=== PATIENT | female | born 2000 | race Caucasian/White ===

== ENCOUNTER 2023-07-28 08:21 | Outpatient (OUT) | payer OTHER, SELFPAY ==
[2023-07-28 08:48] LABS: Basophils Absolute Auto 0.1 10^3/uL (0.0-0.1); Basophils Percent Auto 0.5 % (0.2-2.0); Eosinophils Absolute Auto 0.2 10^3/uL (0.0-0.7); Eosinophils Percent Auto 1.8 % (0.9-7.0); Hematocrit 39.4 % (36.0-48.0); Hemoglobin 12.9 g/dL (12.0-16.0); Immature Granulocytes Abs Auto 0.04 10^3/uL (0.00-0.03); Immature Granulocytes Pct Auto 0.4 % (0.0-0.5); Lymphocytes Absolute Auto 3.1 10^3/uL (1.2-3.8); Lymphocytes Percent Auto 34.4 % (20.5-60.0); Mean Corpuscular HGB Conc 32.7 g/dL (29.9-35.2); Mean Corpuscular Hemoglobin 29.2 pg (26.7-34.0); Mean Corpuscular Volume 89.1 fL (81.0-99.0); Mean Platelet Volume 10.4 fL (9.5-13.5); Monocytes Absolute Auto 0.6 10^3/uL (0.3-0.8); Monocytes Percent Auto 6.4 % (1.7-12.0); Neutrophils Absolute Auto 5.2 10^3/uL (1.4-6.5); Neutrophils Percent Auto 56.5 % (43.0-75.0); Platelet Count 247 10^3/uL (150-450); Red Blood Count 4.42 10^6/uL (4.20-5.40); Red Cell Distribution Width 13.6 % (11.0-15.0); White Blood Count 9.1 10^3/uL (4.0-11.0)
[2023-07-28 09:01] LABS: Estimated Average Glucose 137 mg/dL; Glycohemoglobin A1C 6.4 % (4.5-6.2)
[2023-07-28 09:26] LABS: Alanine Aminotransferase 39 U/L (14-59); Albumin Level 4.1 g/dL (3.4-5.0); Alkaline Phosphatase 37 U/L (46-116); Anion Gap 16.1; Aspartate Amino Transferase 25 U/L (15-37); BUN Creatinine Ratio 23.6; Bilirubin Direct 0.1 mg/dL (0.0-0.2); Bilirubin Total 0.7 mg/dL (0.2-1.0); Calcium 9.4 mg/dL (8.5-10.1); Carbon Dioxide 24.2 mmol/L (21.0-32.0); Chloride 99 mmol/L (98-107); Chol HDL Ratio 9.2; Cholesterol 293 mg/dL (<=200); Estimated GFR (African America >60 (>=60); Estimated GFR (Non-African Ame >60 (>=60); Globulin 4.2 g/dL; Glucose 131 mg/dL (74-106); HDL Cholesterol 32 mg/dL (40-60); Potassium 4.3 mmol/L (3.5-5.1); Sodium 135 mmol/L (136-145); Thyroid Stimulating Hormone 3.481 uIU/mL (0.358-3.740); Total Protein 8.3 g/dL (6.4-8.2); Triglycerides 455 mg/dL (<=150)
[2023-07-28 09:52] LABS: LDL Cholesterol Direct 187 mg/dL
[2023-07-28 10:14] LABS: Free T4 0.82 ng/dL (0.76-1.46)
[2023-07-28 10:46] LABS: Bilirubin Urine NEGATIVE (NEGATIVE); Blood Urine NEGATIVE (NEGATIVE); Clarity Urine CLEAR (CLEAR); Color Urine LT. YELLOW (YELLOW); Glucose Urine UA 500 mg/dL (NEGATIVE); Ketones Urine NEGATIVE (NEGATIVE); Leukocyte Esterase Urine NEGATIVE (NEGATIVE); Nitrite Urine NEGATIVE (NEGATIVE); Protein Urine NEGATIVE (NEG/TRACE); Specific Gravity Urine 1.015 (1.005-1.025); Urobilinogen Urine 0.2 EU/dL (0.2-1.0); pH Urine 5.5 (5.0-9.0)
[2023-07-28 11:03] LABS: Microalbumin Urine Random <1.3 mg/dL (<=30.0)
[2023-07-28 11:27] LABS: Urine Microscopic Indicated NO
== END 2023-07-28 08:22 | disposition home or self-care (01) ==
PROVIDERS: PCP Nurse Practitioner; Visit Provider Nurse Practitioner
DX: E11.9 Type 2 diabetes mellitus without complications (principal); K21.9 Gastro-esophageal reflux disease without esophagitis; F41.1 Generalized anxiety disorder
CPT/HCPCS: 36415; 80053; 80061; 81003; 82043; 82248; 83036; 83721; 84439; 84443; 85025

== ENCOUNTER 2023-11-10 11:15 | Outpatient (OUT) | payer OTHER, SELFPAY ==
[2023-11-10 11:50] LABS: Alanine Aminotransferase 52 U/L (14-59); Aspartate Amino Transferase 22 U/L (15-37); Chol HDL Ratio 6.6; Cholesterol 210 mg/dL (<=200); HDL Cholesterol 32 mg/dL (40-60); Triglycerides 405 mg/dL (<=150)
[2023-11-10 12:05] LABS: LDL Cholesterol Direct 114 mg/dL
== END 2023-11-10 11:16 | disposition home or self-care (01) ==
LOC: LAB 11:16
PROVIDERS: PCP Nurse Practitioner; Visit Provider Nurse Practitioner
DX: E78.5 Hyperlipidemia, unspecified (principal)
CPT/HCPCS: 36415; 80061; 83721; 84450; 84460

== ENCOUNTER 2024-01-12 10:58 | Outpatient (OUT) | payer OTHER, SELFPAY ==
--- OUTSIDE RECORDS SUMMARY | 2024-01-12 11:02 | XMS_ITS | CCD ---
Author Organization [facility] Care Team Providers Care Brass Bobbin Winder Name Role Phone Demarco Cabral Attending Unavailable Demarco Cabral Attending Unavailable MARYAM, MAURY Admitting Unavailable MARYAM, MAURY Attending Unavailable RASHAWN, DR MIKALA Prasad Primary Care Unavailable TREVOR, DR ANGIE Obregon Consulting Unavailable MARYAM, MAURY Consulting Unavailable MARYAM, MAURY Admitting Unavailable MARYAM, MAURY Attending Unavailable LAMB, DR MIKALA Prasad Primary Care Unavailable TREVOR, DR ANGIE Obregon Consulting Unavailable MARYAM, MAURY Consulting Unavailable MARYAM, MAURY Admitting Unavailable MARYAM, MAURY Attending Unavailable RASHAWN, DR MIKALA Prasad Primary Care Unavailable TREVOR, DR ANGIE Obregon Consulting Unavailable MARYAM, MAURY Consulting Unavailable ZARIAANDER, KALEY Admitting Unavailable ELLIOTT, KALEY Attending Unavailable RASHAWN, DR MIKALA Prasad Primary Care Unavailable [place], DR LANCE Millard Consulting Unavailable ELLIOTT, KALEY Consulting Unavailable RASHAWN, DR MIAKLA Prasad Primary Care Unavailable HIGHLANDER, KALEY Admitting Unavailable HIGHLANDER, KALEY Attending Unavailable TREVOR, DR ANGIE Obregon Consulting Unavailable HIGHLANDER, KALEY Consulting Unavailable MARYAM, MAURY Admitting Unavailable MARYAM, MAURY Attending Unavailable RASHAWN, DR MIKALA Prasad Primary Care Unavailable TREVOR, DR ANGIE Obregon Consulting Unavailable MARYAM, MAURY Consulting Unavailable MD Mikala Lamb Primary Care Provider [phone] GARRETT Hagen Emergency Provider Mikala Lamb Unavailable Carlton Hagen Attending Unavailable Carlton Hagen Admitting Unavailable Mikala Lamb Primary Care Unavailable Allergies Allergy Classification Reported Allergen(s) Allergy Type Date of Onset Reaction(s) Facility (1 source) patient allergy list reviewed by nurse or physicia Propensity to adverse reactions 7 Comment:Done [employer] Other (1 source) Allergies Reconciled Propensity to adverse reactions Unknown [employer] Other Medications Current Medications Medication Drug Class(es) Dates Sig (Normalized) Sig (Original) escitalopram 10 mg oral tablet (4 sources) Serotonin Reuptake Inhibitor Start: 02-21-2023 take 1 tablet by mouth once daily Escitalopram Oxalate (Lexapro) 10 mg Tablet Active 10 MG PO Daily February 21, 2023 12:00am metFORMIN hydrochloride 1000 mg oral tablet (4 sources) Biguanide Start: 02-21-2023 take 1000 mg by mouth twice daily Metformin Active 1000 MG PO Twice daily February 21, 2023 12:00am tiZANidine 4 mg oral tablet (2 sources) Central alpha-2 Adrenergic Agonist take 1 tablet by mouth every eight hours tiZANidine HCl 4 MG 1 tablet as needed Orally Three times a day for 10 days Active Completed/Discontinued Medications Medication Drug Class(es) Dates Sig (Normalized) Sig (Original) azithromycin 250 mg oral tablet (3 sources) Macrolide Antimicrobial Start: 11-09-2022 Azithromycin 250 MG as directed Orally 2 tabs po today, then 1 tab daily x 4 more days for 5 Oct, Not-Taking ciprofloxacin 3 mg/ml ophthalmic solution (3 sources) Quinolone Antimicrobial Start: 11-09-2022 Ciprofloxacin HCl 0.3 % 1 application into the lower eyelid of affected eye Ophthalmic tid for 5 day(s) Oct, Not-Taking Problems Active Problems Problem Classification Problem Date Documented Da te Episodic/Chronic Acquired foot deformities (4 sources) Disorder of ankle; Translations: [Valgus deformity, not elsewhere classified, right ankle] Episodic Anxiety disorders (5 sources) Anxiety; Translations: [Anxiety disorder, unspecified] 02-21-2023 Chronic Diabetes mellitus without complication (1 source) Type 2 diabetes mellitus without complication; Translations: [Diabetes mellitus without mention of complication, type II or unspecified type, not stated as uncontrolled] Onset: 03-19-2019 Chronic Fever of unknown origin (1 source) Fever; Translations: [Fever, unspecified] Episodic Malaise and fatigue (2 sources) Fatigue; Translations: [Other fatigue] Onset: 03-13-2019 Episodic Mood disorders (1 source) Moderate recurrent major depression; Translations: [Major depressive disorder, recurrent, moderate] Onset: 10-19-2018 Chronic Other acquired deformities (1 source) Joint contracture of the ankle and/or foot; Translations: [Contracture, right ankle] Chronic Other bone disease and musculoskeletal deformities (1 source) Idiopathic scoliosis AND/OR kyphoscoliosis; Translations: [Scoliosis (and kyphoscoliosis), idiopathic] Onset: 08-21-2016 Chronic Other connective tissue disease (4 sources) Pain in right foot; Translations: [PAIN IN RIGHT FOOT] Onset: 10-06-2021 Episodic Other connective tissue disease (1 source) Tibialis tendinitis; Translations: [Posterior tibial tendinitis, right leg] Episodic Other connective tissue disease (1 source) Pain in right foot; Translations: [Pain in right foot] Episodic Other connective tissue disease (1 source) Tendon contracture; Translations: [Short Achilles tendon (acquired), right ankle] Episodic Other hereditary and degenerative nervous system conditions (1 source) Restless legs; Translations: [Restless legs syndrome [RLS]] Onset: 05-04-2017 Chronic Other inflammatory condition of skin (1 source) Itching of skin; Translations: [Pruritus, unspecified] Episodic Other upper respiratory disease (1 source) Allergic rhinitis; Translations: [Allergic rhinitis, unspecified] Onset: 05-04-2017 Chronic Other upper respiratory infections (1 source) Chronic sinusitis; Translations: [Chronic sinusitis, unspecified] Chronic Other upper respiratory infections (2 sources) Acute maxillary sinusitis, unspecified; Translations: [Acute sinusitis] Episodic Spondylosis; intervertebral disc disorders; other back problems (1 source) Radiculopathy, cervical region Episodic Sprains and strains (1 source) Late effect of sprain AND/OR strain without tendon injury; Translations: [Other sprain of right foot, sequela] Episodic Past or Other Problems Problem Classification Problem Date Documented Date Episodic/Chronic Diabetes mellitus without complication (1 source) Hyperglycemia; Translations: [Hyperglycemia, unspecified] Onset: 03-13-2019 Episodic Mood disorders (1 source) Mood disorders Nonspecific chest pain (3 sources) Atypical chest pain; Translations: [Other chest pain] Onset: 02-21-2023 02-21-2023 Episodic Other acquired deformities (1 source) Acquired deformity of ankle AND/OR foot; Translations: [Other acquired deformity of ankle and foot] Onset: 08-21-2016 Episodic Otitis media and related conditions (1 source) Non-suppurative otitis media; Translations: [Unspecified nonsuppurative otitis media, bilateral] Onset: 07-24-2017 Episodic Results Test Name Value Interpretation Reference Range Facility Activated partial thrombopla stin time (aPTT) in platelet poor plasma by coagulation aOrdered By: Carlton Hagen on 02-21-2023 aPTT Coag (PPP) [Time] 28.7 s 25.1-36.5 [facility] Automated basophil %Ordered By: Carlton Hagen on 02-21-2023 Basophils/100 WBC (Bld) 0.4 % Normal . [facility] Comment on above: Performed By: #### B MP, CK, DDIMER, CBC, PTT, PT, HS TROP #### [address] Automated basophil countOrde red By: Carlton Hagen on 02-21-2023 Basophils (Bld) [#/Vol] 0.0 10*3/uL Normal 0.0-0.2 [facility] Comment on above: Result Comment: PERF ORMED BY: [place] [address] PATHOLOGIST RESIDENT CARE COORDINATOR PAU MENON M.D. Performed By: #### B MP, CK, DDIMER, CBC, PTT, PT, HS TROP #### [address] Automated blood monocyte cou ntOrdered By: Carlton Hagen on 02-21-2023 Monocytes (Bld) [#/Vol] 0.3 10*3/uL Normal 0.0-0.8 [facility] Comment on above: Performed By: #### B MP, CK, DDIMER, CBC, PTT, PT, HS TROP #### [address] Automated eosinophil %Ordere d By: Carlton Hagen on 02-21-2023 Eosinophils/100 WBC (Bld) 0.4 % Normal . [facility] Comment on above: Performed By: #### B MP, CK, DDIMER, CBC, PTT, PT, HS TROP #### [address] Automated eosinophil countOr dered By: Carlton Hagen on 02-21-2023 Eosinophils (Bld) [#/Vol] 0.0 10*3/uL Normal 0.0-0.45 [facility] Comment on above: Performed By: #### B MP, CK, DDIMER, CBC, PTT, PT, HS TROP #### [address] Automated monocyte %Ordered By: Carlton Hagen on 02-21-2023 Monocytes/100 WBC (Bld) 4.4 % Normal . [facility] Comment on above: Performed By: #### B MP, CK, DDIMER, CBC, PTT, PT, HS TROP #### [address] Automated neutrophil %Ordere d By: Carlton Hagen on 02-21-2023 Neutrophils/100 WBC (Bld) 76.0 % Normal . [facility] Comment on above: Performed By: #### B MP, CK, DDIMER, CBC, PTT, PT, HS TROP #### [address] Basic Metabolic Panelon 050 Anion gap [Moles/Vol] 15.3 mmol/L High 6.0-15.0 [facility] Comment on above: Performed By: #### B MP, CK, DDIMER, CBC, PTT, PT, HS TROP #### [address] Calcium [Mass/Vol] 9.3 mg/dL Normal 8.6-10.3 [facility] Comment on above: Performed By: #### B MP, CK, DDIMER, CBC, PTT, PT, HS TROP #### [address] Chloride [Moles/Vol] 102 mmol/L Normal 98-107 [facility] Comment on above: Performed By: #### B MP, CK, DDIMER, CBC, PTT, PT, HS TROP #### [address] [place] [address] [place] CO2 [Moles/Vol] 23.6 mmol/L Normal 21.0-31.0 [facility] Comment on above: Performed By: #### B MP, CK, DDIMER, CBC, PTT, PT, HS TROP #### [facility] [address] Creatinine [Mass/Vol] 0.69 mg/dL Normal 0.60-1.20 [facility] Comment on above: Performed By: #### B MP, CK, DDIMER, CBC, PTT, PT, HS TROP #### [facility] [address] [place] [address] [place] Creatinine Clr Calc Pharmacy 147.50 [facility] Comment on above: Result Comment: PERF ORMED BY: [place] [address] PATHOLOGIST RESIDENT CARE COORDINATOR PAU MENON M.D. Performed By: #### B MP, CK, DDIMER, CBC, PTT, PT, HS TROP #### [facility] [address] GFR/1.73 sq M.predicted MDRD (S/P/Bld) [Vol rate/Area] mL/min/{1.73_m2} [facility] Comment on above: Performed By: #### B MP, CK, DDIMER, CBC, PTT, PT, HS TROP #### [facility] [address] Glucose [Mass/Vol] 145 mg/dL High 70-100 [facility] Comment on above: Result Comment: [place] Glucose Reference Range is dependent on time and content of last meal. Glucose of more than 200 mg/dL in a nonstressed, ambulatory subject supports the diagnosis of Diabetes Mellitus. ADA recommended reference range Performed By: #### B MP, CK, DDIMER, CBC, PTT, PT, HS TROP #### [facility] [address] Potassium [Moles/Vol] 3.9 mmol/L Normal 3.5-5.1 [facility] Comment on above: Performed By: #### B MP, CK, DDIMER, CBC, PTT, PT, HS TROP #### [facility] [address] Sodium [Moles/Vol] 137 mmol/L Normal 136-145 [facility] Comment on above: Performed By: #### B MP, CK, DDIMER, CBC, PTT, PT, HS TROP #### [facility] [address] Urea nitrogen [Mass/Vol] 15 mg/dL Normal 7-25 [facility] Comment on above: Performed By: #### B MP, CK, DDIMER, CBC, PTT, PT, HS TROP #### [facility] [address] Calcium [Mass/volume] in Ser um or PlasmaOrdered By: Carlton Hagen on 02-21-2023 Calcium [Mass/Vol] 9.3 mg/dL 8.6-10.3 [facility] Carbon dioxide, total [Moles /volume] in Serum or PlasmaOrdered By: Carlton Hagen on 02-21-2023 CO2 [Moles/Vol] 23.6 mmol/L 21.0-31.0 [facility] Chloride [Moles/volume] in S jacqueline or PlasmaOrdered By: Carlton Hagen on 02-21-2023 Chloride [Moles/Vol] 102 mmol/L 98-107 [facility] Complete Blood Count Auto Di ffon 02-21-2023 Mean Corpuscular HGB Conc 32.8 g/dL Normal 32.0-35.0 [facility] Comment on above: Performed By: #### B MP, CK, DDIMER, CBC, PTT, PT, HS TROP #### [facility] [address] NRBC% 0.2 /100{WBC} Normal 0-0.5 [facility] Comment on above: Performed By: #### B MP, CK, DDIMER, CBC, PTT, PT, HS TROP #### [facility] [address] [place] [address] [place] Creatine Kinaseon 02-21-2023 CK [Catalytic activity/Vol] 61 U/L Normal 30-223 [facility] Comment on above: Performed By: #### B MP, CK, DDIMER, CBC, PTT, PT, HS TROP #### [facility] [address] [place], [place] [id number] [facility] Creatine kinase [Enzymatic a ctivity/volume] in Serum or PlasmaOrdered By: Carlton Hagen on 02-21-2023 CK [Catalytic activity/Vol] 61 U/L 223 [facility] Creatinine [Mass/volume] in Serum or PlasmaOrdered By: Carlton Hagen on 02-21-2023 Creatinine [Mass/Vol] 0.69 mg/dL 0.60-1.20 [facility] D-Dimer High Sensitivityon 0 02-21-2023 D-Dimer High Sensitivity < 200 Normal 0-243 [facility] Comment on above: Result Comment: The reference range for D-dimer is <243 ng/mL D-dimer units. D-dimer results must be used in conjunction with a clinical pretest probability (PTP) assessment model for deep vein thrombosis (DVT) and pulmonary embolism (PE). Results <230 ng/mL d-dimer units can be used as a negative predictor in patients with low or moderate probability for DVT/PE. Results above the exclusion threshold of 230 ng/ml D-dimer units for DVT/PE may indicate the need for further diagnostic testing. D-Dimer can be increased in hospitalized patients due to co-morbid conditions. PERFORMED BY: [place] [address] PATHOLOGIST RESIDENT CARE COORDINATOR PAU MENON M.D. Performed By: #### B MP, CK, DDIMER, CBC, PTT, PT, HS TROP #### [facility] [address] [place], [place] [id number] [facility] ECG 12 lead ECGon 02-21-2023 ECG 12 lead ECG [facility] [place] [address] [place] [address] Electrocardiograph Report Signed Patient: Jase Loja MR#: [id number] : 2000 Acct:[id number] Age/Sex: 23 / F ADM Date: 02/21/23 Loc: ER Room: Type: [facility] ER Attending Dr: Ordering Provider: Carlton Hagen APRN Date of Service: 02/21/2301/11/914 ECG/ECG 12 lead ECG: Chest Pain Copies to: Test Reason : Blood Pressure : / mmHG Vent. Rate : 116 BPM Atrial Rate : 116 BPM P-R Int : 160 ms QRS Dur : 088 ms QT Int : 326 ms P-R-T Axes : 046 077 021 degrees QTc Int : 453 ms Sinus tachycardia Cannot rule out Anterior infarct , age undetermined Abnormal ECG No previous ECGs available Confirmed by DEMARCO LICONA MD ([id number]) on 02/21/2023 3:27:45 PM Referred By: Electronically Signed By:DEMARCO LICONA MD Transcribed By: MUS Signed By Demarco Licona MD 02/21/23 1527 Normal [facility] Erythrocyte distribution wid th [Ratio] by Automated countOrdered By: Carlton Hagen on 02-21-2023 Erythrocyte distribution width (RBC) [Ratio] 13.6 % Normal 11.9-15.3 [facility] Comment on above: Performed By: #### B MP, CK, DDIMER, CBC, PTT, PT, HS TROP #### [facility] [address] [place] [address] [place] Erythrocytes [#/volume] in B lood by Automated countOrdered By: Carlton Hagen on 02-21-2023 RBC (Bld) [#/Vol] 4.54 10*6/uL Normal 3.60-5.00 [facility] Comment on above: Performed By: #### B MP, CK, DDIMER, CBC, PTT, PT, HS TROP #### [facility] [address] [place] [id number] [place] Glucose [Mass/volume] in Ser um or PlasmaOrdered By: Carlton Hagen on 02-21-2023 Glucose [Mass/Vol] 145 mg/dL 70-100 [facility] Comment on above: ADA recommended refe rence rangeRandom Glucose Reference Range is dependent on time and content of last meal. Glucose of more than 200 mg/dL in a nonstressed, ambulatory subject supports the diagnosis of Diabetes Mellitus. Hematocrit [Volume Fraction] of Blood by Automated countOrdered By: Carlton Hagen on 02-21-2023 Hematocrit (Bld) [Volume fraction] 38.7 % Normal 34.0-46.4 [facility] Comment on above: Performed By: #### B MP, CK, DDIMER, CBC, PTT, PT, HS TROP #### [address] Hemoglobin [Mass/volume] in BloodOrdered By: Carlton Hagen on 02-21-2023 Hemoglobin (Bld) [Mass/Vol] 12.7 g/dL Normal 11.8-15.4 [facility] Comment on above: Performed By: #### B MP, CK, DDIMER, CBC, PTT, PT, HS TROP #### [address] Laboratory - CoagulationOrde red By: Carlton Hagen on 02-21-2023 PT Coag (PPP) [Time] 11.9 s 9.0-12.9 [facility] Leukocytes [#/volume] correc radha for nucleated erythrocytes in Blood by Automated counOrdered By: Carlton Hagen on 02-21-2023 WBC corrected for nucl RBC Auto (Bld) [#/Vol] 7.1 10*3/uL 3.8-11.6 [facility] Leukocytes [#/volume] in Blo od by Automated countOrdered By: Carlton Hagen on 02-21-2023 WBC (Bld) [#/Vol] 7.1 10*3/uL Normal 3.8-11.6 [facility] Comment on above: Performed By: #### B MP, CK, DDIMER, CBC, PTT, PT, HS TROP #### [address] Lymphocytes [#/volume] in Bl ood by Automated countOrdered By: Carlton Hagen on 02-21-2023 Lymphocytes (Bld) [#/Vol] 1.3 10*3/uL Normal 1.00-4.8 [facility] Comment on above: Performed By: #### B MP, CK, DDIMER, CBC, PTT, PT, HS TROP #### [address] Lymphocytes/100 leukocytes i n Blood by Automated countOrdered By: Carlton Hagen on 02-21-2023 Lymphocytes/100 WBC (Bld) 18.8 % Normal . [facility] Comment on above: Performed By: #### B MP, CK, DDIMER, CBC, PTT, PT, HS TROP #### [address] MCH [Entitic mass] by Automa radha countOrdered By: Carlton Hagen on 02-21-2023 MCH (RBC) [Entitic mass] 28.0 pg Normal 24.7-34.3 [facility] Comment on above: Performed By: #### B MP, CK, DDIMER, CBC, PTT, PT, HS TROP #### [address] MCHC Auto (RBC) [Mass/Vol]Or dered By: Carlton Hagen on 02-21-2023 MCHC (RBC) [Mass/Vol] 32.8 g/dL 32.0-35.0 [facility] MCV [Entitic volume] by Auto mated countOrdered By: Carlton Hagen on 02-21-2023 MCV (RBC) [Entitic vol] 85.3 fL Normal 80-100 [facility] Comment on above: Performed By: #### B MP, CK, DDIMER, CBC, PTT, PT, HS TROP #### [address] Neutrophils [#/volume] in Bl ood by Automated countOrdered By: Carlton Hagen on 02-21-2023 Neutrophils (Bld) [#/Vol] 5.4 10*3/uL Normal 1.8-7.7 [facility] Comment on above: Performed By: #### B MP, CK, DDIMER, CBC, PTT, PT, HS TROP #### [address] No Panel InformationOrdered By: Carlton Hagen on 02-21-2023 D-Dimer Quantitative (PE/DVT) < 200 ng/mL 0-243 [facility] Comment on above: The reference range for D-dimer is <243 ng/mL D-dimer units.D-dimer results must be used in conjunction with a clinicalpretest probability (PTP) assessment model for deep veinthrombosis (DVT) and pulmonary embolism (PE). Results <230ng/mL d-dimer units can be used as a negative predictor inpatients with low or moderate probability for DVT/PE.Results above the exclusion threshold of 230 ng/ml D-dimerunits for DVT/PE may indicate the need for furtherdiagnostic testing.D-Dimer can be increased in hospitalized patients due toco-morbid conditions. Estimated GFR (CKD-EPI) > 60.0 mL/Min [facility] Creatinine Clearance (Chem 147.50 [facility] Nucleated erythrocytes [Pres ence] in Blood by Automated countOrdered By: Carlton Hagen on 02-21-2023 Nucleated RBC Auto Ql (Bld) 0.2 /100{WBC} 0-0.5 [facility] Partial Thromboplastin Timeo n 02-21-2023 aPTT Coag (Bld) [Time] 28.7 s Normal 25.1-36.5 [facility] Comment on above: Performed By: #### B MP, CK, DDIMER, CBC, PTT, PT, HS TROP #### [facility] [address] Platelet mean volume [Entiti c volume] in Blood by Automated countOrdered By: Carlton Hagen on 02-21-2023 Platelet mean volume (Bld) [Entitic vol] 8.8 fL Normal 6.3-10.7 [facility] Comment on above: Performed By: #### B MP, CK, DDIMER, CBC, PTT, PT, HS TROP #### [facility] [address] Platelet poor plasma interna tional normalized ratio (INR) by coagulation assay (relatOrdered By: Carlton Hagen on 02-21-2023 INR Coag (PPP) [Relative time] 1.0 {INR} [facility] Comment on above: INR Therapeutic Rang e A) Pre- and Peroperative OAT started two weeks before surgery. NOT HIP SURGERY: 1.5 - 2.5 HIP SURGERY: 2 - 3B) Primary and secondary prevention of venous THROMBOSIS: 2 - 3C) Active venous thrombosis, pulmonary embolismand prevention of recurrent venous thrombosis: 2 - 3D) Prevention of arterial thromboembolismincluding patients with mechanical heart valves: 3 - 4.5 Platelets [#/volume] in Bloo d by Automated countOrdered By: Carlton Hagen on 02-21-2023 Platelets (Bld) [#/Vol] 222 10*3/uL Normal 150-450 [facility] Comment on above: Performed By: #### B MP, CK, DDIMER, CBC, PTT, PT, HS TROP #### [facility] [address] Potassium [Moles/volume] in Serum or PlasmaOrdered By: Carlton Hagen on 02-21-2023 Potassium [Moles/Vol] 3.9 mmol/L 3.5-5.1 [facility] Prothrombin Time INRon 02-21 INR Coag (PPP) [Relative time] 1.0 {INR} Normal [facility] Comment on above: Result Comment: INR Therapeutic Range A) Pre- and Peroperative OAT started two weeks before surgery. NOT HIP SURGERY: 1.5 - 2.5 HIP SURGERY: 2 - 3 B) Primary and secondary prevention of venous THROMBOSIS: 2 - 3 C) Active venous thrombosis, pulmonary embolism and prevention of recurrent venous thrombosis: 2 - 3 D) Prevention of arterial thromboembolism including patients with mechanical heart valves: 3 - 4.5 Performed By: #### B MP, CK, DDIMER, CBC, PTT, PT, HS TROP #### [facility] [address] PT Coag (PPP) [Time] 11.9 s Normal 9.0-12.9 [facility] Comment on above: Performed By: #### B MP, CK, DDIMER, CBC, PTT, PT, HS TROP #### [facility] [address] Serum or plasma anion gap de terminationOrdered By: Carlton Hagen on 02-21-2023 Anion gap [Moles/Vol] 15.3 mmol/L 6.0-15.0 [facility] Sodium [Moles/volume] in Ser um or PlasmaOrdered By: Carlton Hagen on 02-21-2023 Sodium [Moles/Vol] 137 mmol/L 136-145 [facility] Troponin I High Sensitivityo n 02-21-2023 Troponin I High Sensitivity 2.6 pg/mL Normal 0.0-15.0 [facility] Comment on above: Result Comment: PERF ORMED BY: [place] [address] PATHOLOGIST RESIDENT CARE COORDINATOR PAU MENON M.D. Performed By: #### B MP, CK, DDIMER, CBC, PTT, PT, HS TROP #### [address] Troponin I.cardiac [Mass/vol ume] in Serum or Plasma by Detection limit <= 0.01 ng/Ordered By: Carlton Hagen on 02-21-2023 Troponin I.cardiac DL <= 0.01 ng/mL [Mass/Vol] 2.6 pg/mL 0.0-15.0 [facility] Urea nitrogen [Mass/volume] in Serum or PlasmaOrdered By: Carlton Hagen on 02-21-2023 Urea nitrogen [Mass/Vol] 15 mg/dL 7-25 [facility] XR chest 2V*on 02-21-2023 XR chest 2V* [place] [address] XRay Report Signed Patient: Jase Loja MR#: [id number] : 2000 Acct:[id number] Age/Sex: 23 / F ADM Date: 02/21/23 Loc: ER Room: Type: [facility] ER Attending Dr: Copies to: Carlton Hagen APRN Ordering Provider: Carlton Hagen APRN Date of Service: 02/21/23 XR/XR chest 2V*: Chest Pain PA AND LATERAL CHEST: CLINICAL HISTORY: Chest pain and pain and tingling at the left arm. Abdominal pain while eating. COMPARISON: None There is no focal parenchymal consolidation, effusion or pneumothorax. The cardiac, hilar and mediastinal silhouettes are within normal limits. There is no vascular congestion. The visualized bony thorax is intact. XR/XR chest 2V* IMPRESSION: NO ACUTE CARDIOPULMONARY ABNORMALITY. Impression dictated by: Francie Lobato M.D.02/21/2023 10:26 AM Dictation Location: [place] [address] Transcribed By: [facility] 02/21/23 1026 Dictated By: Francie Lobato MD 02/21/23 1025 Signed By: 02/21/23 1026 [facility] [place] Vital Signs Date Time Vital Sign Value Performing Clinician Facility 04-10-2023 13:45-0400 Body height 167.64 cm Mikala Lamb Other [employer] Other 04-10-2023 13:45-0400 Body mass index (BMI) [Ratio] 34.38 kg/m2 Mikala Lamb Other [employer] Other 04-10-2023 13:45-0400 Body weight 96.62 kg Mikala Lamb Other [employer] Other 04-10-2023 13:45-0400 Diastolic blood pressure 94 mm[Hg] Mikala Lamb Other [employer] Other 04-10-2023 13:45-0400 Systolic blood pressure 164 mm[Hg] Mikala Lamb Other [employer] Other 02-26-2023 15:30-0400 Body height 167.64 cm Mikala Lamb Other [employer] Other 02-26-2023 15:30-0400 Body mass index (BMI) [Ratio] 33.08 kg/m2 Mikala Lamb Other [employer] Other 02-26-2023 15:30-0400 Body weight 92.99 kg Mikala Lamb Other [facility] [employer] Other 02-26-2023 15:30-0400 Diastolic blood pressure 74 mm[Hg] Mikala Lamb Other [facility] [employer] Other 02-26-2023 15:30-0400 SaO2% (BldA) [Mass fraction] 99 % Mikala Lamb Other [facility] [employer] Other 02-26-2023 15:30-0400 Systolic blood pressure 126 mm[Hg] Mikala Lamb Other [facility] [employer] Other 02-21-2023 10:04-0400 Diastolic blood pressure 100 mm[Hg] MD Mikala Lamb Work Phone: [facility] 02-21-2023 10:04-0400 Heart rate 105 /min MD Mikala Lamb Work Phone: [facility] 02-21-2023 10:04-0400 Respiratory rate 18 /min MD Mikala Lamb Work Phone: [facility] 02-21-2023 10:04-0400 SaO2% (BldA) [Mass fraction] 100 % MD Mikala Lamb Work Phone: [facility] 02-21-2023 10:04-0400 Systolic blood pressure 163 mm[Hg] MD Mikala Lamb Work Phone: [facility] 02-21-2023 09:04-0400 Body height 167.64 cm MD Mikala Lamb Work Phone: [facility] 02-21-2023 09:04-0400 Body temperature 99.3 [degF] MD Mikala Lamb Work Phone: [facility] 02-21-2023 09:04-0400 Body weight 95.25 kg MD Mikala Lamb Work Phone: [facility] Encounters Encounter Date Encounter Type Care Provider Facility Start: 06-18-2023 End: 06-18-2023 ambulatory Mikala Lamb Other [employer] Other Start: 06-18-2023 Telephone encounter Mikala Lamb [facility] Start: 04-10-2023 End: 04-10-2023 ambulatory Mikala Lamb Other [employer] Other Start: 04-10-2023 Office outpatient vi sit 15 minutes Mikala Lamb [facility] Start: 02-26-2023 End: 02-26-2023 ambulatory Mikala Lamb Other [employer] Other Start: 02-26-2023 Office outpatient vi sit 15 minutes Mikala Lamb [facility] Start: 02-21-2023 End: 02-21-2023 Emergency department patient visit Carlton Hagen Facility:[facility] Start: 02-21-2023 End: 02-21-2023 Emergency department patient visit MD Mikala Lamb Work Phone: [facility] Work Phone: Start: 02-22-2022 Adult health examination Mikala Lamb Other [employer] Other Start: 10-06-2021 End: 10-07-2021 ambulatory KALEY LUEVANO Facility:[facility] Start: 06-01-2021 End: 06-02-2021 ambulatory MAURY MARYAM Facility:[facility] Start: 03-02-2021 End: 03-03-2021 ambulatory MAURY MARYAM Facility:[facility] Start: 01-26-2021 End: 01-27-2021 ambulatory MAURY FRANCISCO Facility:[facility] Start: 01-05-2021 End: 01-06-2021 ambulatory MAURY FRANCISCO Facility:[facility] Start: 12-23-2020 End: 12-24-[address] MIKALA LAMB Facility:[facility] Start: 11-05-2018 End: 11-06-2018 Patient encounter procedure Demarco Cesarcaitlyn Facility:CD:[id number] Procedures Date Procedure Procedure Detail Performing Clinician Start: 05-03-2023 Plain chest X-ray MD Miguel Lamb Work Phone: Start: 08-21-2016 Laboratory test resu lt abnormal Mikala Lamb Other Start: 08-21-2016 Pre-surgery evaluation Mikala Lamb Other Viral screening Mikala Lamb Other Plan of Treatment Date Care Activity Detail Author Patient Education Chest Pain Jorge Luis t Is Not Caused by the Heart (DC) Anxiety, Adult (DC) [facility] Work Phone: Patient referral [facility] Work Phone: Payers Date Payer Category Payer Self-pay 2023 Unknown [id number] 2000 Unknown [id number] 2.16.84 [id number] 2000 Unknown [id number] 2.16.84 [id number] 2000 Unknown [id number] 2.16.84 [id number] 2000 Unknown [id number] 2.16.84 [id number] 2000 Unknown [id number] 2.16.84 [id number] 2000 Unknown [id number] 2.16.84 [id number] 1959 Private Health Insurance EB [id number] Unknown [id number] 2.16.8 [id number] Social History Date Type Detail Facility Start: 02-21-2023 Tobacco smoking status NHIS Never smoked tobacco (finding) [facility] Start: 2000 Sex Assigned At Female F [facility] Sex Assigned At Sex Assigned At Bir th [place] [employer] Other Clinical Notes 12-23-2020 to 04-10-2023 Note Date & Type Note Facility 04-10-2023 Evaluation note Encounter Date Diagnosis Assessment Notes Mar, Anxiety disorder, unspecified (ICD-10 - F41.9) Discussed meds and counseling Mar, Depression, unspecified (ICD-10 - F32.A) as above Mar, Musculoskeletal chest pain (ICD-10 - R07.89) suggested chiropractor, PT and muscle relaxers as able [employer] Other 05-08-2023 Evaluation note* Encounter Date Diagnosis Assessment Notes Treatment Notes Treatment Clinical Notes February, Left cervical radiculopathy (ICD-10 - M54.12) Recommended OTC NSAIDS, muscle rub and stretching. February, Acute non-recurrent maxillary sinusitis (ICD-10 - J01.00) Sinus infections can be triggered by a secondary infection from a viral URI or even seasonal allergies. Take medications as directed. Use saline nasal spray prior to presciption nasal spray. Take medications as directed, and complete all doses of medication even if you start to feel better. Patient advised to follow up with PCP if symptoms persist or worsen. Patient verbalized understanding and agreement with treatment plan. [employer] Other 12-16-2021 NotePROCEDURE: XR FOOT RT MIN 3 VIEWS COMPARISON: 06/01/2021 HISTORY: Pain in right foot FINDINGS: BONES:No acute fracture or dislocation. Stable osteotomy anterior posterior calcaneus and medial cuneiform with progression of bony healing. Moderate enthesopathic spurring of the calcaneus at the Achilles insertion. Mild permeative pattern of the bones, improved from the prior exam SOFT TISSUES:Negative. No visible soft tissue swelling. EFFUSION:None visible. OTHER: Negative. IMPRESSION: Stable postsurgical changes with interval improvement of osteopenia Electronically authenticated by: LANCE VASQUEZ Date: 2021-10-06 10:52[facility]08-11-2021 NotePROCEDURE: XR FOOT RT MIN 3 VIEWS HISTORY: Pain ; medial and hindfoot pain COMPARISON: XR foot right 03/02/2021 FINDINGS: BONES:Prior anterior posterior calcaneal osteotomy increasing density at the osteotomy lines consistent with ongoing bone healing. Similar surgical changes of the medial cuneiform. Stable alignment. No fracture, dislocation, or bone lesion. SOFT TISSUES:No visible soft tissue swelling. EFFUSION:None visible. OTHER: Negative. IMPRESSION: 1. Stable surgical changes without evidence of failure. 2. No acute findings or significant degenerative changes. Electronically authenticated by: ANGIE MURRAY Date: 2021-06-01 13:56[facility] [id number] NotePROCEDURE: XR FOOT RT MIN 3 VIEWS HISTORY: Pain in right foot COMPARISON: XR foot right 01/26/2021 FINDINGS: BONES:Prior anterior and posterior calcaneal osteotomy. Spacer placement within the anterior calcaneus. Prior medial cuneiform osteotomy with wedge placement. Mild degenerative changes the first metatarsophalangeal joint. SOFT TISSUES:No visible soft tissue swelling. EFFUSION:None visible. OTHER: Negative. IMPRESSION: 1. Stable surgical changes without evidence of ongoing bone healing. Electronically authenticated by: ANGIE MURRAY Date: 2021-03-02 10:34[facility] [id number] NotePROCEDURE: XR FOOT RT MIN 3 VIEWS HISTORY: Pain in right foot COMPARISON: XR foot right 01/05/2021 FINDINGS: BONES:Prior anterior and posterior calcaneal osteotomy. Osteotomy and wedge placement within the medial cuneiform. SOFT TISSUES:No visible soft tissue swelling. EFFUSION:None visible. OTHER: Negative. IMPRESSION: 1. Stable surgical changes with findings suggestive of early bone healing process. No appreciable change in alignment. Electronically authenticated by: ANGIE MURRAY Date: 2021-01-26 15:44[facility] [id number] NotePROCEDURE: XR FOOT RT MIN 3 VIEWS HISTORY: Pain in right foot COMPARISON: XR foot right 12/23/2020 FINDINGS: BONES:Prior calcaneal osteotomy and repair. Osteotomy and wedge placement within the medial cuneiform. No acute bone abnormality. SOFT TISSUES:Skin harris have been removed. Mild soft tissue swelling surrounding the ankle. EFFUSION:None visible. OTHER: Negative. IMPRESSION: 1. Stable surgical findings without appreciable change in alignment. Electronically authenticated by: ANGIE MURRAY Date: 2021-01-05 12:43[facility] [id number] NotePROCEDURE: XR FOOT RT MIN 3 VIEWS HISTORY: Pain in right foot COMPARISON: XR foot right 12/06/2020 FINDINGS: BONES:Prior calcaneal osteotomy and realignment. Osteotomy and wedge placement within the medial cuneiform. No fracture, dislocation, or change in alignment. SOFT TISSUES:Skin harris medial and lateral to the proximal foot and ankle. Cast material has been removed. EFFUSION:None visible. OTHER: Negative. IMPRESSION: 1. Stable surgical changes. Electronically authenticated by: ANGIE MURRAY Date: 2020-12-23 14:48[facility] HospitalEvaluation noteNo assessment information availableC[facility] Work Phone: Evaluation noteNo InformationNortHaven [facility] [employer] Other History general Narrative - Reported* Type Description Date Surgical History Problem Title : past surgical history reviewed, Problem Description : past surgical history reviewed, Problem Comment : reviewed - no changes required, Problem Status : Active, Surgical History Problem Title : R fo ot surgery - Dr. Luevano, Problem Status : Active, Surgical History Problem Title : surg ical procedures, hx of, Problem Description : surgical procedures, hx of, Problem Comment : L foot surgery 2015, Problem Status : Active, [facility] [employer] Other Summary Purpose Family History No Family History Records FoundNo Family History Records FoundNo Family History Records Found Advance Directives Advance Directive Response Recorded Date/ Time Advance Directives No February 21, 2023 9:15am Chief Complaint and Reason for Visit Chief Complaint Chest pain Additional Source Comments INFORMATION SOURCE (unrecogn ized section and content) DATE CREATED AUTHOR 11/11/2018 [facility] DATE CREATED AUTHOR AUTHOR'S ORGANIZ ATION 12/09/2021 [facility] DATE CREATED AUTHOR AUTHOR'S ORGANIZ ATION 06/04/2023 [facility] Care Teams (unrecognized sec tion and content) Team Status: Active Member Role Status Dates Mikala Lamb MD Primary Care Provider Active Team Status: Inactive Member Role Status Dates Mikala Lamb MD Primary Care Provider Active Carlton Hagen APRN Emergency Provider Active Goals (unrecognized section and content) Goals may be documented in a n alternate sectionNo InformationNo InformationNo Information REASON FOR VISIT (unrecogniz ed section and content) [facility] - chest painAnxiety/S tressrefill FOR RECORDS PERTAINING TO PATIENTS WHO ARE OR HAVE BEEN ENROLLED IN A CHEMICAL DEPENDENCY/SUBSTANCEABUSE PROGRAM, SOME INFORMATION MAY BE OMITTED. This clinical summary was aggregated from multiple sources. Caution should be exercised in using it in the provision of clinical care. This summary normalizes information from multiple sources, and as a consequence, information in this document may materially change the coding, format and clinical context of patient data. In addition, data may be omitted in some cases. CLINICAL DECISIONS SHOULD BE BASED ON THE PRIMARY CLINICAL RECORDS. [facility] [employer] [facility]. provides no warranty or guarantee of the accuracy or completeness of information in this document.
[2024-01-12 11:38] LABS: Estimated Average Glucose 148 mg/dL; Glycohemoglobin A1C 6.8 % (4.5-6.2)
[2024-01-12 11:40] LABS: Alanine Aminotransferase 56 U/L (14-59); Albumin Level 3.9 g/dL (3.4-5.0); Alkaline Phosphatase 45 U/L (46-116); Anion Gap 15.3; Aspartate Amino Transferase 27 U/L (15-37); BUN Creatinine Ratio 20.6; Bilirubin Total 0.5 mg/dL (0.2-1.0); Calcium 8.9 mg/dL (8.5-10.1); Carbon Dioxide 27.8 mmol/L (21.0-32.0); Chloride 98 mmol/L (98-107); Chol HDL Ratio 5.4; Cholesterol 193 mg/dL (<=200); Estimated GFR (African America >60 (>=60); Estimated GFR (Non-African Ame >60 (>=60); Globulin 3.9 g/dL; Glucose 132 mg/dL (74-106); HDL Cholesterol 36 mg/dL (40-60); Potassium 4.1 mmol/L (3.5-5.1); Sodium 137 mmol/L (136-145); Total Protein 7.8 g/dL (6.4-8.2); Triglycerides 314 mg/dL (<=150); VLDL CHOLESTEROL 62.8 mg/dL
== END 2024-01-12 10:59 | disposition home or self-care (01) ==
PROVIDERS: PCP Nurse Practitioner; Visit Provider Nurse Practitioner
DX: E78.2 Mixed hyperlipidemia (principal); E11.9 Type 2 diabetes mellitus without complications
CPT/HCPCS: 36415; 80053; 80061; 83036

== ENCOUNTER 2024-05-31 10:53 | Outpatient (OUT) | payer OTHER, SELFPAY ==
--- OUTSIDE RECORDS SUMMARY | 2024-05-31 10:57 | XMS_ITS | CCD ---
Author Organization [facility] Care Team Providers Care Seat Pack Inspector Name Role Phone Demarco Cabral Attending Unavailable [...] [employer] Consulting Unavailable MARYAM, MAURY Consulting Unavailable ELLIOTT, KALEY Admitting Unavailable ELLIOTT, KALEY Attending Unavailable RASHAWN, DR MIKALA Prasad Primary Care Unavailable NORCO, DR LANCE Millard Consulting Unavailable ELLIOTT, KALEY Consulting Unavailable LAMB, DR MIKALA Prasad Primary Care Unavailable HIGHLANDER, PETER Admitting Unavailable HIGHLANDER, KALEY Attending Unavailable TREVOR, DR ANGIE [employer] Consulting Unavailable ELLIOTT, KALEY Consulting Unavailable MARYAM, MAURY Admitting Unavailable MARYAM, MAURY Attending Unavailable RASHAWN, DR MIKALA Prasad Primary Care Unavailable TREVOR, DR ANGIE [employer] Consult[employer] Unavailable MARYAM, MAURY Consulting Unavailable MD Mikala Lamb Primary Care Provider GARRETT Hagen Emergency Provider Mikala Lamb Unavailable Carlton Hagen Attending Unavailable Carlton Hagen Admitting Unavailable Mikala Lamb Primary Care Unavailable Allergies Allergy Classification Reported Allergen(s) Allergy Type Date of Onset Reaction(s) Facility (1 source) patient allergy list reviewed by nurse or physicia Propensity to adverse reactions 7 Comment:Done [facility] Other (1 source) Allergies Reconciled Propensity to adverse reactions Unknown [facility] Other Medications Current Medications Medication Drug Class(es) [...] Translations: [Major depressive disorder, recurrent, moderate] Onset: 08-09-2018 Chronic Other acquired deformities (1 source) Joint [...] acquired deformity of ankle and foot] Onset: 10-31-2016 Episodic Otitis media and related conditions (1 source) Non-suppurative otitis media; Translations: [Unspecified nonsuppurative otitis media, bilateral] Onset: 07-24-2017 Episodic Results Test Name Value Interpretation Reference Range Facility Activated partial thrombopla stin time (aPTT) in platelet poor plasma by coagulation aOrdered By: Carlton Hagen on 02-21-2023 aPTT Coag (PPP) [Time] 28.7 s 25.1-36.5 [facility] Automated basophil %Ordered By: Carlton Hagen on 02-21-2023 Basophils/100 WBC (Bld) 0.4 % Normal . [facility] Comment on above: Performed By: #### B MP, CK, DDIMER, CBC, PTT, PT, HS TROP #### [address] Automated basophil countOrde red By: Carlton Hagen on 02-21-2023 Basophils (Bld) [#/Vol] 0.0 10*3/uL Normal 0.0-0.2 [facility] Comment on above: Result Comment: PERF ORMED BY: [place] [address] PATHOLOGIST VEHICLE CHECK IN CLERK PAU MENON M.D. Performed By: #### B MP, CK, DDIMER, CBC, PTT, PT, HS TROP #### [address] Automated blood monocyte cou ntOrdered By: Carlton Hagen on 02-21-2023 Monocytes (Bld) [#/Vol] 0.3 10*3/uL Normal 0.0-0.8 [facility] Comment on above: Performed By: #### B MP, CK, DDIMER, CBC, PTT, PT, HS TROP #### [address] Automated eosinophil %Ordere d By: Carlton Hagen on 02-21-2023 Eosinophils/100 WBC (Bld) 0.4 % Normal . [facility] Comment on above: Performed By: #### B MP, CK, DDIMER, CBC, PTT, PT, HS TROP #### [facility] [address] Automated eosinophil countOr dered By: Carlton Hagen on 02-21-2023 Eosinophils (Bld) [#/Vol] 0.0 10*3/uL Normal 0.0-0.45 [facility] Comment on above: Performed By: #### B MP, CK, DDIMER, CBC, PTT, PT, HS TROP #### [address] Automated monocyte %Ordered By: Carlton Hagen on 02-21-2023 Monocytes/100 WBC (Bld) 4.4 % Normal . [facility] Comment on above: Performed By: #### B MP, CK, DDIMER, CBC, PTT, PT, HS TROP #### [address] Automated neutrophil %Ordere d By: Carlton Hagen on 02-21-2023 Neutrophils/100 WBC (Bld) 76.0 % Normal . [facility] Comment on above: Performed By: #### B MP, CK, DDIMER, CBC, PTT, PT, HS TROP #### [address] Basic Metabolic Panelon 05 Anion gap [Moles/Vol] 15.3 mmol/L High 6.0-15.0 [facility] Comment on above: Performed By: #### B MP, CK, DDIMER, CBC, PTT, PT, HS TROP #### [address] Calcium [Mass/Vol] 9.3 mg/dL Normal 8.6-10.3 [facility] Comment on above: Performed By: #### B MP, CK, DDIMER, CBC, PTT, PT, HS TROP #### [address] Chloride [Moles/Vol] 102 mmol/L Normal 98-107 [facility] Comment on above: Performed By: #### B MP, CK, DDIMER, CBC, PTT, PT, HS TROP #### [facility] [address] CO2 [Moles/Vol] 23.6 mmol/L Normal 21.0-31.0 [facility] Comment on above: Performed By: #### B MP, CK, DDIMER, CBC, PTT, PT, HS TROP #### [facility] [address] [place] [id number] [facility] Creatinine [Mass/Vol] 0.69 mg/dL Normal 0.60-1.20 [facility] Comment on above: Performed By: #### B MP, CK, DDIMER, CBC, PTT, PT, HS TROP #### [facility] [address] [place] [address] [place] Creatinine Clr Calc Pharmacy 147.50 [facility] Comment on above: Result Comment: PERF ORMED BY: [place] [address] PATHOLOGIST VEHICLE CHECK IN CLERK PAU MENON M.D. Performed By: #### B MP, CK, DDIMER, CBC, PTT, PT, HS TROP #### [facility] [address] GFR/1.73 sq M.predicted MDRD (S/P/Bld) [Vol rate/Area] mL/min/{1.73_m2} [facility] Comment on above: Performed By: #### B MP, CK, DDIMER, CBC, PTT, PT, HS TROP #### [facility] [address] [place] [address] [place] Glucose [Mass/Vol] 145 mg/dL High 70-100 [facility] Comment on above: Result Comment: [place] om Glucose Reference Range is dependent on time and content of last meal. Glucose of more than 200 mg/dL in a nonstressed, ambulatory subject supports the diagnosis of Diabetes Mellitus. ADA recommended reference range Performed By: #### B MP, CK, DDIMER, CBC, PTT, PT, HS TROP #### [facility] [address] [place] [address] [place] Potassium [Moles/Vol] 3.9 mmol/L Normal 3.5-5.1 [facility] Comment on above: Performed By: #### B MP, CK, DDIMER, CBC, PTT, PT, HS TROP #### [facility] [address] Sodium [Moles/Vol] 137 mmol/L Normal 136-145 [facility] Comment on above: Performed By: #### B MP, CK, DDIMER, CBC, PTT, PT, HS TROP #### [facility] [address] Urea nitrogen [Mass/Vol] 15 mg/dL Normal 7-25 [facility] Comment on above: Performed By: #### B MP, CK, DDIMER, CBC, PTT, PT, HS TROP #### [facility] [address] Calcium [Mass/volume] in Ser um or PlasmaOrdered By: Carlton Hagen on 02-21-2023 Calcium [Mass/Vol] 9.3 mg/dL 8.6-10.3 [facility] Carbon dioxide, total [Moles /volume] in Serum or PlasmaOrdered By: Carlton Hagen on 02-21-2023 CO2 [Moles/Vol] 23.6 mmol/L 21.0-31.0 [facility] Chloride [Moles/volume] in S jacqueline or PlasmaOrdered By: Carlton Hagen on 02-21-2023 Chloride [Moles/Vol] 102 mmol/L 98-107 [facility] Complete Blood Count Auto Di ffon 02-21-2023 Mean Corpuscular HGB Conc 32.8 g/dL Normal 32.0-35.0 [facility] Comment on above: Performed By: #### B MP, CK, DDIMER, CBC, PTT, PT, HS TROP #### [facility] [address] NRBC% 0.2 /100{WBC} Normal 0-0.5 [facility] Comment on above: Performed By: #### B MP, CK, DDIMER, CBC, PTT, PT, HS TROP #### [facility] [address] [place] [address] [place] Creatine Kinaseon 02-21-2023 CK [Catalytic activity/Vol] 61 U/L Normal 30-223 [facility] Comment on above: Performed By: #### B MP, CK, DDIMER, CBC, PTT, PT, HS TROP #### [facility] [address] [place] [address] [facility] Creatine kinase [Enzymatic a ctivity/volume] in Serum or PlasmaOrdered By: Carlton Hagen on 02-21-2023 CK [Catalytic activity/Vol] 61 U/L [facility] Creatinine [Mass/volume] in Serum or PlasmaOrdered By: Carlton Hagen on 02-21-2023 Creatinine [Mass/Vol] 0.69 mg/dL 0.60-1.20 [facility] D-Dimer High Sensitivityon 0 02-21-2023 D-Dimer High Sensitivity < 200 Normal 0-243 [facility] Comment on above: Result Comment: The reference [...] patients due to co-morbid conditions. PERFORMED BY: [place] [address] PATHOLOGIST VEHICLE CHECK IN CLERK PAU MENON M.D. Performed By: #### B MP, CK, DDIMER, CBC, PTT, PT, HS TROP #### [facility] [address] [place] [id number] [facility] ECG 12 lead ECGon 02-21-2023 ECG 12 lead ECG [facility] Main [place] [address] [place] [id number] Electrocardiograph Report Signed Patient: Jase Loja MR#: [id number] : 2000 Acct:[id number] Age/Sex: 23 / F ADM Date: 02/21/23 Loc: ER Room: Type: [facility] ER Attending Dr: Ordering Provider: Carlton Hagen [...] By Demarco Licona MD 02/21/23 1527 Normal [facility] Erythrocyte distribution wid th [Ratio] by Automated countOrdered By: Carlton Hagen on 02-21-2023 Erythrocyte distribution width (RBC) [Ratio] 13.6 % Normal 11.9-15.3 [facility] Comment on above: Performed By: #### B MP, CK, DDIMER, CBC, PTT, PT, HS TROP #### [facility] [address] [place] [address] [place] Erythrocytes [#/volume] in B lood by Automated countOrdered By: Carlton Hagen on 02-21-2023 RBC (Bld) [#/Vol] 4.54 10*6/uL Normal 3.60-5.00 [facility] Comment on above: Performed By: #### B MP, CK, DDIMER, CBC, PTT, PT, HS TROP #### [facility] [address] [place] [id number] [place] Glucose [Mass/volume] in Ser um or PlasmaOrdered By: Carlton Hagen on 02-21-2023 Glucose [Mass/Vol] 145 mg/dL 70-100 [facility] Comment on above: ADA recommended refe rence rangeRandom Glucose Reference Range is dependent on time and content of last meal. Glucose of more than 200 mg/dL in a nonstressed, ambulatory subject supports the diagnosis of Diabetes Mellitus. Hematocrit [Volume Fraction] of Blood by Automated countOrdered By: Carlton Hagen on 02-21-2023 Hematocrit (Bld) [Volume fraction] 38.7 % Normal 34.0-46.4 [facility] Comment on above: Performed By: #### B MP, CK, DDIMER, CBC, PTT, PT, HS TROP #### [facility] [address] Hemoglobin [Mass/volume] in BloodOrdered By: Carlton Hagen on 02-21-2023 Hemoglobin (Bld) [Mass/Vol] 12.7 g/dL Normal 11.8-15.4 [facility] Comment on above: Performed By: #### B MP, CK, DDIMER, CBC, PTT, PT, HS TROP #### [address] Laboratory - CoagulationOrde red By: Carlton Hagen on 02-21-2023 PT Coag (PPP) [Time] 11.9 s 9.0-12.9 [facility] Leukocytes [#/volume] correc radha for nucleated erythrocytes in Blood by Automated counOrdered By: Carlton Hagen on 02-21-2023 WBC corrected for nucl RBC Auto (Bld) [#/Vol] 7.1 10*3/uL 3.8-11.6 [facility] Leukocytes [#/volume] in Blo od by Automated countOrdered By: Carlton Hagen on 02-21-2023 WBC (Bld) [#/Vol] 7.1 10*3/uL Normal 3.8-11.6 [facility] Comment on above: Performed By: #### B MP, CK, DDIMER, CBC, PTT, PT, HS TROP #### [facility] [address] [place] [address] Lymphocytes [#/volume] in Bl ood by Automated countOrdered By: Carlton Hagen on 02-21-2023 Lymphocytes (Bld) [#/Vol] 1.3 10*3/uL Normal 1.00-4.8 [facility] Comment on above: Performed By: #### B MP, CK, DDIMER, CBC, PTT, PT, HS TROP #### [facility] [address] Lymphocytes/100 leukocytes i n Blood by Automated countOrdered By: Carlton Hagen on 02-21-2023 Lymphocytes/100 WBC (Bld) 18.8 % Normal . [facility] Comment on above: Performed By: #### B MP, CK, DDIMER, CBC, PTT, PT, HS TROP #### [address] MCH [Entitic mass] by Automa radha countOrdered By: Carlton Hagen on 02-21-2023 MCH (RBC) [Entitic mass] 28.0 pg Normal 24.7-34.3 [facility] Comment on above: Performed By: #### B MP, CK, DDIMER, CBC, PTT, PT, HS TROP #### [address] MCHC Auto (RBC) [Mass/Vol]Or dered By: Carlton Hagen on 02-21-2023 MCHC (RBC) [Mass/Vol] 32.8 g/dL 32.0-35.0 [facility] MCV [Entitic volume] by Auto mated countOrdered By: Carlton Hagen on 02-21-2023 MCV (RBC) [Entitic vol] 85.3 fL Normal 80-100 [facility] Comment on above: Performed By: #### B MP, CK, DDIMER, CBC, PTT, PT, HS TROP #### [address] Neutrophils [#/volume] in Bl ood by Automated countOrdered By: Carlton Hagen on 02-21-2023 Neutrophils (Bld) [#/Vol] 5.4 10*3/uL Normal 1.8-7.7 [facility] Comment on above: Performed By: #### B MP, CK, DDIMER, CBC, PTT, PT, HS TROP #### [address] No Panel InformationOrdered By: Carlton Hagen on 02-21-2023 D-Dimer Quantitative (PE/DVT) < 200 ng/mL 0-243 [facility] Comment on above: The reference range for [...] conditions. Estimated GFR (CKD-EPI) > 60.0 mL/Min [facility] Creatinine Clearance (Chem 147.50 [facility] Nucleated erythrocytes [Pres ence] in Blood by Automated countOrdered By: Carlton Hagen on 02-21-2023 Nucleated RBC Auto Ql (Bld) 0.2 /100{WBC} 0-0.5 [facility] Partial Thromboplastin Timeo n 02-21-2023 aPTT Coag (Bld) [Time] 28.7 s Normal 25.1-36.5 [facility] Comment on above: Performed By: #### B MP, CK, DDIMER, CBC, PTT, PT, HS TROP #### [facility] [address] [place] [address] [place] Platelet mean volume [Entiti c volume] in Blood by Automated countOrdered By: Carlton Hagen on 02-21-2023 Platelet mean volume (Bld) [Entitic vol] 8.8 fL Normal 6.3-10.7 [facility] Comment on above: Performed By: #### B MP, CK, DDIMER, CBC, PTT, PT, HS TROP #### [facility] [address] [place] [address] [place] Platelet poor plasma interna tional normalized ratio (INR) by coagulation assay (relatOrdered By: Carlton Hagen on 02-21-2023 INR Coag (PPP) [Relative time] 1.0 {INR} [facility] Comment on above: INR Therapeutic Rang e [...] Platelets (Bld) [#/Vol] 222 10*3/uL Normal 150-450 [facility] Comment on above: Performed By: #### B MP, CK, DDIMER, CBC, PTT, PT, HS TROP #### [facility] [address] Potassium [Moles/volume] in Serum or PlasmaOrdered By: Carlton Hagen on 02-21-2023 Potassium [Moles/Vol] 3.9 mmol/L 3.5-5.1 [facility] Prothrombin Time INRon 02-21 INR Coag (PPP) [Relative time] 1.0 {INR} Normal [facility] Comment on above: Result Comment: INR Therapeutic [...] DDIMER, CBC, PTT, PT, HS TROP #### [facility] [address] PT Coag (PPP) [Time] 11.9 s Normal 9.0-12.9 [facility] Comment on above: Performed By: #### B MP, CK, DDIMER, CBC, PTT, PT, HS TROP #### [facility] [address] Serum or plasma anion gap de terminationOrdered By: Carlton Hagen on 02-21-2023 Anion gap [Moles/Vol] 15.3 mmol/L 6.0-15.0 [facility] Sodium [Moles/volume] in Ser um or PlasmaOrdered By: Carlton Hagen on 02-21-2023 Sodium [Moles/Vol] 137 mmol/L 136-145 [facility] Troponin I High Sensitivityo n 02-21-2023 Troponin I High Sensitivity 2.6 pg/mL Normal 0.0-15.0 [facility] Comment on above: Result Comment: PERF ORMED BY: [place] [address] PATHOLOGIST VEHICLE CHECK IN CLERK PAU MENON M.D. Performed By: #### B MP, CK, DDIMER, CBC, PTT, PT, HS TROP #### [address] Troponin I.cardiac [Mass/vol ume] in Serum or Plasma by Detection limit <= 0.01 ng/Ordered By: Carlton Hagen on 02-21-2023 Troponin I.cardiac DL <= 0.01 ng/mL [Mass/Vol] 2.6 pg/mL 0.0-15.0 [facility] Urea nitrogen [Mass/volume] in Serum or PlasmaOrdered By: Carlton Hagen on 02-21-2023 Urea nitrogen [Mass/Vol] 15 mg/dL 7- [facility] XR chest 2V*on 02-21-2023 XR chest 2V* [facility] Main [place] [address] [place] [address] XRay Report Signed Patient: Jase Loja MR#: [id number] : 2000 Acct:[id number] Age/Sex: 23 / F ADM Date: 02/21/23 Loc: ER Room: Type: [facility] ER Attending Dr: Copies to: Carlton [...] Francie Lobato M.D.02/21/2023 10:26 AM Dictation Location: [facility]--10 Transcribed By: [facility] 02/21/23 1026 Dictated By: Francie Lobato MD 02/21/23 1025 Signed By: 02/21/23 1026 [facility] Vital Signs Date Time Vital Sign Value Performing Clinician Facility 04-10-2023 13:45-0400 Body height 167.64 cm Mikala Lamb Other [facility] Other 04-10-2023 13:45-0400 Body mass index (BMI) [Ratio] 34.38 kg/m2 Mikala Lamb Other [facility] Other 04-10-2023 13:45-0400 Body weight 96.62 kg Mikala Lamb Other [facility] Other 04-10-2023 13:45-0400 Diastolic blood pressure 94 mm[Hg] Mikala Lamb Other [facility] Other 04-10-2023 13:45-0400 Systolic blood pressure 164 mm[Hg] Mikala Lamb Other [facility] Other 02-26-2023 15:30-0400 Body height 167.64 cm Mikala Lamb Other [facility] Other 02-26-2023 15:30-0400 Body mass index (BMI) [Ratio] 33.08 kg/m2 Mikala Lamb Other [facility] Other 02-26-2023 15:30-0400 Body weight 92.99 kg Mikala Lamb Other [facility] Other 02-26-2023 15:30-0400 Diastolic blood pressure 74 mm[Hg] Mikala Lamb Other [facility] Other 02-26-2023 15:30-0400 SaO2% (BldA) [Mass fraction] 99 % Mikala Lamb Other [facility] Other 02-26-2023 15:30-0400 Systolic blood pressure 126 mm[Hg] Mikala Lamb Other [facility] Other 02-21-2023 10:04-0400 Diastolic blood pressure 100 mm[Hg] MD Mikala Lamb Work Phone: [facility] 02-21-2023 10:04-0400 Heart rate 105 /min MD Mikala Lamb Work Phone: [facility] 02-21-2023 10:04-0400 Respiratory rate 18 /min MD Mikala Lamb Work Phone: [facility] 02-21-2023 10:04-0400 SaO2% (BldA) [Mass fraction] 100 % MD Mikala Lamb Work Phone: [facility] 02-21-2023 10:04-0400 Systolic blood pressure 163 mm[Hg] MD Mikala Lamb Work Phone: [facility] 02-21-2023 09:04-0400 Body height 167.64 cm MD Mikala Lamb Work Phone: [facility] 02-21-2023 09:04-0400 Body temperature 99.3 [degF] MD Mikala Lamb Work Phone: [facility] 02-21-2023 09:04-0400 Body weight 95.25 kg MD Mikala Lamb Work Phone: [facility] Encounters Encounter Date Encounter Type Care Provider Facility Start: 06-18-2023 End: 06-18-2023 ambulatory Mikala Lamb Other [facility] Other Start: 06-18-2023 Telephone encounter Mikala Lamb [facility] Start: 04-10-2023 End: 04-10-2023 ambulatory Mikala Lamb Other [facility] Other Start: 04-10-2023 Office outpatient vi sit 15 minutes Mikala Lamb [facility] Start: 02-26-2023 End: 02-26-2023 ambulatory Mikala Lamb Other [facility] Other Start: 02-26-2023 Office outpatient vi sit 15 minutes Mikala Lamb [facility] Start: 02-21-2023 End: 02-21-2023 Emergency department patient visit Carlton Hagen Facility:[facility] Start: 02-21-2023 End: 02-21-2023 Emergency department patient visit MD Mikala Lamb Work Phone: [facility] Work Phone: Start: 02-22-2022 Adult health examination Mikala Lamb Other [facility] Other Start: 10-06-2021 End: 10-07-2021 ambulatory KALEY LUEVANO Facility:[facility] Start: 06-01-2021 End: 06-02-2021 ambulatory MAURY FRANCISCO Facility:[facility] Start: 03-02-2021 End: 03-03-2021 ambulatory MAURY FRANCISCO Facility:[facility] Start: 01-26-2021 End: 01-27-2021 ambulatory MAURY FRANCISCO Facility:[facility] Start: 01-05-2021 End: 01-06-2021 ambulatory MAURY FRANCISCO Facility:[facility] Start: 12-23-2020 End: 12-24-[address] MIKALA LAMB Facility:[facility] Start: 11-05-2018 End: 11-06-2018 Patient encounter procedure Demarco Cabral Facility:[id number] Procedures Date Procedure Procedure Detail Performing Clinician Start: 02-21-2023 Plain chest X-ray MD Miguel Lamb Work Phone: Start: 08-21-2016 Laboratory test resu lt abnormal Mikala Lamb Other Start: 08-21-2016 Pre-surgery evaluation Mikala Lamb Other Viral screening Mikala Lamb Other Plan of Treatment Date Care Activity Detail Author Patient Education Chest Pain Jorge Luis t Is Not Caused by the Heart (DC) Anxiety, Adult (DC) [facility] Work Phone: Patient referral [facility] Work Phone: Payers Date Payer Category Payer Self-pay 2023 Unknown [id number] 2000 Unknown [id number] 2.16.84 [id number] 2000 Unknown [id number] 2.16.84 [id number] 2000 Unknown [id number] 2.16.84 [id number] 2000 Unknown [id number] 2.16.84 [id number] 2000 Unknown [id number] 2.16.84 [id number] 2000 Unknown [id number] 2.16.84 [id number] 1959 Private Health Insurance EBM [id number] Unknown [id number] 2.16.8 [id number] Social History Date Type Detail Facility Start: 02-21-2023 Tobacco smoking status NHIS Never smoked tobacco (finding) [facility] Start: 2000 Sex Assigned At Female [facility] Sex Assigned At Sex Assigned At [place] [facility] [place] [facility] Other Clinical Notes 12-23-2020 to 04-10-2023 Note Date & Type Note Facility 04-10-2023 Evaluation note Encounter Date Diagnosis Assessment Notes Mar, Anxiety disorder, unspecified (ICD-10 - F41.9) Discussed meds and counseling Mar, Depression, unspecified (ICD-10 - F32.A) as above Mar, Musculoskeletal chest pain (ICD-10 - R07.89) suggested chiropractor, PT and muscle relaxers as able [facility] Other 05-08-2023 Evaluation note* Encounter Date Diagnosis [...] verbalized understanding and agreement with treatment plan. [facility] Other 12-16-2021 NotePROCEDURE: XR FOOT RT MIN [...] Electronically authenticated by: LANCE VASQUEZ Date: 2021-10-06 10:52[facility]08-11-2021 NotePROCEDURE: XR FOOT RT MIN 3 VIEWS [...] Electronically authenticated by: ANGIE MURRAY Date: 2021-06-01 13:56[facility]05-12-2021 NotePROCEDURE: XR FOOT RT MIN 3 VIEWS [...] authenticated by: ANGIE MURRAY Date: 2021-03-02 10:34[id number] NotePROCEDURE: XR FOOT RT MIN 3 VIEWS [...] authenticated by: ANGIE MURRAY Date: 2021-01-26 15:44[id number] NotePROCEDURE: XR FOOT RT MIN 3 VIEWS [...] authenticated by: ANGIE MURRAY Date: 2021-01-05 12:43[facility] [id number] NotePROCEDURE: XR FOOT RT MIN 3 VIEWS [...] authenticated by: ANGIE MURRAY Date: 2020-12-23 14:48[facility] HospitalEvaluation noteNo assessment information availablePark[facility] Work Phone: Evaluation noteNo InformationNortDepartment of [facility] [place] Other History general Narrative - Reported* Type [...] foot surgery 2015, Problem Status : Active, [facility] Other Summary Purpose Family History No Family History Records FoundNo Family History Records FoundNo Family History Records Found Advance Directives Advance Directive Response Recorded Date/ Time Advance Directives No February 21, 2023 9:15am Chief Complaint and Reason for Visit Chief Complaint Chest pain Additional Source Comments INFORMATION SOURCE (unrecogn ized section and content) DATE CREATED AUTHOR 11/11/2018 [facility] DATE CREATED AUTHOR AUTHOR'S ORGANIZ ATION 12/09/2021 [facility] DATE CREATED AUTHOR AUTHOR'S ORGANIZ ATION 06/04/2023 [facility] Care Teams (unrecognized sec tion and content) [...] BE BASED ON THE PRIMARY CLINICAL RECORDS. [facility]. provides no warranty or guarantee of the accuracy or completeness of information in this document.
[2024-05-31 11:27] LABS: Estimated Average Glucose 148 mg/dL; Glycohemoglobin A1C 6.8 % (4.5-6.2)
== END 2024-05-31 10:54 | disposition home or self-care (01) ==
LOC: LAB 10:55
PROVIDERS: PCP Nurse Practitioner; Visit Provider Nurse Practitioner
DX: E11.9 Type 2 diabetes mellitus without complications (principal)
CPT/HCPCS: 36415; 83036

== ENCOUNTER 2024-06-02 14:52 | Outpatient (OUT) | payer OTHER, SELFPAY ==
--- NOTE | 2024-06-02 14:55 | XR_ITS ---
The [address] [address] Patient Name: JASE GLASS MRN: [id number] date: 2000 Sex: F Assigned Patient Location: LAB Current Patient Location: Accession/Order Number: [id number] Exam Date: 06/02/2024 14:58 Report Date: 06/04/2024 07:35 At the request of: MANJEET GAMA Procedure: XR foot RT min 3V PROCEDURE: XR foot RT min 3V COMPARISON: 10/06/2021 HISTORY: Right Foot Pain M79.671 FINDINGS: BONES:No acute fracture or dislocation. Remote triple arthrodesis with anterior and posterior calcaneal osteotomy. Transverse osteotomy of the medial cuneiform. SOFT TISSUES:Negative. No visible soft tissue swelling. EFFUSION:None visible. OTHER: Negative. XR/XR foot RT min 3V IMPRESSION: No acute fracture Electronically authenticated by: LANCE VASQUEZ Date: 06/04/2024 07:35
--- OUTSIDE RECORDS SUMMARY | 2024-06-02 14:57 | XMS_ITS | CCD ---
Author Organization [facility] Care Team Providers Care Change Attendant Name Role Phone Demarco Cabral Attending Unavailable [...] RASHAWN, DR MIKALA Prasad Primary Care Unavailable EDWARDS, DR LANCE Millard Consulting Unavailable ELLIOTT, KALEY [...] physicia Propensity to adverse reactions 7 Comment:Done [employer] Other (1 source) Allergies Reconciled Propensity to adverse reactions Unknown [facility] Other Medications Current Medications Medication Drug Class(es) [...] aPTT Coag (PPP) [Time] 28.7 s 25.1-36.5 [facility] Automated basophil %Ordered By: Carlton Hagen on 02-21-2023 Basophils/100 WBC (Bld) 0.4 % Normal . [facility] Comment on above: Performed By: #### B MP, CK, DDIMER, CBC, PTT, PT, HS TROP #### [address] Automated basophil countOrde red By: Carlton Hagen on 02-21-2023 Basophils (Bld) [#/Vol] 0.0 10*3/uL Normal 0.0-0.2 [facility] Comment on above: Result Comment: PERF ORMED BY: [place] [address] PATHOLOGIST WELDING MACHINE OPERATOR PLASMA ARC PAU MENON M.D. Performed By: #### B MP, CK, DDIMER, CBC, PTT, PT, HS TROP #### [address] Automated blood monocyte cou ntOrdered By: Carlton Hagen on 02-21-2023 Monocytes (Bld) [#/Vol] 0.3 10*3/uL Normal 0.0-0.8 [facility] Comment on above: Performed By: #### B MP, CK, DDIMER, CBC, PTT, PT, HS TROP #### [address] Automated eosinophil %Ordere d By: Carlton Hagen on 02-21-2023 Eosinophils/100 WBC (Bld) 0.4 % Normal . [facility] Comment on above: Performed By: #### B MP, CK, DDIMER, CBC, PTT, PT, HS TROP #### [facility] [address] Automated eosinophil countOr dered By: Carlton Hagen on 02-21-2023 Eosinophils (Bld) [#/Vol] 0.0 10*3/uL Normal 0.0-0.45 [facility] Comment on above: Performed By: #### B MP, CK, DDIMER, CBC, PTT, PT, HS TROP #### [address] Automated monocyte %Ordered By: Carlton Hagen on 02-21-2023 Monocytes/100 WBC (Bld) 4.4 % Normal . [facility] Comment on above: Performed By: #### B MP, CK, DDIMER, CBC, PTT, PT, HS TROP #### [address] Automated neutrophil %Ordere d By: Carlton Hagen on 02-21-2023 Neutrophils/100 WBC (Bld) 76.0 % Normal . [facility] Comment on above: Performed By: #### B MP, CK, DDIMER, CBC, PTT, PT, HS TROP #### [address] Basic Metabolic Panelon 05 Anion gap [Moles/Vol] 15.3 mmol/L High 6.0-15.0 [facility] Comment on above: Performed By: #### B MP, CK, DDIMER, CBC, PTT, PT, HS TROP #### [address] Calcium [Mass/Vol] 9.3 mg/dL Normal 8.6-10.3 [facility] Comment on above: Performed By: #### B MP, CK, DDIMER, CBC, PTT, PT, HS TROP #### [address] Chloride [Moles/Vol] 102 mmol/L Normal 98-107 [facility] Comment on above: Performed By: #### B MP, CK, DDIMER, CBC, PTT, PT, HS TROP #### [facility] [address] CO2 [Moles/Vol] 23.6 mmol/L Normal 21.0-31.0 [facility] Comment on above: Performed By: #### B MP, CK, DDIMER, CBC, PTT, PT, HS TROP #### [facility] [address] [place] [id number] [facility] Creatinine [Mass/Vol] 0.69 mg/dL Normal 0.60-1.20 [facility] Comment on above: Performed By: #### B MP, CK, DDIMER, CBC, PTT, PT, HS TROP #### [facility] [address] [place] [address] [place] Creatinine Clr Calc Pharmacy 147.50 [facility] Comment on above: Result Comment: PERF ORMED BY: [place] [address] PATHOLOGIST WELDING MACHINE OPERATOR PLASMA ARC PAU MENON M.D. Performed By: #### B MP, CK, DDIMER, CBC, PTT, PT, HS TROP #### [facility] [address] GFR/1.73 sq M.predicted MDRD (S/P/Bld) [Vol rate/Area] mL/min/{1.73_m2} [facility] Comment on above: Performed By: #### B MP, CK, DDIMER, CBC, PTT, PT, HS TROP #### [facility] [address] [place] [address] [place] Glucose [Mass/Vol] 145 mg/dL High 70-100 [facility] Comment on above: Result Comment: Reeves om Glucose Reference Range is dependent on time and content of last meal. Glucose of more than 200 mg/dL in a nonstressed, ambulatory subject supports the diagnosis of Diabetes Mellitus. ADA recommended reference range Performed By: #### B MP, CK, DDIMER, CBC, PTT, PT, HS TROP #### [facility] [address] [place] [address] [place] Potassium [Moles/Vol] 3.9 mmol/L Normal 3.5-5.1 [facility] Comment on above: Performed By: #### B MP, CK, DDIMER, CBC, PTT, PT, HS TROP #### [facility] [address] Sodium [Moles/Vol] 137 mmol/L Normal 136-145 [facility] Comment on above: Performed By: #### B MP, CK, DDIMER, CBC, PTT, PT, HS TROP #### [facility] [address] Urea nitrogen [Mass/Vol] 15 mg/dL Normal 7-25 [facility] Comment on above: Performed By: #### B MP, CK, DDIMER, CBC, PTT, PT, HS TROP #### [facility] [address] Calcium [Mass/volume] in Ser um or PlasmaOrdered By: Carlton Hagen on 02-21-2023 Calcium [Mass/Vol] 9.3 mg/dL 8.6-10.3 [facility] Carbon dioxide, total [Moles /volume] in Serum or PlasmaOrdered By: Carlton Hagen on 02-21-2023 CO2 [Moles/Vol] 23.6 mmol/L 21.0-31.0 [facility] Chloride [Moles/volume] in S jacqueline or PlasmaOrdered By: Carlton Hagen on 02-21-2023 Chloride [Moles/Vol] 102 mmol/L 98-107 [facility] Complete Blood Count Auto Di ffon 02-21-2023 Mean Corpuscular HGB Conc 32.8 g/dL Normal 32.0-35.0 [facility] Comment on above: Performed By: #### B MP, CK, DDIMER, CBC, PTT, PT, HS TROP #### [facility] [address] NRBC% 0.2 /100{WBC} Normal 0-0.5 [facility] Comment on above: Performed By: #### B MP, CK, DDIMER, CBC, PTT, PT, HS TROP #### [facility] [address] [place] [address] [place] Creatine Kinaseon 02-21-2023 CK [Catalytic activity/Vol] 61 U/L Normal 30-223 [facility] Comment on above: Performed By: #### B MP, CK, DDIMER, CBC, PTT, PT, HS TROP #### [facility] [address] [place] [address] [facility] Creatine kinase [Enzymatic a ctivity/volume] in Serum or PlasmaOrdered By: Carlton Hagen on 02-21-2023 CK [Catalytic activity/Vol] 61 U/L [facility] Creatinine [Mass/volume] in Serum or PlasmaOrdered By: Carlton Hagen on 02-21-2023 Creatinine [Mass/Vol] 0.69 mg/dL 0.60-1.20 [facility] D-Dimer High Sensitivityon 0 02-21-2023 D-Dimer High [...] patients due to co-morbid conditions. PERFORMED BY: [place] [address] PATHOLOGIST WELDING MACHINE OPERATOR PLASMA ARC PAU MENON M.D. Performed By: #### B MP, CK, DDIMER, CBC, PTT, PT, HS TROP #### [facility] [address] [place] [id number] [facility] ECG 12 lead ECGon 02-21-2023 ECG 12 lead ECG [facility] [place] [address] [place] [address] Electrocardiograph Report Signed Patient: Jase Loja MR#: [id number] : 2000 Acct:[id number] Age/Sex: 23 / F ADM Date: 02/21/23 Loc: ER Room: Type: [facility] ER Attending Dr: Ordering Provider: Carlton Hagen [...] DDIMER, CBC, PTT, PT, HS TROP #### [facility] [address] [place] [address] [place] Erythrocytes [#/volume] in B lood by Automated countOrdered By: Carlton Hagen on 02-21-2023 RBC (Bld) [#/Vol] 4.54 10*6/uL Normal 3.60-5.00 [facility] Comment on above: Performed By: #### B MP, CK, DDIMER, CBC, PTT, PT, HS TROP #### [facility] [address] [place] [id number] [place] Glucose [Mass/volume] in Ser um or PlasmaOrdered By: Carlton Hagen on 02-21-2023 Glucose [Mass/Vol] 145 mg/dL 70-100 [facility] Comment on above: ADA recommended refe [...] DDIMER, CBC, PTT, PT, HS TROP #### [facility] [address] Hemoglobin [Mass/volume] in BloodOrdered By: Carlton Hagen on 02-21-2023 Hemoglobin (Bld) [Mass/Vol] 12.7 g/dL Normal 11.8-15.4 [facility] Comment on above: Performed By: #### B MP, CK, DDIMER, CBC, PTT, PT, HS TROP #### [address] Laboratory - CoagulationOrde red By: Carlton Hagen on 02-21-2023 PT Coag (PPP) [Time] 11.9 s 9.0-12.9 [facility] Leukocytes [#/volume] correc radha for nucleated erythrocytes in Blood by Automated counOrdered By: Carlton Hagen on 02-21-2023 WBC corrected for nucl RBC Auto (Bld) [#/Vol] 7.1 10*3/uL 3.8-11.6 [facility] Leukocytes [#/volume] in Blo od by Automated countOrdered By: Carlton Hagen on 02-21-2023 WBC (Bld) [#/Vol] 7.1 10*3/uL Normal 3.8-11.6 [facility] Comment on above: Performed By: #### B MP, CK, DDIMER, CBC, PTT, PT, HS TROP #### [facility] [address] [place] [address] Lymphocytes [#/volume] in Bl ood by Automated countOrdered By: Carlton Hagen on 02-21-2023 Lymphocytes (Bld) [#/Vol] 1.3 10*3/uL Normal 1.00-4.8 [facility] Comment on above: Performed By: #### B MP, CK, DDIMER, CBC, PTT, PT, HS TROP #### [facility] [address] Lymphocytes/100 leukocytes i n Blood by Automated countOrdered By: Carlton Hagen on 02-21-2023 Lymphocytes/100 WBC (Bld) 18.8 % Normal . [facility] Comment on above: Performed By: #### B MP, CK, DDIMER, CBC, PTT, PT, HS TROP #### [address] MCH [Entitic mass] by Automa radha countOrdered By: Carlton Hagen on 02-21-2023 MCH (RBC) [Entitic mass] 28.0 pg Normal 24.7-34.3 [facility] Comment on above: Performed By: #### B MP, CK, DDIMER, CBC, PTT, PT, HS TROP #### [address] MCHC Auto (RBC) [Mass/Vol]Or dered By: Carlton Hagen on 02-21-2023 MCHC (RBC) [Mass/Vol] 32.8 g/dL 32.0-35.0 [facility] MCV [Entitic volume] by Auto mated countOrdered By: Carlton Hagen on 02-21-2023 MCV (RBC) [Entitic vol] 85.3 fL Normal 80-100 [facility] Comment on above: Performed By: #### B MP, CK, DDIMER, CBC, PTT, PT, HS TROP #### [address] Neutrophils [#/volume] in Bl ood by Automated countOrdered By: Carlton Hagen on 02-21-2023 Neutrophils (Bld) [#/Vol] 5.4 10*3/uL Normal 1.8-7.7 [facility] Comment on above: Performed By: #### B MP, CK, DDIMER, CBC, PTT, PT, HS TROP #### [address] No Panel InformationOrdered By: Carlton Hagen [...] (Bld) [Time] 28.7 s Normal 25.1-36.5 [facility] Comment on above: Performed By: #### B MP, CK, DDIMER, CBC, PTT, PT, HS TROP #### [facility] [address] [place] [address] [place] Platelet mean volume [Entiti c volume] in Blood by Automated countOrdered By: Carlton Hagen on 02-21-2023 Platelet mean volume (Bld) [Entitic vol] 8.8 fL Normal 6.3-10.7 [facility] Comment on above: Performed By: #### B MP, CK, DDIMER, CBC, PTT, PT, HS TROP #### [facility] [address] [place] [address] [place] Platelet poor plasma interna tional normalized [...] DDIMER, CBC, PTT, PT, HS TROP #### [facility] [address] Potassium [Moles/volume] in Serum or PlasmaOrdered By: Carlton Hagen on 02-21-2023 Potassium [Moles/Vol] 3.9 mmol/L 3.5-5.1 [facility] Prothrombin Time INRon 02-21 INR Coag (PPP) [...] DDIMER, CBC, PTT, PT, HS TROP #### [facility] [address] PT Coag (PPP) [Time] 11.9 s Normal 9.0-12.9 [facility] Comment on above: Performed By: #### B MP, CK, DDIMER, CBC, PTT, PT, HS TROP #### [facility] [address] Serum or plasma anion gap de terminationOrdered By: Carlton Hagen on 02-21-2023 Anion gap [Moles/Vol] 15.3 mmol/L 6.0-15.0 [facility] Sodium [Moles/volume] in Ser um or PlasmaOrdered By: Carlton Hagen on 02-21-2023 Sodium [Moles/Vol] 137 mmol/L 136-145 [facility] Troponin I High Sensitivityo n 02-21-2023 Troponin I High Sensitivity 2.6 pg/mL Normal 0.0-15.0 [facility] Comment on above: Result Comment: PERF ORMED BY: [place] [address] PATHOLOGIST WELDING MACHINE OPERATOR PLASMA ARC PAU MENON M.D. Performed By: #### B MP, CK, DDIMER, CBC, PTT, PT, HS TROP #### [address] Troponin I.cardiac [Mass/vol ume] in Serum or Plasma by Detection limit <= 0.01 ng/Ordered By: Carlton Hagen on 02-21-2023 Troponin I.cardiac DL <= 0.01 ng/mL [Mass/Vol] 2.6 pg/mL 0.0-15.0 [facility] Urea nitrogen [Mass/volume] in Serum or PlasmaOrdered By: Carlton Hagen on 02-21-2023 Urea nitrogen [Mass/Vol] 15 mg/dL 7- [facility] XR chest 2V*on 02-21-2023 XR chest 2V* [facility] [place] [address] [place] [address] XRay Report Signed Patient: Jase Loja MR#: [id number] : 2000 Acct:[id number] Age/Sex: 23 / F ADM Date: 02/21/23 Loc: ER Room: Type: [facility] ER Attending Dr: Copies to: Carlton Hagen [...] Francie Lobato M.D.02/21/2023 10:26 AM Dictation Location: [facility]--10 Transcribed By: [facility] 02/21/23 1026 Dictated By: Francie Lobato MD 02/21/23 1025 Signed By: 02/21/23 1026 [facility] Vital Signs Date Time Vital Sign Value Performing Clinician Facility 04-10-2023 13:45-0400 Body height 167.64 cm Mikala Lamb Other [employer] Other 04-10-2023 13:45-0400 Body mass index (BMI) [Ratio] 34.38 kg/m2 Mikala Lamb Other [employer] Other 04-10-2023 13:45-0400 Body weight 96.62 kg Mikala Lamb Other [employer] Other 04-10-2023 13:45-0400 Diastolic blood pressure 94 mm[Hg] Mikala Lamb Other [employer] Other 04-10-2023 13:45-0400 Systolic blood pressure 164 mm[Hg] Mikala Lamb Other [employer] Other 02-26-2023 15:30-0400 Body height 167.64 cm Mikala Lamb Other [employer] Other 02-26-2023 15:30-0400 Body mass index (BMI) [Ratio] 33.08 kg/m2 Mikala Lamb Other [employer] Other 02-26-2023 15:30-0400 Body weight 92.99 kg Mikala Lamb Other [facility] Other 02-26-2023 15:30-0400 Diastolic blood pressure 74 mm[Hg] Mikala Lamb Other [facility] Other 02-26-2023 15:30-0400 SaO2% (BldA) [Mass fraction] 99 % Mikala Lamb Other [facility] Other 02-26-2023 15:30-0400 Systolic blood pressure 126 mm[Hg] Mikala Lamb Other [facility] Other 02-21-2023 10:04-0400 Diastolic blood pressure 100 [...] 06-18-2023 End: 06-18-2023 ambulatory Mikala Lamb Other [employer] [facility] Other Start: 06-18-2023 Telephone encounter Mikala Lamb [facility] Start: 04-10-2023 End: 04-10-2023 ambulatory Mikala Lamb Other [employer] Other Start: 04-10-2023 Office outpatient vi sit 15 minutes Mikala Lamb [facility] Start: 02-26-2023 End: 02-26-2023 ambulatory Mikala Lamb Other [employer] Other Start: 02-26-2023 Office outpatient vi sit 15 minutes Mikala Lamb [facility] Start: 02-21-2023 End: 02-21-2023 Emergency department patient visit Carlton Hagen Facility:[facility] Start: 02-21-2023 End: 02-21-2023 Emergency department patient visit MD Mikala Lamb Work Phone: [facility] Work Phone: Start: 02-22-2022 Adult health examination Mikala Lamb Other [employer] Other Start: 10-06-2021 End: 10-07-2021 ambulatory KALEY LUEVANO Facility:[facility] Start: 06-01-2021 End: 06-02-2021 ambulatory MAURY FRANCISCO Facility:[facility] Start: 03-02-2021 End: 03-03-2021 ambulatory MAURY FRANCISCO Facility:[facility] Start: 01-26-2021 End: 01-27-2021 ambulatory MAURY FRANCISCO Facility:[facility] Start: 01-05-2021 End: 01-06-2021 ambulatory MAURY FRANCISCO Facility:[facility] Start: 12-23-2020 End: 12-24-[address] MIKALA LAMB Facility:[facility] Start: 11-05-2018 End: 11-06-2018 Patient encounter procedure Demarco Cabral Facility:[id number] Procedures Date Procedure Procedure Detail Performing Clinician [...] by the Heart (DC) Anxiety, Adult (DC) [facility] Work Phone: Patient referral [facility] Work Phone: Payers Date Payer Category Payer Self-pay 2023 Unknown [id number] 2000 Unknown [id number] 2.16.84 [id number] 2000 Unknown [id number] 2.16.84 [id number] 2000 Unknown [id number] 2.16.84 [id number] 2000 Unknown [id number] 2.16.84 [id number] 2000 Unknown [id number] 2.16.84 [id number] 2000 Unknown [id number] 2.16.84 [id number] 1959 Private Health Insurance EBM [id number] Unknown [id number] 2.16.8 [id number] Social History Date Type Detail Facility Start: 02-21-2023 Tobacco smoking status NHIS Never smoked tobacco (finding) [facility] Start: 2000 Sex Assigned At Female F [facility] Sex Assigned At Sex Assigned At Bir th [place] [employer] Other Clinical Notes 12-23-2020 to 04-10-2023 Note Date & Type Note Facility 04-10-2023 Evaluation note Encounter Date Diagnosis Assessment Notes Mar, Anxiety disorder, unspecified (ICD-10 - F41.9) Discussed meds and counseling Mar, Depression, unspecified (ICD-10 - F32.A) as above Mar, Musculoskeletal chest pain (ICD-10 - R07.89) suggested chiropractor, PT and muscle relaxers as able [employer] Other 05-08-2023 Evaluation note* Encounter Date Diagnosis [...] verbalized understanding and agreement with treatment plan. [employer] Other 12-16-2021 NotePROCEDURE: XR FOOT RT MIN [...] Electronically authenticated by: LANCE VASQUEZ Date: 2021-10-06 10:52[facility]08-11-2021 NotePROCEDURE: XR FOOT RT MIN [...] Electronically authenticated by: ANGIE MURRAY Date: 2021-06-01 13:56[facility]05-12-2021 NotePROCEDURE: XR FOOT RT MIN 3 VIEWS [...] authenticated by: ANGIE MURRAY Date: 2021-03-02 10:34[id number] NotePROCEDURE: XR FOOT RT MIN 3 VIEWS [...] authenticated by: ANGIE MURRAY Date: 2021-01-26 15:44[facility] [id number] NotePROCEDURE: XR FOOT RT MIN 3 VIEWS [...] authenticated by: ANGIE MURRAY Date: 2021-01-05 12:43[facility] [id number] NotePROCEDURE: XR FOOT RT MIN 3 VIEWS [...] authenticated by: ANGIE MURRAY Date: 2020-12-23 14:48[facility] HospitalEvaluation noteNo assessment information availableWyandot [facility] Work Phone: Evaluation noteNo InformationNortFoundations [facility] Other History general Narrative - Reported* Type [...] foot surgery 2015, Problem Status : Active, [facility] Other Summary Purpose Family History No Family History Records FoundNo Family History Records FoundNo Family History Records Found Advance Directives Advance Directive Response Recorded Date/ Time Advance Directives No February 21, 2023 9:15am Chief Complaint and Reason for Visit Chief Complaint Chest pain Additional Source Comments INFORMATION SOURCE (unrecogn ized section and content) DATE CREATED AUTHOR 11/11/2018 [facility] DATE CREATED AUTHOR AUTHOR'S ORGANIZ ATION 12/09/2021 [facility] DATE CREATED AUTHOR AUTHOR'S ORGANIZ ATION 06/04/2023 [facility] Care Teams (unrecognized sec tion and [...] BE BASED ON THE PRIMARY CLINICAL RECORDS. [facility] [employer] [facility]. provides no warranty or guarantee of the accuracy or completeness of information in this document.
== END 2024-06-02 14:53 | disposition home or self-care (01) ==
LOC: LAB 14:53
PROVIDERS: PCP Nurse Practitioner; Visit Provider Nurse Practitioner
DX: M79.671 Pain in right foot (principal)
CPT/HCPCS: 73630

== ENCOUNTER 2024-06-16 07:53 | Emergency (ER) | payer OTHER, SELFPAY ==
[2024-06-16 07:57] VITALS: BP 150/97; PULSE 78; TEMP 37.1; O2SAT 99; BMI 35.2
--- NOTE | 2024-06-16 08:07 | ED_ITS ---
HPI - Abdominal Pain General Chief Complaint: Abdominal Pain Stated Complaint: RIGHT SIDE PAIN Time Seen by Provider: 06/16/24 08:00 Source: patient Mode of arrival: walk-in Limitations: no limitations History of Present Illness HPI narrative: The patient presented to us with a right lower quadrant pain that been going on at least for the last 3 to 4 days, patient when pointing to the pain she is pointing mostly toward the upper mid abdomen on the right side and there was associated nausea and 1 time this morning in addition to diarrhea twice over the last 2 days The patient also has no fever no chills no cough no exposure to anybody with similar symptoms No history of previous surgeries and no concern for Related Data Home Medications ?Medication ?Instructions ?Recorded ?Confirmed atorvastatin 20 mg tablet 20 mg PO DAILY 06/16/24 06/16/24 dapagliflozin propanediol 5 mg 5 mg PO DAILY 06/16/24 06/16/24 tablet (Farxiga) escitalopram oxalate 20 mg tablet 20 mg PO BEDTIME 06/16/24 06/16/24 lisinopril 20 mg tablet 20 mg PO BEDTIME 06/16/24 06/16/24 metformin 1,000 mg tablet 1,000 mg PO BID 06/16/24 06/16/24 Allergies Allergy/AdvReac Type Severity Reaction Status Date / Time No Known Drug Allergies Allergy Verified 06/16/24 07:57 Review of Systems ROS Status of ROS 10 or more systems reviewed and unremark able except as noted in history and below Exam Narrative Exam Narrative: Nurses notes and vital signs reviewed and patient is not hypoxic. General: Well-appearing and in no apparent distress. Skin: Warm, dry, no pallor noted. No rash. Head: Normocephalic, atraumatic. Neck: Supple, non-tender. Eye: Pupils are equal, round and EOMI. No scleral icterus. Ears, Nose, Mouth, and Throat: TM are clear, no nasal mucosal hypertrophy. Oral mucosa is moist, no posterior oropharynx erythema, uvula is mid-line Cardiovascular: Regular Rate and Rhythm without murmur, gallop or rub. Respiratory: No accessory muscle use or respiratory distress. Lungs are clear to auscultation, no wheezing, rales or rhonchi Chest Wall: no tenderness Back: No midline thoracic or lumbar vertebral tenderness. No CVA tenderness Musculoskeletal: normal ROM, no calf or popliteal tenderness, no lower extremity edema/swelling GI: Abdomen is soft, non-distended. Normal bowel sounds. No masses appreciated. There is subjective tenderness upon palpation of the right lower mid abdomen mostly toward the mid axillary line .no rebound, guarding, or rigidity noted. Neurological: A&O x4. No cranial nerve dysfunction observed. No truncal ataxia. Moves all extremities. Sensation intact. Psychiatric: Cooperative and interactive. Normal mood and affect. Constitutional Vital Signs, click to edit/add: Last Vital Signs Temp 98.7 F 06/16/24 07:57 Pulse 78 06/16/24 07:57 Resp 18 06/16/24 07:57 BP 150/97 H 06/16/24 07:57 Pulse Ox 99 06/16/24 07:57 O2 Del Method Room Air 06/16/24 07:57 Course Vital Signs Vital signs: Vital Signs Temperature 98.7 F 06/16/24 07:57 Pulse Rate 78 06/16/24 07:57 Respiratory Rate 18 06/16/24 07:57 Blood Pressure 150/97 H 06/16/24 07:57 Pulse Oximetry 99 06/16/24 07:57 Oxygen Delivery Method Room Air 06/16/24 07:57 Temperature 98.7 F 06/16/24 07:57 Pulse Rate 78 06/16/24 07:57 Respiratory Rate 18 06/16/24 07:57 Blood Pressure 150/97 H 06/16/24 07:57 Pulse Oximetry 99 06/16/24 07:57 Oxygen Delivery Method Room Air 06/16/24 07:57 MDM - Abdominal Pain MDM Narrative Medical decision making narrative: The patient presentation with abdominal pain request further rule out of appendicitis patient with the patient pain radiating to the umbilicus CBC and chemistry showed no acute pathology CAT scan shows normal appendix with a possible epiploic appendicitis around the descending colon I discussed the case with and right now the patient does not need any further evaluation as it is mostly supportive care The patient is to follow up with primary care physician in next 2-3 days or to return to the emergency department should any of the signs or symptoms worsen or new symptoms develop. The patient agrees with the following Diagnosis and Treatment plan and the patient will be discharged home. Lab Data Labs: Lab Results 06/16/24 06/16/24 Range/Units 08:05 08:10 WBC 9.4 (4.0-11.0) 10^3/uL RBC 4.75 (4.20-5.40) 10^6/uL Hgb 13.5 (12.0-16.0) g/dL Hct 41.7 (36.0-48.0) % MCV 87.8 (81.0-99.0) fL MCH 28.4 (26.7-34.0) pg MCHC 32.4 (29.9-35.2) g/dL RDW 14.3 (11.0-15.0) % Plt Count 214 (150-450) 10^3/uL MPV 11.1 (9.5-13.5) fL Neut % (Auto) 59.7 (43.0-75.0) % Lymph % (Auto) 30.8 (20.5-60.0) % [place] % (Auto) 6.8 (1.7-12.0) % Eos % (Auto) 1.4 (0.9-7.0) % Baso % (Auto) 0.2 (0.2-2.0) % Neut # (Auto) 5.6 (1.4-6.5) 10^3/uL Lymph # (Auto) 2.9 (1.2-3.8) 10^3/uL [place] # (Auto) 0.6 (0.3-0.8) 10^3/uL Eos # (Auto) 0.1 (0.0-0.7) 10^3/uL Baso # (Auto) 0.0 (0.0-0.1) 10^3/uL Abs Immat Gran (auto) 0.10 H (0.00-0.03) 10^3/uL Imm/Tot Granulo (auto) 1.1 H (0.0-0.5) % Sodium 137 (136-145) mmol/L Potassium 3.9 (3.5-5.1) mmol/L Chloride 101 (98-107) mmol/L Carbon Dioxide 22.3 (21.0-32.0) mmol/L Anion Gap 17.6 BUN 11.0 (7.0-18.0) mg/dL Creatinine 0.78 (0.55-1.02) mg/dL Est GFR ( Amer) >60 (>=60) Est GFR (Non-Af Amer) >60 (>=60) BUN/Creatinine Ratio 14.1 Glucose 167 H (74-106) mg/dL Calcium 9.2 (8.5-10.1) mg/dL Total Bilirubin 0.5 (0.2-1.0) mg/dL AST 24 (15-37) U/L ALT 54 (14-59) U/L Alkaline Phosphatase 51 (46-116) U/L Total Protein 7.7 (6.4-8.2) g/dL Albumin 4.0 (3.4-5.0) g/dL Globulin 3.7 g/dL Albumin/Globulin Ratio 1.1 Urine Color Lt. yellow (YELLOW) Urine Clarity Clear (CLEAR) Urine pH 5.5 (5.0-9.0) Ur Specific [place] 1.015 (1.005-1.025) Urine Protein Negative (NEG/TRACE) mg/dL Urine Glucose (UA) >=1000 A (NEGATIVE) mg/dL Urine Ketones Negative (NEGATIVE) mg/dL Urine Occult Blood Negative (NEGATIVE) Urine Nitrite Negative (NEGATIVE) Urine Bilirubin Negative (NEGATIVE) Urine Urobilinogen 0.2 (0.2-1.0) EU/dL Ur Leukocyte Esterase Negative (NEGATIVE) Urine HCG, Qual Negative (NEGATIVE) Discharge Plan Discharge Stand Alone Forms: Work/School Release, Portal Instructions Chief Complaint: Abdominal Pain Clinical Impression: Gastroenteritis Abdominal pain Qualifiers: Abdominal location: right lower quadrant Qualified Code(s): R10.31 - Right lower quadrant pain Patient Disposition: Home, Self-Care Time of Disposition Decision: 09:41 Condition: Good Prescriptions / Home Meds: No Action dapagliflozin propanediol [Farxiga] 5 mg tablet 5 mg PO DAILY metformin 1,000 mg tablet 1,000 mg PO BID lisinopril 20 mg tablet 20 mg PO BEDTIME escitalopram oxalate 20 mg tablet 20 mg PO BEDTIME atorvastatin 20 mg tablet 20 mg PO DAILY Print Language: [place] Instructions: Gastroenteritis (ED), Abdominal Pain (ED) Referrals: Michelle Marks GRANT COORDINATOR [Primary Care Provider] - 1 week
--- OUTSIDE RECORDS SUMMARY | 2024-06-16 08:18 | XMS_ITS | CCD ---
Author Organization [facility] CliniSyga Care Team Providers Care Informatica Mdm Developer Name Role Phone Demarco Cabral Attending Unavailable [...] RASHAWN, DR MIKALA Prasad Primary Care Unavailable WASHINGTON, DR LANCE Millard Consulting Unavailable ELLIOTT, KALEY Consulting Unavailable MOROCHO, DR MIKALA Prasad Primary Care Unavailable HIGHLANDER, PETER Admitting Unavailable HIGHLANDER, KALEY Attending Unavailable TREVOR, DR ANGIE Obregon Consulting Unavailable ZARIAANDER, KALEY Consulting Unavailable MARYAM, MAURY Admitting Unavailable MARYAM, MAURY Attending Unavailable RASHAWN, DR MIKALA Prasad Primary Care Unavailable TREVOR, DR ANGIE Obregon Consulting Unavailable MARYAM, MAURY Consulting Unavailable MD Mikala Morocho Primary Care Provider GARRETT Hagen Emergency Provider Mikala Morocho Unavailable Carlton Hagen Attending Unavailable Carlton Hagen Admitting Unavailable Mikala Morocho Primary Care Unavailable MANJEET GAMA Attending Unavailable MANJEET GAMA Attending Unavailable Allergies Allergy Classification Reported Allergen(s) Allergy Type Date of Onset Reaction(s) Facility (1 source) patient allergy list reviewed by nurse or physicia Propensity to adverse reactions 7 Comment:Done [facility] Other (1 source) Allergies Reconciled Propensity to adverse reactions Unknown [facility] Other Medications Current Medications Medication Drug Class(es) [...] aPTT Coag (PPP) [Time] 28.7 s 25.1-36.5 [facility] Automated basophil %Ordered By: Carlton Hagen on 02-21-2023 Basophils/100 WBC (Bld) 0.4 % Normal . [facility] Comment on above: Performed By: #### B MP, CK, DDIMER, CBC, PTT, PT, HS TROP #### [address] Automated basophil countOrde red By: Carlton Hagen on 02-21-2023 Basophils (Bld) [#/Vol] 0.0 10*3/uL Normal 0.0-0.2 [facility] Comment on above: Result Comment: PERF ORMED BY: [place] [address] PATHOLOGIST [employer] INSULATOR PAU MENON M.D. Performed By: #### B MP, CK, DDIMER, CBC, PTT, PT, HS TROP #### [facility] [address] [place] [address] Automated blood monocyte cou ntOrdered By: Carlton Hagen on 02-21-2023 Monocytes (Bld) [#/Vol] 0.3 10*3/uL Normal 0.0-0.8 [facility] Comment on above: Performed By: #### B MP, CK, DDIMER, CBC, PTT, PT, HS TROP #### [address] Automated eosinophil %Ordere d By: Carlton Hagen on 02-21-2023 Eosinophils/100 WBC (Bld) 0.4 % Normal . [facility] Comment on above: Performed By: #### B MP, CK, DDIMER, CBC, PTT, PT, HS TROP #### [address] Automated eosinophil countOr dered By: Carlton Hagen on 02-21-2023 Eosinophils (Bld) [#/Vol] 0.0 10*3/uL Normal 0.0-0.45 [facility] Comment on above: Performed By: #### B MP, CK, DDIMER, CBC, PTT, PT, HS TROP #### [address] Automated monocyte %Ordered By: Carlton Hagen on 02-21-2023 Monocytes/100 WBC (Bld) 4.4 % Normal . [facility] Comment on above: Performed By: #### B MP, CK, DDIMER, CBC, PTT, PT, HS TROP #### [address] Automated neutrophil %Ordere d By: Carlton Hagen on 02-21-2023 Neutrophils/100 WBC (Bld) 76.0 % Normal . [facility] Comment on above: Performed By: #### B MP, CK, DDIMER, CBC, PTT, PT, HS TROP #### [address] Basic Metabolic Panelon 05 Anion gap [Moles/Vol] 15.3 mmol/L High 6.0-15.0 [facility] Comment on above: Performed By: #### B MP, CK, DDIMER, CBC, PTT, PT, HS TROP #### [address] Calcium [Mass/Vol] 9.3 mg/dL Normal 8.6-10.3 [facility] Comment on above: Performed By: #### B MP, CK, DDIMER, CBC, PTT, PT, HS TROP #### [address] Chloride [Moles/Vol] 102 mmol/L Normal 98-107 [facility] Comment on above: Performed By: #### B MP, CK, DDIMER, CBC, PTT, PT, HS TROP #### [facility] [address] CO2 [Moles/Vol] 23.6 mmol/L Normal 21.0-31.0 [facility] Comment on above: Performed By: #### B MP, CK, DDIMER, CBC, PTT, PT, HS TROP #### [facility] [address] Creatinine [Mass/Vol] 0.69 mg/dL Normal 0.60-1.20 [facility] Comment on above: Performed By: #### B MP, CK, DDIMER, CBC, PTT, PT, HS TROP #### [facility] [address] Creatinine Clr Calc Pharmacy 147.50 [facility] Comment on above: Result Comment: PERF ORMED BY: [place] [address] PATHOLOGIST [employer] INSULATOR PAU MENON M.D. Performed By: #### B MP, CK, DDIMER, CBC, PTT, PT, HS TROP #### [facility] [address] GFR/1.73 sq M.predicted MDRD (S/P/Bld) [Vol rate/Area] mL/min/{1.73_m2} [facility] Comment on above: Performed By: #### B MP, CK, DDIMER, CBC, PTT, PT, HS TROP #### [facility] [address] Glucose [Mass/Vol] 145 mg/dL High 70-100 [facility] Comment on above: Result Comment: [place] Glucose Reference Range is dependent on time and content of last meal. Glucose of more than 200 mg/dL in a nonstressed, ambulatory subject supports the diagnosis of Diabetes Mellitus. ADA recommended reference range Performed By: #### B MP, CK, DDIMER, CBC, PTT, PT, HS TROP #### [facility] [address] Potassium [Moles/Vol] 3.9 mmol/L Normal 3.5-5.1 [facility] Comment on above: Performed By: #### B MP, CK, DDIMER, CBC, PTT, PT, HS TROP #### [facility] [address] Sodium [Moles/Vol] 137 mmol/L Normal 136-145 [facility] Comment on above: Performed By: #### B MP, CK, DDIMER, CBC, PTT, PT, HS TROP #### [facility] [address] Urea nitrogen [Mass/Vol] 15 mg/dL Normal 7-25 [facility] Comment on above: Performed By: #### B MP, CK, DDIMER, CBC, PTT, PT, HS TROP #### [facility] [address] Calcium [Mass/volume] in Ser um or PlasmaOrdered By: Carlton Hagen on 02-21-2023 Calcium [Mass/Vol] 9.3 mg/dL 8.6-10.3 [facility] Carbon dioxide, total [Moles /volume] in Serum or PlasmaOrdered By: Carlton Hagen on 02-21-2023 CO2 [Moles/Vol] 23.6 mmol/L 21.0-31.0 [facility] Chloride [Moles/volume] in S jacqueline or PlasmaOrdered By: Carlton Hagen on 02-21-2023 Chloride [Moles/Vol] 102 mmol/L 98-107 [facility] Complete Blood Count Auto Di ffon 02-21-2023 Mean Corpuscular HGB Conc 32.8 g/dL Normal 32.0-35.0 [facility] Comment on above: Performed By: #### B MP, CK, DDIMER, CBC, PTT, PT, HS TROP #### [facility] [address] NRBC% 0.2 /100{WBC} Normal 0-0.5 [facility] Comment on above: Performed By: #### B MP, CK, DDIMER, CBC, PTT, PT, HS TROP #### [facility] [address] [place] [address] [place] Creatine Kinaseon 02-21-2023 CK [Catalytic activity/Vol] 61 U/L Normal -223 [facility] Comment on above: Performed By: #### B MP, CK, DDIMER, CBC, PTT, PT, HS TROP #### [address] [address] [place] Creatine kinase [Enzymatic a ctivity/volume] in Serum or PlasmaOrdered By: Carlton Hagen on 02-21-2023 CK [Catalytic activity/Vol] 61 U/L - [facility] Creatinine [Mass/volume] in Serum or PlasmaOrdered By: Carlton Hagen on 02-21-2023 Creatinine [Mass/Vol] 0.69 mg/dL 0.60-1.20 [facility] D-Dimer High Sensitivityon 0 02-21-2023 D-Dimer High Sensitivity < 200 Normal 0-243 [facility] Comment on above: Result Comment: The reference [...] patients due to co-morbid conditions. PERFORMED BY: [place] [address] PATHOLOGIST [employer] INSULATOR PAU MENON M.D. Performed By: #### B MP, CK, DDIMER, CBC, PTT, PT, HS TROP #### [place] [id number] [place] ECG 12 lead ECGon 02-21-2023 ECG 12 lead ECG [facility] Main [facility] [address] [place] [address] Electrocardiograph Report Signed Patient: Jase Loja MR#: [id number] : 2000 Acct:[id number] Age/Sex: 23 / F ADM Date: 02/21/23 Loc: ER Room: Type: [facility] ER Attending Dr: Ordering Provider: [...] By Demarco Licona MD 02/21/23 1527 Normal [facility] Erythrocyte distribution wid th [Ratio] by Automated countOrdered By: Carlton Hagen on 02-21-2023 Erythrocyte distribution width (RBC) [Ratio] 13.6 % Normal 11.9-15.3 [facility] Comment on above: Performed By: #### B MP, CK, DDIMER, CBC, PTT, PT, HS TROP #### [facility] [address] [place] [address] [place] Erythrocytes [#/volume] in B lood by Automated countOrdered By: Carlton Hagen on 02-21-2023 RBC (Bld) [#/Vol] 4.54 10*6/uL Normal 3.60-5.00 [facility] Comment on above: Performed By: #### B MP, CK, DDIMER, CBC, PTT, PT, HS TROP #### [facility] [address] [place] [address] [place] Glucose [Mass/volume] in Ser um or PlasmaOrdered By: Carlton Hagen on 02-21-2023 Glucose [Mass/Vol] 145 mg/dL 70-100 [facility] Comment on above: ADA recommended refe rence rangeRandom Glucose Reference Range is dependent on time and content of last meal. Glucose of more than 200 mg/dL in a nonstressed, ambulatory subject supports the diagnosis of Diabetes Mellitus. Hematocrit [Volume Fraction] of Blood by Automated countOrdered By: Cralton Hagen on 02-21-2023 Hematocrit (Bld) [Volume fraction] 38.7 % Normal 34.0-46.4 [facility] Comment on above: Performed By: #### B MP, CK, DDIMER, CBC, PTT, PT, HS TROP #### [facility] [address] Hemoglobin [Mass/volume] in BloodOrdered By: Carlton Hagen on 02-21-2023 Hemoglobin (Bld) [Mass/Vol] 12.7 g/dL Normal 11.8-15.4 [facility] Comment on above: Performed By: #### B MP, CK, DDIMER, CBC, PTT, PT, HS TROP #### [facility] [address] Laboratory - CoagulationOrde red By: Carlton Hagen on 02-21-2023 PT Coag (PPP) [Time] 11.9 s 9.0-12.9 [facility] Leukocytes [#/volume] correc radha for nucleated erythrocytes in Blood by Automated counOrdered By: Carlton Hagen on 02-21-2023 WBC corrected for nucl RBC Auto (Bld) [#/Vol] 7.1 10*3/uL 3.8-11.6 [facility] Leukocytes [#/volume] in Blo od by Automated countOrdered By: Carlton Hagen on 02-21-2023 WBC (Bld) [#/Vol] 7.1 10*3/uL Normal 3.8-11.6 [facility] Comment on above: Performed By: #### B MP, CK, DDIMER, CBC, PTT, PT, HS TROP #### [facility] [address] [place] [address] [place] Lymphocytes [#/volume] in Bl ood by Automated countOrdered By: Carlton Hagen on 02-21-2023 Lymphocytes (Bld) [#/Vol] 1.3 10*3/uL Normal 1.00-4.8 [facility] Comment on above: Performed By: #### B MP, CK, DDIMER, CBC, PTT, PT, HS TROP #### [address] Lymphocytes/100 leukocytes i n Blood by Automated countOrdered By: Carlton Hagen on 02-21-2023 Lymphocytes/100 WBC (Bld) 18.8 % Normal . [facility] Comment on above: Performed By: #### B MP, CK, DDIMER, CBC, PTT, PT, HS TROP #### [address] MCH [Entitic mass] by Automa radha countOrdered By: Carlton Hagen on 02-21-2023 MCH (RBC) [Entitic mass] 28.0 pg Normal 24.7-34.3 [facility] Comment on above: Performed By: #### B MP, CK, DDIMER, CBC, PTT, PT, HS TROP #### [address] MCHC Auto (RBC) [Mass/Vol]Or dered By: Carlton Hagen on 02-21-2023 MCHC (RBC) [Mass/Vol] 32.8 g/dL 32.0-35.0 [facility] MCV [Entitic volume] by Auto mated countOrdered By: Carlton Hagen on 02-21-2023 MCV (RBC) [Entitic vol] 85.3 fL Normal 80-100 [facility] Comment on above: Performed By: #### B MP, CK, DDIMER, CBC, PTT, PT, HS TROP #### [address] Neutrophils [#/volume] in Bl ood by Automated countOrdered By: Carlton Hagen on 02-21-2023 Neutrophils (Bld) [#/Vol] 5.4 10*3/uL Normal 1.8-7.7 [facility] Comment on above: Performed By: #### B MP, CK, DDIMER, CBC, PTT, PT, HS TROP #### [address] No Panel InformationOrdered By: Carlton Hagen on 02-21-2023 D-Dimer Quantitative (PE/DVT) < 200 ng/mL 0-243 [facility] Comment on above: The reference range for [...] conditions. Estimated GFR (CKD-EPI) > 60.0 mL/Min [facility] Creatinine Clearance (Chem 147.50 [facility] Nucleated erythrocytes [Pres ence] in Blood by Automated countOrdered By: Carlton Hagen on 02-21-2023 Nucleated RBC Auto Ql (Bld) 0.2 /100{WBC} 0-0.5 [facility] Partial Thromboplastin Timeo n 02-21-2023 aPTT Coag (Bld) [Time] 28.7 s Normal 25.1-36.5 [facility] Comment on above: Performed By: #### B MP, CK, DDIMER, CBC, PTT, PT, HS TROP #### [facility] [address] Platelet mean volume [Entiti c volume] in Blood by Automated countOrdered By: Carlton Hagen on 02-21-2023 Platelet mean volume (Bld) [Entitic vol] 8.8 fL Normal 6.3-10.7 [facility] Comment on above: Performed By: #### B MP, CK, DDIMER, CBC, PTT, PT, HS TROP #### [facility] [address] Platelet poor plasma interna tional normalized ratio (INR) by coagulation assay (relatOrdered By: Carlton Hagen on 02-21-2023 INR Coag (PPP) [Relative time] 1.0 {INR} [facility] Comment on above: INR Therapeutic Rang e [...] Platelets (Bld) [#/Vol] 222 10*3/uL Normal 150-450 [facility] Comment on above: Performed By: #### B MP, CK, DDIMER, CBC, PTT, PT, HS TROP #### [facility] [address] Potassium [Moles/volume] in Serum or PlasmaOrdered By: Carlton Hagen on 02-21-2023 Potassium [Moles/Vol] 3.9 mmol/L 3.5-5.1 [facility] Prothrombin Time INRon 02-21 INR Coag (PPP) [Relative time] 1.0 {INR} Normal [facility] Comment on above: Result Comment: INR Therapeutic [...] DDIMER, CBC, PTT, PT, HS TROP #### [facility] [address] PT Coag (PPP) [Time] 11.9 s Normal 9.0-12.9 [facility] Comment on above: Performed By: #### B MP, CK, DDIMER, CBC, PTT, PT, HS TROP #### [facility] [address] [place] [address] [place] Serum or plasma anion gap de terminationOrdered By: Carlton Hagen on 02-21-2023 Anion gap [Moles/Vol] 15.3 mmol/L 6.0-15.0 [facility] Sodium [Moles/volume] in Ser um or PlasmaOrdered By: Carlton Hagen on 02-21-2023 Sodium [Moles/Vol] 137 mmol/L 136-145 [facility] Troponin I High Sensitivityo n 02-21-2023 Troponin I High Sensitivity 2.6 pg/mL Normal 0.0-15.0 [facility] Comment on above: Result Comment: PERF ORMED BY: [place] [address] PATHOLOGIST [employer] INSULATOR PAU MENON M.D. Performed By: #### B MP, CK, DDIMER, CBC, PTT, PT, HS TROP #### [address] Troponin I.cardiac [Mass/vol ume] in Serum or Plasma by Detection limit <= 0.01 ng/Ordered By: Carlton Hagen on 02-21-2023 Troponin I.cardiac DL <= 0.01 ng/mL [Mass/Vol] 2.6 pg/mL 0.0-15.0 [facility] Urea nitrogen [Mass/volume] in Serum or PlasmaOrdered By: Carlton Hagen on 02-21-2023 Urea nitrogen [Mass/Vol] 15 mg/dL 7-25 [facility] XR chest 2V*on 02-21-2023 XR chest 2V* [facility] [address] [place], [place] [id number] XRay Report Signed Patient: Jase Loja MR#: [id number] : 2000 Acct:[id number] Age/Sex: 23 / F ADM Date: 02/21/23 Loc: ER Room: Type: [facility] ER Attending Dr: Copies to: Carlton [...] Francie Lobato M.D.02/21/2023 10:26 AM Dictation Location: [facility]--10 Transcribed By: [facility] 02/21/23 1026 Dictated By: Francie Lobato MD 02/21/23 1025 Signed By: 02/21/23 1026 [facility] Vital Signs Date Time Vital Sign Value Performing Clinician Facility 04-10-2023 13:45-0400 Body height 167.64 cm Mikala Morocho Other [facility] Other 04-10-2023 13:45-0400 Body mass index (BMI) [Ratio] 34.38 kg/m2 Mikala Morocho Other [facility] Other 04-10-2023 13:45-0400 Body weight 96.62 kg Mikala Morocho Other [facility] Other 04-10-2023 13:45-0400 Diastolic blood pressure 94 mm[Hg] Mikala Morocho Other [facility] Other 04-10-2023 13:45-0400 Systolic blood pressure 164 mm[Hg] Mikala Morocho Other [facility] Other 02-26-2023 15:30-0400 Body height 167.64 cm Mikala Morocho Other [facility] Other 02-26-2023 15:30-0400 Body mass index (BMI) [Ratio] 33.08 kg/m2 Mikala Morocho Other [facility] Other 02-26-2023 15:30-0400 Body weight 92.99 kg Mikala Morocho Other [facility] Other 02-26-2023 15:30-0400 Diastolic blood pressure 74 mm[Hg] Mikala Morocho Other [facility] Other 02-26-2023 15:30-0400 SaO2% (BldA) [Mass fraction] 99 % Mikala Morocho Other [facility] Other 02-26-2023 15:30-0400 Systolic blood pressure 126 mm[Hg] Mikala Morocho Other [facility] Other 02-21-2023 10:04-0400 Diastolic blood pressure 100 mm[Hg] MD Mikala Morocho Work Phone: [facility] 02-21-2023 10:04-0400 Heart rate 105 /min MD Mikala Morocho Work Phone: [facility] 02-21-2023 10:04-0400 Respiratory rate 18 /min MD Mikala Morocho Work Phone: [facility] 02-21-2023 10:04-0400 SaO2% (BldA) [Mass fraction] 100 % MD Mikala Morocho Work Phone: [facility] 02-21-2023 10:04-0400 Systolic blood pressure 163 mm[Hg] MD Mikala Morocho Work Phone: [facility] 02-21-2023 09:04-0400 Body height 167.64 cm MD Mikala Morocho Work Phone: [facility] 02-21-2023 09:04-0400 Body temperature 99.3 [degF] MD Mikala Morocho Work Phone: [facility] 02-21-2023 09:04-0400 Body weight 95.25 kg MD Mikala Morocho Work Phone: [facility] Encounters Encounter Date Encounter Type Care Provider Facility Start: 06-02-2024 End: 06-02-2024 ambulatory MANJEET AMANDAMANNYZ Not Available Start: 01-17-2024 End: 01-17-2024 ambulatory MANJEET LANETTE Not Available Start: 06-18-2023 End: 06-18-2023 ambulatory Mikala Morocho Other [facility] Other Start: 06-18-2023 Telephone encounter Mikala Morocho [facility] Start: 04-10-2023 End: 04-10-2023 ambulatory Mikala Morocho Other [facility] Other Start: 04-10-2023 Office outpatient vi sit 15 minutes Mikala Morocho [facility] Start: 02-26-2023 End: 02-26-2023 ambulatory Mikala Morocho Other [facility] Other Start: 02-26-2023 Office outpatient vi sit 15 minutes Mikala Morocho [facility] Start: 02-21-2023 End: 02-21-2023 Emergency department patient visit Carlton Hagen Facility:[facility] Start: 02-21-2023 End: 02-21-2023 Emergency department patient visit MD Mikala Morocho Work Phone: [facility] Work Phone: Start: 02-22-2022 Adult health examination Mikala Morocho Other [facility] Other Start: 10-06-2021 End: 10-07-2021 ambulatory KALEY LUEVANO Facility:[facility] Start: 06-01-2021 End: 06-02-2021 ambulatory MAURY FRANCISCO Facility:[facility] Start: 03-02-2021 End: 03-03-2021 ambulatory MAURY FRANCISCO Facility:[facility] Start: 01-26-2021 End: 01-27-2021 ambulatory MAURY MARYAM Facility:[facility] Start: 01-05-2021 End: 01-06-2021 ambulatory MAURY MARYAM Facility:[facility] Start: 12-23-2020 End: 12-24-[address] MIKALA MOROCHO Facility:[facility] Start: 11-05-2018 End: 11-06-2018 Patient encounter procedure Demarco Cabral Facility:[id number] Procedures Date Procedure Procedure Detail Performing Clinician Start: 02-21-2023 Plain chest X-ray MD Miguel Morocho Work Phone: Start: 08-21-2016 Laboratory test resu lt abnormal Mikala Morocho Other Start: 08-21-2016 Pre-surgery evaluation Mikala Morocho Other Viral screening Mikala Morocho Other Plan of Treatment Date Care Activity Detail Author Patient Education Chest Pain Jorge Luis t Is Not Caused by the Heart (DC) Anxiety, Adult (DC) [facility] Work Phone: Patient referral [facility] Work Phone: Payers Date Payer Category Payer Self-pay 2023 Unknown [id number] 2000 Unknown [id number] 2.16.84 [id number] 2000 Unknown [id number] 2.16.84 [id number] 2000 Unknown [id number] 2.16.84 [id number] 2000 Unknown [id number] 2.16.84 [id number] 2000 Unknown [id number] 2.16.84 [id number] 2000 Unknown [id number] 2.16.84 [id number] 2000 Unknown [id number] 2.16.84 [id number] 2000 Unknown [id number] 2.16.84 [id number] 1959 Private Health Insurance [facility] [id number] Unknown [id number] Unknown [id number] 2.16.8 [id number] Social History Date Type Detail Facility Start: 02-21-2023 Tobacco smoking status NHIS Never smoked tobacco (finding) [facility] Start: 2000 Sex Assigned At Female F [facility] Sex Assigned At Sex Assigned At Bir th [facility] Other Clinical Notes 12-23-2020 to 04-10-2023 Note Date & Type Note Facility 04-10-2023 Evaluation note Encounter Date Diagnosis Assessment Notes Mar, Anxiety disorder, unspecified (ICD-10 - F41.9) Discussed meds and counseling Mar, Depression, unspecified (ICD-10 - F32.A) as above Mar, Musculoskeletal chest pain (ICD-10 - R07.89) suggested chiropractor, PT and muscle relaxers as able [facility] Other 05-08-2023 Evaluation note* Encounter Date Diagnosis [...] verbalized understanding and agreement with treatment plan. [facility] Other 12-16-2021 NotePROCEDURE: XR FOOT RT MIN [...] Electronically authenticated by: LANCE VASQUEZ Date: 2021-10-06 10:52[facility] [id number] NotePROCEDURE: XR FOOT RT MIN 3 VIEWS [...] authenticated by: ANGIE MURRAY Date: 2021-06-01 13:56[facility] [id number] NotePROCEDURE: XR FOOT RT MIN 3 VIEWS [...] authenticated by: ANGIE MURRAY Date: 2021-03-02 10:34[facility] [id number] NotePROCEDURE: XR FOOT RT MIN 3 VIEWS [...] authenticated by: ANGIE MURRAY Date: 2021-01-26 15:44[facility] [id number] NotePROCEDURE: XR FOOT RT MIN 3 VIEWS [...] authenticated by: ANGIE MURRAY Date: 2021-01-05 12:43[facility] [id number] NotePROCEDURE: XR FOOT RT MIN 3 VIEWS [...] 1. Stable surgical changes. Electronically authenticated by: NAGIE MURRAY Date: 2020-12-23 14:48[facility] CenterEvaluation noteNo assessment information availableTogus [facility] Center Work Phone: Evaluation noteNo InformationNort Jeb[employer] Other History general Narrative - Reported* Type [...] of, Problem Comment : L foot surgery 2016, Problem Status : Active, [facility] Other Summary Purpose Family History No Family History Records FoundNo Family History Records FoundNo Family History Records FoundNo Family History Records Found Advance Directives No Advanced Directives Records Found Advance Directive Response Recorded Date/ Time Advance Directives No February 21, 2023 9:15am Chief Complaint and Reason for Visit Chief Complaint Chest pain Additional Source Comments INFORMATION SOURCE (unrecogn ized section and content) DATE CREATED AUTHOR 11/11/2018 Brian Tripathi [facility] DATE CREATED AUTHOR AUTHOR'S ORGANIZ ATION 12/09/2021 [facility] DATE CREATED AUTHOR AUTHOR'S ORGANIZ ATION 06/04/2023 [facility] DATE CREATED AUTHOR AUTHOR'S ORGANIZ ATION 06/04/2024 [facility] [employer] Care Teams (unrecognized sec tion and content) Team Status: Active Member Role Status Dates Mikala Morocho MD Primary Care Provider Active Team Status: Inactive Member Role Status Dates Mikala Morocho MD Primary Care Provider Active Carlton Hagen [...] BE BASED ON THE PRIMARY CLINICAL RECORDS. [employer] [facility]. provides no warranty or guarantee of the accuracy or completeness of information in this document.
[2024-06-16 08:19] LABS: Basophils Percent Auto 0.2 % (0.2-2.0); Eosinophils Absolute Auto 0.1 10^3/uL (0.0-0.7); Eosinophils Percent Auto 1.4 % (0.9-7.0); Hematocrit 41.7 % (36.0-48.0); Hemoglobin 13.5 g/dL (12.0-16.0); Immature Granulocytes Pct Auto 1.1 % (0.0-0.5); Lymphocytes Absolute Auto 2.9 10^3/uL (1.2-3.8); Lymphocytes Percent Auto 30.8 % (20.5-60.0); Mean Corpuscular HGB Conc 32.4 g/dL (29.9-35.2); Mean Corpuscular Hemoglobin 28.4 pg (26.7-34.0); Mean Corpuscular Volume 87.8 fL (81.0-99.0); Mean Platelet Volume 11.1 fL (9.5-13.5); Monocytes Absolute Auto 0.6 10^3/uL (0.3-0.8); Monocytes Percent Auto 6.8 % (1.7-12.0); Neutrophils Absolute Auto 5.6 10^3/uL (1.4-6.5); Neutrophils Percent Auto 59.7 % (43.0-75.0); Platelet Count 214 10^3/uL (150-450); Red Blood Count 4.75 10^6/uL (4.20-5.40); Red Cell Distribution Width 14.3 % (11.0-15.0); White Blood Count 9.4 10^3/uL (4.0-11.0)
[2024-06-16 08:22] LABS: Bilirubin Urine NEGATIVE (NEGATIVE); Blood Urine NEGATIVE (NEGATIVE); Clarity Urine CLEAR (CLEAR); Color Urine LT. YELLOW (YELLOW); Glucose Urine UA >=1000 mg/dL (NEGATIVE); HCG Qualitative Urine* NEGATIVE (NEGATIVE); Internal Control Within Normal Limits; Ketones Urine NEGATIVE (NEGATIVE); Leukocyte Esterase Urine NEGATIVE (NEGATIVE); Nitrite Urine NEGATIVE (NEGATIVE); Protein Urine NEGATIVE (NEG/TRACE); Specific Gravity Urine 1.015 (1.005-1.025); Urobilinogen Urine 0.2 EU/dL (0.2-1.0); pH Urine 5.5 (5.0-9.0)
[2024-06-16 08:24] LABS: Urine Microscopic Indicated NO
--- NOTE | 2024-06-16 08:35 | CT_ITS ---
[address] [address] Patient Name: JASE GLASS MRN: [id number] date: 2000 Sex: F Assigned Patient Location: ER Current Patient Location: ER Accession/Order Number: [id number] Exam Date: 06/16/2024 08:32 Report Date: 06/16/2024 08:51 At the request of: ELSY BURNETT Procedure: CT abdomen pelvis wo con EXAMINATION: CT abdomen pelvis wo con HISTORY: RLQ pain diarrhea, nausea COMPARISON: No relevant comparison available. TECHNIQUE: Axial, Coronal, and Sagittal images were created without IV contrast. Dose reduction techniques were achieved by using automated exposure control and/or adjustment of mA and/or kV according to patient size and/or use of iterative reconstruction technique. FINDINGS: LUNG BASES: No visible pulmonary or pleural disease. LIVER: Diffuse hypoattenuation suggesting hepatic steatosis. 2. Focal fatty sparing at the gallbladder fossa BILIARY: No dilatation or calcification. PANCREAS: No lesion, fluid collection, ductal dilatation, or atrophy. SPLEEN: No enlargement or focal lesion. ADRENALS: No mass or enlargement. KIDNEYS: No mass, obstruction, or calcification. BOWEL/MESENTERY: Nonobstructive bowel gas pattern. Normal appendix. There is an area of fat attenuation along the anterior margin of the descending colon measuring 1.7 cm with surrounding stranding best seen on axial image #80 AORTA/VASCULAR: No aortic aneurysm. Mild calcific atherosclerosis RETROPERITONEUM: No mass or adenopathy. LYMPH NODES: No adenopathy. URINARY BLADDER: No visible focal wall thickening, lesion, or calculus. PELVIC ORGANS: No visible mass. Pelvic organs appropriate for patient age. ABDOMINAL WALL: No mass or hernia. BONES: No bony lesion or fracture. OTHER: Negative. CT/CT abdomen pelvis wo con IMPRESSION: Inflammatory changes along the anterior margin of the descending colon, I favor epiploic appendicitis Electronically authenticated by: LANCE VASQUEZ Date: 06/16/2024 08:51
[2024-06-16 09:06] LABS: Alanine Aminotransferase 54 U/L (14-59); Albumin Globulin Ratio 1.1; Alkaline Phosphatase 51 U/L (46-116); Anion Gap 17.6; Aspartate Amino Transferase 24 U/L (15-37); BUN Creatinine Ratio 14.1; Bilirubin Total 0.5 mg/dL (0.2-1.0); Calcium 9.2 mg/dL (8.5-10.1); Carbon Dioxide 22.3 mmol/L (21.0-32.0); Chloride 101 mmol/L (98-107); Estimated GFR (African America >60 (>=60); Estimated GFR (Non-African Ame >60 (>=60); Globulin 3.7 g/dL; Glucose 167 mg/dL (74-106); Potassium 3.9 mmol/L (3.5-5.1); Sodium 137 mmol/L (136-145); Total Protein 7.7 g/dL (6.4-8.2)
[2024-06-16 09:53] VITALS: BP 146/80; PULSE 87; O2SAT 99
== END 2024-06-16 09:54 | disposition home or self-care (01) ==
PROVIDERS: Emergency Provider Emergency Medicine; PCP Nurse Practitioner
DX: K52.9 Noninfective gastroenteritis and colitis, unspecified (principal); R10.31 Right lower quadrant pain
CPT/HCPCS: 36415; 74176; 80053; 81003; 84703; 85025; 99284

== ENCOUNTER 2024-09-19 09:48 | Outpatient (OUT) | payer OTHER, SELFPAY ==
--- OUTSIDE RECORDS SUMMARY | 2024-09-19 09:53 | XMS_ITS | CCD ---
Author Organization [facility] Care Team Providers Care Adjunct Sociology Professor Name Role Phone Demarco Cabral Attending Unavailable Demarco Cabral Attending Unavailable MARYAM, MAURY Admitting Unavailable MARYAM, MAURY Attending Unavailable RASHAWN, DR MIKALA Prasad Primary Care Unavailable TREVOR, DR ANGIE Obregon Consulting Unavailable MARYAM, MAURY Consulting Unavailable MARYAM, MAURY Admitting Unavailable MARYAM, MAURY Attending Unavailable MOROCHO, DR MIKALA Prasad Primary Care Unavailable TREVOR, DR ANGIE Obregon Consulting Unavailable MARYAM, MAURY Consulting Unavailable MARYAM, MAURY Admitting Unavailable MARYAM, MAURY Attending Unavailable RASHAWN, DR MIKALA Prasad Primary Care Unavailable TREVOR, DR ANGIE Obregon Consulting Unavailable MARYAM, MAURY Consulting Unavailable ELLIOTT, KALEY Admitting Unavailable ELLIOTT, KALEY Attending Unavailable RASHAWN, DR MIKALA Prasad Primary Care Unavailable [place], DR LANCE Millard Consulting Unavailable ELLIOTT, KALEY Consulting Unavailable RASHAWN, DR MIKALA Prasad Primary Care Unavailable HIGHLANDER, KALEY Admitting Unavailable HIGHLANDER, PETER Attending Unavailable TREVOR, DR ANGIE Obregon Consulting Unavailable HIGHLANDER, KALEY Consulting Unavailable MARYAM, MAURY Admitting Unavailable MARYAM, MAURY Attending Unavailable RASHAWN, DR MIKALA Prasad Primary Care Unavailable TREVOR, DR ANGIE Obregon Consulting Unavailable MARYAM, MAURY Consulting Unavailable MD Mikala Morocho Primary Care Provider GARRETT Hagen Emergency Provider Mikala Morocho Unavailable Carlton Hagen Attending Unavailable Carlton Hagen Admitting Unavailable Mikala Morocho Primary Care Unavailable Selina MIXER MACHINE FEEDER, Michelle Unavailable Justin Ahmadi MD Primary Care Provider [phone] MICHELLE MARKS Attending Unavailable SELINA, MICHELLE Attending Unavailable MICHELLE MARKS Attending Unavailable MICHELLE MARKS Attending Unavailable Allergies Allergy Classification Reported Allergen(s) Allergy Type Date of Onset Reaction(s) Facility (1 source) patient allergy list reviewed by nurse or physicia Propensity to adverse reactions Comment:Done Gnammo Other (1 source) Allergies Reconciled Propensity to adverse reactions Unknown Gnammo Other Medications Current Medications Medication Drug Class(es) Dates Sig (Normalized) Sig (Original) atorvastatin 20 mg oral tablet (6 sources) HMG-CoA Reductase Inhibitor Start: 06-02-2024 End: 11-24-2024 take 1 tablet by mouth once daily atorvastatin (Lipitor) 20 MG tablet Indications: Mixed hyperlipidemia (CMS/HCC) Take 1 tablet (20 mg) by mouth Daily 90 tablet 1 08/26/2024 11/24/2024 Active dapagliflozin 5 mg oral tablet (6 sources) Sodium-Glucose Cotransporter 2 Inhibitor Start: 07-10-2024 End: 11-24-2024 take 1 tablet by mouth once daily dapagliflozin (Farxiga) 5 MG Indications: Type 2 diabetes mellitus without complication, without long-term current use of insulin (CMS/HCC) Take 1 tablet (5 mg) by mouth Daily 90 tablet 1 08/26/2024 11/24/2024 Active escitalopram 20 mg oral tablet (10 sources) Serotonin Reuptake Inhibitor Start: 06-02-2024 End: 11-24-2024 take 1 tablet by mouth once daily escitalopram (Lexapro) 20 MG tablet Indications: Anxiety disorder, unspecified , Anxiety state (CMS/HCC) Take 1 tablet (20 mg) by mouth Daily 90 tablet 1 08/26/2024 11/24/2024 Active Start: 02-21-2023 take 1 tablet by amadeo th once daily Escitalopram Oxalate (Lexapro) 10 mg Tablet Active 10 MG PO Daily February 21, 2023 12:00am lisinopril 20 mg oral tablet (6 sources) Angiotensin Converting Enzyme Inhibitor Start: 06-12-2024 End: 11-24-2024 take 1 tablet by mouth in the morning lisinopril 20 MG tablet Indications: Primary hypertension (CMS/HCC) Take 1 tablet (20 mg) by mouth in the morning. 90 tablet 1 08/26/2024 11/24/2024 Active metFORMIN hydrochloride 1000 mg oral tablet (10 sources) Biguanide Start: 06-16-2024 End: 11-24-2024 take 1 tablet by mouth in the morning metFORMIN (Glucophage) 1000 MG tablet Indications: Type 2 diabetes mellitus without complications (CMS/HCC) Take 1 tablet (1,000 mg) by mouth in the morning and 1 tablet (1,000 mg) in the evening. Take with meals. 180 tablet 1 08/26/2024 11/24/2024 Active Start: 02-21-2023 take 1000 mg by mout h twice daily Metformin Active 1000 MG PO Twice daily February 21, 2023 12:00am Semaglutide,0.25 or 0.5MG/DO S, (Ozempic, 0.25 or 0.5 MG/DOSE,) 2 MG/3ML solution pen-injector (7 sources) Start: 08-26-2024 End: 09-25-2024 Semaglutide,0.25 or 0.5MG/DO S, (Ozempic, 0.25 or 0.5 MG/DOSE,) 2 MG/3ML solution pen-injector Indications: Type 2 diabetes mellitus without complication, without long-term current use of insulin (CMS/HCC) Inject 0.5 mg under the skin every 7 (seven) days 3 mL 1 08/26/2024 09/25/2024 Active Start: 08-13-2024 End: 08-26-2024 Semaglutide,0.25 or 0.5MG/DO S, (Ozempic, 0.25 or 0.5 MG/DOSE,) 2 MG/3ML solution pen-injector Indications: Type 2 diabetes mellitus without complication, without long-term current use of insulin (CMS/HCC) Inject 0.5 mg under the skin every 7 (seven) days 3 mL 1 08/13/2024 08/26/2024 Discontinued (Reorder) Start: 08-13-2024 End: 09-12-2024 Semaglutide,0.25 or 0.5MG/DO S, (Ozempic, 0.25 or 0.5 MG/DOSE,) 2 MG/3ML solution pen-injector Indications: Type 2 diabetes mellitus without complication, without long-term current use of insulin (CMS/HCC) Inject 0.5 mg under the skin every 7 (seven) days 3 mL 1 08/13/2024 09/12/2024 Active Start: 06-02-2024 End: 08-13-2024 inject 0.25 mg by subcutaneous injection every week, then inject 0.25 mg by subcutaneous injection every week, then inject 0.5 mg by subcutaneous injection every week Semaglutide,0.25 or 0.5MG/DOS, (Ozempic, 0.25 or 0.5 MG/DOSE,) 2 MG/3ML solution pen-injector Indications: Type 2 diabetes mellitus without complication, without long-term current use of insulin ([facility]) Inject 0.25 mg under the skin 1 (one) time per week for 28 days Start with 0.25mg once a week for 4 weeks, then increase to 0.5mg once a week 3 mL 1 06/02/2024 08/13/2024 Discontinued tiZANidine 4 mg oral tablet (2 sources) [...] Active Problems Problem Classification Problem Date Documented Date Episodic/Chronic Acquired foot deformities (4 sources) Disorder of ankle; Translations: [Valgus deformity, not elsewhere classified, right ankle] Episodic Anxiety disorders (9 sources) Anxiety; Translations: [Anxiety disorder, unspecified] 02-21-2023 Chronic Diabetes mellitus without complication (12 sources) Type 2 diabetes mellitus without complication; Translations: [Diabetes mellitus without mention of complication, type II or unspecified type, not stated as uncontrolled] Onset: 03-19-2019 08-13-2024 Chronic Disorders of lipid metabolism (6 sources) Mixed hyperlipidemia; Translations: [Mixed hyperlipidemia] Onset: 11-11-2023 11-11-2023 Chronic Esophageal disorders (4 sources) Gastroesophageal reflux disease; Translations: [Gastro-esophageal reflux disease without esophagitis] Onset: 01-02-2024 01-02-2024 Chronic Essential hypertension (8 sources) Essential hypertension; Translations: [Essential (primary) hypertension] Onset: 01-02-2024 06-02-2024 Chronic Fever of unknown origin (1 source) [...] (and kyphoscoliosis), idiopathic] Onset: 08-21-2016 Chronic Other congenital anomalies (4 sources) Congenital pes planus; Translations: [Congenital pes planus, unspecified foot] Onset: 01-02-2024 01-02-2024 Chronic Other connective tissue disease (4 sources) Pain in right foot; Translations: [PAIN IN RIGHT FOOT] Onset: 10-06-2021 Episodic Other connective tissue disease (1 source) Tibialis tendinitis; Translations: [Posterior tibial tendinitis, right leg] Episodic Other connective tissue disease (5 sources) Pain in right foot; Translations: [Pain in right foot] Onset: 06-02-2024 06-02-2024 Episodic Other connective tissue disease (1 source) Tendon contracture; Translations: [Short Achilles tendon (acquired), right ankle] Episodic Other hereditary and degenerative nervous system conditions (1 source) Restless legs; Translations: [Restless legs syndrome [RLS]] Onset: 05-04-2017 Chronic Other inflammatory condition of skin (1 source) Itching of skin; Translations: [Pruritus, unspecified] Episodic Other nutritional; endocrine; and metabolic disorders (8 sources) Body mass index 30+ - obesity; Translations: [Body mass index (BMI) 35.0-35.9, adult] Onset: 01-17-2024 07-16-2024 Chronic Other nutritional; endocrine; and metabolic disorders (6 sources) Obesity caused by energy imbalance; Translations: [Morbid (severe) obesity due to excess calories] Onset: 06-02-2024 06-02-2024 Chronic Other upper respiratory disease (1 source) Allergic rhinitis; Translations: [Allergic rhinitis, unspecified] Onset: 05-04-2017 Chronic Other upper respiratory infections (1 source) Chronic sinusitis; Translations: [Chronic sinusitis, unspecified] Chronic Spondylosis; intervertebral disc disorders; other back problems (1 source) Radiculopathy, cervical region Episodic Sprains and strains (1 source) Late effect of sprain AND/OR strain without tendon injury; Translations: [Other sprain of right foot, sequela] Episodic Past or Other Problems Problem Classification Problem Date Documented Date Episodic/Chronic Abdominal pain (4 sources) Generalized abdominal pain; Translations: [Generalized abdominal pain] Onset: 01-14-2024 01-14-2024 Episodic Diabetes mellitus without complication (1 source) Hyperglycemia; Translations: [Hyperglycemia, unspecified] Onset: 03-13-2019 Episodic Mood disorders (1 source) Mood disorders Nonspecific chest pain (3 sources) Atypical chest pain; Translations: [Other chest pain] Onset: 02-21-2023 02-21-2023 Episodic Other acquired deformities (1 source) Acquired deformity of ankle AND/OR foot; Translations: [Other acquired deformity of ankle and foot] Onset: 08-21-2016 Episodic Other upper respiratory infections (6 sources) Acute maxillary sinusitis, unspecified; Translations: [Acute sinusitis] Onset: 11-19-2023 Resolved: 06-02-2024 Episodic Otitis media and related conditions (1 source) Non-suppurative otitis media; Translations: [Unspecified nonsuppurative otitis media, bilateral] Onset: 07-24-2017 Episodic Results Test Name Value Interpretation Reference Range Facility Activated partial thrombopla stin time (aPTT) in platelet poor plasma by coagulation aOrdered By: Carlton Hagen on 02-21-2023 aPTT Coag (PPP) [Time] 28.7 s 25.1-36.5 [facility] Automated basophil %Ordered By: Carlton Hagen on 02-21-2023 Basophils/100 WBC (Bld) 0.4 % Normal . [facility] Comment on above: Performed By: #### B MP, CK, DDIMER, CBC, PTT, PT, HS TROP #### [address] Automated basophil countOrde red By: Carlton Hagen on 02-21-2023 Basophils (Bld) [#/Vol] 0.0 10*3/uL Normal 0.0-0.2 [facility] Comment on above: Result Comment: PERF ORMED BY: [place] [address] PATHOLOGIST ASSOCIATE TECHNICIAN PAU MENON M.D. Performed By: #### B MP, CK, DDIMER, CBC, PTT, PT, HS TROP #### [address] Automated blood monocyte cou ntOrdered By: Carlton Hagen on 02-21-2023 Monocytes (Bld) [#/Vol] 0.3 10*3/uL Normal 0.0-0.8 [facility] Comment on above: Performed By: #### B MP, CK, DDIMER, CBC, PTT, PT, HS TROP #### [address] Automated eosinophil %Ordere d By: Carlton Hagen on 02-21-2023 Eosinophils/100 WBC (Bld) 0.4 % Normal . [facility] Comment on above: Performed By: #### B MP, CK, DDIMER, CBC, PTT, PT, HS TROP #### [address] Automated eosinophil countOr dered By: Carlton Hagen on 02-21-2023 Eosinophils (Bld) [#/Vol] 0.0 10*3/uL Normal 0.0-0.45 [facility] Comment on above: Performed By: #### B MP, CK, DDIMER, CBC, PTT, PT, HS TROP #### [address] Automated monocyte %Ordered By: Carlton Hagen on 02-21-2023 Monocytes/100 WBC (Bld) 4.4 % Normal . [facility] Comment on above: Performed By: #### B MP, CK, DDIMER, CBC, PTT, PT, HS TROP #### [facility] [address] Automated neutrophil %Ordere d By: Carlton Hagen on 02-21-2023 Neutrophils/100 WBC (Bld) 76.0 % Normal . [facility] Comment on above: Performed By: #### B MP, CK, DDIMER, CBC, PTT, PT, HS TROP #### [facility] [address] Basic Metabolic Panelon 05-0 Anion gap [Moles/Vol] 15.3 mmol/L High 6.0-15.0 [facility] Comment on above: Performed By: #### B MP, CK, DDIMER, CBC, PTT, PT, HS TROP #### [facility] [address] Calcium [Mass/Vol] 9.3 mg/dL Normal 8.6-10.3 [facility] Comment on above: Performed By: #### B MP, CK, DDIMER, CBC, PTT, PT, HS TROP #### [facility] [address] Chloride [Moles/Vol] 102 mmol/L Normal 98-107 [facility] Comment on above: Performed By: #### B MP, CK, DDIMER, CBC, PTT, PT, HS TROP #### [facility] [address] CO2 [Moles/Vol] 23.6 mmol/L Normal 21.0-31.[address] [facility] Comment on above: Performed By: #### B MP, CK, DDIMER, CBC, PTT, PT, HS TROP #### [address] Creatinine [Mass/Vol] 0.69 mg/dL Normal 0.60-1.20 [facility] Comment on above: Performed By: #### B MP, CK, DDIMER, CBC, PTT, PT, HS TROP #### [facility] [address] [place] [address] [place] Creatinine Clr Calc Pharmacy 147.50 [facility] Comment on above: Result Comment: PERF ORMED BY: [place] [address] PATHOLOGIST ASSOCIATE TECHNICIAN PAU MENON M.D. Performed By: #### B MP, CK, DDIMER, CBC, PTT, PT, HS TROP #### [facility] [address] [place] [address] [place] GFR/1.73 sq M.predicted MDRD (S/P/Bld) [Vol rate/Area] mL/min/{1.73_m2} [facility] Comment on above: Performed By: #### B MP, CK, DDIMER, CBC, PTT, PT, HS TROP #### [facility] [address] [place] [address] [place] Glucose [Mass/Vol] 145 mg/dL High 70-100 [facility] Comment on above: Result Comment: [facility] Glucose Reference Range is dependent on time and content of last meal. Glucose of more than 200 mg/dL in a nonstressed, ambulatory subject supports the diagnosis of Diabetes Mellitus. ADA recommended reference range Performed By: #### B MP, CK, DDIMER, CBC, PTT, PT, HS TROP #### [facility] [address] Potassium [Moles/Vol] 3.9 mmol/L Normal 3.5-5.1 [facility] Comment on above: Performed By: #### B MP, CK, DDIMER, CBC, PTT, PT, HS TROP #### [facility] [address] [place] [address] [place] Sodium [Moles/Vol] 137 mmol/L Normal 136-145 [facility] Comment on above: Performed By: #### B MP, CK, DDIMER, CBC, PTT, PT, HS TROP #### [facility] [address] [place] [address] [place] Urea nitrogen [Mass/Vol] 15 mg/dL Normal 7-25 [facility] Comment on above: Performed By: #### B MP, CK, DDIMER, CBC, PTT, PT, HS TROP #### [facility] [address] Calcium [Mass/volume] in Ser um or PlasmaOrdered By: Carlton Hagen on 02-21-2023 Calcium [Mass/Vol] 9.3 mg/dL 8.6-10.3 [facility] Carbon dioxide, total [Moles /volume] in Serum or PlasmaOrdered By: Carlton Hagen on 02-21-2023 CO2 [Moles/Vol] 23.6 mmol/L 21.0-31.[address] [facility] Chloride [Moles/volume] in S jacqueline or PlasmaOrdered By: Carlton Hagen on 02-21-2023 Chloride [Moles/Vol] 102 mmol/L 98-107 [facility] Complete Blood Count Auto Di ffon 02-21-2023 Mean Corpuscular HGB Conc 32.8 g/dL Normal 32.0-35.0 [facility] Comment on above: Performed By: #### B MP, CK, DDIMER, CBC, PTT, PT, HS TROP #### [facility] [address] NRBC% 0.2 /100{WBC} Normal 0-0.5 [facility] Comment on above: Performed By: #### B MP, CK, DDIMER, CBC, PTT, PT, HS TROP #### [facility] [address] [place] [address] [place] Creatine Kinaseon 02-21-2023 CK [Catalytic activity/Vol] 61 U/L Normal 30-223 [facility] Comment on above: Performed By: #### B MP, CK, DDIMER, CBC, PTT, PT, HS TROP #### [facility] [address] [place] [address] [place] Creatine kinase [Enzymatic a ctivity/volume] in Serum or PlasmaOrdered By: Carlton Hagen on 02-21-2023 CK [Catalytic activity/Vol] 61 U/L 30-223 [facility] Creatinine [Mass/volume] in Serum or PlasmaOrdered By: Carlton Hagen on 02-21-2023 Creatinine [Mass/Vol] 0.69 mg/dL 0.60-1.20 [facility] D-Dimer High Sensitivityon 0 02-21-2023 D-Dimer High Sensitivity < 200 Normal 0-243 [facility] Comment on above: Result Comment: [...] patients due to co-morbid conditions. PERFORMED BY: [place] [address] PATHOLOGIST ASSOCIATE TECHNICIAN PAU MENON M.D. Performed By: #### B MP, CK, DDIMER, CBC, PTT, PT, HS TROP #### [address] ECG 12 lead ECGon 02-21-2023 ECG 12 lead ECG [facility] [place] [address] [place] [address] Electrocardiograph Report Signed Patient: Aurora Loja MR#: [id number] : 2000 Acct:[id number] Age/Sex: 23 / F ADM Date: 02/21/23 Loc: ER Room: Type: [facility] ER Attending Dr: Ordering Provider: Carlton [...] By Demarco Licona MD 02/21/23 1527 Normal [facility] Erythrocyte distribution wid th [Ratio] by Automated countOrdered By: Carlton Hagen on 02-21-2023 Erythrocyte distribution width (RBC) [Ratio] 13.6 % Normal 11.9-15.3 [facility] Comment on above: Performed By: #### B MP, CK, DDIMER, CBC, PTT, PT, HS TROP #### [facility] [address] [place] [address] [place] Erythrocytes [#/volume] in B lood by Automated countOrdered By: Carlton Hagen on 02-21-2023 RBC (Bld) [#/Vol] 4.54 10*6/uL Normal 3.60-5.00 [facility] Comment on above: Performed By: #### B MP, CK, DDIMER, CBC, PTT, PT, HS TROP #### [facility] [address] [place] [id number] [place] Glucose [Mass/volume] in Ser um or PlasmaOrdered By: Carlton Hagen on 02-21-2023 Glucose [Mass/Vol] 145 mg/dL 70-100 [facility] Comment on above: ADA recommended refe rence rangeRandom Glucose Reference Range is dependent on time and content of last meal. Glucose of more than 200 mg/dL in a nonstressed, ambulatory subject supports the diagnosis of Diabetes Mellitus. Hematocrit [Volume Fraction] of Blood by Automated countOrdered By: Carlton Hagen on 02-21-2023 Hematocrit (Bld) [Volume fraction] 38.7 % Normal 34.0-46.4 [facility] Comment on above: Performed By: #### B MP, CK, DDIMER, CBC, PTT, PT, HS TROP #### [facility] [address] [place] [id number] [place] Hemoglobin [Mass/volume] in BloodOrdered By: Carlton Hagen on 02-21-2023 Hemoglobin (Bld) [Mass/Vol] 12.7 g/dL Normal 11.8-15.4 [facility] Comment on above: Performed By: #### B MP, CK, DDIMER, CBC, PTT, PT, HS TROP #### [facility] [address] Laboratory - CoagulationOrde red By: Carlton Hagen on 02-21-2023 PT Coag (PPP) [Time] 11.9 s 9.0-12.9 [facility] Leukocytes [#/volume] correc radha for nucleated erythrocytes in Blood by Automated counOrdered By: Carlton Hagen on 02-21-2023 WBC corrected for nucl RBC Auto (Bld) [#/Vol] 7.1 10*3/uL 3.8-11.6 [facility] Leukocytes [#/volume] in Blo od by Automated countOrdered By: Carlton Hagen on 02-21-2023 WBC (Bld) [#/Vol] 7.1 10*3/uL Normal 3.8-11.6 [facility] Comment on above: Performed By: #### B MP, CK, DDIMER, CBC, PTT, PT, HS TROP #### [facility] [address] Lymphocytes [#/volume] in Bl ood by Automated countOrdered By: Carlton Hagen on 02-21-2023 Lymphocytes (Bld) [#/Vol] 1.3 10*3/uL Normal 1.00-4.8 [facility] Comment on above: Performed By: #### B MP, CK, DDIMER, CBC, PTT, PT, HS TROP #### [facility] [address] [place] [address] [place] Lymphocytes/100 leukocytes i n Blood by Automated countOrdered By: Carlton Hagen on 02-21-2023 Lymphocytes/100 WBC (Bld) 18.8 % Normal . [facility] Comment on above: Performed By: #### B MP, CK, DDIMER, CBC, PTT, PT, HS TROP #### [facility] [address] MCH [Entitic mass] by Automa radha countOrdered By: Carlton Hagen on 02-21-2023 MCH (RBC) [Entitic mass] 28.0 pg Normal 24.7-34.3 [facility] Comment on above: Performed By: #### B MP, CK, DDIMER, CBC, PTT, PT, HS TROP #### [address] MCHC Auto (RBC) [Mass/Vol]Or dered By: Carlton Hagen on 02-21-2023 MCHC (RBC) [Mass/Vol] 32.8 g/dL 32.0-35.0 [facility] MCV [Entitic volume] by Auto mated countOrdered By: Carlton Hagen on 02-21-2023 MCV (RBC) [Entitic vol] 85.3 fL Normal 80-100 [facility] Comment on above: Performed By: #### B MP, CK, DDIMER, CBC, PTT, PT, HS TROP #### [address] Neutrophils [#/volume] in Bl ood by Automated countOrdered By: Carlton Hagen on 02-21-2023 Neutrophils (Bld) [#/Vol] 5.4 10*3/uL Normal 1.8-7.7 [facility] Comment on above: Performed By: #### B MP, CK, DDIMER, CBC, PTT, PT, HS TROP #### [address] No Panel InformationOrdered By: Carlton Hagen on 02-21-2023 D-Dimer Quantitative (PE/DVT) < 200 ng/mL 0-243 [facility] Comment on above: The reference [...] conditions. Estimated GFR (CKD-EPI) > 60.0 mL/Min [facility] Creatinine Clearance (Chem 147.50 [facility] Nucleated erythrocytes [Pres ence] in Blood by Automated countOrdered By: Carlton Hagen on 02-21-2023 Nucleated RBC Auto Ql (Bld) 0.2 /100{WBC} 0-0.5 [facility] Partial Thromboplastin Timeo n 02-21-2023 aPTT Coag (Bld) [Time] 28.7 s Normal 25.1-36.5 [facility] Comment on above: Performed By: #### B MP, CK, DDIMER, CBC, PTT, PT, HS TROP #### [facility] [address] Platelet mean volume [Entiti c volume] in Blood by Automated countOrdered By: Carlton Hagen on 02-21-2023 Platelet mean volume (Bld) [Entitic vol] 8.8 fL Normal 6.3-10.7 [facility] Comment on above: Performed By: #### B MP, CK, DDIMER, CBC, PTT, PT, HS TROP #### [facility] [address] Platelet poor plasma interna tional normalized ratio (INR) by coagulation assay (relatOrdered By: Carlton Hagen on 02-21-2023 INR Coag (PPP) [Relative time] 1.0 {INR} [facility] Comment on above: INR Therapeutic [...] Platelets (Bld) [#/Vol] 222 10*3/uL Normal 150-450 [facility] Comment on above: Performed By: #### B MP, CK, DDIMER, CBC, PTT, PT, HS TROP #### [facility] [address] Potassium [Moles/volume] in Serum or PlasmaOrdered By: Carlton Hagen on 02-21-2023 Potassium [Moles/Vol] 3.9 mmol/L 3.5-5.1 [facility] Prothrombin Time INRon 02-21 INR Coag (PPP) [Relative time] 1.0 {INR} Normal [facility] Comment on above: Result Comment: [...] DDIMER, CBC, PTT, PT, HS TROP #### [facility] [address] PT Coag (PPP) [Time] 11.9 s Normal 9.0-12.9 [facility] Comment on above: Performed By: #### B MP, CK, DDIMER, CBC, PTT, PT, HS TROP #### [facility] [address] Serum or plasma anion gap de terminationOrdered By: Carlton Hagen on 02-21-2023 Anion gap [Moles/Vol] 15.3 mmol/L 6.0-15.0 [facility] Sodium [Moles/volume] in Ser um or PlasmaOrdered By: Carlton Hagen on 02-21-2023 Sodium [Moles/Vol] 137 mmol/L 136-145 [facility] Troponin I High Sensitivityo n 02-21-2023 Troponin I High Sensitivity 2.6 pg/mL Normal 0.0-15.0 [facility] Comment on above: Result Comment: PERF ORMED BY: [place] [address] PATHOLOGIST ASSOCIATE TECHNICIAN PAU MENON M.D. Performed By: #### B MP, CK, DDIMER, CBC, PTT, PT, HS TROP #### [address] Troponin I.cardiac [Mass/vol ume] in Serum or Plasma by Detection limit <= 0.01 ng/Ordered By: Carlton Hagen on 02-21-2023 Troponin I.cardiac DL <= 0.01 ng/mL [Mass/Vol] 2.6 pg/mL 0.0-15.0 [facility] Urea nitrogen [Mass/volume] in Serum or PlasmaOrdered By: Carlton Hagen on 02-21-2023 Urea nitrogen [Mass/Vol] 15 mg/dL 7-25 [facility] XR chest 2V*on 02-21-2023 XR chest 2V* [facility] Main [place] [address] [place] [address] XRay Report Signed Patient: Aurora Loja MR#: [id number] : 2000 Acct:[id number] Age/Sex: 23 / F ADM Date: 02/21/23 Loc: ER Room: Type: [facility] ER Attending Dr: Copies to: Carlton Hgaen APRN Ordering Provider: Carlton Hagen APRN Date [...] Francie Lobato M.D.02/21/2023 10:26 AM Dictation Location: [place] [address] Transcribed By: [facility] 02/21/23 1026 Dictated By: Francie Lobato MD 02/21/23 1025 Signed By: 02/21/23 1026 Normal [facility] Vital Signs Date Time Vital Sign Value Performing Clinician Facility 08-26-2024 15:30-0500 Body mass index (BMI) [Ratio] 32.96 kg/m2 Michelle Marks [employer]IXER MACHINE [employer]EDER Work Phone: [facility] 08-26-2024 15:30-0500 Body temperature 98.71 [degF] Michelle Marks [employer]IXER MACHINE [employer]ED[employer] Work Phone: [facility] 08-26-2024 15:30-0500 Body weight 92.63 kg Michelle Marks [employer]IXER MACHINE [employer] Work Phone: [facility] 08-26-2024 15:30-0500 Diastolic blood pressure 90 mm[Hg] Michelle Marks MIXER MACHINE FEEDER Work Phone: [facility] 08-26-2024 15:30-0500 Heart rate 95 /min Michelle Marks MIXER MACHINE FEEDER Work Phone: [facility] 08-26-2024 15:30-0500 Respiratory rate 18 /min Michelle Marks MIXER MACHINE FEEDER Work Phone: [facility] 08-26-2024 15:30-0500 SaO2% (BldA) [Mass fraction] 100 % Michelle Marks MIXER MACHINE FEEDER Work Phone: [facility] 08-26-2024 15:30-0500 Systolic blood pressure 110 mm[Hg] Michelle Marks MIXER MACHINE FEEDER Work Phone: [facility] 04-10-2023 13:45-0400 Body height 167.64 cm Mikala Morocho Other [facility] Other 04-10-2023 13:45-0400 Body mass index (BMI) [Ratio] 34.38 kg/m2 Mikala Morocho Other [facility] Other 04-10-2023 13:45-0400 Body weight 96.62 kg Mikala Morocho Other [facility] Other 04-10-2023 13:45-0400 Diastolic blood pressure 94 mm[Hg] Mikala Morocho Other [facility] Other 04-10-2023 13:45-0400 Systolic blood pressure 164 mm[Hg] Mikala Morocho Other [facility] Other 02-26-2023 15:30-0400 Body height 167.64 cm Mikala Morocho Other [facility] Other 02-26-2023 15:30-0400 Body mass index (BMI) [Ratio] 33.08 kg/m2 Mikala Morocho Other [facility] Other 02-26-2023 15:30-0400 Body weight 92.99 kg Mikala Morocho Other [facility] Other 02-26-2023 15:30-0400 Diastolic blood pressure 74 mm[Hg] Mikala Morocho Other [facility] Other 02-26-2023 15:30-0400 SaO2% (BldA) [Mass fraction] 99 % Mikala Morocho Other [facility] Other 02-26-2023 15:30-0400 Systolic blood pressure 126 mm[Hg] Mikala Morocho Other [facility] Other 02-21-2023 10:04-0400 Diastolic blood pressure 100 mm[Hg] MD Mikala Morocho Work Phone: [facility] 02-21-2023 10:04-0400 Heart rate 105 /min MD Mikala Morocho Work Phone: [facility] 02-21-2023 10:04-0400 Respiratory rate 18 /min MD Mikala Morocho Work Phone: [facility] 02-21-2023 10:04-0400 SaO2% (BldA) [Mass fraction] 100 % MD Mikala Morocho Work Phone: [facility] 02-21-2023 10:04040 Systolic blood pressure 163 mm[Hg] MD Mikala Morocho Work Phone: [facility] 02-21-2023 09:04040 Body height 167.64 cm MD Mikala Morocho Work Phone: [facility] 02-21-2023 09:04040 Body temperature 99.3 [degF] MD Mikala Morocho Work Phone: [facility] 02-21-2023 09:040 Body weight 95.25 kg MD Mikala Morocho Work Phone: [facility] Encounters Encounter Date Encounter Type Care Provider Facility Start: 08-26-2024 End: 08-26-2024 Office outpatient visit 25 minutes Michelle Marks MIXER MACHINE FEEDER Work Phone: [facility] Comment on above: Type 2 diabetes sunny itus without complication, without long- term current use of insulin (CMS/HCC) (Primary Dx); Essential (primary) hypertension (CMS/HCC); Morbid (severe) obesity due to excess calories (CMS/HCC); Mixed hyperlipidemia (CMS/HCC); Obesity (BMI 30-39.9); Anxiety disorder, unspecified; Anxiety state (CMS/HCC); Primary hypertension (CMS/HCC); Type 2 diabetes mellitus without complications (CMS/HCC) Start: 08-26-2024 End: 08-26-2024 ambulatory MICHELLE AICHHOLZ Not Available Start: 08-26-2024 End: 08-26-2024 Bamboo flowsheet Michelle Aichholz [employer]IXER MACHINE FEEDER Work Phone: [facility] Start: 08-26-2024 End: 08-26-2024 Bamboo flowsheet Michelle Aichholz MIXER MACHINE FEEDER Work Phone: [facility] Start: 08-13-2024 End: 08-13-2024 Refill Michelle Aichbibiz MIXER MACHINE FEEDER Work Phone: [facility] Comment on above: Type 2 diabetes sunny itus without complication, without long- term current use of insulin ([facility]) Start: 07-16-2024 End: 07-16-2024 ambulatory MICHELLE AICHHOLZ Not Available Start: 06-02-2024 End: 06-02-2024 ambulatory MICHELLE AICHHOLZ Not Available Start: 01-17-2024 End: 01-17-2024 ambulatory MICHELLE AICHHOLZ Not Available Start: 06-18-2023 End: 06-18-2023 ambulatory Mikala Morocho Other [facility] Other Start: 06-18-2023 Telephone encounter Mikala Morocho [facility] Start: 04-10-2023 End: 04-10-2023 ambulatory Mikala Morocho Other [facility] Other Start: 04-10-2023 Office outpatient vi sit 15 minutes Mikala Morocho [facility] Start: 02-26-2023 End: 02-26-2023 ambulatory Mikala Morocho Other [facility] Other Start: 02-26-2023 Office outpatient vi sit 15 minutes Mikala Morocho [facility] Start: 02-21-2023 End: 02-21-2023 Emergency department patient visit Carlton Hagen Facility:[facility] Start: 02-21-2023 End: 02-21-2023 Emergency department patient visit MD Mikala Morocho Work Phone: [facility] Work Phone: Start: 02-22-2022 Adult health examination Kathia Morocho Other [facility] Other Start: 10-06-2021 End: 10-07-[address] [facility] Start: 06-01-2021 End: 06-02-2021 ambulatory MAURY FRANCISCO Facility:[facility] Start: 03-02-2021 End: 03-03-2021 ambulatory MAURY FRANCISCO Facility:[facility] Start: 01-26-2021 End: 01-27-2021 ambulatory MAURY FRANCISCO Facility:[facility] Start: 01-05-2021 End: 01-06-2021 ambulatory MAURY FRANCISCO Facility:[facility] Start: 12-23-2020 End: 12-24-[address] MIKALA MOROCHO Facility:[facility] Start: 11-05-2018 End: 11-06-2018 Patient encounter procedure Demarco Cabral Facility:[id number] Procedures Date Procedure Procedure Detail Performing Clinician Start: 02-21-2023 Plain chest X-ray MD Miguel Morocho Work Phone: Start: 08-21-2016 Laboratory test resu lt abnormal Mikala Morocho Other Start: 08-21-2016 Pre-surgery evaluation Mikala Morocho Other Viral screening Mikala Morocho Other Plan of Treatment Date Care Activity Detail Author Start: 01-20-2026 Glaucoma screening Diabetes: R etinopathy Screening [facility] Start: 12-01-2024 Hemoglobin A1c measurement Diabetes: Hemoglobin A1C [facility] Start: 11-26-2024 End: 11-26-2024 Patient encounter procedure 11/26/2024 9:40 AM EST Office Visit [facility] [address] [place] [address] Michelle Marks NP [address] [place] [id number] [facility] Start: 08-26-2024 End: 08-26-2024 Patient encounter procedure [facility] Comment on above: Arrived Start: 07-28-2024 Urine screening for protein Diabetes: Urine Protein Screening [facility] Patient Education Chest Pain Jorge Luis t Is Not Caused by the Heart (DC) Anxiety, Adult (DC) [facility] Work Phone: Patient referral [facility] Work Phone: Immunizations Immunization Date Immunization Notes Care Provider Fa cility 08-04-2020 influenza, seasonal, injectable Michelle Aichholz MIXER MACHINE FEEDER Work Phone: [facility] 06-10-2013 tetanus toxoid, redu roger diphtheria toxoid, and acellular pertussis vaccine, adsorbed Michelle Aichholz MIXER MACHINE FEEDER Work Phone: [facility] 01-04-2005 diphtheria, tetanus toxoids and acellular pertussis vaccine, unspecified formulation Michelle Aichholz MIXER MACHINE FEEDER Work Phone: [facility] 01-04-2005 measles, mumps and rubella virus vaccine Michelle Aichholz MIXER MACHINE FEEDER Work Phone: [facility] 01-04-2005 poliovirus vaccine, inactivated Michelle Aichholz MIXER MACHINE FEEDER Work Phone: [facility] 05-01-2003 diphtheria, tetanus toxoids and acellular pertussis vaccine, unspecified formulation Michelle Aichholz MIXER MACHINE FEEDER Work Phone: [facility] 05-01-2003 haemophilus influenz ae type b vaccine, conjugate unspecified formulation Michelle Aichholz MIXER MACHINE FEEDER Work Phone: [facility] 03-25-2001 measles, mumps and rubella virus vaccine Michelle Aichholz MIXER MACHINE FEEDER Work Phone: [facility] 03-25-2001 pneumococcal conjuga te vaccine, 7 valent Michelle Aichholz MIXER MACHINE FEEDER Work Phone: [facility] 03-25-2001 varicella virus vaccine Michelle Aichholz MIXER MACHINE FEEDER Work Phone: [facility] 2000 diphtheria, tetanus toxoids and acellular pertussis vaccine, unspecified formulation Michelle Aichholz MIXER MACHINE FEEDER Work Phone: [facility] 2000 haemophilus influenz ae type b conjugate and Hepatitis B vaccine Michelle Aichholz MIXER MACHINE FEEDER Work Phone: [facility] 2000 pneumococcal conjuga te vaccine, 7 valent Michelle Aichholz MIXER MACHINE FEEDER Work Phone: [facility] 2000 poliovirus vaccine, inactivated Michelle Aichholz MIXER MACHINE FEEDER Work Phone: [facility] 2000 diphtheria, tetanus toxoids and acellular pertussis vaccine, unspecified formulation Michelle Aichholz MIXER MACHINE FEEDER Work Phone: [facility] 2000 haemophilus influenz ae type b conjugate and Hepatitis B vaccine Michelle Aichholz MIXER MACHINE FEEDER Work Phone: [facility] 2000 poliovirus vaccine, inactivated Michelle Aichholz MIXER MACHINE FEEDER Work Phone: [facility] 2000 diphtheria, tetanus toxoids and acellular pertussis vaccine, unspecified formulation Michelle Aichholz MIXER MACHINE FEEDER Work Phone: [facility] 2000 haemophilus influenz ae type b conjugate and Hepatitis B vaccine Michelle Aichholz MIXER MACHINE FEEDER Work Phone: [facility] 2000 poliovirus vaccine, inactivated Michelle Aichholz MIXER MACHINE FEEDER Work Phone: [facility] Payers Date Payer Category Payer Self-pay 2023 Unknown [id number] 2019 Private Health Insurance CHARLIE Nath ember [id number] 2000 Unknown [id number] 2000 Unknown [id number] 2000 Unknown [id number] .[id number] 2000 Unknown [id number] 2000 Unknown [id number] 2000 Unknown [id number] .[id number] 2000 Unknown [id number] .[id number] 2000 Unknown [id number] .[id number] 2000 Unknown [id number] .[id number] 2000 Unknown [id number] 1959 Private Health Insurance [facility] [id number] Unknown [id number] Unknown [id number] Social History Date Type Detail Facility Start: 02-21-2023 End: 01-17-2024 Tobacco smoking status MIIS Never smoked tobacco (finding) [facility] Start: 2000 Sex Assigned At Female F [facility] Start: 01-10-2024 End: 01-17-2024 Sex Assigned At [facility] Start: 01-17-2024 Tobacco use and exposure Smoke less tobacco non-user [facility] Start: 06-02-2024 End: 08-26-2024 Alcoholic beverage intake Lifetime non-drinker (finding) [facility] Start: 01-10-2024 End: 01-17-2024 History of Social function [facility] Do you belong to any clubs or organizations such as faith groups, unions, fraternal or athletic groups, or school groups? No [facility] Are you now , , , , never or living with a partner? Never [facility] How often to you hav e a drink containing alcohol? Never [facility] How many standard dr inks containing alcohol do you have on a typical day? Patient does not drink [facility] How hard is it for y ou to pay for the very basics like food, housing, medical care, and heating Not very hard [facility] Do you feel stress - tense, restless, nervous, or anxious, or unable to sleep at night because your mind is troubled all the time - these days [OSQ] To some extent [facility] (I/We) worried wheth er (my/our) food would run out before (I/we) got money to buy more. Never true [facility] Start: 01-17-2024 Alcohol Comment caffine: soda 1 richard y [facility] Start: 2000 Sex assigned at Not on file N [facility] Clinical Notes 12-23-2020 to 08-26-2024 Michelle Marks NP - 08/26/2024 3:42 PM Vick Marks, LORETA - 08/26/2024 3:41 PM Vick Marks, LORETA - 08/26/2024 3:41 PM Vick Marks, LORETA - 08/26/2024 3:41 PM EST Note Date & Type Note Facility 08-26-2024 History of Presen t illness Narrative Associated Problem(s): Obesity (BMI 30-39.9) Discussed with patient their BMI (actual, verses recommended). We have also discussed lifestyle modifications: attempts to perform physical activity as chronic conditions allow, also to monitor dietary intake: increasing protein/fruits/veggies and lowering carb intake (unless contraindicated). Limit sodas, juices, and sugary drinks. Is doing well with weight loss with GLP 1 Associated Problem(s): Mixed hyperlipidemia (CMS/HCC) Continue statin Associated Problem(s): Type 2 diabetes mellitus (CMS/HCC) Check blood sugars daily, notify if <70 or >200. Take medications (pills or insulin) as directed. Monitor for s/s of hypoglycemia (sweaty, dizziness, nausea, vomiting, or shakiness). Watch for increase in thirst, urination, or appetite. Inspect feet frequently monitoring for open wounds , and also recommend yearly eye exam. Pt should attempt to remain as physically active as chronic conditions allow, as well as trying to follow a diet low in carbohydrates, and simple sugars. Associated Problem(s): Essential (primary) hypertension (CMS/HCC) Check blood sugars daily, notify if <70 or >200. Take medications (pills or insulin) as directed. Monitor for s/s of hypoglycemia (sweaty, dizziness, nausea, vomiting, or shakiness). Watch for increase in thirst, urination, or appetite. Inspect feet frequently monitoring for open wounds , and also recommend yearly eye exam. Pt should attempt to remain as physically active as chronic conditions allow, as well as trying to follow a diet low in carbohydrates, and simple sugars. Left eye 25/20 Right eye 20/20 Both eyes 20/20 Images from the original note were not included. Aurora Loja is a 24 y.o. female presents with chief complaint of No chief complaint on file. HPI: Here for a recheck, and also needs a work physical for starting a new job: Visual acuity: bilat eyes 20/20, right eye and left eye each 20/20 Diabetes She presents for her follow-up diabetic visit. She has type 2 diabetes mellitus. Her disease course has been stable. There are no hypoglycemic associated symptoms. Pertinent negatives for hypoglycemia include no dizziness, headaches, nervousness/anxiousness, seizures or tremors. There are no diabetic associated symptoms. Pertinent negatives for diabetes include no blurred vision, no chest pain, no polydipsia, no polyphagia and no polyuria. There are no hypoglycemic complications. Symptoms are stable. There are no diabetic complications. Risk factors for coronary artery disease include diabetes mellitus, dyslipidemia, hypertension, obesity and sedentary lifestyle. Current diabetic treatment includes oral agent (monotherapy) (GLP 1). Hypertension This is a chronic problem. The current episode started more than 1 year ago. The problem is unchanged. The problem is controlled. Pertinent negatives include no blurred vision, chest pain, headaches, orthopnea, palpitations, peripheral edema or shortness of breath. There are no associated agents to hypertension. Risk factors for coronary artery disease include diabetes mellitus, dyslipidemia, obesity and sedentary lifestyle. Past treatments include LON inhibitors. The current treatment provides significant improvement. There are no compliance problems. SUBJECTIVE: MEDICATIONS: Current Outpatient Medications Medication Instructions atorvastatin (LIPITOR) 20 mg, Oral, Daily dapagliflozin (FARXIGA) 5 mg, Oral, Daily escitalopram (LEXAPRO) 20 mg, Oral, Daily lisinopril 20 mg, Oral, Every morning metFORMIN (GLUCOPHAGE) 1,000 mg, Oral, 2 times daily with meals Ozempic (0.25 or 0.5 MG/DOSE) 0.5 mg, Subcutaneous, Every 7 days ALLERGIES: No Known Allergies REVIEW OF SYMPTOMS: Review of Systems Constitutional: Negative for appetite change, chills and fever. HENT: Negative for congestion, ear pain and sore throat. Eyes: Negative for blurred vision, pain, discharge, redness and visual disturbance. Respiratory: Negative for cough, shortness of breath and wheezing. Cardiovascular: Negative for chest pain, palpitations, orthopnea and leg swelling. Gastrointestinal: Negative for abdominal pain, blood in stool, constipation, diarrhea, nausea and vomiting. Genitourinary: Negative for difficulty urinating, dysuria and frequency. Musculoskeletal: Negative for arthralgias, back pain, joint swelling and myalgias. Skin: Negative for rash and wound. Neurological: Negative for dizziness, tremors, seizures, syncope and headaches. Psychiatric/Behavioral: Negative for behavioral problems, self-injury and suicidal ideas. The patient is not nervous/anxious. Hematological: Does not bruise/bleed easily. Endocrine: Negative for polydipsia, polyphagia and polyuria. Allergic/Immunologic: Negative for environmental allergies and food allergies. PAST MEDICAL HISTORY Past Medical History: Diagnosis Date Achilles tendon contracture, right Acid reflux 01/02/2024 Acquired plantar flexion deformity of forefoot Anxiety and depression ([facility]) Anxiety, generalized ([facility]) Arthritis of foot Equinus contracture of right ankle Fatigue Flatfoot Forefoot varus, acquired, right Heartburn Hyperlipidemia ([facility]) Hypertension ([facility]) 01/02/2024 Migraine ([facility]) Pharyngitis 11/19/2023 Posterior tibial tendonitis, right Right foot pain Spring ligament tear, right, sequela Type 2 diabetes mellitus ([facility]) 01/02/2024 Valgus foot, right Varus foot deformity, acquired, right No past surgical history on file. family history is not on file. OBJECTIVE: Visit Vitals BP 110/90 (BP Location: Left arm, Patient Position: Sitting, BP Cuff Size: Adult long) Pulse 95 Temp 98.7 F (Temporal) Resp 18 Wt 204 lb 3.2 oz SpO2 100% BMI 32.96 kg/m Smoking Status Never BSA 2.08 m Physical Exam Vitals and nursing note reviewed. Constitutional: General: She is not in acute distress. Appearance: Normal appearance. She is obese. HENT: Head: Normocephalic and atraumatic. Right Ear: Tympanic membrane, ear canal and external ear normal. Left Ear: Tympanic membrane, ear canal and external ear normal. Nose: Nose normal. No congestion or rhinorrhea. Mouth/Throat: Mouth: Mucous membranes are moist. Pharynx: No posterior oropharyngeal erythema. Eyes: General: No scleral icterus. Extraocular Movements: Extraocular movements intact. Conjunctiva/sclera: Conjunctivae normal. Pupils: Pupils are equal, round, and reactive to light. Neck: Vascular: No carotid bruit. Cardiovascular: Rate and Rhythm: Normal rate and regular rhythm. Pulses: Normal pulses. Heart sounds: Normal heart sounds. Pulmonary: Effort: Pulmonary effort is normal. Breath sounds: Normal breath sounds. No wheezing or rales. Abdominal: General: Bowel sounds are normal. There is no distension. Palpations: Abdomen is soft. There is no mass. Tenderness: There is no abdominal tenderness. Hernia: No hernia is present. Musculoskeletal: General: Normal range of motion. Cervical back: Normal range of motion and neck supple. Right lower leg: No edema. Left lower leg: No edema. Comments: Full CTL spine ROM, no tenderness -andrey, - phalens DTR's 2+ bilat Lymphadenopathy: Cervical: No cervical adenopathy. Skin: General: Skin is warm and dry. Capillary Refill: Capillary refill takes 2 to 3 seconds. Findings: No rash. Neurological: General: No focal deficit present. Mental Status: She is alert and oriented to person, place, and time. Sensory: No sensory deficit. Motor: No weakness. Coordination: Coordination normal. Gait: Gait normal. Psychiatric: Mood and Affect: Mood normal. Behavior: Behavior normal. Thought Content: Thought content normal. Judgment: Judgment normal. ASSESSMENT AND PLAN: No follow-ups on file. Problem List Items Addressed This Visit Mixed hyperlipidemia ([facility]) Continue statin Relevant Medications atorvastatin (Lipitor) 20 MG tablet Essential (primary) hypertension ([facility]) Check blood sugars daily, notify if <70 or >200. Take medications (pills or insulin) as directed. Monitor for s/s of hypoglycemia (sweaty, dizziness, nausea, vomiting, or shakiness). Watch for increase in thirst, urination, or appetite. Inspect feet frequently monitoring for open wounds , and also recommend yearly eye exam. Pt should attempt to remain as physically active as chronic conditions allow, as well as trying to follow a diet low in carbohydrates, and simple sugars. Relevant Medications lisinopril 20 MG tablet Type 2 diabetes mellitus ([facility]) - Primary Check blood sugars daily, notify if <70 or >200. Take medications (pills or insulin) as directed. Monitor for s/s of hypoglycemia (sweaty, dizziness, nausea, vomiting, or shakiness). Watch for increase in thirst, urination, or appetite. Inspect feet frequently monitoring for open wounds , and also recommend yearly eye exam. Pt should attempt to remain as physically active as chronic conditions allow, as well as trying to follow a diet low in carbohydrates, and simple sugars. Relevant Medications dapagliflozin (Farxiga) 5 MG Semaglutide,0.25 or 0.5MG/DOS, (Ozempic, 0.25 or 0.5 MG/DOSE,) 2 MG/3ML solution pen-injector Morbid (severe) obesity due to excess calories ([facility]) Obesity (BMI 30-39.9) Discussed with patient their BMI (actual, verses recommended). We have also discussed lifestyle modifications: attempts to perform physical activity as chronic conditions allow, also to monitor dietary intake: increasing protein/fruits/veggies and lowering carb intake (unless contraindicated). Limit sodas, juices, and sugary drinks. Is doing well with weight loss with GLP 1 Other Visit Diagnoses Anxiety disorder, unspecified Relevant Medications escitalopram (Lexapro) 20 MG tablet Anxiety state (CMS/HCC) Relevant Medications escitalopram (Lexapro) 20 MG tablet Primary hypertension (CMS/HCC) Relevant Medications lisinopril 20 MG tablet Type 2 diabetes mellitus without complications (CMS/HCC) Relevant Medications metFORMIN (Glucophage) 1000 MG tablet documented in this encounter [facility] 04-10-2023 Evaluation note Encounter Date Diagnosis Assessment Notes Mar, Anxiety disorder, unspecified (ICD-10 - F41.9) Discussed meds and counseling Mar, Depression, unspecified (ICD-10 - F32.A) as above Mar, Musculoskeletal chest pain (ICD-10 - R07.89) suggested chiropractor, PT and muscle relaxers as able [facility]ammo Other 05-08-2023 Evaluation note* Encounter Date Diagnosis [...] verbalized understanding and agreement with treatment plan. [facility]ammo Other 12-16-2021 NotePROCEDURE: XR FOOT RT MIN [...] Electronically authenticated by: LANCE VASQUEZ Date: 2021-10-06 10:52[facility]08-11-2021 NotePROCEDURE: XR FOOT RT MIN 3 VIEWS [...] authenticated by: ANGIE MURRAY Date: 2021-06-01 13:56[id number] NotePROCEDURE: XR FOOT RT MIN 3 VIEWS [...] Electronically authenticated by: ANGIE MURRAY Date: 2021-03-02 10:34[facility]04-07-2021 NotePROCEDURE: XR FOOT RT MIN 3 VIEWS [...] Electronically authenticated by: ANGIE MURRAY Date: 2021-01-26 15:44[facility]03-17-2021 NotePROCEDURE: XR FOOT RT MIN 3 VIEWS [...] Electronically authenticated by: ANGIE MURRAY Date: 2021-01-05 12:43[facility]03-04-2021 NotePROCEDURE: XR FOOT RT MIN 3 VIEWS [...] authenticated by: ANGIE MURRAY Date: 2020-12-23 14:48[facility] assessment information [facility] Work Phone: Evaluation noteNo InformationNort [employer] Other Evaluation note* Diagnosis Type 2 diabetes mellitus without complication, without long-term current use of insulin (CMS/HCC)- Primary Chronic generalized abdominal pain Primary hypertension (CMS/HCC) Unspecified essential hypertension Mixed hyperlipidemia (CMS/HCC) Mixed hyperlipidemia Obesity (BMI 30-39.9) Type 2 diabetes mellitus without complication, without long-term current use of insulin (CMS/HCC)- Primary Mixed hyperlipidemia (CMS/HCC) Mixed hyperlipidemia Anxiety disorder, unspecified Anxiety state (CMS/HCC) Anxiety state, unspecified Right foot pain Pain in soft tissues of limb Essential (primary) hypertension (CMS/HCC) Unspecified essential hypertension Type 2 diabetes mellitus without complication, without long-term current use of insulin (CMS/HCC)- Primary Morbid (severe) obesity due to excess calories (CMS/HCC) Essential (primary) hypertension (CMS/HCC) Unspecified essential hypertension Body mass index (BMI) 35.0-35.9, adult Gastroesophageal reflux disease, unspecified whether esophagitis present Type 2 diabetes mellitus without complication, without long-term current use of insulin ([facility]/HCC) [facility]* Diagnosis Type 2 diabetes mellitus without complication, without long-term current use of insulin (CMS/HCC)- Primary Chronic generalized abdominal pain Primary hypertension (CMS/HCC) Unspecified essential hypertension Mixed hyperlipidemia (CMS/HCC) Mixed hyperlipidemia Obesity (BMI 30-39.9) Type 2 diabetes mellitus without complication, without long-term current use of insulin (CMS/HCC)- Primary Mixed hyperlipidemia (CMS/HCC) Mixed hyperlipidemia Anxiety disorder, unspecified Anxiety state (CMS/HCC) Anxiety state, unspecified Right foot pain Pain in soft tissues of limb Essential (primary) hypertension (CMS/HCC) Unspecified essential hypertension Type 2 diabetes mellitus without complication, without long-term current use of insulin (CMS/HCC)- Primary Morbid (severe) obesity due to excess calories (CMS/HCC) Essential (primary) hypertension (CMS/HCC) Unspecified essential hypertension Body mass index (BMI) 35.0-35.9, adult Gastroesophageal reflux disease, unspecified whether esophagitis present Type 2 diabetes mellitus without complication, without long-term current use of insulin (CMS/HCC)- Primary Essential (primary) hypertension (CMS/HCC) Unspecified essential hypertension Morbid (severe) obesity due to excess calories (CMS/HCC) Mixed hyperlipidemia (CMS/HCC) Mixed hyperlipidemia Obesity (BMI 30-39.9) Anxiety disorder, unspecified Anxiety state (CMS/HCC) Anxiety state, unspecified Primary hypertension (CMS/HCC) Unspecified essential hypertension Type 2 diabetes mellitus without complications (CMS/HCC) [facility] HealthcareHistory general Narrative - Reported* Type Description Date [...] foot surgery 2016, Problem Status : Active, Gnammo Other Summary Purpose Family History No Family [...] content) DATE CREATED AUTHOR 11/11/2018 Brian Tripathi [facility] DATE CREATED AUTHOR AUTHOR'S ORGANIZ ATION 12/09/2021 [facility] DATE CREATED AUTHOR AUTHOR'S ORGANIZ ATION 06/04/2023 [facility] DATE CREATED AUTHOR AUTHOR'S ORGANIZ ATION 08/28/2024 [facility] EPIC Care Teams (unrecognized sec tion and content) Team Status: Active Member Role Status Dates Mikala Morocho MD Primary Care Provider Active Team Status: Inactive Member Role Status Dates Mikala Morocho MD Primary Care Provider Active Carlton Hagen APRN Emergency Provider Active Adjunct Sociology Professor Relationship Specialty Start Date End Date Justin Ahmadi MD [address] [place] [phone] PCP - General Family Medicine 11/20/23 Michelle Marks NP [address] [place] [phone] Nurse Practitioner Family Medicine 07/22/23 Adjunct Sociology Professor Relationship Specialty Start Date End Date Justin Ahmadi MD [address] [place] [phone] PCP - General Family Medicine 11/20/23 Michelle Marks NP [address] [place] [phone] Nurse Practitioner Family Medicine 07/22/23 Adjunct Sociology Professor Relationship Specialty Start Date End Date Justin Ahmadi MD [address] [place] [phone] PCP - General Family Medicine 11/20/23 Michelle Marks NP [address] [place] [address] Nurse Practitioner Family Medicine 07/22/23 Goals (unrecognized section and content) Goals may be documented in a n alternate sectionNo InformationNo InformationNo Information REASON FOR VISIT (unrecogniz ed section and content) Reason Comments Med Refill FOR RECORDS PERTAINING TO PATIENTS WHO ARE [...] BE BASED ON THE PRIMARY CLINICAL RECORDS. [employer] provides no warranty or guarantee of the accuracy or completeness of information in this document.
[2024-09-19 10:05] LABS: Basophils Percent Auto 0.4 % (0.2-2.0); Eosinophils Absolute Auto 0.2 10^3/uL (0.0-0.7); Eosinophils Percent Auto 1.7 % (0.9-7.0); Hematocrit 42.9 % (36.0-48.0); Hemoglobin 13.9 g/dL (12.0-16.0); Immature Granulocytes Abs Auto 0.06 10^3/uL (0.00-0.03); Immature Granulocytes Pct Auto 0.6 % (0.0-0.5); Lymphocytes Absolute Auto 3.3 10^3/uL (1.2-3.8); Lymphocytes Percent Auto 33.4 % (20.5-60.0); Mean Corpuscular HGB Conc 32.4 g/dL (29.9-35.2); Mean Corpuscular Hemoglobin 29.2 pg (26.7-34.0); Mean Corpuscular Volume 90.1 fL (81.0-99.0); Mean Platelet Volume 10.6 fL (9.5-13.5); Monocytes Absolute Auto 0.7 10^3/uL (0.3-0.8); Monocytes Percent Auto 6.7 % (1.7-12.0); Neutrophils Absolute Auto 5.6 10^3/uL (1.4-6.5); Neutrophils Percent Auto 57.2 % (43.0-75.0); Platelet Count 258 10^3/uL (150-450); Red Blood Count 4.76 10^6/uL (4.20-5.40); Red Cell Distribution Width 13.6 % (11.0-15.0); White Blood Count 9.8 10^3/uL (4.0-11.0)
[2024-09-19 10:22] LABS: Bilirubin Urine NEGATIVE (NEGATIVE); Blood Urine LARGE (NEGATIVE); Clarity Urine CLEAR (CLEAR); Color Urine YELLOW (YELLOW); Glucose Urine UA 250 mg/dL (NEGATIVE); Ketones Urine TRACE mg/dL (NEGATIVE); Leukocyte Esterase Urine TRACE (NEGATIVE); Nitrite Urine NEGATIVE (NEGATIVE); Protein Urine TRACE mg/dL (NEG/TRACE); Specific Gravity Urine >=1.030 (1.005-1.025); pH Urine 5.5 (5.0-9.0)
[2024-09-19 10:24] LABS: Urine Microscopic Indicated YES
[2024-09-19 10:43] LABS: Alanine Aminotransferase 33 U/L (14-59); Albumin Level 3.8 g/dL (3.4-5.0); Alkaline Phosphatase 48 U/L (46-116); Anion Gap 12.3; Aspartate Amino Transferase 14 U/L (15-37); BUN Creatinine Ratio 18.5; Bilirubin Total 0.6 mg/dL (0.2-1.0); Calcium 8.6 mg/dL (8.5-10.1); Carbon Dioxide 27.6 mmol/L (21.0-32.0); Chloride 102 mmol/L (98-107); Chol HDL Ratio 6.5; Cholesterol 213 mg/dL (<=200); Estimated GFR (African America >60 (>=60 mL/min/1.73m^2); Estimated GFR (Non-African Ame >60 (>=60 mL/min/1.73m^2); Globulin 3.9 g/dL; Glucose 116 mg/dL (74-106); HDL Cholesterol 33 mg/dL (40-60); Potassium 3.9 mmol/L (3.5-5.1); Sodium 138 mmol/L (136-145); Total Protein 7.7 g/dL (6.4-8.2); Triglycerides 389 mg/dL (<=150); VLDL CHOLESTEROL 77.8 mg/dL
[2024-09-19 10:44] LABS: Bacteria Urine SMALL #/HPF (NONE SEEN); Mucus Urine NONE SEEN (NONE SEEN); Squamous Epithelial Cell Urine FEW #/LPF (NONE/RARE)
[2024-09-19 10:45] LABS: Cast Seen? NONE SEEN #/LPF (NONE SEEN); Crystals Seen? None Seen #/HPF (None Seen)
[2024-09-19 11:15] LABS: Estimated Average Glucose 140 mg/dL; Glycohemoglobin A1C 6.5 % (4.5-6.2)
[2024-09-19 11:15] LABS: Creatinine Urine Random 304.58 mg/dL (20.00-300.00); Microalbum Creatinine Ratio Ur 12.8 mg/g (0.0-29.9); Microalbumin Urine Random 3.9 mg/dL (<=30.0)
== END 2024-09-19 09:49 | disposition home or self-care (01) ==
LOC: LAB 09:51
PROVIDERS: PCP Nurse Practitioner; Visit Provider Nurse Practitioner
DX: E11.9 Type 2 diabetes mellitus without complications (principal); I10 Essential (primary) hypertension; E66.01 Morbid (severe) obesity due to excess calories
CPT/HCPCS: 36415; 80053; 80061; 81001; 82043; 82570; 83036; 85025

== ENCOUNTER 2024-11-29 11:17 | Outpatient (OUT) | payer OTHER, SELFPAY ==
--- OUTSIDE RECORDS SUMMARY | 2024-11-29 11:21 | XMS_ITS | CCD ---
Author Organization [facility] Care Team Providers Care Chief Design Engineer Name Role Phone Demarco Cabral Attending Unavailable Demarco Cabral Attending Unavailable MARYAM, MAURY Admitting Unavailable MAYRAM, MAURY Attending Unavailable RASHAWN, DR MIKALA Prasad Primary Care Unavailable TREVOR, DR ANGIE Obregon Consulting Unavailable MARYAM, MAURY Consulting Unavailable MARYAM, MAURY Admitting Unavailable MARYAM, MAURY Attending Unavailable MOROCHO, DR MIKALA Prasad Primary Care Unavailable TREVOR, DR AGNIE Obregon Consulting Unavailable MARYAM, MAURY Consulting Unavailable MARYAM, MAURY Admitting Unavailable MARYAM, MAURY Attending Unavailable RASHAWN, DR MIKALA Prasad Primary Care Unavailable TREVOR, DR ANGIE Obregon Consulting Unavailable MARYAM, MAURY Consulting Unavailable ELLIOTT, KALEY Admitting Unavailable ELLIOTT, KALEY Attending Unavailable RASHAWN, DR MIKALA Prasad Primary Care Unavailable GYPSY, DR LANCE Millard Consulting Unavailable ELLIOTT, KALEY [...] Unavailable Mikala Morocho Primary Care Unavailable Selina FUR FINISHER, Michelle Unavailable Justin Ahmadi MD Primary Care Provider MICHELLE MARKS Attending Unavailable SELINA, MICHELLE Attending Unavailable MICHELLE MARKS Attending Unavailable MICHELLE MARKS Attending Unavailable Allergies Allergy Classification Reported Allergen(s) Allergy Type Date of Onset Reaction(s) Facility (1 source) patient allergy list reviewed by nurse or physicia Propensity to adverse reactions Comment:Done [employer] Other (1 source) Allergies Reconciled Propensity to adverse reactions Unknown [employer] Other Medications Current Medications Medication Drug Class(es) Dates Sig (Normalized) Sig (Original) atorvastatin 40 mg oral tablet (19 sources) HMG-CoA Reductase Inhibitor Start: 09-22-2024 End: 01-18-2025 take 1 tablet by mouth at bedtime atorvastatin (Lipitor) 40 MG tablet Indications: Mixed hyperlipidemia (CMS/HCC) Take 1 tablet (40 mg) by mouth at bedtime 90 tablet 10/20/2024 01/18/2025 Active Start: 06-02-2024 End: 11-24-2024 take 1 tablet by mouth once daily atorvastatin (Lipitor) 20 MG tablet Indications: Mixed hyperlipidemia (CMS/HCC) Take 1 tablet (20 mg) by mouth Daily 90 tablet 1 08/26/2024 09/22/2024 Discontinued (Ineffective) dapagliflozin 5 mg oral tablet (19 sources) Sodium-Glucose Cotransporter 2 Inhibitor Start: 04-11-2024 End: 02-08-2025 take 1 tablet by mouth once daily dapagliflozin (Farxiga) 5 MG Indications: Type 2 diabetes mellitus without complication, without long-term current use of insulin (CMS/HCC) Take 1 tablet (5 mg) by mouth Daily 90 tablet 11/10/2024 02/08/2025 Active escitalopram 20 mg oral tablet (20 sources) Serotonin Reuptake Inhibitor Start: 06-02-2024 End: [...] 2023 12:00am lisinopril 20 mg oral tablet (18 sources) Angiotensin Converting Enzyme Inhibitor Start: 03-18-2024 End: 11-24-2024 take 1 tablet by mouth in the morning lisinopril 20 MG tablet Indications: Primary hypertension (CMS/HCC) Take 1 tablet (20 mg) by mouth in the morning. 90 tablet 1 08/26/2024 11/24/2024 Active metFORMIN hydrochloride 1000 mg oral tablet (20 sources) Biguanide Start: 03-18-2024 End: 11-24-2024 take 1 tablet by mouth [...] or 0.5 MG/DOSE,) 2 MG/3ML solution pen-injector (18 sources) Start: 10-16-2024 End: 01-08-2025 Semaglutide,0.25 or 0.5MG/DO S, (Ozempic, 0.25 or 0.5 MG/DOSE,) 2 MG/3ML solution pen-injector Indications: Type 2 diabetes mellitus without complication, without long-term current use of insulin (CMS/HCC) Inject 0.5 mg under the skin every 7 (seven) days 9 mL 1 10/16/2024 01/08/2025 Active Start: 08-26-2024 End: 10-16-2024 Semaglutide,0.25 or 0.5MG/DO S, (Ozempic, 0.25 or 0.5 MG/DOSE,) 2 MG/3ML solution pen-injector Indications: Type 2 diabetes mellitus without complication, without long-term current use of insulin (CMS/HCC) Inject 0.5 mg under the skin every 7 (seven) days 3 mL 1 08/26/2024 10/16/2024 Discontinued (Reorder) Start: 08-26-2024 End: 09-25-2024 Semaglutide,0.25 or 0.5MG/DO [...] long-term current use of insulin (CMS/HCC) Inject 0.25 mg under the skin 1 (one) time per week for 28 days Start with 0.25mg once a week for 4 weeks, then increase to 0.5mg once a week 3 mL 1 06/02/2024 08/13/2024 Discontinued Start: 06-02-2024 inject 0.25 mg by khan bcutaneous injection every week, then inject 0.25 mg by subcutaneous injection every week, then inject 0.5 mg by subcutaneous injection every week Semaglutide,0.25 or 0.5MG/DOS, (Ozempic, 0.25 or 0.5 MG/DOSE,) 2 MG/3ML solution pen-injector Indications: Type 2 diabetes mellitus without complication, without long-term current use of insulin (CMS/HCC) Inject 0.25 mg under the skin 1 (one) time per week for 28 days Start with 0.25mg once a week for 4 weeks, then increase to 0.5mg once a week 3 mL 1 06/02/2024 Active Start: 06-02-2024 End: 06-30-2024 inject 0.25 mg by subcutaneous injection every week, then inject 0.25 mg by subcutaneous injection every week, then inject 0.5 mg by subcutaneous injection every week Semaglutide,0.25 or 0.5MG/DOS, (Ozempic, 0.25 or 0.5 MG/DOSE,) 2 MG/3ML solution pen-injector Indications: Type 2 diabetes mellitus without complication, without long-term current use of insulin (CMS/HCC) Inject 0.25 mg under the skin 1 (one) time per week for 28 days Start with 0.25mg once a week for 4 weeks, then increase to 0.5mg once a week 3 mL 1 06/02/2024 06/30/2024 Active tiZANidine 4 mg oral tablet (2 sources) [...] unspecified] 02-21-2023 Chronic Diabetes mellitus without complication (20 sources) Type 2 diabetes mellitus without complication; Translations: [Diabetes mellitus without mention of complication, type II or unspecified type, not stated as uncontrolled] Onset: 03-19-2019 08-13-2024 Chronic Disorders of lipid metabolism (19 sources) Mixed hyperlipidemia; Translations: [Mixed hyperlipidemia] Onset: 11-11-2023 11-11-2023 Chronic Esophageal disorders (17 sources) Gastroesophageal reflux disease; Translations: [Gastro-esophageal reflux disease without esophagitis] Onset: 01-02-2024 01-02-2024 Chronic Essential hypertension (20 sources) Essential hypertension; Translations: [Essential (primary) hypertension] [...] idiopathic] Onset: 08-21-2016 Chronic Other congenital anomalies (15 sources) Congenital pes planus; Translations: [Congenital pes [...] Episodic Other nutritional; endocrine; and metabolic disorders (20 sources) Body mass index 30+ - obesity; Translations: [Body mass index (BMI) 35.0-35.9, adult] Onset: 01-17-2024 07-16-2024 Chronic Other nutritional; endocrine; and metabolic disorders (19 sources) Obesity caused by energy imbalance; Translations: [...] Problem Date Documented Date Episodic/Chronic Abdominal pain (15 sources) Generalized abdominal pain; Translations: [Generalized abdominal [...] ankle and foot] Onset: 08-21-2016 Episodic Other connective tissue disease (16 sources) Pain in right foot; Translations: [Pain in right foot] Onset: 06-02-2024 06-02-2024 Episodic Other upper respiratory infections (17 sources) Acute maxillary sinusitis, unspecified; Translations: [Acute sinusitis] Onset: 11-19-2023 Resolved: 06-02-2024 Episodic Otitis media and related conditions (1 source) Non-suppurative otitis media; Translations: [Unspecified nonsuppurative otitis media, bilateral] Onset: 07-24-2017 Episodic Results Test Name Value Interpretation Reference Range Facility ALL CBC WITH AUTO DIFFon BASOPHILS ABSOLUTE AUTO 0 [facility] Basophils/100 WBC (Bld) 0.4 % 0.2 - 2.0 % [facility] Eosinophils/100 WBC (Bld) 1.7 % 0.9 - 7.0 % [facility] Erythrocyte distribution width (RBC) [Ratio] 13.6 % 11.0 - 15.0 % [facility] Hematocrit (Bld) [Volume fraction] 42.9 % 36.0 - 48.0 % [facility] Hemoglobin (Bld) [Mass/Vol] 13.9 g/dL 12.0 - 16.0 g/dL [facility] IMMATURE GRANULOCYTES ABS AUTO 0.06 High [facility] Immature granulocytes/100 WBC (Bld) 0.6 % High 0.0 - 0.5 % [facility] Interpretation and review of laboratory results Abnormal [facility] LYMPHOCYTES ABSOLUTE AUTO 3.3 [facility] Lymphocytes/100 WBC (Bld) 33.4 % 20.5 - 60.0 % [facility] MCH (RBC) [Entitic mass] 29.2 pg 26.7 - 34.0 pg [facility] MCHC (RBC) [Mass/Vol] 32.4 g/dL 29.9 - 35.2 g/dL [facility] MCV (RBC) [Entitic vol] 90.1 fL 81.0 - 99.0 fL [facility] MONOCYTES ABSOLUTE AUTO 0.7 [facility] Monocytes/100 WBC (Bld) 6.7 % 1.7 - 12.0 % [facility] NEUTROPHILS ABSOLUTE AUTO 5.6 [facility] Neutrophils/100 WBC (Bld) 57.2 % 43.0 - 75.0 % [facility] Platelet mean volume (Bld) [Entitic vol] 10.6 fL 9.5 - 13.5 fL [facility] TBH EO # 0.2 [facility] PLT 258 [facility] RBC 4.76 [facility] WBC 9.8 [facility] Activated partial thrombopla stin time (aPTT) in platelet poor plasma by coagulation aOrdered By: Carlton Hagen on 02-21-2023 aPTT Coag (PPP) [Time] 28.7 s 25.1-36.5 [facility] Automated basophil %Ordered By: Carlton Hagen on 02-21-2023 Basophils/100 WBC (Bld) 0.4 % Normal . [facility] Comment on above: Performed By: #### B MP, CK, DDIMER, CBC, PTT, PT, HS TROP #### [facility] [address] [place] [address] Automated basophil countOrde red By: Carlton Hagen on 02-21-2023 Basophils (Bld) [#/Vol] 0.0 10*3/uL Normal 0.0-0.2 [facility] Comment on above: Result Comment: PERF ORMED BY: [place] [address] PATHOLOGIST HOSIERY REPAIRER PAU MENON M.D. Performed By: #### B MP, CK, DDIMER, CBC, PTT, PT, HS TROP #### [address] Automated blood monocyte cou ntOrdered By: Carlton Hagen on 02-21-2023 Monocytes (Bld) [#/Vol] 0.3 10*3/uL Normal 0.0-0.8 [facility] Comment on above: Performed By: #### B MP, CK, DDIMER, CBC, PTT, PT, HS TROP #### [address] Automated eosinophil %Ordere d By: Carlton Hagen on 02-21-2023 Eosinophils/100 WBC (Bld) 0.4 % Normal . [facility] Comment on above: Performed By: #### B MP, CK, DDIMER, CBC, PTT, PT, HS TROP #### [address] Automated eosinophil countOr dered By: Carlton Hagen on 02-21-2023 Eosinophils (Bld) [#/Vol] 0.0 10*3/uL Normal 0.0-0.45 [facility] Comment on above: Performed By: #### B MP, CK, DDIMER, CBC, PTT, PT, HS TROP #### [address] Automated monocyte %Ordered By: Carlton Hagen on 02-21-2023 Monocytes/100 WBC (Bld) 4.4 % Normal . [facility] Comment on above: Performed By: #### B MP, CK, DDIMER, CBC, PTT, PT, HS TROP #### [address] Automated neutrophil %Ordere d By: Carlton Hagen on 02-21-2023 Neutrophils/100 WBC (Bld) 76.0 % Normal . [facility] Comment on above: Performed By: #### B MP, CK, DDIMER, CBC, PTT, PT, HS TROP #### [address] Basic Metabolic Panelon 05-0 Anion gap [Moles/Vol] 15.3 mmol/L High 6.0-15.0 [facility] Comment on above: Performed By: #### B MP, CK, DDIMER, CBC, PTT, PT, HS TROP #### [address] Calcium [Mass/Vol] 9.3 mg/dL Normal 8.6-10.3 [facility] Comment on above: Performed By: #### B MP, CK, DDIMER, CBC, PTT, PT, HS TROP #### [address] Chloride [Moles/Vol] 102 mmol/L Normal 98-107 [facility] Comment on above: Performed By: #### B MP, CK, DDIMER, CBC, PTT, PT, HS TROP #### [address] CO2 [Moles/Vol] 23.6 mmol/L Normal 21.0-31.0 [facility] Comment on above: Performed By: #### B MP, CK, DDIMER, CBC, PTT, PT, HS TROP #### [address] [place] [address] [place] Creatinine [Mass/Vol] 0.69 mg/dL Normal 0.60-1.20 [facility] Comment on above: Performed By: #### B MP, CK, DDIMER, CBC, PTT, PT, HS TROP #### [facility] [address] Creatinine Clr Calc Pharmacy 147.50 [facility] Comment on above: Result Comment: PERF ORMED BY: [place] [address] PATHOLOGIST HOSIERY REPAIRER PAU MENON M.D. Performed By: #### B MP, CK, DDIMER, CBC, PTT, PT, HS TROP #### [address] GFR/1.73 sq M.predicted MDRD (S/P/Bld) [Vol rate/Area] mL/min/{1.73_m2} [facility] Comment on above: Performed By: #### B MP, CK, DDIMER, CBC, PTT, PT, HS TROP #### [address] Glucose [Mass/Vol] 145 mg/dL High 70-100 [facility] Comment on above: Result Comment: [place] Glucose Reference Range is dependent on time and content of last meal. Glucose of more than 200 mg/dL in a nonstressed, ambulatory subject supports the diagnosis of Diabetes Mellitus. ADA recommended reference range Performed By: #### B MP, CK, DDIMER, CBC, PTT, PT, HS TROP #### [facility] [address] [place] [address] [place] Potassium [Moles/Vol] 3.9 mmol/L Normal 3.5-5.1 [facility] Comment on above: Performed By: #### B MP, CK, DDIMER, CBC, PTT, PT, HS TROP #### [facility] [address] Sodium [Moles/Vol] 137 mmol/L Normal 136-145 [facility] Comment on above: Performed By: #### B MP, CK, DDIMER, CBC, PTT, PT, HS TROP #### [facility] [address] Urea nitrogen [Mass/Vol] 15 mg/dL Normal 7-25 [facility] Comment on above: Performed By: #### B MP, CK, DDIMER, CBC, PTT, PT, HS TROP #### [facility] [address] Calcium [Mass/volume] in Ser um or PlasmaOrdered By: Carlton Hagen on 02-21-2023 Calcium [Mass/Vol] 9.3 mg/dL 8.6-10.3 [facility] Carbon dioxide, total [Moles /volume] in Serum or PlasmaOrdered By: Carlton Hagen on 02-21-2023 CO2 [Moles/Vol] 23.6 mmol/L 21.0-31.0 [facility] Chloride [Moles/volume] in S jacqueline or PlasmaOrdered By: Carlton Hagen on 02-21-2023 Chloride [Moles/Vol] 102 mmol/L 98-107 [facility] Complete Blood Count Auto Di ffon 02-21-2023 Mean Corpuscular HGB Conc 32.8 g/dL Normal 32.0-35.0 [facility] Comment on above: Performed By: #### B MP, CK, DDIMER, CBC, PTT, PT, HS TROP #### [facility] [address] NRBC% 0.2 /100{WBC} Normal 0-0.5 [facility] Comment on above: Performed By: #### B MP, CK, DDIMER, CBC, PTT, PT, HS TROP #### [facility] [address] [place] [address] [place] Creatine Kinaseon 02-21-2023 CK [Catalytic activity/Vol] 61 U/L Normal 30-223 [facility] Comment on above: Performed By: #### B MP, CK, DDIMER, CBC, PTT, PT, HS TROP #### [facility] [address] [place] [address] [place] Creatine kinase [Enzymatic a ctivity/volume] in Serum or PlasmaOrdered By: Carlton Hagen on 02-21-2023 CK [Catalytic activity/Vol] 61 U/L 30-223 [facility] Creatinine [Mass/volume] in Serum or PlasmaOrdered By: Carlton Hagen on 02-21-2023 Creatinine [Mass/Vol] 0.69 mg/dL 0.60-1.20 [facility] D-Dimer High Sensitivityon 0 02-21-2023 D-Dimer High Sensitivity < 200 Normal 0-243 [facility] Comment on above: Result Comment: [...] patients due to co-morbid conditions. PERFORMED BY: [place] [address] PATHOLOGIST HOSIERY REPAIRER PAU MENON M.D. Performed By: #### B MP, CK, DDIMER, CBC, PTT, PT, HS TROP #### [place] [id number] [facility] ECG 12 lead ECGon 02-21-2023 ECG 12 lead ECG [facility] [place] [address] Electrocardiograph Report Signed Patient: Aurora Loja MR#: [id number] : 2000 Acct:[id number] Age/Sex: 23 / F ADM Date: 02/21/23 Loc: ER Room: Type: [facility] ER Attending Dr: Ordering Provider: Carlton [...] By Demarco Licona MD 02/21/23 1527 Normal [facility] Erythrocyte distribution wid th [Ratio] by Automated countOrdered By: Carlton Hagen on 02-21-2023 Erythrocyte distribution width (RBC) [Ratio] 13.6 % Normal 11.9-15.3 [facility] Comment on above: Performed By: #### B MP, CK, DDIMER, CBC, PTT, PT, HS TROP #### [facility] [address] [place] [address] [place] Erythrocytes [#/volume] in B lood by Automated countOrdered By: Carlton Hagen on 02-21-2023 RBC (Bld) [#/Vol] 4.54 10*6/uL Normal 3.60-5.00 [facility] Comment on above: Performed By: #### B MP, CK, DDIMER, CBC, PTT, PT, HS TROP #### [facility] [address] Glucose [Mass/volume] in Ser um or PlasmaOrdered By: Carlton Hagen on 02-21-2023 Glucose [Mass/Vol] 145 mg/dL 70-100 [facility] Comment on above: ADA recommended refe rence rangeRandom Glucose Reference Range is dependent on time and content of last meal. Glucose of more than 200 mg/dL in a nonstressed, ambulatory subject supports the diagnosis of Diabetes Mellitus. Hematocrit [Volume Fraction] of Blood by Automated countOrdered By: Carlton Hagen on 02-21-2023 Hematocrit (Bld) [Volume fraction] 38.7 % Normal 34.0-46.4 [facility] Comment on above: Performed By: #### B MP, CK, DDIMER, CBC, PTT, PT, HS TROP #### [address] Hemoglobin [Mass/volume] in BloodOrdered By: Carlton Hagen on 02-21-2023 Hemoglobin (Bld) [Mass/Vol] 12.7 g/dL Normal 11.8-15.4 [facility] Comment on above: Performed By: #### B MP, CK, DDIMER, CBC, PTT, PT, HS TROP #### [address] Laboratory - CoagulationOrde red By: Carlton Hagen on 02-21-2023 PT Coag (PPP) [Time] 11.9 s 9.0-12.9 [facility] Leukocytes [#/volume] correc radha for nucleated erythrocytes in Blood by Automated counOrdered By: Carlton Hagen on 02-21-2023 WBC corrected for nucl RBC Auto (Bld) [#/Vol] 7.1 10*3/uL 3.8-11.6 [facility] Leukocytes [#/volume] in Blo od by Automated countOrdered By: Carlton Hagen on 02-21-2023 WBC (Bld) [#/Vol] 7.1 10*3/uL Normal 3.8-11.6 [facility] Comment on above: Performed By: #### B MP, CK, DDIMER, CBC, PTT, PT, HS TROP #### [address] Lymphocytes [#/volume] in Bl ood by Automated countOrdered By: Carlton Hagen on 02-21-2023 Lymphocytes (Bld) [#/Vol] 1.3 10*3/uL Normal 1.00-4.8 [facility] Comment on above: Performed By: #### B MP, CK, DDIMER, CBC, PTT, PT, HS TROP #### [address] Lymphocytes/100 leukocytes i n Blood by Automated countOrdered By: Carlton Hagen on 02-21-2023 Lymphocytes/100 WBC (Bld) 18.8 % Normal . [facility] Comment on above: Performed By: #### B MP, CK, DDIMER, CBC, PTT, PT, HS TROP #### [address] MCH [Entitic mass] by Automa radha countOrdered By: Carlton Hagen on 02-21-2023 MCH (RBC) [Entitic mass] 28.0 pg Normal 24.7-34.3 [facility] Comment on above: Performed By: #### B MP, CK, DDIMER, CBC, PTT, PT, HS TROP #### [address] MCHC Auto (RBC) [Mass/Vol]Or dered By: Carlton Hagen on 02-21-2023 MCHC (RBC) [Mass/Vol] 32.8 g/dL 32.0-35.0 [facility] MCV [Entitic volume] by Auto mated countOrdered By: Carlton Hagen on 02-21-2023 MCV (RBC) [Entitic vol] 85.3 fL Normal 80-100 [facility] Comment on above: Performed By: #### B MP, CK, DDIMER, CBC, PTT, PT, HS TROP #### [address] Neutrophils [#/volume] in Bl ood by Automated countOrdered By: Carlton Hagen on 02-21-2023 Neutrophils (Bld) [#/Vol] 5.4 10*3/uL Normal 1.8-7.7 [facility] Comment on above: Performed By: #### B MP, CK, DDIMER, CBC, PTT, PT, HS TROP #### [address] No Panel InformationOrdered By: Carlton Hagen on 02-21-2023 D-Dimer Quantitative (PE/DVT) < 200 ng/mL 0-243 [facility] Comment on above: The reference [...] conditions. Estimated GFR (CKD-EPI) > 60.0 mL/Min [facility] Creatinine Clearance (Chem 147.50 [facility] Nucleated erythrocytes [Pres ence] in Blood by Automated countOrdered By: Carlton Hagen on 02-21-2023 Nucleated RBC Auto Ql (Bld) 0.2 /100{WBC} 0-0.5 [facility] Partial Thromboplastin Timeo n 02-21-2023 aPTT Coag (Bld) [Time] 28.7 s Normal 25.1-36.5 [facility] Comment on above: Performed By: #### B MP, CK, DDIMER, CBC, PTT, PT, HS TROP #### [facility] [address] Platelet mean volume [Entiti c volume] in Blood by Automated countOrdered By: Carlton Hagen on 02-21-2023 Platelet mean volume (Bld) [Entitic vol] 8.8 fL Normal 6.3-10.7 [facility] Comment on above: Performed By: #### B MP, CK, DDIMER, CBC, PTT, PT, HS TROP #### [facility] [address] Platelet poor plasma interna tional normalized ratio (INR) by coagulation assay (relatOrdered By: Carlton Hagen on 02-21-2023 INR Coag (PPP) [Relative time] 1.0 {INR} [facility] Comment on above: INR Therapeutic [...] Platelets (Bld) [#/Vol] 222 10*3/uL Normal 150-450 [facility] Comment on above: Performed By: #### B MP, CK, DDIMER, CBC, PTT, PT, HS TROP #### [facility] [address] Potassium [Moles/volume] in Serum or PlasmaOrdered By: Carlton Hagen on 02-21-2023 Potassium [Moles/Vol] 3.9 mmol/L 3.5-5.1 [facility] Prothrombin Time INRon 02-21 INR Coag (PPP) [Relative time] 1.0 {INR} Normal [facility] Comment on above: Result Comment: [...] TROP #### [facility] [address] PT Coag (PPP) [Time] 11.9 s Normal 9.0-12.9 [facility] Comment on above: Performed By: #### B MP, CK, DDIMER, CBC, PTT, PT, HS TROP #### [facility] [address] Serum or plasma anion gap de terminationOrdered By: Carlton Hagen on 02-21-2023 Anion gap [Moles/Vol] 15.3 mmol/L 6.0-15.0 [facility] Sodium [Moles/volume] in Ser um or PlasmaOrdered By: Carlton Hagen on 02-21-2023 Sodium [Moles/Vol] 137 mmol/L 136-145 [facility] Troponin I High Sensitivityo n 02-21-2023 Troponin I High Sensitivity 2.6 pg/mL Normal 0.0-15.0 [facility] Comment on above: Result Comment: PERF ORMED BY: [place] [address] PATHOLOGIST HOSIERY REPAIRER PAU MENON M.D. Performed By: #### B MP, CK, DDIMER, CBC, PTT, PT, HS TROP #### [address] Troponin I.cardiac [Mass/vol ume] in Serum or Plasma by Detection limit <= 0.01 ng/Ordered By: Carlton Hgaen on 02-21-2023 Troponin I.cardiac DL <= 0.01 ng/mL [Mass/Vol] 2.6 pg/mL 0.0-15.0 [facility] Urea nitrogen [Mass/volume] in Serum or PlasmaOrdered By: Carlton Hagen on 02-21-2023 Urea nitrogen [Mass/Vol] 15 mg/dL 7- [facility] XR chest 2V*on 02-21-2023 XR chest 2V* [facility] Main [place] [address] [place] [address] XRay Report Signed Patient: Aurora Loja MR#: [id number] : 2000 Acct:[id number] Age/Sex: 23 / F ADM Date: 02/21/23 Loc: ER Room: Type: [facility] ER Attending Dr: Copies to: Carlton Hagen [...] Francie Lobato M.D.02/21/2023 10:26 AM Dictation Location: [facility] Transcribed By: [facility] 02/21/23 1026 Dictated By: Francie Lobato MD 02/21/23 1025 Signed By: 02/21/23 1026 [facility] Vital Signs Date Time Vital Sign Value Performing Clinician Facility 08-26-2024 15:30-0500 Body mass index (BMI) [Ratio] 32.96 kg/m2 Michelle Selina FUR FINISHER Work Phone: [facility] 08-26-2024 15:30-0500 Body temperature 98.71 [degF] Michelle Emilianoz FUR FINISHER Work Phone: [facility] 08-26-2024 15:30-0500 Body weight 92.63 kg Michelle Taishapapiz FUR FINISHER Work Phone: [facility] 08-26-2024 15:30-0500 Diastolic blood pressure 90 mm[Hg] Michelle Emilianoz FUR FINISHER Work Phone: [facility] 08-26-2024 15:30-0500 Heart rate 95 /min Michelle Myeshaholz FUR FINISHER Work Phone: [facility] 08-26-2024 15:30-0500 Respiratory rate 18 /min Michelle Taishahholz FUR FINISHER Work Phone: [facility] 08-26-2024 15:30-0500 SaO2% (BldA) [Mass fraction] 100 % Michelle Emilianoz FUR FINISHER Work Phone: [facility] 08-26-2024 15:30-0500 Systolic blood pressure 110 mm[Hg] Michelle Emilianoz FUR FINISHER Work Phone: [facility] 07-16-2024 16:41-0400 Body height 167.6 cm Michelle Myeshaholz FUR FINISHER Work Phone: [facility] 07-16-2024 16:41-0400 Body mass index (BMI) [Ratio] 35.44 kg/m2 Michelle Taishahholz FUR FINISHER Work Phone: [facility] 07-16-2024 16:41-0400 Body temperature 98.1 [degF] Michelle Marks FUR FINISHER Work Phone: [facility] 07-16-2024 16:41-0400 Body weight 99.61 kg Michelle Marks FUR FINISHER Work Phone: [facility] 07-16-2024 16:41-0400 Diastolic blood pressure 90 mm[Hg] Michelle Marks FUR FINISHER Work Phone: [facility] 07-16-2024 16:41-0400 Heart rate 95 /min Michelle Marks FUR FINISHER Work Phone: [facility] 07-16-2024 16:41-0400 Respiratory rate 18 /min Michelle Marks FUR FINISHER Work Phone: [facility] 07-16-2024 16:41-0400 SaO2% (BldA) [Mass fraction] 96 % Michelle Marks FUR FINISHER Work Phone: [facility] 07-16-2024 16:41-0400 Systolic blood pressure 126 mm[Hg] Michelle Marks FUR FINISHER Work Phone: [facility] [employer] 04-10-2023 13:45-0400 Body height 167.64 cm Mikala Morocho Other [employer] Other 04-10-2023 13:45-0400 Body mass index (BMI) [Ratio] 34.38 kg/m2 Mikala Morocho Other [employer] Other 04-10-2023 13:45-0400 Body weight 96.62 kg Mikala Morocho Other [employer] Other 04-10-2023 13:45-0400 Diastolic blood pressure 94 mm[Hg] Mikala Morocho Other [employer] Other 04-10-2023 13:45-0400 Systolic blood pressure 164 mm[Hg] Mikala Morocho Other [employer] Other 02-26-2023 15:30-0400 Body height 167.64 cm Mikala Morocho Other [employer] Other 02-26-2023 15:30-0400 Body mass index (BMI) [Ratio] 33.08 kg/m2 Mikala Morocho Other [employer] Other 02-26-2023 15:30-0400 Body weight 92.99 kg Mikala Morocho Other [employer] Other 02-26-2023 15:30-0400 Diastolic blood pressure 74 mm[Hg] Mikala Morocho Other [employer] Other 02-26-2023 15:30-0400 SaO2% (BldA) [Mass fraction] 99 % Mkiala Morocho Other [employer] Other 02-26-2023 15:30-0400 Systolic blood pressure 126 mm[Hg] Mikala Morocho Other [employer] Other 02-21-2023 10:04-0400 Diastolic blood pressure 100 mm[Hg] MD Mikala Morocho Work Phone: [facility] 02-21-2023 10:04-0400 Heart rate 105 /min MD Mikala Morocho Work Phone: [facility] 02-21-2023 10:04-0400 Respiratory rate 18 /min MD Mikala Morocho Work Phone: [facility] 02-21-2023 10:04-0400 SaO2% (BldA) [Mass fraction] 100 % MD Mikala Morocho Work Phone: [facility] 02-21-2023 10:04-0400 Systolic blood pressure 163 mm[Hg] MD Mikala Morocho Work Phone: [facility] 02-21-2023 09: Body height 167.64 cm MD Mikala Morocho Work Phone: [facility] 02-21-2023 09: Body temperature 99.3 [degF] MD Mikala Morocho Work Phone: [facility] 02-21-2023 09: Body weight 95.25 kg MD Mikala Morocho Work Phone: [facility] Encounters Encounter Date Encounter Type Care Provider Facility Start: 11-10-2024 End: 11-10-2024 Refill Michelle Aichholz FUR FINISHER Work Phone: [facility] Comment on above: Type 2 diabetes sunny itus without complication, without long- term current use of insulin (CMS/HCC) Start: 10-16-2024 End: 10-20-2024 Refill Michelle Aichholz FUR FINISHER Work Phone: [facility] Comment on above: Type 2 diabetes sunny itus without complication, without long- term current use of insulin (CMS/HCC) Mixed hyperlipidemia (CMS/HCC) Start: 09-22-2024 End: 09-22-2024 Refill Michelle Aichholz FUR FINISHER Work Phone: [facility] Comment on above: Mixed hyperlipidemia (CMS/HCC) (Primary Dx) Start: 09-19-2024 End: 09-19-2024 Clinisync Result Encounter Michelle Aichholz FUR FINISHER Work Phone: [facility] External Department Unsolicited Start: 09-19-2024 End: 09-19-2024 Clinisync Result Encounter Michelle Aichholz FUR FINISHER Work Phone: [facility] External Department Unsolicited Start: 08-26-2024 End: 08-26-2024 Office outpatient visit 25 minutes Michelle Aichholz FUR FINISHER Work Phone: [facility] Comment on [...] 08-26-2024 End: 08-26-2024 Bamboo flowsheet Michelle Aichholz FUR FINISHER Work Phone: [facility] Start: 08-26-2024 End: 08-26-2024 Bamboo flowsheet Michelle Aichholz FUR FINISHER Work Phone: [facility] Start: 08-13-2024 End: 08-13-2024 Refill Michelle Aichholz FUR FINISHER Work Phone: [facility] Comment on above: Type 2 diabetes sunny itus without complication, without long- term current use of insulin ([facility]) Start: 07-16-2024 End: 07-16-2024 Office outpatient visit 15 minutes Michelle Taishahbibiz FUR FINISHER Work Phone: [facility] Comment on above: Type 2 diabetes sunny itus without complication, without long- term current use of insulin (CMS/[facility]) (Primary Dx); Morbid (severe) obesity due to excess calories (CMS/HCC); Essential (primary) hypertension ([facility]/HCC); Body mass index (BMI) 35.0-35.9, adult; Gastroesophageal reflux disease, unspecified whether esophagitis present Start: 07-16-2024 End: 07-16-2024 ambulatory MICHELLE AICHHOLZ Not Available Start: 07-16-2024 End: 07-16-2024 Bamboo flowsheet Michelle Aichholz FUR FINISHER Work Phone: [facility] Start: 07-16-2024 End: 07-16-2024 Bamboo flowsheet Michelle Aichholz FUR FINISHER Work Phone: [facility] Start: 07-10-2024 End: 07-10-2024 Refill Michelle Aichholz FUR FINISHER Work Phone: [facility] Comment on above: Type 2 diabetes sunny itus without complication, without long- term current use of insulin ([facility]) Start: 06-13-2024 End: 06-16-2024 Refill Michelle Aichholz FUR FINISHER Work Phone: [facility] Comment on above: Type 2 diabetes sunny itus without complications ([facility]) Start: 06-12-2024 End: 06-12-2024 Refill Michelle Aichholz FUR FINISHER Work Phone: [facility] Comment on above: Primary hypertension ([facility]) Start: 06-02-2024 End: 06-02-2024 ambulatory MICHELLE AICHHOLZ Not Available Start: 01-17-2024 End: 01-17-2024 ambulatory MICHELLE AICHHOLZ Not Available Start: 06-18-2023 End: 06-18-2023 ambulatory Mikala Morocho Other [employer] Other Start: 06-18-2023 Telephone encounter Mikala Morocho [facility] Start: 04-10-2023 End: 04-10-2023 ambulatory Mikala Morocho Other [employer] Other Start: 04-10-2023 Office outpatient vi sit 15 minutes Mikala Morocho [facility] Start: 02-26-2023 End: 02-26-2023 ambulatory Mikala Morocho Other [employer] Other Start: 02-26-2023 Office outpatient vi sit 15 minutes Mikala Morocho [facility] Start: 02-21-2023 End: 02-21-2023 Emergency department patient visit Carlton Hagen Facility:[facility] Start: 02-21-2023 End: 02-21-2023 Emergency department patient visit MD Mikala Morocho Work Phone: [facility] Work Phone: Start: 02-22-2022 Adult health examination Kathia Morocho Other [facility] [employer] Other Start: 10-06-2021 End: 10-07-2021 ambulatory KALEY LUEVANO Facility:[facility] Start: 06-01-2021 End: 06-02-2021 ambulatory MAURY FRANCISCO Facility:[facility] Start: 03-02-2021 End: 03-03-2021 ambulatory MAURY FRANCISCO Facility:[facility] Start: 01-26-2021 End: 01-27-2021 ambulatory MAURY FRANCISCO Facility:[facility] Start: 01-05-2021 End: 01-06-2021 ambulatory MAURY FRANCISCO Facility:[facility] Start: 12-23-2020 End: 12-24-[address] MIKALA MOROCHO Facility:[facility] Start: 11-05-2018 End: 11-06-2018 Patient encounter procedure Demarco Cesar Facility:[id number] Procedures Date Procedure Procedure Detail Performing Clinician Start: 09-19-2024 ALL CBC WITH AUTO DIFF Michelle Marks FUR FINISHER Work Phone: Start: 02-21-2023 Plain chest X-ray MD Miguel Morocho Work Phone: Start: 08-21-2016 Laboratory test resu lt abnormal Mikala Morocho Other Start: 08-21-2016 Pre-surgery evaluation Mikala Morocho Other Viral screening Mikala Morocho Other Plan of Treatment Date Care Activity Detail Author Start: 01-20-2026 Glaucoma screening Diabetes: R etinopathy Screening [facility] Start: 09-19-2025 Urine screening for protein Diabetes: Urine Protein Screening [facility] Start: 12-01-2024 Hemoglobin A1c measurement Francoise betes: Hemoglobin A1C [facility] Start: 11-26-2024 End: 11-26-2024 Patient encounter procedure 11/26/2024 9:40 AM EST Office Visit [facility] [address] [place] [address] Michelle Marks, FUR FINISHER [address] [place] [phone] [facility] Start: 11-23-2024 End: 09-22-2025 Alanine aminotransferase [Enzymatic activity/volume] in Serum or Plasma ALT Lab Routine Mixed hyperlipidemia (CMS/HCC) Expected: 11/23/2024 (Approximate), Expires: 09/22/2025 [facility] Comment on above: Expected: 11/23/2024 (Approximate), Expires: 09/22/2025 Start: 11-23-2024 End: 09-22-2025 Aspartate aminotransferase [Enzymatic activity/volume] in Serum or Plasma AST Lab Routine Mixed hyperlipidemia (CMS/HCC) Expected: 11/23/2024 (Approximate), Expires: 09/22/2025 [facility] Comment on above: Expected: 11/23/2024 (Approximate), Expires: 09/22/2025 Start: 11-23-2024 End: 09-22-2025 Lipid 1996 panel - Serum or Plasma Lipid panel Lab Routine Mixed hyperlipidemia ([facility]/HCC) Expected: 11/23/2024 (Approximate), Expires: 09/22/2025 [facility] Work Phone: Comment on above: Expected: 11/23/2024 (Approximate), Expires: 09/22/2025 Start: 08-28-2024 End: 08-28-2024 Patient encounter procedure 08/28/2024 3:20 PM EST Office Visit [facility] [address] [place] [address] Michelle Marks, LORETA [address] [place] [phone] [facility] Start: 08-26-2024 End: 08-26-2024 Patient encounter procedure [facility] Comment on above: Arrived Start: 07-28-2024 Urine screening for protein Diabetes: Urine Protein Screening [facility] Start: 07-16-2024 End: 07-16-2024 Patient encounter procedure [facility] Comment on above: Morbid (severe) obes ity due to excess calories (CMS/HCC); Essential (primary) hypertension (CMS/HCC); Body mass index (BMI) 35.0-35.9, adult Start: 07-15-2024 End: 07-15-2024 Patient encounter procedure 07/15/2024 3:00 PM EDT Office Visit [facility] [address] [place] [phone] Michelle Marks NP [address] [place] [address] [facility] Start: 07-14-2024 Hemoglobin A1c measurement Francoise betes: Hemoglobin A1C [facility] Patient Education Chest Pain Jorge Luis t Is Not Caused by the Heart (DC) Anxiety, Adult (DC) [facility] Work Phone: Patient referral [facility] Work Phone: Immunizations Immunization Date Immunization Notes Care Provider Fa cili 08-04-2020 influenza, seasonal, injectable Michelle Marks FUR FINISHER Work Phone: [facility] 06-10-2013 tetanus toxoid, redu roger diphtheria toxoid, and acellular pertussis vaccine, adsorbed Michelle Selina FUR FINISHER Work Phone: [facility] 01-04-2005 diphtheria, tetanus toxoids and acellular pertussis vaccine, unspecified formulation Michelle Marks FUR FINISHER Work Phone: [facility] 01-04-2005 measles, mumps and rubella virus vaccine Michelle Myeshaholz FUR FINISHER Work Phone: [facility] 01-04-2005 poliovirus vaccine, inactivated Michelle Selina FUR FINISHER Work Phone: [facility] 05-01-2003 diphtheria, tetanus toxoids and acellular pertussis vaccine, unspecified formulation Michelle Selina FUR FINISHER Work Phone: [facility] 05-01-2003 haemophilus influenz ae type b vaccine, conjugate unspecified formulation Michelle Aichholz FUR FINISHER Work Phone: [facility] 03-25-2001 measles, mumps and rubella virus vaccine Michelle Aichholz FUR FINISHER Work Phone: [facility] 03-25-2001 pneumococcal conjuga te vaccine, 7 valent Michelle Aichholz FUR FINISHER Work Phone: [facility] 03-25-2001 varicella virus vaccine Michelle Aichholz FUR FINISHER Work Phone: [facility] 2000 diphtheria, tetanus toxoids and acellular pertussis vaccine, unspecified formulation Michelle Aichholz FUR FINISHER Work Phone: [facility] 2000 haemophilus influenz ae type b conjugate and Hepatitis B vaccine Michelle Aichholz FUR FINISHER Work Phone: [facility] 2000 pneumococcal conjuga te vaccine, 7 valent Michelle Aichholz FUR FINISHER Work Phone: [facility] 2000 poliovirus vaccine, inactivated Michelle Aichholz FUR FINISHER Work Phone: [facility] 2000 diphtheria, tetanus toxoids and acellular pertussis vaccine, unspecified formulation Michelle Aichholz FUR FINISHER Work Phone: [facility] 2000 haemophilus influenz ae type b conjugate and Hepatitis B vaccine Michelle Aichholz FUR FINISHER Work Phone: [facility] 2000 poliovirus vaccine, inactivated Michelle Aichholz FUR FINISHER Work Phone: [facility] 2000 diphtheria, tetanus toxoids and acellular pertussis vaccine, unspecified formulation Michelle Aichholz FUR FINISHER Work Phone: [facility] 2000 haemophilus influenz ae type b conjugate and Hepatitis B vaccine Michelle Aichholz FUR FINISHER Work Phone: [facility] 2000 poliovirus vaccine, inactivated Michelle Aichholz FUR FINISHER Work Phone: [facility] Payers Date Payer Category Payer Self-pay 2023 Unknown [id number] 2019 Private Health Insurance [id number] 2000 Unknown [id number] [id number] [id number] 2000 Unknown [id number] 2.16.84 [id number] 2000 Unknown [id number] 2.16.84 [id number] 2000 Unknown [id number] 2.16.84 [id number] 2000 Unknown [id number] 2.16.84 [id number] 2000 Unknown [id number] 2.16.84 [id number] 2000 Unknown [id number] 2.16.84 [id number] 2000 Unknown [id number] 2.16.84 [id number] 2000 Unknown [id number] 2.16.84 [id number] 2000 Unknown [id number] 2.16.84 [id number] [facility] [id number] Unknown [id number] Unknown [id number] [id number] Social History Date Type Detail Facility Start: 02-21-2023 End: 01-17-2024 Tobacco smoking status NHIS Never smoked tobacco (finding) [facility] Start: 2000 Sex Assigned At Female F [facility] Start: 01-10-2024 End: 01-17-2024 Sex Assigned At [facility] Start: 01-17-2024 Tobacco use and exposure Smoke less tobacco non-user [facility] Start: 06-02-2024 End: 08-26-2024 Alcoholic beverage intake Lifetime non-drinker (finding) [facility] Start: 01-10-2024 End: 01-17-2024 History of Social function [facility] Do you belong to any clubs or organizations such as mosque groups, unions, fraternal or athletic groups, or [...] To some extent [facility] (I/We) worried [facility] er (my/our) food would run out before (I/we) got money to buy more. Never true [facility] Start: 01-17-2024 Alcohol Comment caffine: soda 1 richard y [facility] Start: 2000 Sex assigned at Not on file [facility] Clinical Notes 12-23-2020 to 10-16-2024 Telephone Encounter - ELDON STALLINGS - 10/16/2024 8:11 AM ESTTelephone Encounter - ELDON STALLINGS - 10/16/2024 8:11 AM Vick Marks NP - 08/26/2024 3:42 PM EST Note Date & Type Note Facility 10-16-2024 Telephone encount er Note Patient request 90 day supply of ozemic be sent to [facility] in [place]. [facility] 10-16-2024 Miscellaneous Notes Formattin g of this note might be different from the original. Patient request 90 day supply of ozemic be sent to [facility] in [place]. clm documented in this encounter [facility] 08-26-2024 History of Presen t illness Narrative [...] flexion deformity of forefoot Anxiety and depression ([facility]) Anxiety, generalized ([facility]) Arthritis of foot Equinus contracture of right ankle Fatigue Flatfoot Forefoot varus, acquired, right Heartburn Hyperlipidemia (CMS/HCC) Hypertension ([facility]/HCC) 01/02/2024 Migraine ([facility]) Pharyngitis 11/19/2023 Posterior tibial tendonitis, right Right foot pain Spring ligament tear, right, sequela Type 2 diabetes mellitus ([facility]) 01/02/2024 Valgus foot, right Varus [...] List Items Addressed This Visit Mixed hyperlipidemia (CMS/HCC) Continue statin Relevant Medications atorvastatin (Lipitor) 20 MG tablet Essential (primary) hypertension (CMS/HCC) Check blood sugars [...] 20 MG tablet Type 2 diabetes mellitus ([facility]/HCC) - Primary Check blood sugars daily, notify [...] Morbid (severe) obesity due to excess calories ([facility]) Obesity (BMI 30-39.9) Discussed with [...] 1000 MG tablet documented in this encounter [facility] 07-16-2024 History of Presen t illness Narrative Associated Problem(s): Acid reflux Recommend she take OTC famotidine every day for GERD symptoms Currently only taking PRN Associated Problem(s): Type 2 diabetes mellitus (CMS/[facility]) Is having some abd pain (generalized and vague) on the day and next day of injection, then resolves. Last night first dose of 0.5mg dose. Woke up about 4 hours later severe pain, which eventually resolved. Denies any acute pain, NV at this time. Sugars are improving, she has a sl weight loss as well. For now she will stay at dose of 0.5mg weekly Fu in 2 months for a recheck Nausea, no vomiting, stomach ache/pain, diarrhea Aurora Loja is a 24 y.o. female presents with chief complaint of No chief complaint on file. HPI: Diabetes She presents for her follow-up diabetic visit. She has type 2 diabetes mellitus. Her disease course has been improving. There are no hypoglycemic associated symptoms. Pertinent negatives for hypoglycemia include no dizziness, headaches, nervousness/anxiousness, seizures or tremors. Pertinent negatives for diabetes include no blurred vision, no chest pain, no polydipsia, no polyphagia, no polyuria, no visual change and no weight loss. There are no hypoglycemic complications. Symptoms are improving. There are no diabetic complications. Risk factors for coronary artery disease include diabetes mellitus, dyslipidemia, obesity and sedentary lifestyle. Current diabetic treatment includes oral agent (dual therapy) (ozempic). She is compliant with treatment all of the time. Her overall blood glucose range is 110-130 mg/dl. An LON inhibitor/angiotensin II receptor sravani is being taken. She does not see a tie knitter helper.Eye exam is current. SUBJECTIVE: MEDICATIONS: Current Outpatient Medications Medication Instructions atorvastatin (LIPITOR) 20 mg, Oral, Daily dapagliflozin (FARXIGA) 5 mg, Oral, Daily escitalopram (LEXAPRO) 20 mg, Oral, Daily lisinopril 20 mg, Oral, Every morning metFORMIN (GLUCOPHAGE) 1,000 mg, Oral, 2 times daily with meals Ozempic (0.25 or 0.5 MG/DOSE) 0.25 mg, Subcutaneous, Weekly, Start with 0.25mg once a week for 4 weeks, then increase to 0.5mg once a week ALLERGIES: No Known Allergies REVIEW OF SYMPTOMS: Review of Systems Constitutional: Negative for appetite change, chills, fever and weight loss. HENT: Negative for congestion, ear pain and sore throat. Eyes: Negative for blurred vision, pain, discharge, redness and visual disturbance. Respiratory: Negative for cough, shortness of breath and wheezing. Cardiovascular: Negative for chest pain, palpitations and leg swelling. Gastrointestinal: Positive for abdominal pain and nausea. Negative for blood in stool, constipation, diarrhea and vomiting. Genitourinary: Negative for difficulty urinating, [...] flexion deformity of forefoot Anxiety and depression ([facility]) Anxiety, generalized ([facility]) Arthritis of foot Equinus contracture of right ankle Fatigue Flatfoot Forefoot varus, acquired, right Heartburn Hyperlipidemia (CMS/HCC) Hypertension ([facility]/HCC) 01/02/2024 Migraine ([facility]) Pharyngitis 11/19/2023 Posterior tibial tendonitis, right Right foot pain Spring ligament tear, right, sequela Type 2 diabetes mellitus ([facility]/HCC) 01/02/2024 Valgus foot, right Varus foot deformity, acquired, right No past surgical history on file. family history is not on file. OBJECTIVE: Visit Vitals BP 126/90 (BP Location: Left arm, Patient Position: Sitting, BP Cuff Size: Adult long) Pulse 95 Temp 98.1 F (Temporal) Resp 18 Ht 5' 6 Wt 219 lb 9.6 oz SpO2 96% BMI 35.44 kg/m Smoking Status Never BSA 2.15 m Physical Exam Vitals and nursing note reviewed. Constitutional: General: She is not in acute distress. Appearance: Normal appearance. HENT: Head: Normocephalic and atraumatic. Right Ear: External ear normal. Left Ear: External ear normal. Nose: Nose normal. Mouth/Throat: Mouth: Mucous membranes are moist. Eyes: Extraocular Movements: Extraocular movements intact. Conjunctiva/sclera: Conjunctivae normal. Cardiovascular: Rate and Rhythm: Normal rate and regular rhythm. Pulses: Normal pulses. Heart sounds: Normal heart sounds. Pulmonary: Effort: Pulmonary effort is normal. Breath sounds: Normal breath sounds. Abdominal: General: Bowel sounds are normal. There is no distension. Palpations: Abdomen is soft. There is no mass. Tenderness: There is no abdominal tenderness. Musculoskeletal: General: Normal range of motion. Cervical back: Normal range of motion and neck supple. Skin: General: Skin is warm and dry. Capillary Refill: Capillary refill takes 2 to 3 seconds. Findings: No rash. Neurological: General: No focal deficit present. Mental Status: She is alert and oriented to person, place, and time. Psychiatric: Mood and Affect: Mood normal. Behavior: Behavior normal. Thought Content: Thought content normal. Judgment: Judgment normal. ASSESSMENT AND PLAN: No follow-ups on file. Problem List Items Addressed This Visit Essential (primary) hypertension (CMS/HCC) Acid reflux - Primary Recommend she take OTC famotidine every day for GERD symptoms Currently only taking PRN Type 2 diabetes mellitus (CMS/HCC) Is having some abd pain (generalized and vague) on the day and next day of injection, then resolves. Last night first dose of 0.5mg dose. Woke up about 4 hours later severe pain, which eventually resolved. Denies any acute pain, [place] at this time. Sugars are improving, she has a sl weight loss as well. For now she will stay at dose of 0.5mg weekly Fu in 2 months for a recheck Body mass index (BMI) 35.0-35.9, adult Morbid (severe) obesity due to excess calories (CMS/HCC) documented in this encounter [facility] 04-10-2023 Evaluation note Encounter Date Diagnosis Assessment Notes Mar, Anxiety disorder, unspecified (ICD-10 - F41.9) Discussed meds and counseling Mar, Depression, unspecified (ICD-10 - F32.A) as above Mar, Musculoskeletal chest pain (ICD-10 - R07.89) suggested chiropractor, PT and muscle relaxers as able [employer] Other 05-08-2023 Evaluation note* Encounter Date Diagnosis [...] verbalized understanding and agreement with treatment plan. [employer] Other 12-16-2021 NotePROCEDURE: XR FOOT RT MIN [...] Electronically authenticated by: LANCE VASQUEZ Date: 2021-10-06 10:52[facility]08-11-2021 NotePROCEDURE: XR FOOT RT MIN 3 [...] Electronically authenticated by: ANGIE MURRAY Date: 2021-06-01 13:56[facility]05-12-2021 NotePROCEDURE: XR FOOT RT MIN 3 [...] authenticated by: ANGIE MURRAY Date: 2021-03-02 10:34[id number] NotePROCEDURE: XR FOOT RT MIN 3 VIEWS [...] authenticated by: ANGIE MURRAY Date: 2021-01-26 15:44[facility] [id number] NotePROCEDURE: XR FOOT RT MIN 3 VIEWS [...] authenticated by: ANGIE MURRAY Date: 2021-01-05 12:43[facility] [id number] NotePROCEDURE: XR FOOT RT MIN 3 VIEWS [...] Electronically authenticated by: ANGIE MURRAY Date: 2020-12-23 14:48[facility] assessment information [facility] Work Phone: Evaluation noteNo InformationNortBerwick [facility] Center [employer] Other Evaluation note* Diagnosis Type 2 diabetes [...] without long-term current use of insulin (CMS/HCC) documented in this encounter [facility] HealthcareEvaluation note* Diagnosis Type 2 diabetes [...] without complications (CMS/HCC) documented in this encounter [facility] HealthcareEvaluation note* Diagnosis Type 2 diabetes mellitus [...] Type 2 diabetes mellitus without complications (CMS/HCC) Mixed hyperlipidemia (CMS/HCC)- Primary Mixed hyperlipidemia documented in this encounter [facility] HealthcareEvaluation note* Diagnosis Primary hypertension (CMS/HCC) Unspecified essential hypertension documented in this encounter [facility] HealthcareEvaluation note* Diagnosis Type 2 diabetes mellitus without complications (CMS/HCC) documented in this encounter [facility] HealthcareEvaluation note* Diagnosis Type 2 diabetes mellitus without complication, without long-term current use of insulin (CMS/HCC) documented in this encounter [facility] HealthcareEvaluation note* Diagnosis Type 2 diabetes mellitus without complication, without long-term current use of insulin ([facility]/HCC)- Primary Morbid (severe) obesity due to excess calories (CMS/HCC) Essential (primary) hypertension (CMS/HCC) Unspecified essential hypertension Body mass index (BMI) 35.0-35.9, adult Gastroesophageal reflux disease, unspecified whether esophagitis present documented in this encounter [facility] HealthcareEvaluation note* Diagnosis Type 2 diabetes mellitus [...] Type 2 diabetes mellitus without complications (CMS/HCC) Type 2 diabetes mellitus without complication, without long-term current use of insulin ([facility]) documented in [facility] encounter [facility]* Diagnosis Type 2 diabetes mellitus [...] Type 2 diabetes mellitus without complications (CMS/HCC) Mixed hyperlipidemia (CMS/HCC) Mixed hyperlipidemia documented in this encounter [facility]* Diagnosis Type 2 diabetes mellitus [...] complication, without long-term current use of insulin (CMS/[facility])- Primary Essential (primary) hypertension (CMS/HCC) Unspecified essential hypertension Morbid (severe) obesity due to excess calories (CMS/HCC) Mixed hyperlipidemia (CMS/HCC) Mixed hyperlipidemia Obesity (BMI 30-39.9) Anxiety disorder, unspecified Anxiety state (CMS/HCC) Anxiety state, unspecified Primary hypertension (CMS/HCC) Unspecified essential hypertension Type 2 diabetes mellitus without complications ([facility]) Type 2 diabetes mellitus without complication, without long-term current use of insulin ([facility]) documented in [facility] encounter [facility] general Narrative - Reported* Type Description [...] foot surgery 2016, Problem Status : Active, [employer] Other Summary Purpose Family History No Family History Records FoundNo Family History Records FoundNo Family History Records FoundNo Family History Records Found Advance Directives Advance Directive Response Recorded Date/ Time Advance Directives No February 21, 2023 9:15am Chief Complaint and Reason for Visit Chief Complaint Chest pain Additional Source Comments INFORMATION SOURCE (unrecogn ized section and content) DATE CREATED AUTHOR 11/11/2018 [facility] DATE CREATED AUTHOR AUTHOR'S ORGANIZ ATION 12/09/2021 [facility] DATE CREATED AUTHOR AUTHOR'S ORGANIZ ATION 06/04/2023 [facility] DATE CREATED AUTHOR AUTHOR'S ORGANIZ ATION 08/28/2024 [facility] EPIC Care Teams (unrecognized sec tion and content) Team Status: Active Member Role Status Dates Mikala Morocho MD Primary Care Provider Active Team Status: Inactive Member Role Status Dates Mikala Morocho MD Primary Care Provider Active Carlton Hagen APRN Emergency Provider Active Chief Design Engineer Relationship Specialty Start Date End Date Justin Ahmadi MD [address] [place] [phone] PCP - General Family Medicine 11/20/23 Michelle Marks NP [address] [place] [phone] Nurse Practitioner Family Medicine 07/22/23 Chief Design Engineer Relationship Specialty Start Date End Date Justin Ahmadi MD [address] [place] [phone] PCP - General Family Medicine 11/20/23 Michelle Marks NP [address] [place] [phone] Nurse Practitioner Family Medicine 07/22/23 Chief Design Engineer Relationship Specialty Start Date End Date Justin Ahmadi MD [address] [place] [phone] PCP - General Family Medicine 11/20/23 Michelle Marks NP [address] [place] [phone] Nurse Practitioner Family Medicine 07/22/23 Chief Design Engineer Relationship Specialty Start Date End Date Justin Ahmadi MD [address] [place] [phone] PCP - General Family Medicine 11/20/23 Michelle Marks NP [address] [place] [address] Nurse Practitioner Family Medicine 07/22/23 Chief Design Engineer Relationship Specialty Start Date End Date Justin Ahmadi MD [address] [place] [phone] PCP - General Family Medicine 11/20/23 Michelle Mraks NP [address] [place] [phone] Nurse Practitioner Family Medicine 07/22/23 Chief Design Engineer Relationship Specialty Start Date End Date Justin Ahmadi MD [address] [place] [phone] PCP - General Family Medicine 11/20/23 Michelle Marks NP [address] [place] [phone] Nurse Practitioner Family Medicine 07/22/23 Chief Design Engineer Relationship Specialty Start Date End Date Justin Ahmadi MD [address] [place] [phone] PCP - General Family Medicine 11/20/23 Michelle Marks NP [address] [place] [phone] Nurse Practitioner Family Medicine 07/22/23 Chief Design Engineer Relationship Specialty Start Date End Date Justin Ahmadi MD [address] [place] [phone] PCP - General Family Medicine 11/20/23 Michelle Marks NP [address] [place] [phone] Nurse Practitioner Family Medicine 07/22/23 Chief Design Engineer Relationship Specialty Start Date End Date Justin Ahmadi MD [address] [place] [phone] PCP - General Family Medicine 11/20/23 Michelle Marks NP [address] [place] [phone] Nurse Practitioner Family Medicine 07/22/23 Chief Design Engineer Relationship Specialty Start Date End Date Justin Ahmadi MD [address] [place] [phone] PCP - General Family Medicine 11/20/23 Michelle Marks NP [address] [place] [phone] Nurse Practitioner Family Medicine 07/22/23 Chief Design Engineer Relationship Specialty Start Date End Date Justin Ahmadi MD [address] [place] [phone] PCP - General Family Medicine 11/20/23 Michelle Marks NP [address] [place] [address] Nurse Practitioner Family Medicine 07/22/23 Goals (unrecognized [...] BE BASED ON THE PRIMARY CLINICAL RECORDS. [facility] provides no warranty or guarantee of the accuracy or completeness of information in this document.
[2024-11-29 11:46] LABS: Alanine Aminotransferase 45 U/L (14-59); Aspartate Amino Transferase 31 U/L (15-37); Chol HDL Ratio 5.1; Cholesterol 182 mg/dL (<=200); HDL Cholesterol 36 mg/dL (40-60); Triglycerides 341 mg/dL (<=150); VLDL CHOLESTEROL 68.2 mg/dL
== END 2024-11-29 11:18 | disposition home or self-care (01) ==
PROVIDERS: PCP Nurse Practitioner; Visit Provider Nurse Practitioner
DX: E78.2 Mixed hyperlipidemia (principal)
CPT/HCPCS: 36415; 80061; 84450; 84460

== ENCOUNTER 2024-12-03 13:26 | Outpatient (OUT) | payer OTHER, SELFPAY ==
[2024-12-03 14:21] LABS: Free T4 0.83 ng/dL (0.76-1.46)
[2024-12-03 14:26] LABS: Thyroid Stimulating Hormone 2.441 uIU/mL (0.358-3.740)
== END 2024-12-03 13:27 | disposition home or self-care (01) ==
LOC: LAB 13:27
PROVIDERS: PCP Nurse Practitioner; Visit Provider Nurse Practitioner
DX: E78.2 Mixed hyperlipidemia (principal)
CPT/HCPCS: 36415; 84439; 84443

== ENCOUNTER 2024-12-27 11:51 | Outpatient (OUT) | payer OTHER, SELFPAY ==
--- OUTSIDE RECORDS SUMMARY | 2024-12-27 11:55 | XMS_ITS | CCD ---
Author Organization [facility] Care Team Providers Care Silica Spray Mixer Name Role Phone Demarco Cabral Attending Unavailable [...] RASHAWN, DR MIKALA Prasad Primary Care Unavailable MCCRORY, DR LANCE Millard Consulting Unavailable ELLIOTT, KALEY [...] Primary Care Provider GARRETT Hagen Emergency Provider [phone] Mikala Morocho Unavailable Carlton Hagen Attending Unavailable Carlton Hagen Admitting Unavailable Mikala Morocho Primary Care Unavailable Selina TRAVELIFT OPERATOR, Michelle Unavailable Justin Ahmadi MD Primary Care Provider [phone] MICHELLE MARKS Attending Unavailable SELINA, MICHELLE Attending Unavailable MICHELLE MARKS Attending Unavailable MICHELLE MARKS Attending Unavailable MICHELLE MARKS Attending Unavailable Allergies Allergy Classification Reported Allergen(s) Allergy Type Date of Onset Reaction(s) Facility (1 source) patient allergy list reviewed by nurse or physicia Propensity to adverse reactions 7 Comment:Done Cubic[facility] Other (1 source) Allergies Reconciled Propensity to adverse reactions Unknown [facility]ic[facility] Other Medications Current Medications Medication Drug Class(es) Dates Sig (Normalized) Sig (Original) atorvastatin 80 mg oral tablet (20 sources) HMG-CoA Reductase Inhibitor Start: 12-05-2024 End: 03-05-2025 take 1 tablet by mouth at bedtime atorvastatin (Lipitor) 80 MG tablet Indications: Elevated triglycerides with high cholesterol (CMS/HCC) , Mixed hyperlipidemia (CMS/HCC) Take 1 tablet (80 mg) by mouth at bedtime 90 tablet 12/05/2024 03/05/2025 Active Start: 09-22-2024 End: 01-18-2025 take 1 tablet by mouth at bedtime atorvastatin (Lipitor) 40 MG tablet Indications: Mixed hyperlipidemia (CMS/HCC) Take 1 tablet (40 mg) by mouth at bedtime 90 tablet 10/20/2024 12/05/2024 Discontinued (Ineffective) Start: 06-02-2024 End: 11-24-2024 take 1 tablet by mouth once daily atorvastatin (Lipitor) 20 MG tablet Indications: Mixed hyperlipidemia (CMS/HCC) Take 1 tablet (20 mg) by mouth Daily 90 tablet 1 08/26/2024 09/22/2024 Discontinued (Ineffective) Blood Glucose Monitoring Suppl (Blood Glucose Monitor System) w/Device kit (2 sources) Start: 12-10-2024 End: 12-10-2025 Blood Glucose Monitoring Suppl (Blood Glucose Monitor System) w/Device kit Indications: Type 2 diabetes mellitus without complication, without long-term current use of insulin (CMS/HCC) Use daily or as directed for monitoring of diabetes. 1 kit 12/10/2024 12/10/2025 Active dapagliflozin 5 mg oral tablet (20 sources) Sodium-Glucose Cotransporter 2 Inhibitor Start: 04-11-2024 End: 02-28-2025 take 1 tablet by mouth once daily dapagliflozin (Farxiga) 5 MG Indications: Type 2 diabetes mellitus without complication, without long-term current use of insulin (CMS/HCC) Take 1 tablet (5 mg) by mouth Daily 90 tablet 1 11/30/2024 02/28/2025 Active escitalopram 20 mg oral tablet (20 sources) Serotonin Reuptake Inhibitor Start: 06-02-2024 End: 03-05-2025 take 1 tablet by mouth once daily escitalopram (Lexapro) 20 MG tablet Indications: Anxiety disorder, unspecified , Anxiety state (CMS/HCC) Take 1 tablet (20 mg) by mouth Daily 90 tablet 1 12/05/2024 03/05/2025 Active Start: 02-21-2023 take 1 tablet by amadeo th once daily Escitalopram Oxalate (Lexapro) 10 mg Tablet Active 10 MG PO Daily February 21, 2023 12:00am lisinopril 20 mg oral tablet (20 sources) Angiotensin Converting Enzyme Inhibitor Start: 03-18-2024 End: 03-05-2025 take 1 tablet by mouth in the morning lisinopril 20 MG tablet Indications: Primary hypertension (CMS/HCC) Take 1 tablet (20 mg) by mouth in the morning. 90 tablet 1 12/05/2024 03/05/2025 Active metFORMIN hydrochloride 1000 mg oral tablet (20 sources) Biguanide Start: 03-18-2024 End: 11-24-2024 take 1 tablet by mouth in the morning metFORMIN (Glucophage) 1000 MG tablet Indications: Type 2 diabetes mellitus without complications (CMS/HCC) Take 1 tablet (1,000 mg) by mouth in the morning and 1 tablet (1,000 mg) in the evening. Take with meals. 180 tablet 1 08/26/2024 Active Start: 02-21-2023 take 1000 mg by mout h twice daily Metformin Active 1000 MG PO Twice daily February 21, 2023 12:00am semaglutide (Ozempic, 1 MG/DOSE,) 4 MG/3ML solution pen-injector (2 sources) Start: 12-10-2024 End: 01-07-2025 semaglutide (Ozempic, 1 MG/DOSE,) 4 MG/3ML solution pen-injector Indications: Type 2 diabetes mellitus without complication, without long-term current use of insulin (CMS/HCC) Inject 1 mg under the skin every 7 (seven) days for 28 days 3 mL 3 12/10/2024 01/07/2025 Active Semaglutide,0.25 or 0.5MG/DO S, (Ozempic, 0.25 or 0.5 MG/DOSE,) 2 MG/3ML solution pen-injector (20 sources) Start: 10-16-2024 End: 12-10-2024 Semaglutide,0.25 or 0.5MG/DO S, (Ozempic, 0.25 or 0.5 MG/DOSE,) 2 MG/3ML solution pen-injector Indications: Type 2 diabetes mellitus without complication, without long-term current use of insulin (CMS/HCC) Inject 0.5 mg under the skin every 7 (seven) days 9 mL 1 10/16/2024 12/10/2024 Discontinued (Ineffective) Start: 10-16-2024 End: 01-08-2025 Semaglutide,0.25 or 0.5MG/DO [...] Discontinued Start: 06-02-2024 inject 0.25 mg by hkan bcutaneous injection every week, then inject 0.25 [...] elsewhere classified, right ankle] Episodic Anxiety disorders (11 sources) Anxiety; Translations: [Anxiety disorder, unspecified] 02-21-2023 Chronic Diabetes mellitus without complication (20 sources) Type 2 diabetes mellitus without complication; Translations: [Diabetes mellitus without mention of complication, type II or unspecified type, not stated as uncontrolled] Onset: 03-19-2019 08-13-2024 Chronic Disorders of lipid metabolism (20 sources) Mixed hyperlipidemia; Translations: [Mixed hyperlipidemia] Onset: 11-11-2023 11-11-2023 Chronic Esophageal disorders (20 sources) Gastroesophageal reflux disease; Translations: [Gastro-esophageal reflux [...] depressive disorder, recurrent, moderate] Onset: 08-09-2018 Chronic Nutritional deficiencies (4 sources) Vitamin deficiency; Translations: [Vitamin deficiency, unspecified] Onset: 12-10-2024 12-10-2024 Episodic Other acquired deformities (1 source) Joint contracture of the ankle and/or foot; Translations: [Contracture, right ankle] Chronic Other bone disease and musculoskeletal deformities (1 source) Idiopathic scoliosis AND/OR kyphoscoliosis; Translations: [Scoliosis (and kyphoscoliosis), idiopathic] Onset: 08-21-2016 Chronic Other congenital anomalies (20 sources) Congenital pes planus; Translations: [Congenital pes [...] Achilles tendon (acquired), right ankle] Episodic Other connective tissue disease (4 sources) Pain in bilateral legs; Translations: [Pain in right leg] Onset: 12-10-2024 12-10-2024 Episodic Other hereditary and degenerative nervous system conditions (1 source) Restless legs; Translations: [Restless legs syndrome [RLS]] Onset: 05-04-2017 Chronic Other inflammatory condition of skin (1 source) Itching of skin; Translations: [Pruritus, unspecified] Episodic Other nutritional; endocrine; and metabolic disorders (20 sources) Body mass index 30+ - obesity; Translations: [Body mass index (BMI) 35.0-35.9, adult] Onset: 01-17-2024 Resolved: 12-10-2024 07-16-2024 Chronic Other nutritional; endocrine; and metabolic disorders (20 sources) Obesity caused by energy imbalance; Translations: [...] Problem Date Documented Date Episodic/Chronic Abdominal pain (20 sources) Generalized abdominal pain; Translations: [Generalized abdominal [...] Onset: 08-21-2016 Episodic Other connective tissue disease (20 sources) Pain in right foot; Translations: [Pain in right foot] Onset: 06-02-2024 06-02-2024 Episodic Other upper respiratory infections (20 sources) Acute maxillary sinusitis, unspecified; Translations: [Acute sinusitis] Onset: 11-19-2023 Resolved: 06-02-2024 Episodic Otitis media and related conditions (1 source) Non-suppurative otitis media; Translations: [Unspecified nonsuppurative otitis media, bilateral] Onset: 07-24-2017 Episodic Results Test Name Value Interpretation Reference Range Facility ALL THYROXINE (T4) FREEon Free T4 [Mass/Vol] 0.83 ng/dL 0.76 - 1. 46 ng/dL [facility] ALL LIPID PROFILE (FASTING)o n 11-29-2024 CHOL HDL RATIO 5.1 [facility] Comment on above: 3.3 - 4.4 LOW RISK 4.4 - 7.1 AVERAGE RISK 7.1 - 11.0 MODERATE RISK >11.0 HIGH RISK Cholesterol [Mass/Vol] 182 mg/dL NINF - 200 mg/dL [facility] Cholesterol in HDL [Mass/Vol] 36 mg/dL Low 40 - 60 mg/dL [facility] Comment on above: > or =60 mg/dl - LOW CARDIOVASCULAR RISK <40 mg/dl - HIGH CARDIOVASCULAR RISK Interpretation and review of laboratory results Abnormal [facility] Magnesium [Mass/Vol] 78 mg/dL [facility] Comment on above: <100 mg/dl OPTIMAL 100-129 mg/dl NEAR OR ABOVE OPTIMAL 130-159 mg/dl BORDERLINE HIGH 160-189 mg/dl HIGH >190 mg/dl VERY HIGH Magnesium [Mass/Vol] 68.2 mg/dL [facility] Triglyceride [Mass/Vol] 341 mg/dL High NINF - 150 mg/dL [facility] Bj 11-29-2024 ALT [Catalytic activity/Vol] 45 U/L 14 - 59 U/L [facility] 11-29-2024 AST [Catalytic activity/Vol] 31 U/L 15 - 37 U/L [facility] No [facility] WITH AUTO DIFFon BASOPHILS ABSOLUTE AUTO 0 [facility] Basophils/100 WBC (Bld) 0.4 % 0.2 - 2.0 % [facility] Eosinophils/100 WBC (Bld) 1.7 % 0.9 - 7.0 % [facility] Erythrocyte distribution width (RBC) [Ratio] 13.6 % 11.0 - 15.0 % [facility] Hematocrit (Bld) [Volume fraction] 42.9 % 36.0 - 48.0 % [facility] Hemoglobin (Bld) [Mass/Vol] 13.9 g/dL 12.0 - 16.0 g/dL [facility] IMMATURE GRANULOCYTES ABS AUTO 0.06 High [facility] Immature granulocytes/100 WBC (Bld) 0.6 % High 0.0 - 0.5 % [facility] Interpretation and review of laboratory results Abnormal [facility] LYMPHOCYTES ABSOLUTE AUTO 3.3 [facility] Lymphocytes/100 WBC (Bld) 33.4 % 20.5 - 60.0 % [facility] MCH (RBC) [Entitic mass] 29.2 pg 26.7 - 34.0 pg [facility] MCHC (RBC) [Mass/Vol] 32.4 g/dL 29.9 - 35.2 g/dL [facility] MCV (RBC) [Entitic vol] 90.1 fL 81.0 - 99.0 fL [facility] MONOCYTES ABSOLUTE AUTO 0.7 [facility] Monocytes/100 WBC (Bld) 6.7 % 1.7 - 12.0 % [facility] NEUTROPHILS ABSOLUTE AUTO 5.6 [facility] Neutrophils/100 WBC (Bld) 57.2 % 43.0 - 75.0 % [facility] Platelet mean volume (Bld) [Entitic vol] 10.6 fL 9.5 - 13.5 fL [facility] EO # 0.2 [facility] PLT 258 [facility] RBC 4.76 [facility] WBC 9.8 [facility] Activated partial thrombopla stin time (aPTT) in platelet poor plasma by coagulation aOrdered By: Carlton Hagen on 02-21-2023 aPTT Coag (PPP) [Time] 28.7 s 25.1-36.5 [facility] Automated basophil %Ordered By: Carlton Hagen on 02-21-2023 Basophils/100 WBC (Bld) 0.4 % Normal . [facility] Comment on above: Performed By: #### B MP, CK, DDIMER, CBC, PTT, PT, HS TROP #### [facility] [address] Automated basophil countOrde red By: Carlton Hagen on 02-21-2023 Basophils (Bld) [#/Vol] 0.0 10*3/uL Normal 0.0-0.2 [facility] Comment on above: Result Comment: PERF ORMED BY: [place] [address] PATHOLOGIST NEON SIGN SERVICER PAU MENON M.D. Performed By: #### B MP, CK, DDIMER, CBC, PTT, PT, HS TROP #### [address] Automated blood monocyte cou ntOrdered By: Carlton Hagen on 02-21-2023 Monocytes (Bld) [#/Vol] 0.3 10*3/uL Normal 0.0-0.8 [facility] Comment on above: Performed By: #### B MP, CK, DDIMER, CBC, PTT, PT, HS TROP #### [address] Automated eosinophil %Ordere d By: Carlton Hagen on 02-21-2023 Eosinophils/100 WBC (Bld) 0.4 % Normal . [facility] Comment on above: Performed By: #### B MP, CK, DDIMER, CBC, PTT, PT, HS TROP #### [address] Automated eosinophil countOr dered By: Carlton Hagen on 02-21-2023 Eosinophils (Bld) [#/Vol] 0.0 10*3/uL Normal 0.0-0.45 [facility] Comment on above: Performed By: #### B MP, CK, DDIMER, CBC, PTT, PT, HS TROP #### [address] Automated monocyte %Ordered By: Carlton Hagen on 02-21-2023 Monocytes/100 WBC (Bld) 4.4 % Normal . [facility] Comment on above: Performed By: #### B MP, CK, DDIMER, CBC, PTT, PT, HS TROP #### [address] Automated neutrophil %Ordere d By: Carlton Hagen on 02-21-2023 Neutrophils/100 WBC (Bld) 76.0 % Normal . [facility] Comment on above: Performed By: #### B MP, CK, DDIMER, CBC, PTT, PT, HS TROP #### [facility] [address] Basic Metabolic Panelon 05-0 -2022 Anion gap [Moles/Vol] 15.3 mmol/L High 6.0-15.0 [facility] Comment on above: Performed By: #### B MP, CK, DDIMER, CBC, PTT, PT, HS TROP #### [facility] [address] Calcium [Mass/Vol] 9.3 mg/dL Normal 8.6-10.3 [facility] Comment on above: Performed By: #### B MP, CK, DDIMER, CBC, PTT, PT, HS TROP #### [facility] [address] Chloride [Moles/Vol] 102 mmol/L Normal 98-107 [facility] Comment on above: Performed By: #### B MP, CK, DDIMER, CBC, PTT, PT, HS TROP #### [facility] [address] CO2 [Moles/Vol] 23.6 mmol/L Normal 21.0-31.0 [facility] Comment on above: Performed By: #### B MP, CK, DDIMER, CBC, PTT, PT, HS TROP #### [facility] [address] Creatinine [Mass/Vol] 0.69 mg/dL Normal 0.60-1.20 [facility] Comment on above: Performed By: #### B MP, CK, DDIMER, CBC, PTT, PT, HS TROP #### [facility] [address] [place] [address] [place] Creatinine Clr Calc Pharmacy 147.50 Normal [facility] Comment on above: Result Comment: PERF ORMED BY: [place] [address] PATHOLOGIST NEON SIGN SERVICER PAU MENON M.D. Performed By: #### B MP, CK, DDIMER, CBC, PTT, PT, HS TROP #### [facility] [address] [place] [address] [place] GFR/1.73 sq M.predicted MDRD (S/P/Bld) [Vol rate/Area] mL/min/{1.73_m2} Normal [facility] Comment on above: Performed By: #### B MP, CK, DDIMER, CBC, PTT, PT, HS TROP #### [facility] [address] Glucose [Mass/Vol] 145 mg/dL High 70-100 [facility] Comment on above: Result Comment: [facility] Glucose Reference Range is dependent on time and content of last meal. Glucose of more than 200 mg/dL in a nonstressed, ambulatory subject supports the diagnosis of Diabetes Mellitus. ADA recommended reference range Performed By: #### B MP, CK, DDIMER, CBC, PTT, PT, HS TROP #### [facility] [address] Potassium [Moles/Vol] 3.9 mmol/L Normal 3.5-5.1 [facility] Comment on above: Performed By: #### B MP, CK, DDIMER, CBC, PTT, PT, HS TROP #### [facility] [address] Sodium [Moles/Vol] 137 mmol/L Normal 136-145 [facility] Comment on above: Performed By: #### B MP, CK, DDIMER, CBC, PTT, PT, HS TROP #### [address] Urea nitrogen [Mass/Vol] 15 mg/dL Normal 7-25 [facility] Comment on above: Performed By: #### B MP, CK, DDIMER, CBC, PTT, PT, HS TROP #### [address] Calcium [Mass/volume] in Ser um or PlasmaOrdered By: Carlton Hagen on 02-21-2023 Calcium [Mass/Vol] 9.3 mg/dL 8.6-10.3 [facility] Carbon dioxide, total [Moles /volume] in Serum or PlasmaOrdered By: Carlton Hagen on 02-21-2023 CO2 [Moles/Vol] 23.6 mmol/L 21.0-31.0 [facility] Chloride [Moles/volume] in S jacqueline or PlasmaOrdered By: Carlton Hagen on 02-21-2023 Chloride [Moles/Vol] 102 mmol/L 98-107 [facility] Complete Blood Count Auto Di ffon 02-21-2023 Mean Corpuscular HGB Conc 32.8 g/dL Normal 32.0-35.0 [facility] Comment on above: Performed By: #### B MP, CK, DDIMER, CBC, PTT, PT, HS TROP #### [facility] [address] NRBC% 0.2 /100{WBC} Normal 0-0.5 [facility] Comment on above: Performed By: #### B MP, CK, DDIMER, CBC, PTT, PT, HS TROP #### [facility] [address] [place] [id number] [place] Creatine Kinaseon 02-21-2023 CK [Catalytic activity/Vol] 61 U/L Normal 30-223 [facility] Comment on above: Performed By: #### B MP, CK, DDIMER, CBC, PTT, PT, HS TROP #### [facility] [address] [place] [id number] [place] Creatine kinase [Enzymatic a ctivity/volume] in Serum or PlasmaOrdered By: Carlton Hagen on 02-21-2023 CK [Catalytic activity/Vol] 61 U/L 30- [facility] Creatinine [Mass/volume] in Serum or PlasmaOrdered By: Carlton Hagen on 02-21-2023 Creatinine [Mass/Vol] 0.69 mg/dL 0.60-1.20 [facility] D-Dimer High Sensitivityon 0 02-21-2023 D-Dimer High Sensitivity < 200 Normal 0-243 [facility] Comment on above: Result Comment: The reference [...] patients due to co-morbid conditions. PERFORMED BY: [place] [address] PATHOLOGIST NEON SIGN SERVICER PAU MENON M.D. Performed By: #### B MP, CK, DDIMER, CBC, PTT, PT, HS TROP #### [address] ECG 12 lead ECGon 02-21-2023 ECG 12 lead ECG [facility] Main [place] [address] [place] [address] Electrocardiograph Report Signed Patient: Aurora Loja MR#: [id number] : 2000 Acct:[id number] Age/Sex: 23 / F ADM Date: 02/21/23 Loc: ER Room: Type: [facility] ER Attending Dr: Ordering Provider: Carlton Hagen [...] By Demarco Licona MD 02/21/23 1527 Normal [facility] Erythrocyte distribution wid th [Ratio] by Automated countOrdered By: Carlton Hagen on 02-21-2023 Erythrocyte distribution width (RBC) [Ratio] 13.6 % Normal 11.9-15.3 [facility] Comment on above: Performed By: #### B MP, CK, DDIMER, CBC, PTT, PT, HS TROP #### [facility] [address] Erythrocytes [#/volume] in B lood by Automated countOrdered By: Carlton Hagen on 02-21-2023 RBC (Bld) [#/Vol] 4.54 10*6/uL Normal 3.60-5.[address] [facility] Comment on above: Performed By: #### B MP, CK, DDIMER, CBC, PTT, PT, HS TROP #### [facility] [address] Glucose [Mass/volume] in Ser um or PlasmaOrdered By: Carlton Hagen on 02-21-2023 Glucose [Mass/Vol] 145 mg/dL 70-100 [facility] Comment on above: ADA recommended refe rence rangeRandom Glucose Reference Range is dependent on time and content of last meal. Glucose of more than 200 mg/dL in a nonstressed, ambulatory subject supports the diagnosis of Diabetes Mellitus. Hematocrit [Volume Fraction] of Blood by Automated countOrdered By: Carlton Hagen on 02-21-2023 Hematocrit (Bld) [Volume fraction] 38.7 % Normal 34.0-46.4 [facility] Comment on above: Performed By: #### B MP, CK, DDIMER, CBC, PTT, PT, HS TROP #### [facility] [address] Hemoglobin [Mass/volume] in BloodOrdered By: Carlton Hagen on 02-21-2023 Hemoglobin (Bld) [Mass/Vol] 12.7 g/dL Normal 11.8-15.4 [facility] Comment on above: Performed By: #### B MP, CK, DDIMER, CBC, PTT, PT, HS TROP #### [facility] [address] Laboratory - CoagulationOrde red By: Carlton Hagen on 02-21-2023 PT Coag (PPP) [Time] 11.9 s 9.0-12.9 [facility] Leukocytes [#/volume] correc radha for nucleated erythrocytes in Blood by Automated counOrdered By: Carlton Hagen on 02-21-2023 WBC corrected for nucl RBC Auto (Bld) [#/Vol] 7.1 10*3/uL 3.8-11.6 [facility] Leukocytes [#/volume] in Blo od by Automated countOrdered By: Carlton Hagen on 02-21-2023 WBC (Bld) [#/Vol] 7.1 10*3/uL Normal 3.8-11.6 [facility] Comment on above: Performed By: #### B MP, CK, DDIMER, CBC, PTT, PT, HS TROP #### [facility] [address] [place] [address] Lymphocytes [#/volume] in Bl ood by Automated countOrdered By: Carlton Hagen on 02-21-2023 Lymphocytes (Bld) [#/Vol] 1.3 10*3/uL Normal 1.00-4.8 [facility] Comment on above: Performed By: #### B MP, CK, DDIMER, CBC, PTT, PT, HS TROP #### [facility] [address] [place] [address] [place] Lymphocytes/100 leukocytes i n Blood by Automated countOrdered By: Carlton Hagen on 02-21-2023 Lymphocytes/100 WBC (Bld) 18.8 % Normal . [facility] Comment on above: Performed By: #### B MP, CK, DDIMER, CBC, PTT, PT, HS TROP #### [facility] [address] [place] [address] [place] MCH [Entitic mass] by Automa radha countOrdered By: Carlton Hagen on 02-21-2023 MCH (RBC) [Entitic mass] 28.0 pg Normal 24.7-34.3 [facility] Comment on above: Performed By: #### B MP, CK, DDIMER, CBC, PTT, PT, HS TROP #### [facility] [address] [place] [address] MCHC Auto (RBC) [Mass/Vol]Or dered By: Carlton Hagen on 02-21-2023 MCHC (RBC) [Mass/Vol] 32.8 g/dL 32.0-35.0 [facility] MCV [Entitic volume] by Auto mated countOrdered By: Carlton Hagen on 02-21-2023 MCV (RBC) [Entitic vol] 85.3 fL Normal 80-100 [facility] Comment on above: Performed By: #### B MP, CK, DDIMER, CBC, PTT, PT, HS TROP #### [facility] [address] Neutrophils [#/volume] in Bl ood by Automated countOrdered By: Carlton Hagen on 02-21-2023 Neutrophils (Bld) [#/Vol] 5.4 10*3/uL Normal 1.8-7.7 [facility] Comment on above: Performed By: #### B MP, CK, DDIMER, CBC, PTT, PT, HS TROP #### [facility] [address] No Panel InformationOrdered By: Carlton Hagen on 02-21-2023 D-Dimer Quantitative (PE/DVT) < 200 ng/mL 0-243 [facility] Comment on above: The reference range for [...] conditions. Estimated GFR (CKD-EPI) > 60.0 mL/Min [facility] Creatinine Clearance (Chem 147.50 [facility] Nucleated erythrocytes [Pres ence] in Blood by Automated countOrdered By: Carlton Hagen on 02-21-2023 Nucleated RBC Auto Ql (Bld) 0.2 /100{WBC} 0-0.5 [facility] Partial Thromboplastin Timeo n 02-21-2023 aPTT Coag (Bld) [Time] 28.7 s Normal 25.1-36.5 [facility] Comment on above: Performed By: #### B MP, CK, DDIMER, CBC, PTT, PT, HS TROP #### [facility] [address] Platelet mean volume [Entiti c volume] in Blood by Automated countOrdered By: Carlton Hagen on 02-21-2023 Platelet mean volume (Bld) [Entitic vol] 8.8 fL Normal 6.3-10.7 [facility] Comment on above: Performed By: #### B MP, CK, DDIMER, CBC, PTT, PT, HS TROP #### [facility] [address] Platelet poor plasma interna tional normalized ratio (INR) by coagulation assay (relatOrdered By: Carlton Hagen on 02-21-2023 INR Coag (PPP) [Relative time] 1.0 {INR} [facility] Comment on above: INR Therapeutic Rang e [...] Platelets (Bld) [#/Vol] 222 10*3/uL Normal 150-450 [facility] Comment on above: Performed By: #### B MP, CK, DDIMER, CBC, PTT, PT, HS TROP #### [facility] [address] [place] [address] [place] Potassium [Moles/volume] in Serum or PlasmaOrdered By: Carlton Hagen on 02-21-2023 Potassium [Moles/Vol] 3.9 mmol/L 3.5-5.1 [facility] Prothrombin Time INRon 02-21 INR Coag (PPP) [Relative time] 1.0 {INR} Normal [facility] Comment on above: Result Comment: INR Therapeutic [...] DDIMER, CBC, PTT, PT, HS TROP #### [facility] [address] PT Coag (PPP) [Time] 11.9 s Normal 9.0-12.9 [facility] Comment on above: Performed By: #### B MP, CK, DDIMER, CBC, PTT, PT, HS TROP #### [facility] [address] Serum or plasma anion gap de terminationOrdered By: Carlton Hagen on 02-21-2023 Anion gap [Moles/Vol] 15.3 mmol/L 6.0-15.0 [facility] Sodium [Moles/volume] in Ser um or PlasmaOrdered By: Carlton Hagen on 02-21-2023 Sodium [Moles/Vol] 137 mmol/L 136-145 [facility] Troponin I High Sensitivityo n 02-21-2023 Troponin I High Sensitivity 2.6 pg/mL Normal 0.0-15.0 [facility] Comment on above: Result Comment: PERF ORMED BY: [address] [place] [address] PATHOLOGIST NEON SIGN SERVICER PAU MENON M.D. Performed By: #### B MP, CK, DDIMER, CBC, PTT, PT, HS TROP #### [address] Troponin I.cardiac [Mass/vol ume] in Serum or Plasma by Detection limit <= 0.01 ng/Ordered By: Carlton Hagen on 02-21-2023 Troponin I.cardiac DL <= 0.01 ng/mL [Mass/Vol] 2.6 pg/mL 0.0-15.0 [facility] Urea nitrogen [Mass/volume] in Serum or PlasmaOrdered By: Carlton Hagen on 02-21-2023 Urea nitrogen [Mass/Vol] 15 mg/dL 7- [facility] XR chest 2V*on 02-21-2023 XR chest 2V* [facility] Main [place] [address] [place] [address] XRay Report Signed Patient: Aurora Loja MR#: [id number] : 2000 Acct:[id number] Age/Sex: 23 / F ADM Date: 02/21/23 Loc: ER Room: Type: [facility] ER Attending Dr: Copies to: Carlton [...] Francie Lobato M.D.02/21/2023 10:26 AM Dictation Location: [place] [address] Transcribed By: [facility] 02/21/23 1026 Dictated By: Francie Lobato MD 02/21/23 1025 Signed By: 02/21/23 1026 Normal [facility] Vital Signs Date Time Vital Sign Value Performing Clinician Facility 12-10-2024 09:49-0500 Body mass index (BMI) [Ratio] 35.12 kg/m2 Michelle Marks NP Work Phone: [facility] 12-10-2024 09:49-0500 Body temperature 98.1 [degF] Michelle Marks NP Work Phone: [facility] 12-10-2024 09:49-0500 Body weight 98.7 kg Michelle Aichholz TRAVELIFT OPERATOR Work Phone: [facility] 12-10-2024 09:49-0500 Diastolic blood pressure 88 mm[Hg] Michelle Aichholz TRAVELIFT OPERATOR Work Phone: [facility] 12-10-2024 09:49-0500 Heart rate 94 /min Michelle Aichholz TRAVELIFT OPERATOR Work Phone: [facility] 12-10-2024 09:49-0500 Respiratory rate 18 /min Michelle Aichholz TRAVELIFT OPERATOR Work Phone: [facility] 12-10-2024 09:49-0500 SaO2% (BldA) [Mass fraction] 98 % Michelle Aichholz TRAVELIFT OPERATOR Work Phone: [facility] 12-10-2024 09:49-0500 Systolic blood pressure 118 mm[Hg] Michelle Aichholz TRAVELIFT OPERATOR Work Phone: [facility] 08-26-2024 15:30-0500 Body mass index (BMI) [Ratio] 32.96 kg/m2 Michelle Aichholz TRAVELIFT OPERATOR Work Phone: [facility] 08-26-2024 15:30-0500 Body temperature 98.71 [degF] Michelle Aichholz TRAVELIFT OPERATOR Work Phone: [facility] 08-26-2024 15:30-0500 Body weight 92.63 kg Mihcelle Aichholz TRAVELIFT OPERATOR Work Phone: [facility] 08-26-2024 15:30-0500 Diastolic blood pressure 90 mm[Hg] Michelle Aichholz TRAVELIFT OPERATOR Work Phone: [facility] 08-26-2024 15:30-0500 Heart rate 95 /min Michelle Aichholz TRAVELIFT OPERATOR Work Phone: [facility] 08-26-2024 15:30-0500 Respiratory rate 18 /min Michelle Aichholz TRAVELIFT OPERATOR Work Phone: [facility] 08-26-2024 15:30-0500 SaO2% (BldA) [Mass fraction] 100 % Michelle Myeshaholz TRAVELIFT OPERATOR Work Phone: [facility] 08-26-2024 15:30-0500 Systolic blood pressure 110 mm[Hg] Michelle Aichholz TRAVELIFT OPERATOR Work Phone: [facility] 07-16-2024 16:41-0400 Body height 167.6 cm Michelle Aichholz TRAVELIFT OPERATOR Work Phone: [facility] 07-16-2024 16:41-0400 Body mass index (BMI) [Ratio] 35.44 kg/m2 Michelle Aichholz TRAVELIFT OPERATOR Work Phone: [facility] 07-16-2024 16:41-0400 Body temperature 98.1 [degF] Michelle Taishahholz TRAVELIFT OPERATOR Work Phone: [facility] 07-16-2024 16:41-0400 Body weight 99.61 kg Michelle Taishahholz TRAVELIFT OPERATOR Work Phone: [facility] 07-16-2024 16:41-0400 Diastolic blood pressure 90 mm[Hg] Michelle Aichholz TRAVELIFT OPERATOR Work Phone: [facility] 07-16-2024 16:41-0400 Heart rate 95 /min Michelle Aichholz TRAVELIFT OPERATOR Work Phone: [facility] 07-16-2024 16:41-0400 Respiratory rate 18 /min Michelle Aichholz TRAVELIFT OPERATOR Work Phone: [facility] 07-16-2024 16:41-0400 SaO2% (BldA) [Mass fraction] 96 % Michelle Aichholz TRAVELIFT OPERATOR Work Phone: [facility] 07-16-2024 16:41-0400 Systolic blood pressure 126 mm[Hg] Michelle Aichholz TRAVELIFT OPERATOR Work Phone: [facility] 04-10-2023 13:45-0400 Body height 167.64 cm Mikala Morocho Other [facility] Other 04-10-2023 13:45-0400 Body mass index (BMI) [Ratio] 34.38 kg/m2 Mikala Morocho Other [facility] Other 04-10-2023 13:45-0400 Body weight 96.62 kg Mikala Morocho Other [facility] Other 04-10-2023 13:45-0400 Diastolic blood pressure 94 mm[Hg] Mikala Morocho Other [facility] Other 04-10-2023 13:45-0400 Systolic blood pressure 164 mm[Hg] Mikala Morocho Other [facility] Other 02-26-2023 15:30-0400 Body height 167.64 cm Mikala Morocho Other [facility] Other 02-26-2023 15:30-0400 Body mass index (BMI) [Ratio] 33.08 kg/m2 Mikala Morocho Other [facility] Other 02-26-2023 15:30-0400 Body weight 92.99 kg Mikala Morocho Other [facility] Other 02-26-2023 15:30-0400 Diastolic blood pressure 74 mm[Hg] Mikala Morocho Other [facility] Other 02-26-2023 15:30-0400 SaO2% (BldA) [Mass fraction] 99 % Mikala Morocho Other [facility] Other 02-26-2023 15:30-0400 Systolic blood pressure 126 mm[Hg] Mikala Morocho Other [facility] Other 02-21-2023 10:04-0400 Diastolic blood pressure 100 mm[Hg] MD Mikala Morocho Work Phone: [facility] 02-21-2023 10:04-0400 Heart rate 105 /min MD Mikala Morocho Work Phone: [facility] 02-21-2023 10:04-0400 Respiratory rate 18 /min MD Mikala Morocho Work Phone: [facility] 02-21-2023 10:04-0400 SaO2% (BldA) [Mass fraction] 100 % MD Mikala Morocho Work Phone: [facility] 02-21-2023 10:04-0400 Systolic blood pressure 163 mm[Hg] MD Mikala Morocho Work Phone: [facility] 02-21-2023 09:04-0400 Body height 167.64 cm MD Mikala Morocho Work Phone: [facility] 02-21-2023 09:04-0400 Body temperature 99.3 [degF] MD Mikala Morocho Work Phone: [facility] 02-21-2023 09:04-0400 Body weight 95.25 kg MD Mikala Morocho Work Phone: [facility] Encounters Encounter Date Encounter Type Care Provider Facility Start: 12-10-2024 End: 12-10-2024 Bamboo flowsheet Michelle Aichholz TRAVELIFT OPERATOR Work Phone: [facility] Start: 12-10-2024 End: 12-10-2024 Bamboo flowsheet Michelle Aichholz TRAVELIFT OPERATOR Work Phone: [facility] Start: 12-10-2024 End: 12-10-2024 ambulatory MICHELLE AICHHOLZ Not Available Start: 12-10-2024 End: 12-10-2024 Office outpatient visit 25 minutes Michelle Aichholz TRAVELIFT OPERATOR Work Phone: [facility] Comment on above: Type 2 diabetes sunny itus without complication, without long- term current use of insulin (CMS/HCC) (Primary Dx); Morbid (severe) obesity due to excess calories (CMS/HCC); Essential (primary) hypertension (CMS/HCC); Body mass index (BMI) 35.0-35.9, adult; Elevated triglycerides with high cholesterol (CMS/HCC); Mixed hyperlipidemia (CMS/HCC); Pain in both lower extremities; Vitamin deficiency Start: 12-05-2024 End: 12-05-2024 Refill Michelle Emilianoz TRAVELIFT OPERATOR Work Phone: [facility] Comment on above: Elevated triglycerid es with high cholesterol (CMS/HCC) (Primary Dx); Mixed hyperlipidemia (CMS/HCC); Anxiety disorder, unspecified; Anxiety state (CMS/HCC); Primary hypertension (CMS/HCC) Start: 12-03-2024 End: 12-03-2024 Clinisync Result Encounter Michelle Selina TRAVELIFT OPERATOR Work Phone: [facility] External Department Unsolicited Start: 12-03-2024 End: 12-03-2024 Clinisync Result Encounter Michelle Emilianoz TRAVELIFT OPERATOR Work Phone: [facility] External Department Unsolicited Start: 11-30-2024 End: 11-30-2024 Orders Only Michellemindy Marks TRAVELIFT OPERATOR Work Phone: [facility] Comment on above: Elevated triglycerid es with high cholesterol (CMS/HCC) (Primary Dx) Start: 11-30-2024 End: 11-30-2024 Refill Michelle Selina TRAVELIFT OPERATOR Work Phone: [facility] Comment on above: Type 2 diabetes sunny itus without complication, without long- term current use of insulin (CMS/HCC) Start: 11-29-2024 End: 11-29-2024 Clinisync Result Encounter Michelle Emilianoz TRAVELIFT OPERATOR Work Phone: [facility] External Department Unsolicited Start: 11-29-2024 End: 11-29-2024 Clinisync Result Encounter Michelle Emilianoz TRAVELIFT OPERATOR Work Phone: [facility] External Department Unsolicited Start: 11-10-2024 End: 11-10-2024 Refill Michelle Aichholz TRAVELIFT OPERATOR Work Phone: [facility] Comment on above: Type 2 diabetes sunny itus without complication, without long- term current use of insulin (CMS/HCC) Start: 10-16-2024 End: 10-20-2024 Refill Michelle Aichholz TRAVELIFT OPERATOR Work Phone: [facility] Comment on above: Type 2 diabetes sunny itus without complication, without long- term current use of insulin (CMS/HCC) Mixed hyperlipidemia (CMS/HCC) Start: 09-22-2024 End: 09-22-2024 Refill Michelle Aichholz TRAVELIFT OPERATOR Work Phone: [facility] Comment on above: Mixed hyperlipidemia (CMS/HCC) (Primary Dx) Start: 09-19-2024 End: 09-19-2024 Clinisync Result Encounter Michelle Aichholz TRAVELIFT OPERATOR Work Phone: [facility] External Department Unsolicited Start: 09-19-2024 End: 09-19-2024 Clinisync Result Encounter Michelle Aichholz TRAVELIFT OPERATOR Work Phone: [facility] External Department Unsolicited Start: 08-26-2024 End: 08-26-2024 Office outpatient visit 25 minutes Michelle Aichholz TRAVELIFT OPERATOR Work Phone: [facility] Comment on above: Type 2 diabetes sunny [...] 08-26-2024 End: 08-26-2024 Bamboo flowsheet Michelle Aichholz TRAVELIFT OPERATOR Work Phone: [facility] Start: 08-26-2024 End: 08-26-2024 Bamboo flowsheet Michelle Aichholz TRAVELIFT OPERATOR Work Phone: [facility] Start: 08-13-2024 End: 08-13-2024 Refill Michelle Aichholz TRAVELIFT OPERATOR Work Phone: [facility] Comment on above: Type 2 diabetes sunny itus without complication, without long- term current use of insulin (CMS/HCC) Start: 07-16-2024 End: 07-16-2024 Office outpatient visit 15 minutes Michelle Aichholz TRAVELIFT OPERATOR Work Phone: [facility] Comment on above: Type 2 diabetes sunny itus without complication, without long- term current use of insulin (CMS/HCC) (Primary Dx); Morbid (severe) obesity due to excess calories (CMS/HCC); Essential (primary) hypertension (CMS/HCC); Body mass index (BMI) 35.0-35.9, adult; Gastroesophageal reflux disease, unspecified whether esophagitis present Start: 07-16-2024 End: 07-16-2024 ambulatory MICHELLE AICHHOLZ Not Available Start: 07-16-2024 End: 07-16-2024 Bamboo flowsheet Michelle Aichholz TRAVELIFT OPERATOR Work Phone: [facility] Start: 07-16-2024 End: 07-16-2024 Bamboo flowsheet Michelle Aichholz TRAVELIFT OPERATOR Work Phone: [facility] Start: 07-10-2024 End: 07-10-2024 Refill Michelle Aichholz TRAVELIFT OPERATOR Work Phone: [facility] Comment on above: Type 2 diabetes sunny itus without complication, without long- term current use of insulin (CMS/HCC) Start: 06-13-2024 End: 06-16-2024 Refill Michelle Aichholz TRAVELIFT OPERATOR Work Phone: [facility] Comment on above: Type 2 diabetes sunny itus without complications (CMS/HCC) Start: 06-12-2024 End: 06-12-2024 Refill Michelle Aichholz TRAVELIFT OPERATOR Work Phone: [facility] Comment on above: Primary hypertension (CMS/HCC) Start: 06-02-2024 End: 06-02-2024 ambulatory MICHELLE AICHHOLZ Not Available Start: 01-17-2024 End: 01-17-2024 ambulatory MICHELLE AICHHOLZ Not Available Start: 06-18-2023 End: 06-18-2023 ambulatory Mikala Morocho Other [facility] Other Start: 06-18-2023 Telephone encounter Mikala Morocho [facility] Start: 04-10-2023 End: 04-10-2023 ambulatory Mikala Morocho Other [facility] Other Start: 04-10-2023 Office outpatient vi sit 15 minutes Mikala Morocho [facility] Start: 02-26-2023 End: 02-26-2023 ambulatory Mikala Morocho Other [facility] Other Start: 02-26-2023 Office outpatient vi sit 15 minutes Mikala Morocho [facility] Start: 02-21-2023 End: 02-21-2023 Emergency department patient visit Carlton Hagen Facility:[facility] Start: 02-21-2023 End: 02-21-2023 Emergency department patient visit MD Mikala Morocho Work Phone: [facility] Work Phone: Start: 02-22-2022 Adult health examination Kathia Morocho Other [facility] Other Start: 10-06-2021 End: 10-07-2021 ambulatory KALEY LUEVANO Facility:[facility] Start: 06-01-2021 End: 06-02-2021 ambulatory MAURY FRANCISCO Facility:[facility] Start: 03-02-2021 End: 03-03-2021 ambulatory MAURYBURAK FRANCISCO Facility:[facility] Start: 01-26-2021 End: 01-27-2021 ambulatory MAURY FRANCISCO Facility:[facility] Start: 01-05-2021 End: 01-06-2021 ambulatory MAURY FRANCISCO Facility:[facility] Start: 12-23-2020 End: 12-24-[address] MIKALA MOROCHO Facility:[facility] Start: 11-05-2018 End: 11-06-2018 Patient encounter procedure Demarco Cabral Facility:[id number] Procedures Date Procedure Procedure Detail Performing Clinician Start: 12-03-2024 ALL THYROXINE (T4) FREE Michelle Emilianoz TRAVELIFT OPERATOR Work Phone: Start: 11-29-2024 ALL LIPID PROFILE (FASTING) Michelle Aichbibiz TRAVELIFT OPERATOR Work Phone: Start: 11-29-2024 [facility] ALT Michelle Aichh olz TRAVELIFT OPERATOR Work Phone: Start: 11-29-2024 [facility] AST Michelle Aichh olz TRAVELIFT OPERATOR Work Phone: Start: 09-19-2024 ALL CBC WITH AUTO DIFF Michelle Emilianoz TRAVELIFT OPERATOR Work Phone: Start: 02-21-2023 Plain chest X-ray MD Miguel Morocho Work Phone: Start: 08-21-2016 Laboratory test resu lt abnormal Mikala Morocho Other Start: 08-21-2016 Pre-surgery evaluation Mikala Morocho Other Viral screening Mikala Morocho Other Plan of Treatment Date Care Activity Detail Author Start: 01-20-2026 Glaucoma screening Diabetes: R etinopathy Screening [facility] Start: 09-19-2025 Urine screening for protein Diabetes: Urine Protein Screening [facility] Start: 03-11-2025 End: 03-11-2025 Patient encounter procedure 03/11/2025 9:00 AM EDT Office Visit [facility] [address] [place] [address] Michelle Marks TRAVELIFT OPERATOR [address] [place] [address] [facility] Start: 02-02-2025 End: 12-05-2025 Alanine aminotransferase [Enzymatic activity/volume] in Serum or Plasma ALT Lab Routine Mixed hyperlipidemia (CMS/HCC) Expected: 02/02/2025 (Approximate), Expires: 12/05/2025 [facility] Comment on above: Expected: 02/02/2025 (Approximate), Expires: 12/05/2025 Start: 02-02-2025 End: 12-05-2025 Aspartate aminotransferase [Enzymatic activity/volume] in Serum or Plasma AST Lab Routine Mixed hyperlipidemia (CMS/HCC) Expected: 02/02/2025 (Approximate), Expires: 12/05/2025 [facility] Comment on above: Expected: 02/02/2025 (Approximate), Expires: 12/05/2025 Start: 02-02-2025 End: 12-05-2025 Lipid 1996 panel - Serum or Plasma Lipid panel Lab Routine Mixed hyperlipidemia (CMS/HCC) Expected: 02/02/2025 (Approximate), Expires: 12/05/2025 [facility] Work Phone: Comment on above: Expected: 02/02/2025 (Approximate), Expires: 12/05/2025 Start: 12-10-2024 End: 12-10-2025 25-hydroxyvitamin D3 [Mass/volume] in Serum or Plasma Vitamin D 25 hydroxy Lab Routine Vitamin deficiency Expected: 12/10/2024 (Approximate), Expires: 12/10/2025 [facility] Comment on above: Expected: 12/10/2024 (Approximate), Expires: 12/10/2025 Start: 12-10-2024 End: 12-10-2025 CBC W Auto Differential panel - Blood CBC and differential Lab Routine Pain in both lower extremities Vitamin deficiency Expected: 12/10/2024 (Approximate), Expires: 12/10/2025 [facility] Comment on above: Expected: 12/10/2024 (Approximate), Expires: 12/10/2025 Start: 12-10-2024 End: 12-10-2025 Cobalamin (Vitamin B12) [Mass/volume] in Serum or Plasma Vitamin B12 Lab Routine Vitamin deficiency Expected: 12/10/2024 (Approximate), Expires: 12/10/2025 [facility] Comment on above: Expected: 12/10/2024 (Approximate), Expires: 12/10/2025 Start: 12-10-2024 End: 12-10-2025 Ferritin [Mass/volume] in Serum or Plasma Ferritin Lab Routine Pain in both lower extremities Expected: 12/10/2024 (Approximate), Expires: 12/10/2025 [facility] Work Phone: Comment on above: Expected: 12/10/2024 (Approximate), Expires: 12/10/2025 Start: 12-10-2024 End: 12-10-2025 Hemoglobin A1c/Hemoglobin.total in Blood Hemoglobin A1c Lab Routine Type 2 diabetes mellitus without complication, without long-term current use of insulin ([facility]) Expected: 12/10/2024 (Approximate), Expires: 12/10/2025 [facility] Comment on above: Expected: 12/10/2024 (Approximate), Expires: 12/10/2025 Start: 12-10-2024 End: 12-10-2025 Iron and Iron binding capacity panel - Serum or Plasma Iron level Lab Routine Vitamin deficiency Expected: 12/10/2024 (Approximate), Expires: 12/10/2025 [facility] Comment on above: Expected: 12/10/2024 (Approximate), Expires: 12/10/2025 Start: 12-10-2024 End: 12-10-2024 Patient encounter procedure 12/10/2024 9:40 AM EST Office Visit [facility] [address] [place] [address] Michelle Marks NP [address] [place] [address] [facility] Start: 12-01-2024 Hemoglobin A1c measurement Francoise betes: Hemoglobin A1C [facility] Start: 11-30-2024 End: 11-30-2025 Thyrotropin [Units/volume] in Serum or Plasma TSH Lab Routine Elevated triglycerides with high cholesterol (CMS/HCC) Expected: 11/30/2024 (Approximate), Expires: 11/30/2025 [facility] Work Phone: Comment on above: Expected: 11/30/2024 (Approximate), Expires: 11/30/2025 Start: 11-30-2024 End: 11-30-2025 Thyroxine (T4) free [Mass/volume] in Serum or Plasma T4, free Lab Routine Elevated triglycerides with high cholesterol (CMS/HCC) Expected: 11/30/2024 (Approximate), Expires: 11/30/2025 [facility] Comment on above: Expected: 11/30/2024 (Approximate), Expires: 11/30/2025 Start: 11-26-2024 End: 11-26-2024 Patient encounter procedure 11/26/2024 9:40 AM EST Office Visit [facility] [address] [place] [address] Michelle Marks NP [address] [place] [address] [facility] Start: 11-23-2024 End: 09-22-2025 Alanine aminotransferase [Enzymatic activity/volume] in Serum or Plasma ALT Lab Routine Mixed hyperlipidemia (CMS/HCC) Expected: 11/23/2024 (Approximate), Expires: 09/22/2025 [facility] Comment on above: Expected: 11/23/2024 (Approximate), Expires: 09/22/2025 Start: 11-23-2024 End: 09-22-2025 Aspartate aminotransferase [Enzymatic activity/volume] in Serum or Plasma AST Lab Routine Mixed hyperlipidemia (CMS/HCC) Expected: 11/23/2024 (Approximate), Expires: 09/22/2025 [facility] Comment on above: Expected: 11/23/2024 (Approximate), Expires: 09/22/2025 Start: 11-23-2024 End: 09-22-2025 Lipid 1996 panel - Serum or Plasma Lipid panel Lab Routine Mixed hyperlipidemia (CMS/HCC) Expected: 11/23/2024 (Approximate), Expires: 09/22/2025 [facility] Work Phone: Comment on above: Expected: 11/23/2024 (Approximate), Expires: 09/22/2025 Start: 08-28-2024 End: 08-28-2024 Patient encounter procedure 08/28/2024 3:20 PM EST [facility] [address] [place] [address] Michelle Marks NP [address] [place] [id number] [facility] Start: 08-26-2024 End: 08-26-2024 Patient encounter procedure [facility] Comment on above: Arrived Start: 07-28-2024 Urine screening for protein Diabetes: Urine Protein Screening [facility] Start: 07-16-2024 End: 07-16-2024 Patient encounter procedure [facility] Comment on above: Morbid (severe) obes ity due to excess calories (CMS/HCC); Essential (primary) hypertension (CMS/HCC); Body mass index (BMI) 35.0-35.9, adult Start: 07-15-2024 End: 07-15-2024 Patient encounter procedure 07/15/2024 3:00 PM EDT Office Visit [facility] [address] [place] [phone] Michelle Marks NP [address] [place] [phone] [facility] Start: 07-14-2024 Hemoglobin A1c measurement Francoise betes: Hemoglobin A1C [facility] Patient Education Chest Pain Jorge Luis t Is Not Caused by the Heart (DC) Anxiety, Adult (DC) [facility] Work Phone: Patient referral [facility] Work Phone: Immunizations Immunization Date Immunization Notes Care Provider Fa cili 08-04-2020 influenza, seasonal, injectable Michelle Marks NP Work Phone: [facility] 06-10-2013 tetanus toxoid, redu roger diphtheria toxoid, and acellular pertussis vaccine, adsorbed Michelle Aichholz TRAVELIFT OPERATOR Work Phone: [facility] 01-04-2005 diphtheria, tetanus toxoids and acellular pertussis vaccine, unspecified formulation Michelle Aichholz TRAVELIFT OPERATOR Work Phone: [facility] 01-04-2005 measles, mumps and rubella virus vaccine Michelle Aichholz TRAVELIFT OPERATOR Work Phone: [facility] 01-04-2005 poliovirus vaccine, inactivated Michelle Aichholz TRAVELIFT OPERATOR Work Phone: [facility] 05-01-2003 diphtheria, tetanus toxoids and acellular pertussis vaccine, unspecified formulation Michelle Aichholz TRAVELIFT OPERATOR Work Phone: [facility] 05-01-2003 haemophilus influenz ae type b vaccine, conjugate unspecified formulation Mihcelle Aichholz TRAVELIFT OPERATOR Work Phone: [facility] 03-25-2001 measles, mumps and rubella virus vaccine Michelle Aichholz TRAVELIFT OPERATOR Work Phone: [facility] 03-25-2001 pneumococcal conjuga te vaccine, 7 valent Michelle Aichholz TRAVELIFT OPERATOR Work Phone: [facility] 03-25-2001 varicella virus vaccine Michelle Aichholz TRAVELIFT OPERATOR Work Phone: [facility] 2000 diphtheria, tetanus toxoids and acellular pertussis vaccine, unspecified formulation Michelle Aichholz TRAVELIFT OPERATOR Work Phone: [facility] 2000 haemophilus influenz ae type b conjugate and Hepatitis B vaccine Michelle Aichholz TRAVELIFT OPERATOR Work Phone: [facility] 2000 pneumococcal conjuga te vaccine, 7 valent Michelle Aichholz TRAVELIFT OPERATOR Work Phone: [facility] 2000 poliovirus vaccine, inactivated Michelle Aichholz TRAVELIFT OPERATOR Work Phone: [facility] 2000 diphtheria, tetanus toxoids and acellular pertussis vaccine, unspecified formulation Michelle Aichholz TRAVELIFT OPERATOR Work Phone: [facility] 2000 haemophilus influenz ae type b conjugate and Hepatitis B vaccine Michelle Emilianoz TRAVELIFT OPERATOR Work Phone: [facility] 2000 poliovirus vaccine, inactivated Michelle Myeshaholz TRAVELIFT OPERATOR Work Phone: [facility] 2000 diphtheria, tetanus toxoids and acellular pertussis vaccine, unspecified formulation Michelle Emilianoz TRAVELIFT OPERATOR Work Phone: [facility] 2000 haemophilus influenz ae type b conjugate and Hepatitis B vaccine Michelle Aichholz TRAVELIFT OPERATOR Work Phone: [facility] 2000 poliovirus vaccine, inactivated Michelle Emilianoz TRAVELIFT OPERATOR Work Phone: [facility] Payers Date Payer Category Payer Self-pay 2023 Unknown [id number] 2019 Private Health Insurance [id number] 2000 Unknown [id number] 2.16.84 [id number] 2000 Unknown [id number] 2.16.84 [id number] 2000 Unknown [id number] 2.16.84 [id number] 2000 Unknown [id number] 2.16.84 [id number] 2000 Unknown [id number] 2.16.84 [id number] 2000 Unknown [id number] 2.16.84 [id number] 2000 Unknown [id number] 2.16.84 [id number] 2000 Unknown [id number] 2.16.84 [id number] 2000 Unknown [id number] 2.16.84 [id number] 2000 Unknown [id number] 2.16.84 [id number] 2000 Unknown [id number] 2.16.84 [id number] 1959 Private Health Insurance [facility] [id number] Unknown [id number] Unknown [id number] 2.16.8 [id number] Social History Date Type Detail Facility Start: 02-21-2023 End: 01-17-2024 Tobacco smoking status OKIS Never smoked tobacco (finding) [facility] Start: 2000 Sex Assigned At Female F [facility] Start: 01-10-2024 End: 01-17-2024 Sex Assigned At [facility] Start: 01-17-2024 Tobacco use and exposure Smoke less tobacco non-user [facility] Start: 06-02-2024 End: 12-10-2024 Alcoholic beverage intake Lifetime non-drinker (finding) [facility] Start: 01-10-2024 End: 01-17-2024 History of Social function [facility] Do you belong to any clubs or organizations such as taoist groups, unions, fraternal or athletic groups, or [...] To some extent [facility] (I/We) worried ernesto er (my/our) food would run out before (I/we) got money to buy more. Never true [facility] Start: 01-17-2024 Alcohol Comment caffine: soda 1 richard y [facility] Start: 2000 Sex assigned at Not on file N [facility] Medical Equipment Procedure Code Equipment Code Equipment Origin al Text Equipment Identifier Dates 1 each by Other route Daily [id number] Start: 12-10-2024 End: 03-20-2025 Clinical Notes 12-23-2020 to 12-10-2024 Michelle Marks NP - 12/10/2024 10:24 AM Vick Marks NP - 12/10/2024 10:23 AM Vick Marks NP - 12/10/2024 9:40 AM Vick Marks NP - 12/10/2024 6:33 AM ESTPatient Instructions Note Date & Type Note Facility 12-10-2024 History of Presen t illness Narrative Associated Problem(s): Vitamin deficiency Check b12, D, ferritin and iron Associated Problem(s): Pain in both lower extremities Possible neuropathy and or RLS Will check labs Consider some gabapentin Images from the original note were not included. Aurora Loja is a 24 y.o. female presents with chief complaint of Hyperlipidemia HPI: Hyperlipidemia This is a chronic problem. The problem is uncontrolled. Exacerbating diseases include obesity. She has no history of chronic renal disease or diabetes. There are no known factors aggravating her hyperlipidemia. Associated symptoms include leg pain. Pertinent negatives include no chest pain, myalgias or shortness of breath. Current antihyperlipidemic treatment includes statins. The current treatment provides moderate improvement of lipids. There are no compliance problems. Risk factors for coronary artery disease include diabetes mellitus, dyslipidemia, hypertension, a sedentary lifestyle and obesity. Hypertension This is a chronic problem. The current episode started more than 1 year ago. The problem is unchanged. The problem is controlled. Pertinent negatives include no blurred vision, chest pain, headaches, palpitations, peripheral edema or shortness of breath. There are no associated agents to hypertension. Risk factors for coronary artery disease include diabetes mellitus, dyslipidemia, obesity and sedentary lifestyle. Past treatments include LON inhibitors. The current treatment provides significant improvement. There are no compliance problems. There is no history of chronic renal disease. Diabetes She presents for her follow-up diabetic visit. She has type 2 diabetes mellitus. Her disease course has been improving. There are no hypoglycemic associated symptoms. Pertinent negatives for hypoglycemia include no dizziness, headaches, nervousness/anxiousness, seizures or tremors. Associated symptoms include foot paresthesias (d/t foot surgeries). Pertinent negatives for diabetes include no blurred vision, no chest pain, no polydipsia, no polyphagia, no polyuria and no weight loss. There are no hypoglycemic complications. There are no diabetic complications. Risk factors for coronary artery disease include diabetes mellitus, dyslipidemia, hypertension, obesity and sedentary lifestyle. Current diabetic treatment includes oral agent (dual therapy). An LON inhibitor/angiotensin II receptor sravani is being taken. She sees a cathodic protection technician.Eye exam is current. Leg Pain Incident onset: years. Injury mechanism: hx of surgeries on feet. The pain is present in the left leg and right leg. The quality of the pain is described as aching and cramping. The pain is moderate. The pain has been Intermittent since onset. She reports no foreign bodies present. SUBJECTIVE: MEDICATIONS: Current Outpatient Medications Medication Instructions atorvastatin (LIPITOR) 80 mg, Oral, Nightly dapagliflozin (FARXIGA) 5 mg, Oral, Daily escitalopram [...] chest pain, palpitations and leg swelling. Gastrointestinal: Negative for abdominal pain, blood in stool, constipation, diarrhea, nausea and vomiting. Genitourinary: Negative for difficulty urinating, dysuria and frequency. Musculoskeletal: Negative for arthralgias, back pain, joint swelling and myalgias. RLS at night, mostly on days where she has worked Skin: Negative for rash and wound. Neurological: [...] flexion deformity of forefoot Anxiety and depression ([facility]) Anxiety, generalized ([facility]) Arthritis of foot Equinus contracture of right ankle Fatigue Flatfoot Forefoot varus, acquired, right Heartburn Hyperlipidemia ([facility]) Hypertension ([facility]) 01/02/2024 Migraine ([facility]) Pharyngitis 11/19/2023 Posterior tibial tendonitis, right Right foot pain Spring ligament tear, right, sequela Type 2 diabetes mellitus ([facility]) 01/02/2024 Valgus foot, right Varus foot deformity, acquired, right No past surgical history on file. family history is not on file. OBJECTIVE: Visit Vitals BP 118/88 (BP Location: Left arm, Patient Position: Sitting, BP Cuff Size: Adult long) Pulse 94 Temp 98.1 F (Temporal) Resp 18 Wt 217 lb 9.6 oz SpO2 98% BMI 35.12 kg/m Smoking Status Never BSA 2.14 m Physical Exam Vitals and nursing note reviewed. Constitutional: General: She is not in acute distress. Appearance: Normal appearance. HENT: Head: Normocephalic and atraumatic. Right Ear: External ear normal. Left Ear: External ear normal. Nose: Nose normal. Mouth/Throat: Mouth: Mucous membranes are moist. Eyes: Extraocular Movements: Extraocular movements intact. Conjunctiva/sclera: Conjunctivae normal. Neck: Vascular: No carotid bruit. Cardiovascular: Rate and Rhythm: Normal rate and regular rhythm. Pulses: Normal pulses. Heart sounds: Normal heart sounds. Pulmonary: Effort: Pulmonary effort is normal. Breath sounds: Normal breath sounds. No wheezing or rhonchi. Abdominal: General: Bowel sounds are normal. There is no distension. Palpations: Abdomen is soft. There is no mass. Tenderness: There is no abdominal tenderness. Musculoskeletal: Cervical back: Normal range of motion and neck supple. Right lower leg: No edema. Left lower leg: No edema. Comments: Calf soft bilat, well healed scars from prior surgeries Lymphadenopathy: Cervical: No cervical adenopathy. Skin: General: Skin is warm and dry. Capillary Refill: Capillary refill takes 2 to 3 seconds. Findings: No rash. Neurological: General: No focal deficit present. Mental Status: She is alert and oriented to person, place, and time. Gait: Gait normal. Psychiatric: Mood and Affect: Mood normal. Behavior: Behavior normal. Thought Content: Thought content normal. Judgment: Judgment normal. ASSESSMENT AND PLAN: No follow-ups on file. Problem List Items Addressed This Visit Mixed hyperlipidemia (CMS/HCC) Currently taking atorvastatin 80mg daily Is compliant with dosing Check labs yearly and prn dose changes Aggressive risk factor modification Essential (primary) hypertension (CMS/HCC) Please check blood pressure daily and record DASH diet Limit caffeine Take medication as directed Contact office if chest pain, pressure, dizziness, shortness of breath, swelling legs Recommend slow position changes Current meds: lisinopril Type 2 diabetes mellitus (CMS/HCC) - Primary Check blood sugars daily, notify [...] diet low in carbohydrates, and simple sugars. Current meds: farxiga, metformin, ozempic, statin A1c 6.5% on 09/19/24 Relevant Medications semaglutide (Ozempic, 1 MG/DOSE,) 4 MG/3ML solution pen-injector Other Relevant Orders Hemoglobin A1c Body mass index (BMI) 35.0-35.9, adult Morbid (severe) obesity due to excess calories (CMS/HCC) Discussed with patient their BMI (actual, verses recommended). We have also discussed lifestyle modifications: attempts to perform physical activity as chronic conditions allow, also to monitor dietary intake: increasing protein/fruits/veggies and lowering carb intake (unless contraindicated). Limit sodas, juices, and sugary drinks. Also discussed oral medications that can be utilized for weight loss, as well as surgical options for weight loss. Is taking ozempic for mgmt of her diabetes Elevated triglycerides with high cholesterol (CMS/HCC) Recent lipids 12/16: TC 182, Trigs 341, HDL 36 and LDL 78 Is maxed on statin , will add fenofibrate dsoe Limit carb intake, needs to become more physically active Pain in both lower extremities Relevant Orders Ferritin CBC and differential Vitamin deficiency Relevant Orders Iron level Vitamin B12 Vitamin D 25 hydroxy CBC and differential Associated Problem(s): Elevated triglycerides with high cholesterol (CMS/HCC) Recent lipids 12/16: TC 182, Trigs 341, HDL 36 and LDL 78 Is maxed on statin , will add fenofibrate dsoe Limit carb intake, needs to become more physically active Associated Problem(s): Mixed hyperlipidemia (CMS/HCC) Currently taking atorvastatin 80mg daily Is compliant with dosing Check labs yearly and prn dose changes Aggressive risk factor modification Associated Problem(s): Type 2 diabetes mellitus (CMS/HCC) [...] diet low in carbohydrates, and simple sugars. Current meds: farxiga, metformin, ozempic, statin Increase ozempic to 1mg weekly A1c 6.5% on 09/19/24 Associated Problem(s): Morbid (severe) obesity due to excess calories (CMS/HCC) Discussed with patient their BMI (actual, verses recommended). We have also discussed lifestyle modifications: attempts to perform physical activity as chronic conditions allow, also to monitor dietary intake: increasing protein/fruits/veggies and lowering carb intake (unless contraindicated). Limit sodas, juices, and sugary drinks. Also discussed oral medications that can be utilized for weight loss, as well as surgical options for weight loss. Is taking ozempic for mgmt of her diabetes, but wait has gone up Associated Problem(s): Essential (primary) hypertension (CMS/HCC) Please check blood pressure daily and record DASH diet Limit caffeine Take medication as directed Contact office if chest pain, pressure, dizziness, shortness of breath, swelling legs Recommend slow position changes Current meds: lisinopril documented in this encounter [facility] 12-10-2024 Instructions Michelle Marks NP - 12/10/2024 9:40 AM EST Check labs, wait until 12/20/24 Increase ozempic to 1mg once a week Check blood sugars Cut back carbohydrates, and when gets nicer out exercises documented in this encounter [facility] 10-16-2024 Telephone encount er Note Patient request 90 day supply of ozemic be sent to [facility] in [place]. [place] [facility] 10-16-2024 Miscellaneous Notes Formattin g of this note might be different from the original. Patient request 90 day supply of ozemic be sent to [facility] in [place] documented in this encounter [facility] 08-26-2024 History of Presen t illness [...] flexion deformity of forefoot Anxiety and depression ([facility]/HCC) Anxiety, generalized ([facility]) Arthritis of foot Equinus contracture of right ankle Fatigue Flatfoot Forefoot varus, acquired, right Heartburn Hyperlipidemia (CMS/HCC) Hypertension (CMS/HCC) 01/02/2024 Migraine (CMS/HCC) Pharyngitis 11/19/2023 Posterior tibial tendonitis, right Right foot pain Spring ligament tear, right, sequela Type 2 diabetes mellitus ([facility]) 01/02/2024 Valgus foot, right Varus foot deformity, [...] 20 MG tablet Type 2 diabetes mellitus ([facility]) - Primary Check blood sugars daily, notify [...] Morbid (severe) obesity due to excess calories ([facility]) Obesity (BMI 30-39.9) Discussed with patient their [...] escitalopram (Lexapro) 20 MG tablet Anxiety state ([facility]) Relevant Medications escitalopram (Lexapro) 20 MG tablet Primary hypertension ([facility]) Relevant Medications lisinopril 20 MG tablet Type 2 diabetes mellitus without complications ([facility]) Relevant Medications metFORMIN (Glucophage) 1000 MG tablet documented in this encounter [facility] 07-16-2024 History of Presen t illness Narrative Associated Problem(s): Acid reflux Recommend she take OTC famotidine every day for GERD symptoms Currently only taking PRN Associated Problem(s): Type 2 diabetes mellitus ([facility]) Is having some abd pain (generalized and [...] being taken. 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 SUBJECTIVE: MEDICATIONS: Current Outpatient [...] flexion deformity of forefoot Anxiety and depression (CMS/HCC) Anxiety, generalized (CMS/HCC) Arthritis of foot Equinus contracture of right ankle Fatigue Flatfoot Forefoot varus, acquired, right Heartburn Hyperlipidemia (CMS/HCC) Hypertension (CMS/HCC) 01/02/2024 Migraine (CMS/HCC) Pharyngitis 11/19/2023 Posterior tibial tendonitis, right Right foot pain Spring ligament tear, right, sequela Type 2 diabetes mellitus (CMS/HCC) 01/02/2024 Valgus foot, right Varus foot deformity, [...] excess calories (CMS/HCC) documented in this encounter [facility] 04-10-2023 Evaluation note Encounter Date Diagnosis Assessment Notes Mar, Anxiety disorder, unspecified (ICD-10 - F41.9) Discussed meds and counseling Mar, Depression, unspecified (ICD-10 - F32.A) as above Mar, Musculoskeletal chest pain (ICD-10 - R07.89) suggested chiropractor, PT and muscle relaxers as able [facility] Other 05-08-2023 Evaluation note* Encounter Date Diagnosis [...] verbalized understanding and agreement with treatment plan. [facility] Other 12-16-2021 NotePROCEDURE: XR FOOT RT MIN [...] Electronically authenticated by: LANCE VASQUEZ Date: 2021-10-06 10:52[facility]08-11-2021 NotePROCEDURE: XR FOOT RT MIN [...] authenticated by: ANGIE MURRAY Date: 2021-06-01 13:56[id number] NotePROCEDURE: XR FOOT RT MIN 3 VIEWS [...] authenticated by: ANGIE MURRAY Date: 2021-03-02 10:34[id number] NotePROCEDURE: XR FOOT RT MIN 3 VIEWS [...] authenticated by: ANGIE MURRAY Date: 2021-01-26 15:44[id number] NotePROCEDURE: XR FOOT RT MIN 3 VIEWS [...] Electronically authenticated by: ANGIE MURRAY Date: 2021-01-05 12:43[facility]03-04-2021 NotePROCEDURE: XR FOOT RT MIN 3 VIEWS [...] Electronically authenticated by: ANGIE MURRAY Date: 2020-12-23 14:48[facility] noteNo assessment information availableKnox [facility] Work Phone: Evaluation noteNo InformationNort Vamosa Other Evaluation note* Diagnosis Type 2 diabetes [...] of insulin (CMS/HCC) documented in this encounter [facility] HealthcareEvaluation note* Diagnosis Type 2 diabetes [...] without complications (CMS/HCC) documented in this encounter [facility]* Diagnosis Type 2 diabetes mellitus [...] (BMI 30-39.9) Anxiety disorder, unspecified Anxiety state ([facility]/HCC) Anxiety state, unspecified Primary hypertension (CMS/HCC) Unspecified essential hypertension Type 2 diabetes mellitus without complications (CMS/HCC) Mixed hyperlipidemia ([facility]/HCC)- Primary Mixed hyperlipidemia documented in this encounter [facility] Healthcare[facility]* Diagnosis Primary hypertension (CMS/HCC) Unspecified essential hypertension documented in this encounter [facility] Healthcare[facility] note* Diagnosis Type 2 diabetes mellitus without complications ([facility]) documented in this encounter [facility] Healthcare[facility] note* Diagnosis Type 2 diabetes mellitus without complication, without long-term current use of insulin ([facility]) documented in this encounter [facility] Healthcare[facility] note* Diagnosis Type 2 diabetes mellitus without complication, without long-term current use of insulin ([facility])- Primary Morbid (severe) obesity due to excess calories ([facility]/HCC) Essential (primary) hypertension ([facility]/HCC) Unspecified essential hypertension Body mass index (BMI) 35.0-35.9, adult Gastroesophageal reflux disease, unspecified whether esophagitis present documented in this encounter [facility] Healthcare[facility] note* Diagnosis Type 2 diabetes mellitus without complication, without long-term current use of insulin ([facility])- Primary Chronic generalized abdominal pain Primary hypertension (CMS/HCC) Unspecified essential hypertension Mixed hyperlipidemia (CMS/HCC) Mixed hyperlipidemia Obesity (BMI 30-39.9) Type 2 diabetes mellitus without complication, without long-term current use of insulin ([facility])- Primary Mixed hyperlipidemia (CMS/HCC) Mixed hyperlipidemia Anxiety disorder, unspecified Anxiety state ([facility]) Anxiety state, unspecified Right foot pain Pain in soft tissues of limb Essential (primary) hypertension (CMS/HCC) Unspecified essential hypertension Type 2 diabetes mellitus without complication, without long-term current use of insulin ([facility])- Primary Morbid (severe) obesity due to excess calories (CMS/HCC) Essential (primary) hypertension (CMS/HCC) Unspecified essential hypertension Body mass index (BMI) 35.0-35.9, adult Gastroesophageal reflux disease, unspecified whether esophagitis present Type 2 diabetes mellitus without complication, without long-term current use of insulin ([facility])- Primary Essential (primary) hypertension (CMS/HCC) Unspecified essential hypertension Morbid (severe) obesity due to excess calories (CMS/HCC) Mixed hyperlipidemia (CMS/HCC) Mixed hyperlipidemia Obesity (BMI 30-39.9) Anxiety disorder, unspecified Anxiety state (CMS/HCC) Anxiety state, unspecified Primary hypertension (CMS/HCC) Unspecified essential hypertension Type 2 diabetes mellitus without complications (CMS/HCC) Type 2 diabetes mellitus without complication, without long-term current use of insulin (CMS/HCC) documented in this encounter [facility] Healthcare[facility] note* Diagnosis Type 2 diabetes [...] (CMS/HCC) Mixed hyperlipidemia documented in this encounter [facility] HealthcareEvaluation note* Diagnosis Type 2 diabetes [...] of insulin (CMS/HCC) documented in this encounter [facility] HealthcareEvaluation note* Diagnosis Type 2 diabetes mellitus [...] Type 2 diabetes mellitus without complications (CMS/HCC) Elevated triglycerides with high cholesterol (CMS/HCC)- Primary Mixed hyperlipidemia [facility] [...] of insulin (CMS[facility]HCC) [facility] [...] hypertension Type 2 diabetes mellitus without complications ([facility]) Elevated triglycerides with high cholesterol (CMS/HCC)- Primary Mixed hyperlipidemia Mixed hyperlipidemia (CMS/HCC) Mixed hyperlipidemia Anxiety disorder, unspecified Anxiety state (CMS/HCC) Anxiety state, unspecified Primary hypertension (CMS/HCC) Unspecified essential hypertension [facility] Diagnosis Type 2 diabetes mellitus without complication, without long-term current use of insulin ([facility])- Primary Chronic generalized abdominal pain Primary hypertension [...] hypertension Body mass index (BMI) 35.0-35.9, adult Elevated triglycerides with high cholesterol (CMS/HCC) Mixed hyperlipidemia Mixed hyperlipidemia (CMS/HCC) Mixed hyperlipidemia Pain in both lower extremities Vitamin deficiency Unspecified vitamin deficiency [facility] [...] foot surgery 2015, Problem Status : Active, [facility] Other Summary Purpose Family History No Family History Records FoundNo Family History Records FoundNo Family History Records FoundNo Family History Records Found Advance Directives Advance Directive Response Recorded Date/ Time Advance Directives No February 21, 2023 9:15am Chief Complaint and Reason for Visit Chief Complaint Chest pain Additional Source Comments INFORMATION SOURCE (unrecogn ized section and content) DATE CREATED AUTHOR 11/11/2018 [facility] DATE CREATED AUTHOR AUTHOR'S ORGANIZ ATION 12/09/2021 Pamela Beatty [facility] DATE CREATED AUTHOR AUTHOR'S ORGANIZ ATION 06/04/2023 [facility] DATE CREATED AUTHOR AUTHOR'S ORGANIZ ATION 12/12/2024 [facility] PSYCHIATRIC Care Teams (unrecognized sec tion and content) Team Status: Active Member Role Status Dates Mikala Morocho MD Primary Care Provider Active Team Status: Inactive Member Role Status Dates Mikala Morocho MD Primary Care Provider Active Carlton Hagen APRN Emergency Provider Active Silica Spray Mixer Relationship Specialty Start Date End Date Justin Ahmadi MD [address] [place] [address] PCP - General Family Medicine 11/20/23 Michelle Marks NP [address] [place] [address] Nurse Practitioner Family Medicine 07/22/23 Silica Spray Mixer Relationship Specialty Start Date End Date Justin Ahmadi MD [address] [place] [address] PCP - General Family Medicine 11/20/23 Michelle Marks NP [address] [place] [address] Nurse Practitioner Family Medicine 07/22/23 Silica Spray Mixer Relationship Specialty Start Date End Date Justin Ahmadi MD [address] [place] [address] PCP - General Family Medicine 11/20/23 Michelle Marks NP [address] [place] [address] Nurse Practitioner Family Medicine 07/22/23 Silica Spray Mixer Relationship Specialty Start Date End Date Justin Ahmadi MD [address] [place] [address] PCP - General Family Medicine 11/20/23 Michelle Marks NP [address] [place] [address] Nurse Practitioner Family Medicine 07/22/23 Silica Spray Mixer Relationship Specialty Start Date End Date Justin Ahmadi MD [address] [place] [address] PCP - General Family Medicine 11/20/23 Michelle Marks NP [address] [place] [address] Nurse Practitioner Family Medicine 07/22/23 Silica Spray Mixer Relationship Specialty Start Date End Date Justin Ahmadi MD [address] [place] [address] PCP - General Family Medicine 11/20/23 Michelle Marks NP [address] [place] [address] Nurse Practitioner Family Medicine 07/22/23 Silica Spray Mixer Relationship Specialty Start Date End Date Justin Ahmadi MD [address] [place] [address] PCP - General Family Medicine 11/20/23 Michelle Marks NP [address] [place] [address] Nurse Practitioner Family Medicine 07/22/23 Silica Spray Mixer Relationship Specialty Start Date End Date Justin Ahmadi MD [address] [place] [address] PCP - General Family Medicine 11/20/23 Michelle Marks NP [address] [place] [address] Nurse Practitioner Family Medicine 07/22/23 Silica Spray Mixer Relationship Specialty Start Date End Date Justin Ahmadi MD [address] [place] [address] PCP - General Family Medicine 11/20/23 Michelle Marks NP [address] [place] [address] Nurse Practitioner Family Medicine 07/22/23 Silica Spray Mixer Relationship Specialty Start Date End Date Justin Ahmadi MD [address] [place] [address] PCP - General Family Medicine 11/20/23 Michelle Marks NP [address] [place] [address] Nurse Practitioner Family Medicine 07/22/23 Silica Spray Mixer Relationship Specialty Start Date End Date Justin Ahmadi MD [address] [place] [address] PCP - General Family Medicine 11/20/23 Michelle Marks NP [address] [place] [address] Nurse Practitioner Family Medicine 07/22/23 Silica Spray Mixer Relationship Specialty Start Date End Date Justin Ahmadi MD [address] [place] [address] PCP - General Family Medicine 11/20/23 Michelle Marks NP [address] [place] [address] Nurse Practitioner Family Medicine 07/22/23 Silica Spray Mixer Relationship Specialty Start Date End Date Justin Ahmadi MD [address] [place] [address] PCP - General Family Medicine 11/20/23 Michelle Marks NP [address] [place] [address] Nurse Practitioner Family Medicine 07/22/23 Silica Spray Mixer Relationship Specialty Start Date End Date Justin Ahmadi MD [address] [place] [address] PCP - General Family Medicine 11/20/23 Michelle Marks NP [address] [place] [address] Nurse Practitioner Family Medicine 07/22/23 Silica Spray Mixer Relationship Specialty Start Date End Date Justin Ahmadi MD [address] [place] [address] PCP - General Family Medicine 11/20/23 Michelle Marks NP [address] [place] [address] Nurse Practitioner Family Medicine 07/22/23 Silica Spray Mixer Relationship Specialty Start Date End Date Justin Ahmadi MD [address] [place] [address] PCP - General Family Medicine 11/20/23 Michelle Marks NP [address] [place] [address] Nurse Practitioner Family Medicine 07/22/23 Goals (unrecognized section and content) Goals may be documented in a n alternate sectionNo InformationNo InformationNo Information REASON FOR VISIT (unrecogniz ed section and content) Reason Comments Med Refill Reason Comments Hyperlipidemia FOR RECORDS PERTAINING TO PATIENTS WHO ARE [...] BE BASED ON THE PRIMARY CLINICAL RECORDS. [employer] provides no warranty or guarantee of the accuracy or completeness of information in this document.
[2024-12-27 12:16] LABS: Basophils Percent Auto 0.4 % (0.2-2.0); Eosinophils Absolute Auto 0.2 10^3/uL (0.0-0.7); Eosinophils Percent Auto 1.9 % (0.9-7.0); Hematocrit 42.8 % (36.0-48.0); Immature Granulocytes Abs Auto 0.02 10^3/uL (0.00-0.03); Immature Granulocytes Pct Auto 0.2 % (0.0-0.5); Lymphocytes Absolute Auto 2.8 10^3/uL (1.2-3.8); Lymphocytes Percent Auto 30.6 % (20.5-60.0); Mean Corpuscular HGB Conc 32.7 g/dL (29.9-35.2); Mean Corpuscular Hemoglobin 29.1 pg (26.7-34.0); Mean Platelet Volume 10.7 fL (9.5-13.5); Monocytes Absolute Auto 0.5 10^3/uL (0.3-0.8); Monocytes Percent Auto 5.5 % (1.7-12.0); Neutrophils Absolute Auto 5.6 10^3/uL (1.4-6.5); Neutrophils Percent Auto 61.4 % (43.0-75.0); Platelet Count 289 10^3/uL (150-450); Red Blood Count 4.81 10^6/uL (4.20-5.40); Red Cell Distribution Width 13.5 % (11.0-15.0); White Blood Count 9.1 10^3/uL (4.0-11.0)
[2024-12-27 12:32] LABS: Estimated Average Glucose 134 mg/dL; Glycohemoglobin A1C 6.3 % (4.5-6.2)
[2024-12-28 09:07] LABS: Vitamin B12 262 pg/mL (232-1245)
== END 2024-12-27 11:52 | disposition home or self-care (01) ==
LOC: LAB 11:52
PROVIDERS: PCP Nurse Practitioner; Visit Provider Nurse Practitioner
DX: M79.604 Pain in right leg (principal); M79.605 Pain in left leg; E11.9 Type 2 diabetes mellitus without complications; E56.9 Vitamin deficiency, unspecified
CPT/HCPCS: 36415; 82306; 82607; 82728; 83036; 83540; 85025

== ENCOUNTER 2025-02-18 11:11 | Outpatient (OUT) | payer OTHER, SELFPAY ==
[2025-02-18 12:06] LABS: Alanine Aminotransferase 29 U/L (14-59); Aspartate Amino Transferase 17 U/L (15-37); Chol HDL Ratio 4.3; Cholesterol 156 mg/dL (<=200); HDL Cholesterol 36 mg/dL (40-60); Triglycerides 294 mg/dL (<=150); VLDL CHOLESTEROL 58.8 mg/dL
== END 2025-02-18 11:12 | disposition home or self-care (01) ==
LOC: LAB 11:13
PROVIDERS: PCP Nurse Practitioner; Visit Provider Nurse Practitioner
DX: E78.2 Mixed hyperlipidemia (principal)
CPT/HCPCS: 36415; 80061; 84450; 84460

== ENCOUNTER 2025-05-12 09:50 | Outpatient (OUT) | payer OTHER, SELFPAY ==
--- OUTSIDE RECORDS SUMMARY | 2025-05-12 09:54 | XMS_ITS | Clinical Summary ---
Author Organization [facility] Address [address], [address] [place] [address] Care Team Providers Care Mechanical Test Engineer Name Role Phone Kami Rogers DO Primary Care Provider Unavaila ble Allergies No known active allergies Medications No known medications Active Problems Problem Noted Date Diagnosed Date Chronic generalized abdominal pain Family History Medical History Relation Name Comments Diabetes Father High Blood Pressure Father Cancer Maternal Grandfather Heart Disease Maternal Grandfather High Blood Pressure Maternal Grandfather High Blood Pressure Maternal Grandmother Heart Disease Paternal Grandmother Relation Name Status Comments Father Alive Maternal Grandfather Maternal Grandmother Alive Mother Alive Paternal Grandfather Paternal Grandmother Alive Social History Tobacco Use Types Packs/Day Years Used Date Smoking Tobacco: Never Alcohol Use Standard Drinks/Week Comments No 0 (1 standard drink = 0.6 oz pur e alcohol) Comments No Sex and Gender Information Value Date Recorded Sex Assigned at Not on file Legal Sex Female 3:56 PM EST Gender Identity Not on file Sexual Orientation Not on file Last Filed Vital Signs Vital Sign Reading Time Taken Comments Blood Pressure 117/78 11/18/2015 9:15 AM EST Pulse 92 01/26/2016 9:19 AM EDT Temperature 36.5 C (97.7 F) 11/18/2015 9:15 AM EST Respiratory Rate 16 11/18/2015 9:15 AM EST Oxygen Saturation 97% 11/18/2015 9:15 AM EST Inhaled Oxygen Concentration - - Weight 92.4 kg (203 lb 11.3 oz) 01/26/2016 9:19 AM EDT Height 165.1 cm (5' 5 ) 01/26/2016 9:19 AM EDT Body Mass Index 33.9 01/26/2016 9:19 AM EDT Plan of Treatment Not on file Insurance [place] BCBS Care Teams Mechanical Test Engineer Relationship Specialty Start Date End Date Kami Rogers DO PCP - General Family Medicine 09/27/15
--- OUTSIDE RECORDS SUMMARY | 2025-05-12 09:54 | XMS_ITS | Encounter Summary ---
Author Organization [facility] Address [address] [place] [address] Care Team Providers Care Buffer Operator Name Role Phone Michelle Marks ADMINISTRATIVE RESIDENT Unavailable [phone] Justin Ahmadi MD Primary Care Provider [phone] Encounter Details Date Type Department Care Team (Late st Contact Info) Description 06/04/2024 Clinisync Result Encounter [facility] External Department Unsolicited Michelle Marks NP [address] [place] [address] Social History Tobacco Use Types Packs/Day Years Used Date Smoking Tobacco: Never Smokeless Tobacco: Never Alcohol Use Standard Drinks/Week Comments Never 0 (1 standard drink = 0.6 oz pur e alcohol) caffine: soda 1 daily Social Connection and Isolat ion Panel [NHANES] Answer Date Recorded In a typical week, how many times do you talk on the phone with family, friends, or neighbors? Never 01/10/2024 How often do you get togethe r with friends or relatives? More than three times a week 01/10/2024 How often do you attend chur ch or zoroastrian services? Never 01/10/2024 Do you belong to any clubs o r organizations such as orthodoxy groups, unions, fraternal or athletic groups, or school groups? No 01/10/2024 How often do you attend meet ings of the clubs or organizations you belong to? Never 01/10/2024 Are you , , di vorced, , never , or living with a partner? Never 01/10/2024 AUDIT-C Answer Date Recorded Q1: How often do you have a drink containing alcohol? Never 01/10/2024 Q2: How many drinks containi ng alcohol do you have on a typical day when you are drinking? Patient does not drink Q3: How often do you have si x or more drinks on one occasion? Never 01/10/2024 Overall Financial Resource Strain (CARDIA) Answe r Date Recorded How hard is it for you to pa y for the very basics like food, housing, medical care, and heating? Not very hard 01/10/2024 [facility] - Occupational Stress Questionnaire Answer Date Recorded Do you feel stress - tense, restless, nervous, or anxious, or unable to sleep at night because your mind is troubled all the time - these days? To some extent 01/10/2024 Exercise Vital Sign Answer Date Recorde d On average, how many days pe r week do you engage in moderate to strenuous exercise (like a brisk walk)? 3 days 01/10/2024 On average, how many minutes do you engage in exercise at this level? 30 min 01/10/2024 Hunger Vital Sign Answer Date Recorded Within the past 12 months, y ou worried that your food would run out before you got the money to buy more. Never true 01/10/20 24 Within the past 12 months, t he food you bought just didn't last and you didn't have money to get more. Never true 01/10/2024 PRAPARE - Transportation Answer Date Re corded In the past 12 months, has l ack of transportation kept you from medical appointments or from getting medications? No 12/21 In the past 12 months, has l ack of transportation kept you from meetings, work, or from getting things needed for daily living? No 01/10/2024 Housing Stability Vital Sign Answer Xavier e Recorded In the last 12 months, was t here a time when you were not able to pay the mortgage or rent on time? No 01/10/2024 In the last 12 months, how many places have you lived? 1 01/10/2024 In the last 12 months, was t here a time when you did not have a steady place to sleep or slept in a usp (including now)? No 01/10/2024 Comments Unknown Sex and Gender Information Value Date Recorded Sex Assigned at Not on file Legal Sex Female 6:51 PM EDT Gender Identity Not on file Sexual Orientation Not on file documented as of this encounter Plan of Treatment Upcoming Encounters Date Type Department Care Team (Late st Contact Info) Description 06/11/2025 10:30 AM EDT Office Visit [facility] [address] [place] [address] Michelle Marks NP [address] [place] [address] documented as of this encounter Procedures Procedure Name Priority Date/Time Associated Diagnosis Comments XR FOOT RT MIN 3V 06/04/2024 7:3 5 AM EDT documented in this encounter Results * XR FOOT RT MIN 3V (06/04/2024 7:35 AM EDT) Anatomical Region Laterality Modality Other 06/04/2024 7:35 AM EDT Narrative 06/04/2024 7:38 AM EDT The [address] [address] XRay Report Signed Patient: AURORA LOJA MR#: [id number] : 2000 Acct:[id number] Age/Sex: 24 / F ADM Date: 06/02/24 Loc: LAB Attending Dr: Michelle Marks NP Ordering Physician: Michelle Marks NP Date of Service: 06/02/24 Procedure(s): XR foot RT min 3V Accession Number(s): [id number] cc: Michelle Marks NP The [address] [address] Patient Name: AURORA LOJA MRN: [id number] date: 2000 Sex: F Assigned Patient Location: LAB Current Patient Location: Accession/Order Number: [id number] Exam Date: 06/02/2024 14:58 Report Date: 06/04/2024 07:35 At the request of: MICHELLE MARKS Procedure: XR foot RT min 3V PROCEDURE: XR foot RT min 3V COMPARISON: 10/06/2021 HISTORY: Right Foot Pain M79.671 FINDINGS: BONES:No acute fracture or dislocation. Remote triple arthrodesis with anterior and posterior calcaneal osteotomy. Transverse osteotomy of the medial cuneiform. SOFT TISSUES:Negative. No visible soft tissue swelling. EFFUSION:None visible. OTHER: Negative. XR/XR foot RT min 3V IMPRESSION: No acute fracture Electronically authenticated by: LANCE VASQUEZ Date: 06/04/2024 07:35 Dictated By: Lance Vasquez M.D. Signed By: 06/04/24 0738 DD/ TD/TT: Wool Handler: Procedure Note Radiology, Radiologist, MD - 06/04/2024 [place] [address] XRay Report Signed Patient: AURORA LOJANMR#: [id number] : 2000Acct:[id number] Age/Sex: Date: [birth year]02[birth year]24 Loc: LAB Attending Dr: Michelle Marks NP Ordering Physician: Michelle Marks NP Date of Service: 06/02/24 Procedure(s): XR foot RT min 3V Accession Number(s): [id number] cc: Michelle Marks NP The [place] [address] Patient Name: AURORA LOJA MRN: [id number] date: 2000 Sex: F Assigned Patient Location: LAB Current Patient Location: Accession/Order Number: [id number] Exam Date: 06/02/2024 14:58 Report Date: 06/04/2024 07:35 At the request of: MICHELLE MARKS Procedure: XR foot RT min 3V PROCEDURE: XR foot RT min 3V COMPARISON: 10/06/2021 HISTORY: Right Foot Pain M79.671 FINDINGS: BONES:No acute fracture or dislocation. Remote triple arthrodesis with anterior and posterior calcaneal osteotomy. Transverse osteotomy of the medial cuneiform. SOFT TISSUES:Negative. No visible soft tissue swelling. EFFUSION:None visible. OTHER: Negative. XR/XR foot RT min 3V IMPRESSION: No acute fracture Electronically authenticated by: LANCE VASQUEZ Date: 06/04/2024 07:35 Dictated By: Lance Vasquez M.D. Signed By:06/04/24 0738 DD/ 0735 TD/TT: Wool Handler: us Michelle Marks NP [facility] Final Result documented in this encounter Visit Diagnoses Not on filedocumented in this encounter Care Teams Buffer Operator Relationship Specialty Start Date End Date Justin Ahmadi MD [address] [place] [address] PCP - General Family Medicine 11/20/23 Michelle Marks NP [address] [place] [address] Nurse Practitioner Family Medicine 07/22/23 documented as of this encounter
--- OUTSIDE RECORDS SUMMARY | 2025-05-12 09:54 | XMS_ITS | Encounter Summary ---
Author Organization [facility] Address [address], [address] [place] [address] Care Team Providers Care Farmworker General Name Role Phone Kami Rogers DO Primary Care Provider Angeliaa fantasma Encounter Details Date Type Department Care Team (Late st Contact Info) Description 11/16/2015 PAT Telephone [facility] Pre-Admit Testing [address] [place] [address] Artem Lund, VERNON Social History Tobacco Use Types Packs/Day Years [...] on file documented as of this encounter Last Filed Vital Signs Vital Sign Reading Time Taken Comments Blood Pressure - - Pulse - - Temperature - - Respiratory Rate - - Oxygen Saturation - - Inhaled Oxygen Concentration - - Weight 86.2 kg (190 lb) 11/16/2015 12:52 PM EST Height 167.6 cm (5' 6 ) 11/16/2015 12:52 PM EST Body Mass Index 30.67 11/16/2015 12:52 PM EST Body Mass Index Percentile 96.15% 11/16/2015 12: 52 PM EST Growth Chart: [facility] (Girls, 2- 20 Years) documented in this encounter Plan of Treatment Not on file documented as of this encounter Visit Diagnoses Not on filedocumented in this encounter Care Teams Farmworker General Relationship Specialty Start Date End Date Kami Rogers DO PCP - General Family Medicine 09/27/15 documented as of this encounter
--- OUTSIDE RECORDS SUMMARY | 2025-05-12 09:54 | XMS_ITS | Clinical Summary ---
Author Organization [facility] Healthcare Address [address] [place] [address] Care Team Providers Care Material Engineer Name Role Phone TaishapapikellyMichelle GROUNDSKEEPER SUPERVISOR Unavailable [phone] Justin Ahmadi MD Primary Care Provider [phone] Allergies No known active allergies Medications metFORMIN (Glucophage) 1000 MG tabletIndications :Type 2 diabetes mellitus without complications (HCC) Take 1 tablet (1,000 mg) by mouth in the morning and 1 tablet (1,000 mg) in the evening. Take with meals. 180 tablet 1 024 Active Additional Information Patient taking differently:1,000 mg Oral 2 times daily with meals, Morning, Evening,Pt takes 1 tablet at night., Reported on 03/11/2025 escitalopram (Lexapro) 20 MG tabletIndications :Anxiety disorder, unspecified,Anxie ty state Take 1 tablet (20 mg) by mouth Daily 90 tablet 1 025 Active Blood Glucose Monitoring Suppl (Blood Glucose Monitor System) w/Device kitIndications:Ty pe 2 diabetes mellitus without complication, without long-term current use of insulin (HCC) Use daily or as directed for monitoring of diabetes. 1 kit 025 2025 Active Lancets 30G miscIndications:T ype 2 diabetes mellitus without complication, without long-term current use of insulin (HCC) 1 each Daily 100 each 3 025 2024 Active fenofibrate (Tricor) 145 MG tabletIndications :Elevated triglycerides with high cholesterol Take 1 tablet (145 mg) by mouth Daily 90 tablet 025 2024 Active atorvastatin (Lipitor) 80 MG tabletIndications :Elevated triglycerides with high cholesterol,Mixed hyperlipidemia Take 1 tablet (80 mg) by mouth at bedtime 90 tablet 1 025 2024 Active dapagliflozin (Farxiga) 5 MGIndications:Typ e 2 diabetes mellitus without complication, without long-term current use of insulin (HCC) Take 1 tablet (5 mg) by mouth Daily 90 tablet 1 025 2024 Active lisinopril 20 MG tabletIndications :Primary hypertension Take 1 tablet (20 mg) by mouth in the morning. 90 tablet 1 025 2024 Active cholecalciferol ([facility] D3) 125 MCG (5000 UT) capsuleIndication s:Vitamin D deficiency, unspecified Take 1 capsule (125 mcg) by mouth Daily 30 capsule 2 025 2024 Active cyanocobalamin ([facility] Vitamin B12) 1000 MCG tabletIndications :Deficiency of other specified B group vitamins Take 1 tablet (1,000 mcg) by mouth Daily 30 tablet 2 025 2024 Active [facility] D3 125 MCG (5000 UT) capsule TAKE 1 CAPSULE (125 MCG) BY MOUTH DAILY 025 2024 Discontinued [facility] Vitamin B12 1000 MCG tablet Take 1,000 mcg by mouth Daily 025 2024 Discontinued Active Problems Problem Noted Date Diagnosed Date Type 2 diabetes mellitus with other specified co mplication 03/11/2025 Assessment & Plan (03/11/2025 6:20 AM EDT): Does have HTN, and HLD Type 2 diabetes mellitus, wi [facility] long-term current use of insulin 03/11/2025 Assessment & Plan (03/11/2025 9:30 AM EDT): Check blood sugars daily, notify if <70 [...] low in carbohydrates, and simple sugars. Current meds; statin, farxiga, metformin, lavern, A1c: 6.3 % on 12/27/24 Change up metformin in morning, then met/farxiga in the evening Recommend increase in protein in meals, dissucssed options If continues with drops despite this, call office Subjective tinnitus, right 03/11/2025 Assessment & Plan (03/11/2025 9:31 AM EDT): Likely related to loud fire alarm, is getting better Will monitor for now Vitamin D deficiency 12/29/2024 Vitamin B12 deficiency 12/29/2024 Iron deficiency 12/29/2024 Pain in both lower extremities 12/10/2024 Assessment & Plan (12/10/2024 10:23 AM EST): Possible neuropathy and or RLS Will check labs Consider some gabapentin Vitamin deficiency 12/10/2024 Assessment & Plan (12/10/2024 10:24 AM EST): Check b12, D, ferritin and iron Elevated triglycerides with high cholesterol 06/2025 Assessment & Plan (12/10/2024 6:33 AM EST): Recent lipids 12/16: TC 182, Trigs 341, HDL 36 and LDL 78 Is maxed on statin , will add fenofibrate dsoe Limit carb intake, needs to become more physically active Morbid (severe) obesity due to excess calories 0 06/02/2024 Assessment & Plan (03/11/2025 9:29 AM EDT): Discussed with patient their BMI (actual, verses recommended). We have also discussed lifestyle modifications: attempts to perform physical activity as chronic conditions allow, also to monitor dietary intake: increasing protein/fruits/veggies and lowering carb intake (unless contraindicated). Limit sodas, juices, and sugary drinks. Is prescribed ozempic, quit this about 2 weeks ago d/t GI side effects Assessment & Plan (12/10/2024 10:23 AM EST): Discussed with patient their BMI (actual, verses [...] her diabetes, but wait has gone up Right foot pain 06/02/2024 Body mass index (BMI) 35.0-35.9, adult Chronic generalized abdominal pain 01/14/2024 Congenital pes planus 01/02/2024 Essential (primary) hypertension 01/02/2024 Assessment & Plan (03/11/2025 6:19 AM EDT): Please check blood pressure daily and record DASH diet Limit caffeine Take medication as directed Contact office if chest pain, pressure, dizziness, shortness of breath, swelling legs Recommend slow position changes Current meds: lisinopril Assessment & Plan (12/10/2024 6:29 AM EST): Please check blood pressure daily and record DASH diet Limit caffeine Take medication as directed Contact office if chest pain, pressure, dizziness, shortness of breath, swelling legs Recommend slow position changes Current meds: lisinopril Assessment & Plan (08/26/2024 3:41 PM EST): Check blood sugars daily, notify if <70 [...] diet low in carbohydrates, and simple sugars. 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 No med dose changes at this time Fu in 6 weeks Assessment & Plan (01/17/2024 3:58 PM EDT): No changes in med doses at this time Acid reflux 01/02/2024 Assessment & Plan (07/16/2024 5:23 PM EDT): Recommend she take OTC famotidine every day for GERD symptoms Currently only taking PRN Mixed hyperlipidemia 11/11/2023 Assessment & Plan (03/11/2025 6:22 AM EDT): Currently taking atorvastatin 80mg daily Is compliant with dosing Check labs yearly and prn dose changes Aggressive risk factor modification Assessment & Plan (12/10/2024 6:32 AM EST): Currently taking atorvastatin 80mg daily Is compliant with dosing Check labs yearly and prn dose changes Aggressive risk factor modification Assessment & Plan (08/26/2024 3:41 PM EST): Continue statin Assessment & Plan (01/17/2024 3:45 PM EDT): Continue with statin Resolved Problems Problem Noted Date Diagnosed Date Resolved Date Antibiotic-induced tinnitus of right ear 03/11/2025 03/11/2025 Obesity (BMI 30-39.9) 08/26/20242024 Assessment & Plan (08/26/2024 3:42 PM EST): Discussed with patient their BMI (actual, verses recommended). We have also discussed lifestyle modifications: attempts to perform physical activity as chronic conditions allow, also to monitor dietary intake: increasing protein/fruits/veggies and lowering carb intake (unless contraindicated). Limit sodas, juices, and sugary drinks. Is doing well with weight loss with GLP 1 Type 2 diabetes mellitus 01/02/2024 Assessment & Plan (12/10/2024 10:23 AM EST): Check blood sugars daily, notify if <70 [...] to 1mg weekly A1c 6.5% on 09/19/24 Assessment & Plan (08/26/2024 3:41 PM EST): Check blood sugars daily, notify if <70 [...] diet low in carbohydrates, and simple sugars. Assessment & Plan (07/16/2024 5:22 PM EDT): Is having some abd pain (generalized and [...] Fu in 2 months for a recheck Assessment & Plan (06/02/2024 2:37 PM EDT): A1c 6.8% Add ozempic , cont metfromin and farxiga at 5mg Assessment & Plan (01/17/2024 3:58 PM EDT): Check blood sugars daily, notify if <70 [...] diet low in carbohydrates, and simple sugars. Will add farxiga 5mg daily Pharyngitis 11/19/2023 06/02/2024 Assessment & Plan (11/19/2023 3:03 PM EST): Mother calls in with pt with sore throat, erythematous, swollen glands and ear pain over last 5 days not better, now vomiting today Will send in amox Fu if not better Encounters Date Type Department Care Team Description 04/22/2025 Refill [facility] [address] [place] [phone] Michelle Marks NP Vitamin D deficiency, unspecified; Deficiency of other specified B group vitamins 03/11/2025 9:00 AM EDT Office Visit [facility] [address] [place] [phone] Michelle Marks NP Type 2 diabetes mellitus with other specified complication, without long-term current use of insulin (HCC) (Primary Dx); Type 2 diabetes mellitus with other specified complication (HCC); Essential (primary) hypertension ; Morbid (severe) obesity due to excess calories ([facility]-H[facility]); Type 2 diabetes mellitus without complication, without long-term current use of insulin (HCC); Mixed hyperlipidemia ; Subjective tinnitus, right; Primary hypertension 03/11/2025 Bamboo flowsheet [facility] [address] [place] [phone] Michelle Marks NP 03/10/2025 Travel 03/05/2025 Refill [facility] [address] [place] [phone] Michelle Marks NP Elevated triglycerides with high cholesterol ; Mixed hyperlipidemia 02/18/2025 Telephone [facility] [address] [place] [phone] Michelle Marks NP 02/18/2025 Refill [facility] [address] [place] [phone] Michelle Marks NP Elevated triglycerides with high cholesterol (Primary Dx) 02/18/2025 Clinisync Result Encounter [facility] External Department Unsolicited Michelle Marks NP 02/17/2025 Refill [facility] [address] [place] [phone] Michelle Marks NP Type 2 diabetes mellitus without complication, without long-term current use of insulin (HCC) (Primary Dx) 02/17/2025 Refill [facility] [address] [place] [phone] Michelle Marks NP 02/16/2025 Telephone [facility] [address] [place] [phone] Michelle Marks NP from Last 3 Months Immunizations Immunization Administration Dates Next Due DTaP, Unspecified 01/04/2005, 3,2000,2000, 2000 HiB, unspecified 05/01/2003 Hib / Hep B 2000,2000,2000 IPV 01/04/2005,2000,2000 ,2000 Influenza, seasonal, injectable 08/04/2020 MMR 01/04/2005,03/25/2001 Pneumococcal Conjugate PCV 7 03/25/2001,08/08/20 00 Tdap 06/10/2013 Varicella 03/25/2001 Social History Tobacco Use Types Packs/Day Years Used Date Smoking Tobacco: Never Smokeless Tobacco: Never Tobacco Cessation:Counseling Given: Not Answered Alcohol Use Standard Drinks/Week Comments Never 0 (1 standard drink = 0.6 oz pur e alcohol) caffine: soda 1 daily [id number] Health Literacy Answer Date Recor ded How often do you need to hav e someone help you when you read instructions, pamphlets, or other written material from your doctor or pharmacy? Never 03/10/2025 Humiliation, Afraid, Rape, and Kick questionnair e Answer Date Recorded Within the last year, have y ou been afraid of your partner or ex-partner? No 03/10/2025 Within the last year, have y ou been humiliated or emotionally abused in other ways by your partner or ex-partner? No Within the last year, have y ou been kicked, hit, slapped, or otherwise physically hurt by your partner or ex-partner? No 03/10/2025 Within the last year, have y ou been raped or forced to have any kind of sexual activity by your partner or ex-partner? No 03/10/2025 Social Connection and Isolation Panel [NHANES] A nswer Date Recorded In a typical week, how many times do you talk on the phone with family, friends, or neighbors? Never 03/10/2025 How often do you get together with friends or re latives? Never 03/10/2025 How often do you attend oriental orthodox or lutheran serv ices? Never 03/10/2025 Do you belong to any clubs o r organizations such as oriental orthodox groups, unions, fraternal or athletic groups, or school groups? No 03/10/2025 How often do you attend meet ings of the clubs or organizations you belong to? Never 03/10/2025 Are you , , di vorced, , never , or living with a partner? Never 03/10/2025 AUDIT-C Answer Date Recorded Q1: How often do you have a drink containing alcohol? Never 03/10/2025 Q2: How many drinks containi ng alcohol do you have on a typical day when you are drinking? Patient does not drink Q3: How often do you have si x or more drinks on one occasion? Never 03/10/2025 Overall Financial Resource Strain (CARDIA) Answe r Date Recorded How hard is it for you to pa y for the very basics like food, housing, medical care, and heating? Patient declined 03/10/2025 [facility] of Occupat ional Health - Occupational Stress Questionnaire Answer Date Recorded Do you feel stress - tense, restless, nervous, or anxious, or unable to sleep at night because your mind is troubled all the time - these days? Only a little 03/10/2025 Exercise Vital Sign Answer Date Recorde d On average, how many days pe r week do you engage in moderate to strenuous exercise (like a brisk walk)? 3 days 03/10/2025 On average, how many minutes do you engage in exercise at this level? 30 min 03/10/2025 Hunger Vital Sign Answer Date Recorded Within the past 12 months, y ou worried that your food would run out before you got the money to buy more. Never true 03/10/20 25 Within the past 12 months, t he food you bought just didn't last and you didn't have money to get more. Never true 03/10/2025 PRAPARE - Transportation Answer Date Re corded In the past 12 months, has l ack of transportation kept you from medical appointments or from getting medications? No 02/20 In the past 12 months, has l ack of transportation kept you from meetings, work, or from getting things needed for daily living? No 03/10/2025 Housing Stability Vital Sign Answer Xavier e [...] place to sleep or slept in a care home (including now)? No 01/10/2024 Housing Stability Vital Sign Answer Xavier e Recorded In the last 12 months, was t here a time when you were not able to pay the mortgage or rent on time? No 03/10/2025 Number of Times Moved in the Last Year Not on fi le 03/10/2025 At any time in the past 12 m [facility], were you homeless or living in a care home (including now)? No 03/10/2025 Comments Unknown Sex and Gender Information Value Date Recorded Sex Assigned at Not on file Legal Sex Female 6:51 PM EDT Gender Identity Not on file Sexual Orientation Not on file Last Filed Vital Signs Vital Sign Reading Time Taken Comments Blood Pressure 118/82 03/11/2025 8:55 AM EDT Pulse 90 03/11/2025 8:55 AM EDT Temperature 36.9 C (98.5 F) 03/11/2025 8:55 AM EDT Respiratory Rate 18 12/10/2024 9:49 AM EST Oxygen Saturation 98% 03/11/2025 8:55 AM EDT Inhaled Oxygen Concentration - - Weight 97.1 kg (214 lb) 03/11/2025 8:55 AM EDT Height 167.6 cm (5' 6 ) 07/16/2024 4:41 PM EDT Body Mass Index 34.54 07/16/2024 4:41 PM EDT Plan of Treatment Upcoming Encounters Date Type Department Care Team (Late st Contact Info) Description 06/11/2025 10:30 AM EDT Office Visit [facility] [address] [place] [address] Michelle Marks, LORETA [address] [place] [address] Health Maintenance Due Date Last Done Comments Diabetes: Hemoglobin A1C 06/29/2025 025, 05/31/2024, 01/12/2024, Additional history exists Diabetes: Urine Protein Screening 09/19/2025 09/19/2024, 07/28/2023 Diabetes: Retinopathy Screening 01/20/2026 Influenza Vaccine Discontinued 08/04/2020 Procedures Procedure Name Priority Date/Time Associated Diagnosis Comments ALL LIPID PROFILE (FASTING) Routine 02/18/2025 11:29 AM EDT [facility] ALT Routine 02/18/2025 11:29 AM EDT [facility] AST Routine 02/18/2025 11:29 AM EDT from Last 3 Months Results * [facility] AST (02/18/2025 11:29 AM EDT) ASPARTATE AMINO TRANSFERASE 17 15 - 37 U/L [facility] 02/18/2025 11:2 9 AM EDT 02/18/2025 11:30 AM EDT Narrative [facility] - 02/18/2025 12:09 PM EDT us Michelle Selina KAN [facility] Final Result [facility] TB * [facility] ALT (02/18/2025 11:29 AM EDT) ALANINE AMINOTRANSFERASE 29 14 - 59 U/L [facility] 02/18/2025 11:2 9 AM EDT 02/18/2025 11:30 AM EDT Narrative CLINISY[facility] - 02/18/2025 12:09 PM EDT Michelle Taishahazelstefanie KAN CLINIS[facility]NC Final Result Performing Organization Address [facility] de Phone Number CLINISYNC TB * (ABNORMAL) ALL LIPID PROFILE (FASTING) (02/18/2025 11:29 AM EDT) TRIGLYCERIDES 294(H) <=150 mg/dL TBH CHOLESTEROL 156 <=200 mg/dL TB HDL CHOLESTEROL 36(L) 40 - 60 mg/dL TB Comment: > or =60 mg/dl - LOW CARDIOVASCULAR RISK <40 mg/dl - HIGH CARDIOVASCULAR RISK LDL CHOLESTEROL CALCULATED 62.0 mg/dL TB Comment: <100 mg/dl OPTIMAL 100-129 mg/dl NEAR OR ABOVE OPTIMAL 130-159 mg/dl BORDERLINE HIGH 160-189 mg/dl HIGH >190 mg/dl VERY HIGH VLDL CHOLESTEROL 58.8 mg/dL TB CHOL HDL RATIO 4.3 TB Comment: 3.3 - 4.4 LOW RISK 4.4 - 7.1 AVERAGE RISK 7.1 - 11.0 MODERATE RISK >11.0 HIGH RISK 02/18/2025 11:2 9 AM EDT 02/18/2025 11:30 AM EDT Narrative CLINISYNC - 02/18/2025 12:09 PM EDT Michelle Selina KAN CL[facility] Final Result Performing Organization Address [facility]/ZIP Co de Phone Number CLINISYNC TB from Last 3 Months Insurance [employer] Care Teams Material Engineer Relationship Specialty Start Date End Date Justin Ahmadi MD [address] [place] [address] PCP - General Family Medicine 11/20/23 Michelle Marks NP [address] [place] [address] Nurse Practitioner Family Medicine 07/22/23
--- OUTSIDE RECORDS SUMMARY | 2025-05-12 09:54 | XMS_ITS | Encounter Summary ---
Author Organization [facility] Address [address] [place] [address] Care Team Providers Care Paving Inspector Name Role Phone Michelle Marks MEDICAL CASE MANAGER Unavailable [phone] Justin Ahmadi MD Primary Care Provider [phone] Reason for Visit * Reason Comments Med Refill Encounter Details Date Type Department Care Team ([facility] Contact Info) Description 09/19/2023 Refill [facility] [address] [place] [phone] Michelle Marks, MEDICAL CASE MANAGER [address] [place] [phone] Hyperlipidemia, unspecified Social History Tobacco Use Types Packs/Day Years Used Date Smoking Tobacco: Never Assessed Comments Unknown Sex and Gender Information Value Date Recorded Sex Assigned at Not on file Legal Sex Female 6:51 PM EDT Gender Identity Not on file Sexual Orientation Not on file documented as of this encounter Plan of Treatment Upcoming Encounters Date Type Department Care Team ([facility] Contact Info) Description 06/11/2025 10:30 AM EDT Office Visit [facility] [address] [place] [phone] Michelle Marks NP [address] [place] [phone] documented as of this encounter Visit Diagnoses Diagnosis Hyperlipidemia, unspecified documented in this encounter Care Teams Paving Inspector Relationship Specialty Start Date End Date Justin Ahmadi MD [address] [place] [address] PCP - General Family Medicine 11/20/23 Michelle Marks NP [address] [place] [phone] Nurse Practitioner Family Medicine 07/22/23 documented as of this encounter
[2025-05-12 11:22] LABS: Iron 92.0 ug/dL (50.0-170.0)
[2025-05-13 05:07] LABS: Vitamin B12 606 pg/mL (232-1245)
== END 2025-05-12 09:51 | disposition home or self-care (01) ==
LOC: LAB 09:52
PROVIDERS: PCP Nurse Practitioner; Visit Provider Nurse Practitioner
DX: E55.9 Vitamin D deficiency, unspecified (principal); E61.1 Iron deficiency; E53.8 Deficiency of other specified B group vitamins
CPT/HCPCS: 36415; 82306; 82607; 82728; 83540

== ENCOUNTER 2025-09-19 08:58 | Outpatient (OUT) | payer OTHER, SELFPAY ==
--- OUTSIDE RECORDS SUMMARY | 2025-09-16 10:25 | XMS_ITS | Continuity of Care Document ---
Author Organization 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 Role Phone Michelle Marks FIRM ADMINISTRATOR-C Primary Care Provider Michelle Marks NP-C Attending Provider Care Teams Patient Care Team Team Status: Active Member Role/Relationship Status Dates Michelle Marks NP-C Primary Care Provider Active Visit Care Team Team Status: Inactive Member Role/Relationship Status Dates Michelle Marks NP-C Primary Care Provider Active Start: July 02, 2025 End: July 02, 2025ROLAND ClarkCAtmakayla ProviderActiveStart: July 02, 2025 End: July 02, 2025 Patient Care Team Team Status: Inactive Member Role/Relationship Status Dates Michelle Marks NP-C Primary Care Provider Active Start: September 16, 2025 End: September 16, 2025ROLAND ClarkCAtmakayla ProviderActiveStart: September 16, 2025 End: September 16, 2025 Chief Complaint and Reason for Visit Chief Complaint Admit Date 3M July 02, 2025 9:48am 3M FollowUp September 16, 2025 2:49pm Reason for Visit Admit Date Depression with anxiety July 02, 2025 9:48am Essential hypertension July 02, 025 9:48am Mixed hyperlipidemia July 02 9:48am Morbid obesity due to excess calories Se ptember 2024 9:48am Type 2 diabetes mellitus, wi thout long-term current use of insulin July 02, 2025 9:48am Depression with anxiety September 16 025 2:49pm Essential hypertension September 16 2:49pm Mixed hyperlipidemia September 16, 2025 2:49pm Morbid obesity due to excess calories No vember 2024 2:49pm Type 2 diabetes mellitus, wi thout long-term current use of insulin September 16, 2025 2:49pm Vitamin B12 deficiency September 16 2:49pm Vitamin D deficiency September 16, 2025 2:49pm Allergies, Adverse Reactions, Alerts Allergen Type Severity Reaction Last Updated Verified Status No Known Allergies Allergy Unknown July 02, 2025 6:04amYesActive Social History Smoking Status Status Start Date End Date Date of Observa tion Never smoked tobacco (finding) February 21, 2023 9:33am Observation Status Observation Response Date of Response Legal Sex [facility] (finding) [facility] Problems Active Problems Problem Diagnosis/Recorded Date Onset Date Status C omments Depression with anxiety July 02, 2025 9:13am Unknow n Active Congenital pes planus of both feetSeptember 2024 6:05amUnknownActive Vitamin B12 deficiencySeptember 2024 6:06amUnknownActiveSubjective tinnitus of right earSept2024 6:07amUnknownActiveMixed hyperlipidemiaSeptember 2024 6:04amUnknownActiveEssential hypertension July 02, 2025 6:05amUnknownActiveMorbid obesity due to excess calories July 02, 2025 6:06amUnknownActiveType 2 diabetes mellitus, without long- term current use of insulinSeptember 2024 6:07amUnknownActiveGERD (gastroesophageal reflux disease)July 02, 2025 6:05amUnknownActiveVitamin D deficiencySeptember 2024 6:06amUnknownActiveAbdominal pain, chronic, generalizedSeptember 2024 6:05amUnknownActiveIron deficiencySeptember 2024 6:06amUnknownActiveInactive/Resolved Problems Problem Diagnosis/Recorded Date Onset Date Status C omments Anxiety February 21, 2023 9:50am Unknown Resolved Prob rossana List clean-up per request of Phys. EHR Cmte Atypical chest pain February 21, 2023 9:50am Unknown Resolv ed Problem List clean-up per request of Phys. EHR Cmte Medications Medication Status Dose Units Route Directions Qty Days Refills S tart Date Stop Date End Date Reason(s) Instructions Adherence Cyanocobalamin (Vitamin B-12) 1,000 mcg capsule Active 1000 MCG PO Daily 90 0Oct2024 11:00pmCobalamin deficiency Deficiency of other specified B group vitaminsUnknownCholecalciferol (Vitamin D3) 125 mcg (5,000 unit) sdhytkMegzzl638HFRSZMdshd701Fngylzf 2024 7:36am Vitamin D deficiency Vitamin D deficiency, unspecifiedUnknownFerrous Sulfate 325 mg (65 mg iron) xyekueEuhsab467LFTKGcghf918Dxumxzaz 2024 8:39amIron deficiency Iron deficiencyUnknownAtorvastatin 80 mg srwdecGfkqmh99VWUGDqrys September 10, 2025 8:38amMixed hyperlipidemia Mixed hyperlipidemiaUnknownMetformin 1,000 mg cvyojvVtpxyvfoetpk6834DSKEJvwxo dailyMay 2022 11:00pmSeptember 2024 9:13amEscitalopram Oxalate (Lexapro) 10 mg JslxjfCpgqklearemh12NTXLGneuoHgm 2022 11:00pmSeptember 2024 6:07amAtorvastatin 80 mg gnasecTdeyzlsowxgs97AIYEJoftk evening July 01, 2025 11:00pmSeptember 2024 9:13amLisinopril 20 mg tablet Mvvhnwhovalm14MYUBPrcdiHriqldxdq 2024 11:00pmSeptember 2024 9:13am Ferrous Sulfate 325 mg (65 mg iron) omfwpuJpewyghpwuix079TBWLUaxobUhcobeqhs 2024 11:00pmNovember 2024 8:39amEscitalopram Oxalate (Lexapro) 20 mg uifbilHnhhfqoskuvi34EEQWRqlfkVucobrdgb 2024 11:00pmSeptember 2024 9:13amFenofibrate Nanocrystallized (Tricor) 145 mg dhavvaBgnswamodrgh625AKWL DailySeptember 5 11:00pmSeptember 2024 9:13amDapagliflozin Propanediol (Farxiga) 5 mg eskgjhLghzjelaokno6KJFIIbmvvHtkxelzro 10th, 2025 11:00pmSeptember 2024 9:11amCholecalciferol (Vitamin D3) 125 mcg (5,000 unit) cfegvuAtikkgofanaz730CXYBCMuxejByrhnwtuh 2024 11:00pmOctober 2024 7:36amMecobalamin (Vitamin B12) 1,000 mcg tablet,disintegratingDiscontinued 1000MCGSUBLINGUALDailySept2024 11:00pmOctober 2024 7:35amplace tablet under tongue and allow to dissolve for at least30 secs before swallowing Atorvastatin 80 mg mfaouyDadbyoxkmsyh38TQTYCcbdo qvdrezh203Ckmflazkk 11th, 2025 9:10amNovember 2024 8:38amMixed hyperlipidemia Mixed hyperlipidemiaFenofibrate Nanocrystallized (Tricor) 145 mg sxocnxKcsuxe144 GSYKMzbsd580Jznfxidml 11th, 2025 9:10amMixed hyperlipidemia Mixed hyperlipidemiaUnknownLisinopril 20 mg phjonbTlqkjo21XAHFAeakp208Qilxsimyc 11th, 2025 9:10amPrimary hypertension Type 2 diabetes mellitus, without long-term current use of insulin Essential (primary) hypertension Type 2 diabetes mellitus without complicationsUnknownDapagliflozin Propanediol (Farxiga) 10 mg lhlrppJmkyat20YAUPDiudc uxqvmsj686Surzxjpgq 10th, 2025 11:00pm Type 2 diabetes mellitus, without long-term current use of insulin Type 2 diabetes mellitus without complicationsUnknownMetformin 1,000 mg tablet Ikrojj5440WIZFUgkos bllsu7223Lfofniqgy 11th, 2025 9:12amType 2 diabetes mellitus, without long-term current use of insulin Type 2 diabetes mellitus without complicationsUnknownEscitalopram Oxalate (Lexapro) 20 mg cyxeyjChpbuq29VIDHPiczk953Bwdjaceyj 11th, 2025 9:12amAnxiety with depression Other specified anxiety disordersUnknownBlood-Glucose Sensor (Freestyle Josue 3 Plus Sensor) deviceActive0.Pmqog344Xtoecnjwo 10th, 2025 11:00pmType 2 diabetes mellitus, without long-term current use of insulin Type 2 diabetes mellitus without complicationsAs directed, change sensor every 14 15 -days Relevant Diagnostic Tests and/or Laboratory Data Laboratory Results Test Collection Date/Time Result Date/Time Result Interpretation Reference Range Result Comment Performing Site Bedside Hemoglobin A1c July 02, 2025 9:09am Sep tember 2024 9:11am 8.0 % Vital Signs Vital Reading Result Reference Range Collection Date/Time Height 66 [in_i] July 02, 2025 8:34vbNnffok564.60 kgSept2024 8:50amBody Dnbnqdgwkzb73.1 [degF]97.6-99.0Sept2024 8:50amHeart Rate90 /min 60-100July 02, 2025 8:50amRespiratory rate18 /dlc04-18Ylfiexgyw 11th, 2025 8:50amOxygen saturation by Pulse lqnolfua12 %95-100July 02, 2025 8:50amBP Atmrnjve637 mm[Hg]100-140Sept2024 8:50amBP Qktejqlcx78 mm[Hg]60-100Sept2024 8:50amBMI (Body Mass Index)36.1 kg/o3Epvlgcbvh 2024 8:82neRudcfl30 [in_i]September 16, 2025 3:99ibAabnul81.10 kgNov2024 3:05pmBody Vaabjiuogdf26.8 [degF]97.6-99.0September 16, 2025 3:05pm Heart Rate94 /jgi21-398WevqxpwvSeptember 16, 2025 3:05pmRespiratory rate18 /nec83-15 September 16, 2025 3:05pmOxygen saturation by Pulse ywchggws21 %95-100Nov2024 3:05pmBP Zgyaiizp401 mm[Hg]100-140Nov2024 3:05pmBP Vqhlkosgu52 mm[Hg]60-100Nov2024 3:05pmBMI (Body Mass Index)35.2 kg/o1Drczlpjb2024 3:05pm Advance Directives Advance Directive Response Recorded Date/ Time Advance Directives No February 21, 2023 8:15am Insurance Providers Guarantor Aurora Charlton r Address [address] [address]Fvzbzmf Info.Home Phone: Coverage Status Update:2025 Payer Group Member ID Coverage Type Subscriber Relationship to Subscriber Effective Date Expiration Date MMO [id number] J Sonu Id: [id number] [address] [address] Home Phone: [employer] Claims [id number] J Sonu Id: [id number] [address] [address] Home Phone: sept2022 Encounters Encounter Location(s) Arrival/Admit Date Discharge/Departure Date Discharge/Departure Disposition Provider(s) Departed Physician/ Provider Office Visit -[facility] [place] July 02, 2025 9:48am July 02, 2025 10:24am Discharged to home care or self care (routine discharge) ANGELLA Clark Departed Physician/ Provider Office Visit -[facility] September 16, 2025 2:49pm September 16, 2025 3:24pm Discharged to home care or self care (routine discharge) ANGELLA Clark Recent Diagnosis Onset Date Admit Date Depression with anxiety Unknown 2024 9:48am Essential hypertension Unknown July 02, 2025 9:48am Mixed hyperlipidemia Unknown June 222024 9:48am Morbid obesity due to excess calories Unknown July 02, 2025 9:48am Type 2 diabetes mellitus, wi thout long-term current use of insulin Unknown July 02, 2025 9:48am Depression with anxiety Unknown September 16, 2025 2:49pm Essential hypertension Unknown September 16, 2025 2:49pm Mixed hyperlipidemia Unknown September 162024 2:49pm Morbid obesity due to excess calories Unknown September 16, 2025 2:49pm Type 2 diabetes mellitus, wi thout long-term current use of insulin Unknown September 16, 2025 2:49pm Vitamin B12 deficiency Unknown September 16, 2025 2:49pm Vitamin D deficiency Unknown September 162024 2:49pm Assessments Diagnosis Onset Date Resolution Status Admit Date Depression with anxiety acuteSept2024 9:48amEssential hypertensionacutept2024 9:48amMixed hyperlipidemiaacuteSept2024 9:48amMorbid obesity due to excess caloriesacutept2024 9:48amType 2 diabetes mellitus, without long-term current use of [facility]acute[facility]20[facility] 9:48amDepression with anxietyacuteNov2024 2:49pmEssential hypertensionacuteN[facility] 2024 2:49pmMixed hyperlipidemiaacuteNov2024 2:49pmMorbid obesity due to excess caloriesacute[facility]20[facility] 2:49pmType 2 diabetes mellitus, without long-term current use of insulinacuteN[facility] 2024 2:49pmVitamin B12 deficiencyacuteNov2024 2:49pmVitamin D deficiencyacuteNov2024 2:49pm Plan of Treatment Author Michelle Marks [facility]2024 7:04amCheck blood sugars daily, notify the office if <70 or > 200. Take medications (pills or insulin) as directed. Monitor for s/s of low blood sugar (sweaty, dizziness, nausea, vomiting, or shakiness). Watch for increase thirst, urination, and appetite as these can be signs of high blood sugar. Inspect your feet frequently monitor for open wounds, wear proper fitting shoes as well. Pt should attempt to remain as physical active as chronic conditions allow, as well as trying to follow a diet lower in carbohydrates, and simple sugars. current meds:farxiga, metformin, lavern, statin, farxiga free style josue a1c: 8.0% 07/02/25 6.3% 01/13 Please check blood pressure daily and record DASH diet Limit caffeine Take medication as directed Contact office if chest pain, pressures, dizziness, shortness of breath, swelling in the legs Recommend slow position changes if you develop dizziness with position changes current med: lisinopril on statin and fenofibrate check labs yearly and prn dose changes continue with lexapro Discussed with patient their BMI (actual vs recommended). We have discussed lifestyle modifications: attempts to perform phsyical activity as chronic conditions allow, monitor dietary intake: increasing protein/fruits/veggies and lowering carb intake (unless contraindicated). Limit sodas, juices, sugary drinks, as well as alcohol consumption. taking supplements check labs taking supplement check labs Author [facility] SpringfieldAuthoredSeptember 2024 9:24amCheck blood sugars daily, notify the office if <70 or > 200. Take medications (pills or insulin) as directed. Monitor for s/s of low blood sugar (sweaty, dizziness, nausea, vomiting, or shakiness). Watch for increase thirst, urination, and appetite as these can be signs of high blood sugar. Inspect your feet frequently monitor for open wounds, wear proper fitting shoes as well. Pt should attempt to remain as physical active as chronic conditions allow, as well as trying to follow a diet lower in carbohydrates, and simple sugars. current meds:farxiga, metformin, lavern, statin, increase dose on farxiga to 10mg daily try to add free style josue 3 a1c: 8.0% 07/02/25 6.3% 01/13 Please check blood pressure daily and record DASH diet Limit caffeine Take medication as directed Contact office if chest pain, pressures, dizziness, shortness of breath, swelling in the legs Recommend slow position changes if you develop dizziness with position changes current med: lisinopril on statin and fenofibrate check labs yearly and prn dose changes continue with lexapro continue with lexapro, no changes needed Future Tests Future scheduled test information is unavailable Pending Tests Test Name Ordered Date Scheduled Date Comprehensive Metabolic Panel September 16 7:02am Future Visits Future appointment information is unavailable Future Procedures Procedure Name Ordered Date Scheduled Date Dipstick and Microscopic September 16, 2025 7:0 2am Vitamin H06Bguydutj 2024 7:02amComplete Blood Count Auto DiffNovember 2024 7:02amIron and TIBC ProfileNovember 2024 7:02amFerritinNovember 2024 7:02amLipid PanelNovember 2024 7:02amFree T4 (Free Thyroxine) September 16, 2025 7:02amTransferrinNov2024 7:02amThyroid Stimulating HormoneNov2024 7:02amVitamin D 25 Hydroxy TotalNov2024 7:02amAMB POC Ur Microalb/Creat RatNov2024 7:02am Future Medications Future medication information is unavailable Patient Instructions Patient instructions are unavailable
--- OUTSIDE RECORDS SUMMARY | 2025-09-19 09:05 | XMS_ITS | CCD ---
Author Organization [facility] CliniSyky Care Team Providers Care Checkering Machine Adjuster Name Role Phone Demarco Cabral Attending Unavailable [...] RASHAWN, DR MIKALA Prasad Primary Care Unavailable WELLFLEET, DR LANCE Millard Consulting Unavailable HIGHLAAKASH, KALEY Consulting Unavailable MOROCHO, DR MIKALA Prasad Primary Care Unavailable HIGHLANDER, KALEY Admitting Unavailable HIGHLANDER, PETER Attending Unavailable TREVOR, DR ANGIE Obregon Consulting Unavailable HIGHLANDER, KALEY Consulting Unavailable MARYAM, MAURY Admitting Unavailable MARYAM, MAURY Attending Unavailable MOROCHO, DR MIKALA Prasad Primary Care Unavailable TREVOR, DR ANGIE Obregon Consulting Unavailable MARYAM, MAURY Consulting Unavailable MD Mikala Morocho Primary Care Provider [phone] GARRETT Hagen Emergency Provider [phone] Mikala Morocho Unavailable Carlton Hagen Attending Unavailable Carlton Hagen Admhoracio Unavailable Mikala Morocho Primary Care Unavailable Selina SYSTEM CONSULTANT, Michelle Unavailable Justin Ahmadi MD Primary Care Provider MICHELLE MARKS Attending Unavailable MICHELLE MARKS Attending Unavailable MICHELLE MARKS Attending Unavailable MICHELLE MARKS Attending Unavailable MICHELLE MARKS Attending Unavailable Michelle Joseph Primary Care Provider [phone] Michelle Joseph Attending Provider [phone] Michelle Marks NP Unavailable Justin Ahmadi MD Primary Care Provider Allergies Allergy ClassificationReported Allergen(s)Allergy TypeDate of OnsetReaction(s) Facility (1 source)patient allergy list reviewed by nurse or physiciaPropensity to adverse pptfapgbf25-78-4515Nypgsym:[employer] Other (1 source)Allergies ReconciledPropensity to adverse reactionsWabash County HospitalRadar Mobile Studios Other Medications Current Medications MedicationDrug Class(es)DatesSig (Normalized)Sig (Original)atorvastatin 80 mg oral tablet (20 sources)HMG-CoA Reductase InhibitorStart: 07-02-2025 End: 31-59-4440ijlo 1 tablet by mouth once daily in the eveningAtorvastatin 80 mg tablet Active 80 MG PO Every evening July 02, 2025 10:10am Complies with drug therapyStart: 12-05-2024 End: 24-74-7424fvux 1 tablet by mouth at bedtimeatorvastatin (Lipitor) 80 MG tablet Indications: Elevated triglycerides with high cholesterol , Mixed hyperlipidemia Take 1 tablet (80 mg) by mouth at bedtime 90 tablet 1 03/05/2025 ActiveStart: 09-22-2024 End: 00-45-4655ltgv 1 tablet by mouth at bedtimeatorvastatin (Lipitor) 40 MG tablet Indications: Mixed hyperlipidemia (CMS/HCC) Take 1 tablet (40 mg) by mouth at bedtime 90 tablet 10/20/2024 12/05/2024 Discontinued (Ineffective) Start: 06-02-2024 End: 61-14-7406zrxa 1 tablet by mouth once dailyatorvastatin (Lipitor) 20 MG tablet Indications: Mixed hyperlipidemia (CMS/HCC) Take 1 tablet (20 mg) by mouth Daily 90 tablet 1 08/26/2024 09/22/2024 Discontinued (Ineffective)Blood Glucose Monitoring Suppl (Blood Glucose Monitor System) w/Device kit (18 sources)Start: 12-10-2024 End: 10-95-3131Zpzxu Glucose Monitoring Suppl (Blood Glucose Monitor System) w/Device kit Indications: Type 2 diabetes mellitus without complication, without long-term current use of insulin (HCC) Use daily or as directed for monitoring of diabetes. 1 kit 12/10/2024 12/10/2025 ActiveStart: 12-10-2024 End: 90-60-3456Pjfer Glucose Monitoring Suppl (Blood Glucose Monitor System) w/Device kit Indications: Type 2 diabetes mellitus without complication, without long-term current use of insulin Use daily or as directed for monitoring of diabetes. 1 kit 12/10/2024 12/10/2025 ActiveStart: 12-10-2024 End: 94-13-6617Jgspr Glucose Monitoring Suppl (Blood Glucose Monitor System) w/Device kit Indications: Type 2 diabetes mellitus without complication, without long-term current use of insulin (CMS/HCC) Use daily or as directed for monitoring of diabetes. 1 kit 12/10/2024 12/10/2025 ActiveBlood-Glucose Sensor (Freestyle Josue 3 Plus Sensor) device (1 source)Start: 28-30-6710Sumzq-Glucose Sensor (Freestyle Josue 3 Plus Sensor) device Active 0 .Route 2 July 02, 2025 12:00am As directed, change sensor every 14 15 -dayscholecalciferol 0.125 mg oral tablet (16 sources)Vitamin DStart: 70-98-6751mxpr 1 tablet by mouth once daily Cholecalciferol (Vitamin D3) 125 mcg (5,000 unit) tablet Active 125 MCG PO Daily July 02, 2025 12:00am Complies with drug therapyStart: 12-29-2024 End: 26-28-3587tefb 1 capsule by mouth once dailycholecalciferol (CVS D3) 125 MCG (5000 UT) capsule Indications: Vitamin D deficiency, unspecified Take 1 capsule (125 mcg) by mouth Daily 30 capsule 2 04/23/2025 05/23/2025 Active dapagliflozin 10 mg oral tablet (20 sources)Sodium-Glucose Cotransporter 2 InhibitorStart: 54-18-7553jmzx 1 tablet by mouth once daily in the morningDapagliflozin Propanediol (Farxiga) 10 mg tablet Active 10 MG PO Every morning July 02, 2025 12:00am Complies with drug therapyStart: 07-02-2025 End: 04-99-7891yyvr 1 tablet by mouth once dailyDapagliflozin Propanediol (Farxiga) 5 mg tablet Discontinued 5 MG PO Daily July 02, 2025 12:00am July 02, 2025 10:11amStart: 04-11-2024 End: 39-49-0206sfag 1 tablet by mouth once dailydapagliflozin (Farxiga) 5 MG Indications: Type 2 diabetes mellitus without complication, without long-term current use of insulin (HCC) Take 1 tablet (5 mg) by mouth Daily 90 tablet 1 03/11/2025 Activeescitalopram 20 mg oral tablet (20 sources)Serotonin Reuptake InhibitorStart: 07-02-2025 End: 50-24-7636djuy 1 tablet by mouth once dailyEscitalopram Oxalate (Lexapro) 20 mg tablet Active 20 MG PO Daily July 02, 2025 10:12am Complies with drug therapyStart: 06-02-2024 End: 79-98-7920mlzu 1 tablet by mouth once dailyescitalopram (Lexapro) 20 MG tablet Indications: Anxiety disorder, unspecified , Anxiety state Take1 tablet (20 mg) by mouth Daily 90 tablet 1 12/05/2024 ActiveStart: 02-21-2023 End: 66-11-4623yfev 1 tablet by mouth once dailyEscitalopram Oxalate (Lexapro) 10 mg Tablet Discontinued 10 MG PO Daily February 21, 2023 12:00am July 02, 2025 7:07amferrous sulfate 325 mg oral tablet (10 sources)Start: 81-48-3174gnmz 1 tablet by mouth once dailyFerrous Sulfate 325 mg (65 mg iron) tablet Active 325 MG PO Daily July 02, 2025 12:00am Complies with drug therapyStart: 06-12-2025 End: 69-91-7530omqv 1 tablet by mouth at mealtimeferrous sulfate 325 (65 Fe) MG EC tablet Indications: Iron deficiency Take 1 tablet (325 mg) by mouth in the morning. Take with meals. Do not crush, chew, or split. 30 tablet 2 06/12/2025 07/12/2025 ActiveStart: 12-29-2024 End: 50-52-6158nepg 1 tablet by mouth at mealtimeferrous sulfate (Fe Tabs) 325 (65 Fe) MG EC tablet Indications: Iron deficiency Take 1 tablet (325 mg) by mouth in the morning. Take with meals. Do not crush, chew, or split.. 30 tablet 2 01/20/2025 02/19/2025 Activelisinopril 20 mg oral tablet (20 sources)Angiotensin Converting Enzyme InhibitorStart: 07-02-2025 End: 02-24-2173mveg 1 tablet by mouth once dailyLisinopril 20 mg tablet Active 20 MG PO Daily 90 July 02, 2025 10:10am Complies with drug therapyStart: 03-18-2024 End: 34-84-6386jybi 1 tablet by mouth in the morninglisinopril 20 MG tablet Indications: Primary hypertension Take 1 tablet (20 mg) by mouth in the morning. 90 tablet 1 03/11/2025 Activemecobalamin 1 mg sublingual tablet (1 source)Start: 21-58-8670Zjdbfhgekfh (Vitamin B12) 1,000 mcg tablet,disintegrating Active 1000 MCG SUBLINGUAL Daily July 02, 2025 12:00am place tablet under tongue and allow to dissolve for at least30 secs before swallowing Complies with drug therapymetFORMIN hydrochloride 1000 mg oral tablet (20 sources)BiguanideStart: 06-08-2025 End: 19-12-4585jxbm 1 tablet by mouth twice dailyMetformin 1,000 mg tablet Active 1000 MG PO Twice daily 180 July 02, 2025 10:12am Complies with drug therapyStart: 02-21-2023 End: 86-51-1604yjil 1 tablet by mouth in the morningmetFORMIN (Glucophage) 1000 MG tablet Indications: Type 2 diabetes mellitus without complications (HCC) Take 1 tablet (1,000 mg) by mouth in the morning and 1 tablet (1,000 mg) in the evening. Take with meals. 180 tablet 1 08/26/2024 Activesemaglutide (Ozempic, 1 MG/DOSE,) 4 MG/3ML solution pen-injector (13 sources)Start: 12-10-2024 End: 77-21-0701epdgvwnjkbt (Ozempic, 1 MG/DOSE,) 4 MG/3ML solution pen-injector Indications: Type 2 diabetes mellitus without complication, without long-term current use of insulin Inject 1 mg under the skin every 7 (seven) days for 28 days 3 mL 3 12/10/2024 03/11/2025 Discontinued (Side effects)Start: 12-10-2024 semaglutide (Ozempic, 1 MG/DOSE,) 4 MG/3ML solution pen-injector Indications: Type 2 diabetes mellitus without complication, without long-term current use of insulin Inject 1 mg under the skin every 7 (seven) days for 28 days 3 mL 3 12/10/2024 ActiveStart: 12-10-2024 End: 46-40-7229nsywszsahtp (Ozempic, 1 MG/DOSE,) 4 MG/3ML solution pen-injector Indications: Type 2 diabetes mellitus without complication, without long-term current use of insulin (CMS/HCC) Inject 1 mg under the skin every 7 (seven) days for 28 days 3 mL 3 12/10/2024 01/07/2025 ActiveSemaglutide,0.25 or 0.5MG/DOS, (Ozempic, 0.25 or 0.5 MG/DOSE,) 2 MG/3ML solution pen-injector (20 sources)Start: 10-16-2024 End: 23-36-6500Efynvswevdz,0.25 or 0.5MG/DOS, (Ozempic, 0.25 or 0.5 MG/DOSE,) 2 MG/3ML solution pen-injector Indications: Type 2 diabetes mellitus without complication, without long-term current use of insulin (CMS/HCC) Inject 0.5 mg under the skin every 7 (seven) days 9 mL 1 10/16/2024 12/10/2024 Discontinued (Ineffective)Start: 10-16-2024 End: 67-95-1144Bwohevnpbcj,0.25 or 0.5MG/DOS, (Ozempic, 0.25 or 0.5 MG/DOSE,) 2 MG/3ML solution pen-injector Indications: Type 2 diabetes mellitus without complication, without long-term current use of insulin (CMS/HCC) Inject 0.5 mg under the skin every 7 (seven) days 9 mL 1 10/16/2024 01/08/2025 ActiveStart: 08-26-2024 End: 79-68-0849Taonjlthiyd,0.25 or 0.5MG/DOS, (Ozempic, 0.25 or 0.5 MG/DOSE,) 2 MG/3ML solution pen-injector Indications: Type 2 diabetes mellitus without complication, without long-term current use of insulin (CMS/HCC) Inject 0.5 mg under the skin every 7 (seven) days 3 mL 1 08/26/2024 10/16/2024 Discontinued (Reorder)Start: 08-26-2024 End: 33-53-3338Ywzhqpyaznn,0.25 or 0.5MG/DOS, (Ozempic, 0.25 or 0.5 MG/DOSE,) 2 MG/3ML solution pen-injector Indications: Type 2 diabetes mellitus without complication, without long-term current use of insulin (CMS/HCC) Inject 0.5 mg under the skin every 7 (seven) days 3 mL 1 08/26/2024 09/25/2024 ActiveStart: 08-13-2024 End: 75-01-1478Miuobbknted,0.25 or 0.5MG/DOS, (Ozempic, 0.25 or 0.5 MG/DOSE,) 2 MG/3ML solution pen-injector Indications: Type 2 diabetes mellitus without complication, without long-term current use of insulin (CMS/HCC) Inject 0.5 mg under the skin every 7 (seven) days 3 mL 1 08/13/2024 08/26/2024 Discontinued (Reorder)Start: 08-13-2024 End: 85-37-1653Akhjqwdyqhj,0.25 or 0.5MG/DOS, (Ozempic, 0.25 or 0.5 MG/DOSE,) 2 MG/3ML solution pen-injector Indications: Type 2 diabetes mellitus without complication, without long-term current use of insulin (CMS/HCC) Inject 0.5 mg under the skin every 7 (seven) days 3 mL 1 08/13/2024 09/12/2024 ActiveStart: 06-02-2024 End: 52-85-0017ncskly 0.25 mg by subcutaneous injection every week, then inject 0.25 mg by subcutaneous injection every week, then inject 0.5 mg by subcutaneous injection every weekSemaglutide,0.25 or 0.5MG/DOS, (Ozempic, 0.25 or 0.5 MG/DOSE,) 2 MG/3ML solution pen-injector Indications: Type 2 diabetes mellitus without complication, without long-term current use of insulin (CMS/HCC) Inject 0.25 mg under the skin 1 (one) time per week for 28 days Start with 0.25mg once a week for 4 weeks, then increase to 0.5mg once a week 3 mL 1 06/02/2024 08/13/2024 DiscontinuedStart: 43-68-7779xlvube 0.25 mg by subcutaneous injection every week, then inject 0.25 mg by subcutaneous injection every week, then inject 0.5 mg by subcutaneous injection every weekSemaglutide,0.25 or 0.5MG/DOS, (Ozempic, 0.25 or 0.5 MG/DOSE,) 2 MG/3ML solution pen-injector Indications: Type 2 diabetes mellitus without complication, without long-term current use of insulin (CMS/HCC) Inject 0.25 mg under the skin 1 (one) time per week for 28 days Start with 0.25mg once a week for 4 weeks, then increase to 0.5mg once a week 3 mL 1 06/02/2024 ActiveStart: 06-02-2024 End: 35-06-8578zoobkc 0.25 mg by subcutaneous injection every week, then inject 0.25 mg by subcutaneous injection every week, then inject 0.5 mg by subcutaneous injection every weekSemaglutide,0.25 or 0.5MG/DOS, (Ozempic, 0.25 or 0.5 MG/DOSE,) 2 MG/3ML solution pen-injector Indications: Type 2 diabetes mellitus without complication, without long-term current use of insulin (CMS/HCC) Inject 0.25 mg under the skin 1 (one) time per week for 28 days Start with 0.25mg once a week for 4 weeks, then increase to 0.5mg once a week 3 mL 1 06/02/2024 06/30/2024 ActivetiZANidine 4 mg oral tablet (2 sources)Central alpha-2 Adrenergic Agonisttake 1 tablet by mouth every eight hourstiZANidine HCl 4 MG 1 tablet as needed Orally Three times a day for 10 days Activevitamin b12 1 mg oral tablet (15 sources)Vitamin Z93Ikrje: 12-29-2024 End: 91-19-0527aauf 1 tablet by mouth once dailycyanocobalamin (CVS Vitamin B12) 1000 MCG tablet Indications: Deficiency of other specified B groupvitamins Take 1 tablet (1,000 mcg) by mouth Daily 30 tablet 2 04/23/2025 05/23/2025 Active Completed/Discontinued Medications MedicationDrug Class(es)DatesSig (Normalized)Sig (Original)azithromycin 250 mg oral tablet (3 sources)Macrolide AntimicrobialStart: 73-62-4556Rhhwhezglpws 250 MG as directed Orally 2 tabs po today, then 1 tab daily x 4 more days for 5 Oct, Not-Takingciprofloxacin 3 mg/ml ophthalmic solution (3 sources)Quinolone AntimicrobialStart: 60-11-3276Pfapinvitjjwd HCl 0.3 % 1 application into the lower eyelid of affected eye Ophthalmic tid for 5 day(s) Oct, Not-Takingfenofibrate 145 mg oral tablet (14 sources)Peroxisome Proliferator Receptor alpha AgonistStart: 02-18-2025 End: 60-87-5925exbf 1 tablet by mouth once dailyFenofibrate Nanocrystallized (Tricor) 145 mg tablet Discontinued 145 MG PO Daily July 02, 2025 12:00am July 02, 2025 10:13am Problems Active Problems Problem ClassificationProblemDateDocumented DateEpisodic/ChronicAcquired foot deformities (4 sources)Disorder of ankle; Translations: [Valgus deformity, not elsewhere classified, right ankle]EpisodicAnxiety disorders (14 sources)Anxiety; Translations: [Anxiety disorder, unspecified]02-21-2023 ChronicComment on above:Problem List clean-up per request of Phys. EHR Cmte Diabetes mellitus with complications (11 sources)Type 2 diabetes mellitus; Translations: [Type 2 diabetes mellitus with other specified complication]Onset: 720578-16-7095BzjmmusCurjrgvy mellitus without complication (20 sources)Type 2 diabetes mellitus without complication; Translations: [Diabetes mellitus without mention of complication, type II or unspecified type, not stated as uncontrolled]Onset: 03-19-2019 Resolved: 057486-58-5218TokwdwzUsxmnkrlg of lipid metabolism (20 sources)Mixed hyperlipidemia; Translations: [Mixed hyperlipidemia]Onset: 253159-01-1518RkloxffFdgednxxrq disorders (20 sources)Gastroesophageal reflux disease; Translations: [Gastro-esophageal reflux disease without esophagitis]Onset: 422673-49-6985XfenhndAefmvglqg hypertension (20 sources)Essential hypertension; Translations: [Essential (primary) hypertension]Onset: 233986-56-5457JgqvgptHavll of unknown origin (1 source)Fever; Translations: [Fever, unspecified]EpisodicMalaise and fatigue (2 sources)Fatigue; Translations: [Other fatigue]Onset: 75-76-6085KxaztbapYpto disorders (1 source)Moderate recurrent major depression; Translations: [Major depressive disorder, recurrent, moderate]Onset: 51-83-0632HxaisxrLqxziamrxyu chest pain (4 sources)Atypical chest pain; Translations: [Other chest pain]Onset: 794275-85-2361KfcavzgwYldixdg on above:Problem List clean-up per request of Phys. EHR CmteNutritional deficiencies (20 sources)Vitamin D deficiency; Translations: [Vitamin D deficiency, unspecified]Onset: 185816-34-1078BmumvvhYlvdw acquired deformities (1 source)Joint contracture of the ankle and/or foot; Translations: [Contracture, right ankle]ChronicOther bone disease and musculoskeletal deformities (1 source)Idiopathic scoliosis AND/OR kyphoscoliosis; Translations: [Scoliosis (and kyphoscoliosis), idiopathic]Onset: 68-50-6451BiqinzePdfrk congenital anomalies (20 sources)Congenital pes planus; Translations: [Congenital pes planus, unspecified foot]Onset: 430804-46-5691OoonlsoDjyte congenital anomalies (1 source)Congenital bilateral pes planus; Translations: [Congenital pes planus, right foot]79-85-1711QhascodEpics connective tissue disease (4 sources)Pain in right foot; Translations: [PAIN IN RIGHT FOOT]Onset: 37-15-1080GvbfiifbQcgvw connective tissue disease (1 source)Tibialis tendinitis; Translations: [Posterior tibial tendinitis, right leg]EpisodicOther connective tissue disease (1 source)Tendon contracture; Translations: [Short Achilles tendon (acquired), right ankle]EpisodicOther hereditary and degenerative nervous system conditions (1 source)Restless legs; Translations: [Restless legs syndrome [RLS]]Onset: 13-22-4642WlqcoolWbgcw inflammatory condition of skin (1 source)Itching of skin; Translations: [Pruritus, unspecified]EpisodicOther nutritional; endocrine; and metabolic disorders (20 sources)Body mass index 30+ - obesity; Translations: [Body mass index (BMI) 35.0-35.9, adult]Onset: 01-17-2024 Resolved: 425969-24-1784RddpdbpImylg nutritional; endocrine; and metabolic disorders (20 sources)Obesity caused by energy imbalance; Translations: [Morbid (severe) obesity due to excess calories]Onset: 685821-46-2197CbtvqmqRiukj nutritional; endocrine; and metabolic disorders (2 sources)Morbid obesity; Translations: [Morbid (severe) obesity due to excess calories]83-06-9010EfuowmdUsefs upper respiratory disease (1 source)Allergic rhinitis; Translations: [Allergic rhinitis, unspecified] Onset: 61-52-4281TiibekqOdevk upper respiratory infections (1 source)Chronic sinusitis; Translations: [Chronic sinusitis, unspecified] ChronicSpondylosis; intervertebral disc disorders; other back problems (1 source)Radiculopathy, cervical regionEpisodicSprains and strains (1 source)Late effect of sprain AND/OR strain without tendon injury; Translations: [Other sprain of right foot, sequela]Episodic Past or Other Problems Problem ClassificationProblemDateDocumented DateEpisodic/ChronicAbdominal pain (20 sources)Generalized abdominal pain; Translations: [Generalized abdominal pain]Onset: 660509-84-5643XbgxkefdHrydwzel mellitus without complication (1 source)Hyperglycemia; Translations: [Hyperglycemia, unspecified]Onset: 54-29-6538XkmediyxQysn disorders (1 source)Mood disordersNutritional deficiencies (20 sources)Vitamin deficiency; Translations: [Vitamin deficiency, unspecified] Onset: 826127-60-1046QkexnedvUipyr acquired deformities (1 source)Acquired deformity of ankle AND/OR foot; Translations: [Other acquired deformity of ankle and foot]Onset: 14-23-4394ZuhwniyqXryzj connective tissue disease (20 sources)Pain in right foot; Translations: [Pain in right foot]Onset: 389579-01-6324ZslglkloHwabr connective tissue disease (20 sources)Pain in bilateral legs; Translations: [Pain in right leg]Onset: 924150-44-1200UmjirkedIkeii ear and sense organ disorders (11 sources)Subjective tinnitus of right ear; Translations: [Tinnitus, right ear]Onset: 814408-15-6228JzvteaqwOhpxl ear and sense organ disorders (8 sources)Tinnitus; Translations: [Tinnitus, right ear]Onset: 03-11-2025 Resolved: 840784-78-8392QpjnrmftKhpky upper respiratory infections (20 sources)Acute maxillary sinusitis, unspecified; Translations: [Acute sinusitis]Onset: 11-19-2023 Resolved: 44-70-3477TikgcarzQnfwwt media and related conditions (1 source)Non-suppurative otitis media; Translations: [Unspecified nonsuppurative otitis media, bilateral]Onset: 08-38-5336Tqgmslrz Results Test NameValueInterpretationReference RangeFacilityHMHP IRONon 35-68-6830VIE IRON92 ug/dL50.0 - 170.0 ug/dLNOAK HealthcareCLINISYNCNOMS HealthcareALL LIPID PROFILE (FASTING)on 27-39-7224DOFJ HDL RATIO4.3NOAK HealthcareComment on above: 3.3 - 4.4 LOW RISK 4.4 - 7.1 AVERAGE RISK 7.1 - 11.0 MODERATE RISK >11.0 HIGH RISK Cholesterol [Mass/Vol]156 mg/dLNINF - 200 mg/dLNOAK HealthcareCholesterol in HDL [Mass/Vol]36 mg/dLLow40 - 60 mg/dLNOAK HealthcareComment on above:> or =60 mg/dl - LOW CARDIOVASCULAR RISK <40 mg/dl - HIGH CARDIOVASCULAR RISK Interpretation and review of laboratory resultsAbnormalNOAK HealthcareMagnesium [Mass/Vol]62 mg/dLNOAK HealthcareComment on above:<100 mg/dl OPTIMAL 100-129 mg/dl NEAR OR ABOVE OPTIMAL 130-159 mg/dl BORDERLINE HIGH 160-189 mg/dl HIGH >190 mg/dl VERY HIGH Magnesium [Mass/Vol]58.8 mg/dLNOAK HealthcareTriglyceride [Mass/Vol]294 mg/dL HighNINF - 150 mg/dLSaint [facility] Bj 92-15-2940WZX [Catalytic activity/Vol]29 U/L14 - 59 U/LNOMS [facility] Sunday 77-80-7898TCX [Catalytic activity/Vol]17 U/L15 - 37 U/LNOMS HealthcareNo Panel Informationon 02-18-2025 CL[facility]YBaptist [facility] Hospital-MemphisALL THYROXINE (T4) FREEon 18-70-7156Ttli T4 [Mass/Vol] 0.83 ng/dL0.76 - 1.46 ng/dLResearch Medical CenterCLINISYNFormerly [facility] LIPID PROFILE (FASTING)on 61-53-3579IPRB HDL RATIO5.1NOMS HealthcareComment on above: 3.3 - 4.4 LOW RISK 4.4 - 7.1 AVERAGE RISK 7.1 - 11.0 MODERATE RISK >11.0 HIGH RISK Cholesterol [Mass/Vol]182 mg/dLNINF - 200 mg/dLResearch Medical CenterCholesterol in HDL [Mass/Vol]36 mg/dLLow40 - 60 mg/dLNOAK HealthcareComment on above:> or =60 mg/dl - LOW CARDIOVASCULAR RISK <40 mg/dl - HIGH CARDIOVASCULAR RISK Interpretation and review of laboratory resultsAbnormalSEVIER VALLEY [facility]ITAL HealthcareMagnesium [Mass/Vol]78 mg/dLNOAK HealthcareComment on above:<100 mg/dl OPTIMAL 100-129 mg/dl NEAR OR ABOVE OPTIMAL 130-159 mg/dl BORDERLINE HIGH 160-189 mg/dl HIGH >190 mg/dl VERY HIGH Magnesium [Mass/Vol]68.2 mg/dLSEVIER VALLEY HOSPITAL HealthcareTriglyceride [Mass/Vol]341 mg/dL HighNINF - 150 mg/dLMemorial Medical Center 52-40-9009FAX [Catalytic activity/Vol]45 U/L14 - 59 U/LNBarnes-[facility] Sunday 32-20-4407BYE [Catalytic activity/Vol]31 U/L15 - 37 U/LNOMS HealthcareNo Panel Informationon 11-29-2024 CLINISYBaptist [facility] Hospital-MemphisALL CBC WITH AUTO DIFFon 88-79-5533ETYGGOVZD ABSOLUTE SZIL5SVLX HealthcareBasophils/100 WBC (Bld)0.4 %0.2 - 2.0 %[facility] Healthcare Eosinophils/100 WBC (Bld)1.7 %0.9 - 7.0 %[facility] HealthcareErythrocyte distribution width (RBC) [Ratio]13.6 %11.0 - 15.0 %NOM HealthcareHematocrit (Bld) [Volume fraction]42.9 %36.0 - 48.0 %NOMMadison Medical CenterHemoglobin (Bld) [Mass/Vol]13.9 g/dL 12.0 - 16.0 g/dLResearch Medical CenterIMMATURE GRANULOCYTES ABS AUTO0.06HighNOAK HealthcareImmature granulocytes/100 WBC (Bld)0.6 %High0.0 - 0.5 %[facility] Interpretation and review of laboratory resultsAbnormalNOHedrick Medical Center LYMPHOCYTES ABSOLUTE AUTO3.3NOHedrick Medical CenterLymphocytes/100 WBC (Bld)33.4 %20.5 - 60.0 %[facility] CenterH (RBC) [Entitic mass]29.2 pg26.7 - 34.0 pgResearch Medical CenterMCHC (RBC) [Mass/Vol]32.4 g/dL29.9 - 35.2 g/dLResearch Medical CenterMCV (RBC) [Entitic vol]90.1 fL81.0 - 99.0 fLResearch Medical CenterMONOCYTES ABSOLUTE AUTO0.7NOMS HealthcareMonocytes/100 WBC (Bld)6.7 %1.7 - 12.0 %NOMMadison Medical CenterNEUTROPHILS ABSOLUTE AUTO5.6NOMS HealthcareNeutrophils/100 WBC (Bld)57.2 %43.0 - 75.0 %Research Medical CenterPlatelet mean volume (Bld) [Entitic vol]10.6 fL9.5 - 13.5 fLNOHedrick Medical CenterTBH EO #0.2NOMS HealthcareTBH [id number] [facility] HospitalTBH RBC4.76NOMS [facility] HospitalTBH WBC9.8NOAK HealthcareCLINISYNCNOMS HealthcareXR FOOT RT MIN 3Von 99-31-3967[address] [address] XRay Report Signed Patient: JASE LOJA MR#: [id number] : 2000 Acct:[id number] Age/Sex: 24 / F ADM Date: 06/02/24 Loc: LAB Attending Dr: Michelle Marks NP Ordering Physician: Michelle Marks NP Date of Service: 06/02/24 Procedure(s): XR foot RT min 3V Accession Number(s): [id number] cc: Michelle Marks NP The [place] [id number] Patient Name: JASE LOJA MRN: [id number] date: 2000 Sex: F Assigned Patient Location: LAB Current Patient Location: Accession/Order Number: [id number] Exam Date: 06/02/2024 14:58 Report Date: 06/04/2024 [...] Vasquez M.D. Signed By: 06/04/24 0738 DD/ 0735 TD/TT: Grain Shoveler:TBHRadiology, Radiologist, MD - 06/04/[address] [address] XRay Report Signed Patient: JASE LOJA MR#: [id number] : 2000 Acct:[id number] Age/Sex: 24 / F ADM Date: 06/02/24 Loc: LAB Attending Dr: Michelle Marks NP Ordering Physician: Michelle Marks NP Date of Service: 06/02/24 Procedure(s): XR foot RT min 3V Accession Number(s): [id number] cc: Michelle Marks NP [place] [id number] Patient Name: JASE LOJA MRN: [id number] date: 2000 Sex: F Assigned Patient Location: LAB Current Patient Location: Accession/Order Number: [id number] Exam Date: 06/02/2024 14:58 Report Date: 06/04/2024 [...] Dictated By: Lance Vasquez M.D. Signed By: 06/04/2438 DD/ TD/TT: Grain Shoveler: JONATHON HealthcareRadiology Study observation (narrative)[facility] HealthcareXR FOOT RT MIN 3VOrdered By: Radiologist Radiology on 82-11-1878VCPHResearch Medical Center Work Phone: Activated partial thromboplastin time (aPTT) in platelet poor plasma by coagulation aOrdered By: Carlton Hagen on 02-21-2023 aPTT Coag (PPP) [Time]28.7 s25.1-36.5FPremier HealthAutomated basophil %Ordered By: Carlton Hagen on 81-93-2599Yvrgwhjlu/100 WBC (Bld)0.4 % Normal.[facility] HospitalComment on above:Performed By: #### BMP, CK, DDIMER, CBC, PTT, PT, HS TROP #### [facility] [address] [place] [address] USAAutomated basophil countOrdered By: Carlton Hagen on 25-17-7019Qnomxsuah (Bld) [#/Vol]0.0 10*3/uLNormal0.0-0.2FPremier HealthComment on above:Result Comment: PERFORMED BY: [place] [address] PATHOLOGIST TEST LEAD PAU MENON M.D.Performed By: #### BMP, CK, DDIMER, CBC, PTT, PT, HS TROP #### [place] [address] USAAutomated blood monocyte countOrdered By: Carlton Hagen on 46-65-9793Gnlkzoeqo (Bld) [#/Vol]0.3 10*3/uLNormal0.0-0.8[facility] HospitalComment on above:Performed By: #### BMP, CK, DDIMER, CBC, PTT, PT, HS TROP #### [place] [address] USAAutomated eosinophil %Ordered By: Carlton Hagen on 80-60-4029Eyjmjcyqgpk/100 WBC (Bld)0.4 %Normal.[facility] Comment on above:Performed By: #### BMP, CK, DDIMER, CBC, PTT, PT, HS TROP #### [place] [address] USAAutomated eosinophil countOrdered By: Carlton Hagen on 48-56-1691Glrlnqgxbxb (Bld) [#/Vol]0.0 10*3/uLNormal0.0-0.45[facility] HospitalComment on above:Performed By: #### BMP, CK, DDIMER, CBC, PTT, PT, HS TROP #### [place] [address] USAAutomated monocyte %Ordered By: Carlton Hagen on 94-45-6659Kvnkukrce/100 WBC (Bld)4.4 %Normal.[facility] Comment on above:Performed By: #### BMP, CK, DDIMER, CBC, PTT, PT, HS TROP #### [facility] [address] [place] [address] USAAutomated neutrophil %Ordered By: Cralton Hagen on 09-71-8795Cuhdfqswtnp/100 WBC (Bld)76.0 %Normal.[facility] HospitalComment on above:Performed By: #### BMP, CK, DDIMER, CBC, PTT, PT, HS TROP #### [facility] [address] [place] [address] USABasic Metabolic Panelon 30-93-0707Adeld gap [Moles/Vol] 15.3 mmol/LHigh6.0-15.0[facility] HospitalComment on above: Performed By: #### BMP, CK, DDIMER, CBC, PTT, PT, HS TROP #### [facility] [address] [place] [address] USACalcium [Mass/Vol]9.3 mg/dLNormal8.6-10.3FPremier HealthComment on above:Performed By: #### BMP, CK, DDIMER, CBC, PTT, PT, HS TROP #### [facility] [address] [place] [address] USAChloride [Moles/Vol]102 mmol/XRipapj67-182HlnbbrsneDunlap Memorial HospitalComment on above:Performed By: #### BMP, CK, DDIMER, CBC, PTT, PT, HS TROP #### [facility] [address] [place] [address] USACO2 [Moles/Vol]23.6 mmol/NJftxpp24.0-31.0[facility] HospitalComment on above:Performed By: #### BMP, CK, DDIMER, CBC, PTT, PT, HS TROP #### [facility] [address] [place] [address] USACreatinine [Mass/Vol]0.69 mg/dLNormal0.60-1.20[facility] HospitalComment on above:Performed By: #### BMP, CK, DDIMER, CBC, PTT, PT, HS TROP #### [facility] [address] [place] [address] USACreatinine Clr Calc Vdclejcx466.50NormCleveland Clinic Mercy HospitalComment on above:Result Comment: PERFORMED BY: [place] [address] PATHOLOGIST TEST LEAD PAU MENON M.D.Performed By: #### BMP, CK, DDIMER, CBC, PTT, PT, HS TROP #### [facility] [address] [place] [address] USAGFR/1.73 sq M.predicted MDRD (S/P/Bld) [Vol rate/Area] mL/min/{1.73_m2}NormalDunlap Memorial HospitalComment on above: Performed By: #### BMP, CK, DDIMER, CBC, PTT, PT, HS TROP #### [place] [address] USAGlucose [Mass/Vol]145 mg/yNBpqb92-523JevaeauolDunlap Memorial HospitalComment on above:Result Comment: Random Glucose Reference Range is dependent on time and content of last meal. Glucose of more than 200 mg/dL in a nonstressed, ambulatory subject supports the diagnosis of Diabetes Mellitus. ADA recommended reference rangePerformed By: #### BMP, CK, DDIMER, CBC, PTT, PT, HS TROP #### [place] [address] USAPotassium [Moles/Vol]3.9 mmol/LNormal3.5-5.1FPremier HealthComment on above:Performed By: #### BMP, CK, DDIMER, CBC, PTT, PT, HS TROP #### [place] [address] USASodium [Moles/Vol]137 mmol/OTrvcam159-795BvtioqarlDunlap Memorial HospitalComment on above:Performed By: #### BMP, CK, DDIMER, CBC, PTT, PT, HS TROP #### [place] [address] USAUrea nitrogen [Mass/Vol]15 mg/dLNormal7-25[facility] Memorial HospitalComment on above:Performed By: #### BMP, CK, DDIMER, CBC, PTT, PT, HS TROP #### [facility] [address] [place] [address] USACalcium [Mass/volume] in Serum or PlasmaOrdered By: Carlton Hagen on 04-66-7353Rpkgkdi [Mass/Vol]9.3 mg/dL8.6-10.3FPremier HealthCarbon dioxide, total [Moles/volume] in Serum or Plasma Ordered By: Carlton Hagen on 04-17-8821NM4 [Moles/Vol]23.6 mmol/L21.0-31.0 [facility] HospitalChloride [Moles/volume] in Serum or Plasma Ordered By: Carlton Hagen on 95-15-1659Hoasrrox [Moles/Vol]102 mmol/L98-107 [facility] HospitalComplete Blood Count Auto Diffon 42-29-5366Dfgv Corpuscular HGB Conc32.8 g/bSNyamhs84.0-35.0[facility] Comment on above:Performed By: #### BMP, CK, DDIMER, CBC, PTT, PT, HS TROP #### [facility] [address] [place] [address] USANRBC%0.2 /100{WBC}Normal0-0.5FPremier HealthComment on above:Performed By: #### BMP, CK, DDIMER, CBC, PTT, PT, HS TROP #### [facility] [address] [place] [address] USACreatine Kinaseon 62-03-2635ED [Catalytic activity/Vol]61 U/PTwnudp13-318OboxkidcsDunlap Memorial HospitalComment on above:Performed By: #### BMP, CK, DDIMER, CBC, PTT, PT, HS TROP #### [facility] [address] [place] [address] USACreatine kinase [Enzymatic activity/volume] in Serum or PlasmaOrdered By: Carlton Hagen on 35-27-9063RT [Catalytic activity/Vol]61 U/L [facility] HospitalCreatinine [Mass/volume] in Serum or PlasmaOrdered By: Carlton Hagen on 55-39-2146Eybnzjnsxh [Mass/Vol]0.69 mg/dL 0.60-1.20[facility] Memorial HospitalD-Dimer High Sensitivityon 02-21-2023 D-Dimer High Sensitivity< 619Bnbncf9-561WrtehcyjuDunlap Memorial HospitalComment on above:Result Comment: The reference range for D-dimer is [...] patients due to co-morbid conditions. PERFORMED BY: [place] [address] PATHOLOGIST TEST LEAD PAU MENON M.D.Performed By: #### BMP, CK, DDIMER, CBC, PTT, PT, HS TROP #### [place] [address] USAECG 12 lead ECGon 55-57-4013LQW 12 lead ECGSELECT [facility]ICAL [facility] [place] [address] [place] [address] Electrocardiograph Report Signed Patient: Jase Loja MR#: [id number] : 2000 Acct:[id number] Age/Sex: 23 / F ADM Date: 02/21/23 Loc: ER Room: Type: [facility] ER Attending Dr: Ordering Provider: [...] ECGs available Confirmed by DEMARCO LICONA MD ([id number]) on 02/21/2023 3:27:45 PM Referred By: Electronically Signed By:DEMARCO LICONA MD Transcribed By: MUS Signed By Demarco Licona MD 02/21/[address] [place], [place] [address]Erythrocyte distribution width [Ratio] by Automated countOrdered By: Carlton Hagen on 94-65-9526Ytvbudgdihq distribution width (RBC) [Ratio]13.6 %Qktyty13.9-15.3FPremier HealthComment on above:Performed By: #### BMP, CK, DDIMER, CBC, PTT, PT, HS TROP #### [facility] [address] [place] [address] USAErythrocytes [#/volume] in Blood by Automated countOrdered By: Carlton Hagen on 67-27-7092HMJ (Bld) [#/Vol]4.54 10*6/uLNormal3.60-5.00 [facility] HospitalComment on above:Performed By: #### BMP, CK, DDIMER, CBC, PTT, PT, HS TROP #### [facility] [address] [place] [address] USAGlucose [Mass/volume] in Serum or PlasmaOrdered By: Carlton Hagen on 34-57-1039Eiaqyca [Mass/Vol]145 mg/mM73-923McgppvzqpDunlap Memorial HospitalComment on above:ADA recommended reference rangeRandom Glucose Reference Range is dependent on time and content of last meal. Glucose of more than 200 mg/dL in a nonstressed, ambulatory subject supports the diagnosisof Diabetes Mellitus.Hematocrit [Volume Fraction] of Blood by Automated count Ordered By: Carlton Hagen on 19-73-3218Svhnnsprxh (Bld) [Volume fraction]38.7 % Xfofbp65.0-46.4FPremier HealthComment on above:Performed By: #### BMP, CK, DDIMER, CBC, PTT, PT, HS TROP #### [facility] [address] [place] [address] USAHemoglobin [Mass/volume] in BloodOrdered By: Carlton Hagen on 52-85-0293Cmtiirkijw (Bld) [Mass/Vol]12.7 g/kMQerhfk53.8-15.4FPremier HealthComment on above:Performed By: #### BMP, CK, DDIMER, CBC, PTT, PT, HS TROP #### [facility] [address] [place] [address] USALaboratory - CoagulationOrdered By: Carlton Hagen on 15-00-8597LE Coag (PPP) [Time]11.9 s9.0-12.9[facility] Leukocytes [#/volume] corrected for nucleated erythrocytes in Blood by Automated counOrdered By: Carlton Hagen on 03-91-8239AYC corrected for nucl RBC Auto (Bld) [#/Vol]7.1 10*3/uL3.8-11.6FPremier HealthLeukocytes [#/volume] in Blood by Automated countOrdered By: Carlton Hagen on 02-21-2023 WBC (Bld) [#/Vol]7.1 10*3/uLNormal3.8-11.6FPremier Health Comment on above:Performed By: #### BMP, CK, DDIMER, CBC, PTT, PT, HS TROP #### [facility] [address] [place] [address] USALymphocytes [#/volume] in Blood by Automated countOrdered By: Carlton Hagen on 41-05-2975Nemskowzrfq (Bld) [#/Vol]1.3 10*3/uLNormal 1.00-4.8[facility] HospitalComment on above:Performed By: #### BMP, CK, DDIMER, CBC, PTT, PT, HS TROP #### [facility] [address] [place] [address] USALymphocytes/100 leukocytes in Blood by Automated count Ordered By: Carlton Hagen on 39-86-0851Xaxrafmwbik/100 WBC (Bld)18.8 %Normal. [facility] HospitalComment on above:Performed By: #### BMP, CK, DDIMER, CBC, PTT, PT, HS TROP #### [facility] [address] [place] [address] USAMCH [Entitic mass] by Automated countOrdered By: Carlton Hagen on 32-46-4617HBR (RBC) [Entitic mass]28.0 pjSssjuf07.7-34.3FPremier HealthComment on above:Performed By: #### BMP, CK, DDIMER, CBC, PTT, PT, HS TROP #### [facility] [address]HC Auto (RBC) [Mass/Vol]Ordered By: Carlton Hagen on 62-70-5009UWLE (RBC) [Mass/Vol]32.8 g/dL32.0-35.0[facility] Memorial HospitalMCV [Entitic volume] by Automated countOrdered By: Carlton Hagen on 18-10-5443ZRQ (RBC) [Entitic vol]85.3 kRFzavmu83-633OizxtkdmtDunlap Memorial HospitalComment on above:Performed By: #### BMP, CK, DDIMER, CBC, PTT, PT, HS TROP #### [place] [address] USANeutrophils [#/volume] in Blood by Automated countOrdered By: Carlton Hagen on 08-15-7146Jmbrsahaknb (Bld) [#/Vol]5.4 10*3/uLNormal 1.8-7.7FPremier HealthComment on above:Performed By: #### BMP, CK, DDIMER, CBC, PTT, PT, HS TROP #### [place] [address] USANo Panel InformationOrdered By: Carlton Hagen on 36-47-8763A-Dimer Quantitative (PE/DVT)< 200 ng/mL0-243Dun[facility] Memorial HospitalComment on above:The reference range for D-dimer is <243 ng/mL D- dimer units.D-dimer results must be used in conjunction [...] be increased in hospitalized patients due toco-morbid conditions.Estimated GFR (CKD-EPI)> 60.0 mL/Min [facility] HospitalPharmacy Creatinine Clearance (Snzc171.50 [facility] Memorial HospitalNucleated erythrocytes [Presence] in Blood by Automated countOrdered By: Carlton Hagen on 66-67-8001Uqekzbkbt RBC Auto Ql (Bld)0.2 /100{WBC}0-0.5FPremier HealthPartial Thromboplastin Timeon 22-27-6201hZHG Coag (Bld) [Time]28.7 yYltfeu61.1-36.5FPremier HealthComment on above:Performed By: #### BMP, CK, DDIMER, CBC, PTT, PT, HS TROP #### [facility] [address] [place] [address] USAPlatelet mean volume [Entitic volume] in Blood by Automated countOrdered By: Carlton Hagen on 58-09-2747Rivqfpht mean volume (Bld) [Entitic vol]8.8 fLNormal6.3-10.7FPremier HealthComment on above:Performed By: #### BMP, CK, DDIMER, CBC, PTT, PT, HS TROP #### [facility] [address] [place] [address] USAPlatelet poor plasma international normalized ratio (INR) by coagulation assay (relatOrdered By: Carlton Hagen on 07-16-8154NEG Coag (PPP) [Relative time]1.0 {INR}[facility] Memorial HospitalComment on above: INR Therapeutic Range A) Pre- and Peroperative OAT started two weeks before surgery. NOT HIP SURGERY: 1.5 - 2.5 HIP SURGERY: 2 - 3B) Primary and secondary prevention of venous THROMBOSIS: 2 - 3C) Active venous thrombosis, pulmonary embolismand prevention of recurrent venous thrombosis: 2 - 3D) Prevention of arterial thromboembolismincluding patients with mechanical heart valves: 3 - 4.5 Platelets [#/volume] in Blood by Automated countOrdered By: Carlton Hagen on 19-39-9185Rftovyxas (Bld) [#/Vol]222 10*3/dABqqqze487-465ObeiayxynDunlap Memorial HospitalComment on above:Performed By: #### BMP, CK, DDIMER, CBC, PTT, PT, HS TROP #### [facility] [address] [place] [address] USAPotassium [Moles/volume] in Serum or PlasmaOrdered By: Carlton Hagen on 77-44-4041Lhxnfovfn [Moles/Vol]3.9 mmol/L3.5-5.1FPremier HealthProthrombin Time INRon 18-60-0221ZYD Coag (PPP) [Relative time]1.0 {INR}NormalDunlap Memorial HospitalComment on above:Result Comment: INR Therapeutic Range A) Pre- and [...] patients with mechanical heart valves: 3 - 4.5Performed By: #### BMP, CK, DDIMER, CBC, PTT, PT, HS TROP #### [facility] [address] [place] [address] USAPT Coag (PPP) [Time]11.9 sNormal9.0-12.9[facility] HospitalComment on above:Performed By: #### BMP, CK, DDIMER, CBC, PTT, PT, HS TROP #### [facility] [address] [place] [address] USASerum or plasma anion gap determinationOrdered By: Carlton Hagen on 20-60-8780Yvuvt gap [Moles/Vol]15.3 mmol/L6.0-15.0[facility] Hospitalodium [Moles/volume] in Serum or PlasmaOrdered By: Carlton Hagen on 68-90-4429Rktone [Moles/Vol]137 mmol/D006-836MilnrsbakDunlap Memorial HospitalTroponin I High Sensitivityon 77-63-1584Znwosxqi I High Sensitivity2.6 pg/mLNormal0.0-15.0[facility] HospitalComment on above:Result Comment: PERFORMED BY: [place] [address] PATHOLOGIST TEST LEAD PAU MENON M.D.Performed By: #### BMP, CK, DDIMER, CBC, PTT, PT, HS TROP #### [place] [address] USATroponin I.cardiac [Mass/volume] in Serum or Plasma by Detection limit <= 0.01 ng/Ordered By: Carlton Hagen on 95-31-2283Izfyhcxj I.cardiac DL <= 0.01 ng/mL [Mass/Vol]2.6 pg/mL0.0-15.0[facility] Memorial HospitalUrea nitrogen [Mass/volume] in Serum or PlasmaOrdered By: Carlton Hagen on 74-24-1979Htxc nitrogen [Mass/Vol]15 mg/dL7-25Dun[facility] Memorial HospitalXR chest 2V*on 54-53-4317ZV chest 2V*[facility] Main [place] [address] [place], [place] [address] XRay Report Signed Patient: Jase Loja MR#: [id number] : 2000 Acct:[id number] Age/Sex: 23 / F ADM Date: 02/21/23 Loc: ER Room: Type: [facility] ER Attending Dr: Copies to: Carlton Hagen [...] Francie Lobato M.D.02/21/2023 10:26 AM Dictation Location: [place] [address] Transcribed By: LASHAY 02/21/23 1026 Dictated By: Francie Lobato MD 02/21/23 1025 Signed By: 02/21/23 1026[facility] Vital Signs Date TimeVital SignValuePerforming NzgcxvrhgMbgwrpew44-08-4034 09:50-0400Body gxxicy448.64 cmLisa Aichholz SYSTEM CONSULTANT-C Work Phone: [phone]09-11-2025 09:50-0400 Body mass index (BMI) [Ratio]36.1 kg/m2Lisa Aichholz SYSTEM CONSULTANT-C Work Phone: [phone]09-11-2025 09:50-0400 Body wxtupdrcjal96.1 [degF]Michelle Aichholz SYSTEM CONSULTANT-C Work Phone: [phone]09-11-2025 09:50-0400 Body .6 kgLisa Aichholz SYSTEM CONSULTANT-C Work Phone: [phone])[address]09-11-2025 09:50-0400 Diastolic blood nubunnqx95 mm[Hg]Michelle Aichholz SYSTEM CONSULTANT-C Work Phone: [phone])[address]09-11-2025 09:50-0400 Heart rate90 /minLisa Aichholz SYSTEM CONSULTANT-C Work Phone: [phone])[address]09-11-2025 09:50-0400 Respiratory rate18 /minLisa Aichholz SYSTEM CONSULTANT-C Work Phone: [phone]09-11-2025 09:50-0400 SaO2% (BldA) [Mass fraction]98 %Michelle Aichholz SYSTEM CONSULTANT-C Work Phone: [phone])[address]09-11-2025 09:50-0400 Systolic blood lmlyznrm766 mm[Hg]Michelle Aichholz SYSTEM CONSULTANT-C Work Phone: [phone])[address]05-21-2025 08:55-0400 Body mass index (BMI) [Ratio]34.54 kg/m2Lisa Myeshaholz SYSTEM CONSULTANT Work Phone: [facility] CenterFldeqgarvv13-22-8306 08:55-0400Body temperature 98.49 [degF]Michelle Myeshaholz SYSTEM CONSULTANT Work Phone: [phone]-[facility] CenterQnyptlyltb22-66-9594 08:55-0400Body yediyt72.07 kgLisa Myeshaholz SYSTEM CONSULTANT Work Phone: [phone] [place], [place] [address]Mtepgapzwv14-43-1312 08:55-0400Diastolic blood sihzwahv97 mm[Hg]Michelle Myeshaholz SYSTEM CONSULTANT Work Phone: [phone] [place], [place] [address]305-21-2025 08:55-0400Heart rate90 /min Michelle Myeshaholz SYSTEM CONSULTANT Work Phone: [phone]05-21-2025 08:55-8310UpW1% (BldA) [Mass fraction]98 %Michelle Myeshaholz SYSTEM CONSULTANT Work Phone: [phone] [place], [place] [address]Zseuafsryf37-22-1595 08:55-0400Systolic blood lczaedhc528 mm[Hg]Michelle Myeshaholz SYSTEM CONSULTANT Work Phone: [phone])[address]02-19-2025 09:49-0500Body mass index (BMI) [Ratio]35.12 kg/m2Lisa Myeshaholz SYSTEM CONSULTANT Work Phone: [phone]02-19-2025 09:49-0500Body temperature 98.1 [degF]Michelle Myeshaholz SYSTEM CONSULTANT Work Phone: [phone])[address]02-19-2025 09:49-0500Body ycfdfn54.7 kg Michelle Taishahholz SYSTEM CONSULTANT Work Phone: [phone] [place], [place] [address]302-19-2025 09:49-0500Diastolic blood fcdyqmsf20 mm[Hg]Michelle Taishahholz SYSTEM CONSULTANT Work Phone: [facility] CenterFvkyeldizw50-95-2943 09:49-0500Heart rate94 /min Michelle Taishahholz SYSTEM CONSULTANT Work Phone: [phone] [place], [place] [address]19-2025 09:49-0500Respiratory rate18 /minLisa Myeshaholz SYSTEM CONSULTANT Work Phone: 1(995)[facility] [place], [place] [address]Uyvtndlpwk87-67-1742 09:49-9347RoI3% (BldA) [Mass fraction]98 %Michellemindy Brunnerholz SYSTEM CONSULTANT Work Phone: [phone] [place], [place] [address]Exfssqpaua24-98-5181 09:49-0500Systolic blood lppzibns672 mm[Hg]Michelle Myeshaholz SYSTEM CONSULTANT Work Phone: 1(888)[facility] [place], [place] [address]Zkyttlrpxc49-07-5466 15:30-0500Body mass index (BMI) [Ratio]32.96 kg/m2Lisa Myeshaholz SYSTEM CONSULTANT Work Phone: [phone] [place], [place] 66[address]311-05-2024 15:30-0500Body temperature 98.71 [degF]Michelle Myeshaholz SYSTEM CONSULTANT Work Phone: 1(085)[facility] [place] [address]-05-2024 15:30-0500Body fxirir61.63 kgLisa Taishahholz SYSTEM CONSULTANT Work Phone: [phone] [place], [place] [address]Pzdkourdzm92-02-2281 15:30-0500Diastolic blood zlfuibgo66 mm[Hg]Michelle Myeshaholz SYSTEM CONSULTANT Work Phone: 1(653)[facility] [place], [place] [address]Ixzqekavjv39-06-9962 15:30-0500Heart rate95 /min Michelle Myeshaholz SYSTEM CONSULTANT Work Phone: [phone] [place], [place] [address]Btmqikghmp54-54-3562 15:30-0500Respiratory rate18 /minLisa Aichholz SYSTEM CONSULTANT Work Phone: [phone] [place], [place] [address]Xvbtyhtmqp59-50-3732 15:30-1917CkE1% (BldA) [Mass fraction]100 %Michelle Taishahholz SYSTEM CONSULTANT Work Phone: [phone] [place], [place] [address]Pinsztmpvs91-94-0548 15:30-0500Systolic blood gzybultt696 mm[Hg]Michelle Aichholz SYSTEM CONSULTANT Work Phone: [phone] [place], [place] [address]Hfravcabzf31-85-6749 16:41-0400Body .6 cmLisa Taishahholz SYSTEM CONSULTANT Work Phone: noHedrick Medical CenterOibmcpsswr30-56-9071 16:41-0400Body mass index (BMI) [Ratio]35.44 kg/m2Michelle Marks SYSTEM CONSULTANT Work Phone: noHedrick Medical CenterLuotgjtwfj88-64-8777 16:41-0400Body temperature 98.1 [degF]Michelle Marks SYSTEM CONSULTANT Work Phone: [facility] CenterOukgjmuzul20-46-0279 16:41-0400Body unzsja74.61 kgLisa Marks SYSTEM CONSULTANT Work Phone: [facility] CenterTfkiwbktaq56-68-5610 16:41-0400Diastolic blood mm[Hg]Michelle Marks SYSTEM CONSULTANT Work Phone: [facility] CenterAvgbtmxqcd34-02-6508 16:41-0400Heart rate95 /min Michelle Marks SYSTEM CONSULTANT Work Phone: [facility] CenterKsizdthrsj89-94-1201 16:41-0400Respiratory rate18 /minLisa Marks SYSTEM CONSULTANT Work Phone: [facility] CenterAwyaweeyml65-71-2667 16:41-5855VyL6% (BldA) [Mass fraction]96 %Michelle Marks SYSTEM CONSULTANT Work Phone: noHedrick Medical CenterSxngwozmoa22-41-2251 16:41-0400Systolic blood rqtvkyou746 mm[Hg]Michelle Marks SYSTEM CONSULTANT Work Phone: noHedrick Medical CenterKihdgemkbe61-77-1137 13:45-0400Body xoteuu404.64 cmMikala Morocho Other [facility] Other 06-20-2023 13:45-0400Body mass index (BMI) [Ratio] 34.38 kg/y0EzqpknMikala Morocho Other [employer] Other 06-20-2023 13:45-0400Body nyalyn02.62 kgMikala Morocho Other [facility] Other 06-20-2023 13:45-0400Diastolic blood ullafeer53 mm[Hg] Mikala Morocho Other [facility] Other 06-20-2023 13:45-0400Systolic blood mm[Hg] Mikala Morocho Other [facility] Other 05-08-2023 15:30-0400Body tbutbi087.64 cmMikala Morocho Other [facility] Other 05-08-2023 15:30-0400Body mass index (BMI) [Ratio] 33.08 kg/m9YsphppMikala Morocho Other [facility] Other 05-08-2023 15:30-0400Body szurhl62.99 kgMikala Morocho Other [facility] Other 05-08-2023 15:30-0400Diastolic blood mm[Hg] Mikala Morocho Other [facility] Other 05-08-2023 15:30-8257HlY2% (BldA) [Mass fraction]99 % Mikala Morocho Other [facility] Other 05-08-2023 15:30-0400Systolic blood xugqbbjp904 mm[Hg] Mikala Morocho Other [facility] Other 05-03-2023 10:04-0400Diastolic blood qxklqoio575 mm[Hg]MD Mikala Morocho Work Phone: [facility]05-03-2023 10:04-0400 Heart lsno604 /minMD Mikala Morocho Work Phone: [facility]05-03-2023 10:04-0400 Respiratory rate18 /minMD Mikala Morocho Work Phone: [facility]05-03-2023 10:04-0400 SaO2% (BldA) [Mass fraction]100 %MD Mikala Morocho Work Phone: [facility]05-03-2023 10:04-0400 Systolic blood xegzkzrg193 mm[Hg]MD Mikala Morocho Work Phone: [facility]05-03-2023 09:04-0400 Body .64 cmMD Mikala Morocho Work Phone: [facility]05-03-2023 09:04-0400 Body iqsnyonptsl20.3 [degF]MD Mikala Morocho Work Phone: [facility]05-03-2023 09:04-0400 Body isvkvt79.25 kgMD Mikala Morocho Work Phone: [facility] Encounters Encounter DateEncounter TypeCare ProviderFacilityStart: 07-02-2025 End: [id number] J Aichholz SYSTEM CONSULTANT-C Work Phone: [facility] Work Phone: Start: 07-02-2025 End: [id number] encounter procedureMichelle Marks SYSTEM CONSULTANT-C-[facility] [place] Work Phone: Start: 06-12-2025 End: 86-76-4032BytmwcYvrd Aichholz SYSTEM CONSULTANT Work Phone: noms CWM FMComment on above:Iron deficiencyStart: 06-07-2025 End: 02-45-6367IptqxkUtzn Aichholz SYSTEM CONSULTANT Work Phone: noms CWM FMComment on above:Type 2 diabetes mellitus without complications (HCC)Start: 05-17-2025 End: 63-89-6472EblftnNylj Aichholz SYSTEM CONSULTANT Work Phone: noms CWM FMComment on above:Elevated triglycerides with high cholesterolStart: 05-12-2025 End: 33-92-8963Diygljoyr Result EncounterMichelle Marks SYSTEM CONSULTANT Work Phone: noms External Department UnsolicitedStart: 05-12-2025 End: 78-86-7998Ztgwzcujc Result EncounterMichelle Marks SYSTEM CONSULTANT Work Phone: NOFJ External Department UnsolicitedStart: 04-22-2025 End: 70-44-7224JwvewnSyis Aichholz SYSTEM CONSULTANT Work Phone: noms CWM FMComment on above:Vitamin D deficiency, unspecified; Deficiency of other specified B group vitaminsStart: 03-11-2025 End: 50-37-1460Mhkydl flowsheetMichelle Marks SYSTEM CONSULTANT Work Phone: NOAI CWM FMStart: 03-11-2025 End: 84-68-3397Uogrit flowsCecy Marks SYSTEM CONSULTANT Work Phone: noms CWM FMStart: 03-11-2025 End: 77-23-2594Iuxger outpatient visit 25 minutesMichelle Marks SYSTEM CONSULTANT Work Phone: noms CWM FMComment on above:Type 2 diabetes mellitus with other specified complication, without long-term current use of insulin (Primary Dx); Type 2 diabetes mellitus with other specified complication; Essential (primary) hypertension (CMS/HCC); Morbid (severe) obesity due to excess calories (CMS/HCC); Type 2 diabetes mellitus without complication, without long-term current use of insulin; Mixed hyperlipidemia (CMS/HCC); Subjective tinnitus, right; Primary hypertension (CMS/HCC)Start: 03-11-2025 End: 09-73-0085lwkywboxocIIMC TAISHAHBIBIZNot AvailableStart: 03-05-2025 End: 30-66-2791ExapzhBelz Aichholz SYSTEM CONSULTANT Work Phone: NORJ CWM FMComment on above:Elevated triglycerides with high cholesterol (CMS/HCC); Mixed hyperlipidemia (CMS/HCC)Start: 02-18-2025 End: 60-68-9489Hzfxhavhe Result EncounterLisa Aichholz SYSTEM CONSULTANT Work Phone: noms External Department UnsolicitedStart: 02-18-2025 End: 34-17-7477Rolvpgsan Result EncounterLisa Aichholz SYSTEM CONSULTANT Work Phone: noms External Department UnsolicitedStart: 02-18-2025 End: 85-26-4071XgpesaXquw Aichholz SYSTEM CONSULTANT Work Phone: noms CWM FMComment on above:Elevated triglycerides with high cholesterol (CMS/HCC) (Primary Dx)Start: 02-17-2025 End: 14-28-3957SrywqiMdlf Aichholz SYSTEM CONSULTANT Work Phone: noms CWM FMComment on above:Type 2 diabetes mellitus without complication, without long-term current use of insulin (Primary Dx) Start: 02-16-2025 End: 97-13-6286Awbtilwwf encounterLisa Aichholz SYSTEM CONSULTANT Work Phone: noms CWM FMStart: 01-20-2025 End: 68-14-2447SsptmdAkwx Aichholz SYSTEM CONSULTANT Work Phone: noms CWM FMComment on above:Vitamin D deficiency; Vitamin B12 deficiency; Iron deficiencyStart: 12-10-2024 End: 07-06-1065Ihlvow flowsheetLisa Aichholz SYSTEM CONSULTANT Work Phone: noms CWM FMStart: 12-10-2024 End: 14-20-8583Utbzkw flowsheetLisa Aichholz SYSTEM CONSULTANT Work Phone: noms CWM FMStart: 12-10-2024 End: 74-83-3583galkhqmwiiCJEI AICHHOLZNot AvailableStart: 12-10-2024 End: 42-17-9166Brmbld outpatient visit 25 minutesLisa Aichholz SYSTEM CONSULTANT Work Phone: noms CWM FMComment on above:Type 2 diabetes mellitus without complication, without long-term current use of insulin (CMS/HCC) (P rimary Dx); Morbid (severe) obesity due to excess calories (CMS/HCC); Essential (primary) hypertension (CMS/HCC); Body mass index (BMI) 35.0-35.9, adult; Elevated triglycerides with high cholesterol (CMS/HCC); Mixed hyperlipidemia (CMS/HCC); Pain in both lower extremities; Vitamin deficiencyStart: 12-05-2024 End: 24-14-6972WhfbjsQlbd Aichholz SYSTEM CONSULTANT Work Phone: noms CWM FMComment on above:Elevated triglycerides with high cholesterol (CMS/HCC) (Primary Dx); Mixed hyperlipidemia (CMS/HCC); Anxiety disorder, unspecified; Anxiety state (CMS/HCC); Primary hypertension (CMS/HCC)Start: 12-03-2024 End: 85-07-3354Rlvvvakot Result EncounterLisa Aichholz SYSTEM CONSULTANT Work Phone: noms External Department UnsolicitedStart: 12-03-2024 End: 74-63-7628Wijsxiesx Result EncounterLisa Aichholz SYSTEM CONSULTANT Work Phone: noms External Department UnsolicitedStart: 11-30-2024 End: 60-44-2520Vhvalp OnlyLisa Aichholz SYSTEM CONSULTANT Work Phone: noms CWM FMComment on above:Elevated triglycerides with high cholesterol (CMS/HCC) (Primary Dx)Start: 11-30-2024 End: 04-92-7313KyxhqcJvob Aichholz SYSTEM CONSULTANT Work Phone: noms CWM FMComment on above:Type 2 diabetes mellitus without complication, without long-term current use of insulin (CMS/HCC)Start: 11-29-2024 End: 16-17-4691Xxpdvktbd Result EncounterLisa Aichholz SYSTEM CONSULTANT Work Phone: noms External Department UnsolicitedStart: 11-29-2024 End: 71-03-2872Wtdisykxk Result EncounterLisa Aichholz SYSTEM CONSULTANT Work Phone: noms External Department UnsolicitedStart: 11-10-2024 End: 30-30-8877YkluzwHxbd Aichholz SYSTEM CONSULTANT Work Phone: noms CWM FMComment on above:Type 2 diabetes mellitus without complication, without long-term current use of insulin (CMS/HCC)Start: 10-16-2024 End: 85-52-3337UqspshYdim Aichholz SYSTEM CONSULTANT Work Phone: noms CWM FMComment on above:Type 2 diabetes mellitus without complication, without long-term current use of insulin (CMS/HCC)Mixed hyperlipidemia (CMS/HCC)Start: 09-22-2024 End: 65-18-8171FkgwwaNiri Aichholkelly SYSTEM CONSULTANT Work Phone: noms CWM FMComment on above:Mixed hyperlipidemia (CMS/HCC) (Primary Dx)Start: 09-19-2024 End: 86-14-8258Srvujtcdy Result EncounterMichelle Marks SYSTEM CONSULTANT Work Phone: noms External Department UnsolicitedStart: 09-19-2024 End: 97-31-8169Feuiuycoo Result EncounterMichelle Marks SYSTEM CONSULTANT Work Phone: noms External Department UnsolicitedStart: 08-26-2024 End: 30-62-8938Xpdiga outpatient visit 25 minutesMichelle Marks SYSTEM CONSULTANT Work Phone: noms CWM FMComment on above:Type 2 diabetes mellitus without complication, without long-term current use of insulin (CMS/HCC) (P rimary Dx); Essential (primary) hypertension (CMS/HCC); Morbid (severe) obesity due to excess calories (CMS/HCC); Mixed hyperlipidemia (CMS/HCC); Obesity (BMI 30-39.9); Anxiety disorder, unspecified; Anxiety state (CMS/HCC); Primary hypertension (CMS/HCC); Type 2 diabetes mellitus without complications (CMS/HCC)Start: 08-26-2024 End: 32-72-4477jdyrfvpfefCWGY AICHHOLZNot AvailableStart: 08-26-2024 End: 76-34-0042Npcehm flowsheetLisa Brunnerholz SYSTEM CONSULTANT Work Phone: NOLI CWM FMStart: 08-26-2024 End: 15-56-3075Eubwhy flowsheetLisa Aichholz SYSTEM CONSULTANT Work Phone: noms CWM FMStart: 08-13-2024 End: 41-85-3805OqkxbxQbmy Myeshaholz SYSTEM CONSULTANT Work Phone: NOOI CWM FMComment on above:Type 2 diabetes mellitus without complication, without long-term current use of insulin (CMS/HCC)Start: 07-16-2024 End: 26-44-2399Ldmpww outpatient visit 15 minutesMichelle Brunnerbibiz SYSTEM CONSULTANT Work Phone: noms CWM FMComment on above:Type 2 diabetes mellitus without complication, without long-term current use of insulin (CMS/HCC) (P rimary Dx); Morbid (severe) obesity due to excess calories (CMS/HCC); Essential (primary) hypertension (CMS/HCC); Body mass index (BMI) 35.0-35.9, adult; Gastroesophageal reflux disease, unspecified whether esophagitis presentStart: 07-16-2024 End: 21-95-3427kmbetudfedWNUJ ALEJANDROZNot AvailableStart: 07-16-2024 End: 30-85-1353Pxhimd antheetLisa Aichholz SYSTEM CONSULTANT Work Phone: NOOG CWM FMStart: 07-16-2024 End: 86-45-3394Bekuiw flowsheetLisa Aichholz SYSTEM CONSULTANT Work Phone: noms CWM FMStart: 07-10-2024 End: 08-81-2681FlndzsSsno Aichholz SYSTEM CONSULTANT Work Phone: noms CWM FMComment on above:Type 2 diabetes mellitus without complication, without long-term current use of insulin (CMS/HCC)Start: 06-13-2024 End: 46-82-9597WljxgrNoem Aichholz SYSTEM CONSULTANT Work Phone: noms CWM FMComment on above:Type 2 diabetes mellitus without complications (CMS/HCC)Start: 06-12-2024 End: 39-73-8479FnfolgVhhm Aichholz SYSTEM CONSULTANT Work Phone: noms CWM FMComment on above:Primary hypertension (CMS/HCC)Start: 06-04-2024 End: 79-20-0061Zfdlawbyx Result EncounterLisa Aichholz SYSTEM CONSULTANT Work Phone: noms External Department UnsolicitedStart: 06-04-2024 End: 62-18-3462Jyrdeooav Result EncounterLisa Aichholz SYSTEM CONSULTANT Work Phone: noms External Department UnsolicitedStart: 06-02-2024 End: 09-09-2220jpynreifhvWAFT TAISHAHHOLZNot AvailableStart: 06-18-2023 End: 66-15-8700qmlayquoxpVxjswg Braun Other [facility] Other Start: 41-02-5968Twxckjien encounterMikala [facility]tart: 04-10-2023 End: 77-51-0519symstfpxxpXsffrn Braun Other [facility] Other Start: 30-36-2333Vdiznb outpatient visit 15 minutes [facility] ClinicStart: 02-26-2023 End: 61-77-1710kpizaqpkpgGdzote Braun Other [facility] Other Start: 22-07-2153Emggeo outpatient visit 15 minutes [facility]ala [facility] ClinicStart: 02-21-2023 End: 47-02-4692Hjvhhhvhy department patient visitCarlton Hagen [facility]23 End: 67-67-4532Ldlkvfwcr department patient visitMD Mikala Morocho Work Phone: [facility] Work Phone: Start: 02-27-3256Vymab health examinationMikala Morocho Other [facility] [employer] Other Start: 10-06-2021 End: 06-70-0639ozpotvzrzjTIMWD HIGHLANDERFacility:H4Jmwbs: 06-01-2021 End: 85-12-9547jyufisybteHUEVVFMM CULLENFacility:Q5Yewwb: 03-02-2021 End: 24-44-4568tpgfebxwnyGXPJMEME CULLENFacility:P7Jcynu: 01-26-2021 End: 46-47-6826tyuhqgzcxnPRSLCOAD CULLENFacility:P2Rribv: 01-05-2021 End: 90-39-5110pqpucfscwfAJAYWAWH CULLENFacility:K9Txkwb: 12-23-2020 End: 05-37-4486ysifsenzwgQK MIKALA MOROCHOFacility:O2Yvmcp: 11-05-2018 End: 16-09-3311Cpjkdlj encounter procedureJohn KovesdiFacility:CD:[id number] Procedures DateProcedureProcedure DetailPerforming ClinicianStart: 24-70-3618DTDZ IRONLisa Aichholz SYSTEM CONSULTANT Work Phone: Start: 65-40-7798UON LIPID PROFILE (FASTING)Michelle Aicpapiz SYSTEM CONSULTANT Work Phone: Start: 57-71-3376DSC ALTLisa Aichholz SYSTEM CONSULTANT Work Phone: Start: 32-71-8509LPF ASTLisa Aichholz SYSTEM CONSULTANT Work Phone: Start: 96-85-0736BOD THYROXINE (T4) FREELisa Aichholz SYSTEM CONSULTANT Work Phone: Start: 28-37-4850PWJ LIPID PROFILE (FASTING)Michelle Aichholz SYSTEM CONSULTANT Work Phone: Start: 37-50-4754ZZY ALTLisa Aichholz SYSTEM CONSULTANT Work Phone: Start: 50-49-5900QQZ ASTLisa Taishahholz SYSTEM CONSULTANT Work Phone: Start: 09-49-7447VVR CBC WITH AUTO DIFFLisa Taishahholz SYSTEM CONSULTANT Work Phone: Start: 46-73-4969KJ FOOT RT MIN 3VLisa Alejandroz SYSTEM CONSULTANT Work Phone: Start: 54-23-4958Bcdhu chest X-rayMD Mikala Morocho Work Phone: Start: 82-78-6824Bfcpbtqrde test result abnormalMikala Morocho Other Start: 82-99-2301Ybq-surgery evaluationMarrossana Morocho Other Viral screeningMikala Morocho Other Plan of Treatment DateCare ActivityDetailAuthorStart: 74-90-6020Nmlgtcek screeningDiabetes: Retinopathy ScreeningNOAK HealthcareStart: 93-57-3825Ktogo screening for protein Diabetes: Urine Protein ScreeningNOAK HealthcareStart: 05-52-5459Psnnkgdxav A1c measurementDiabetes: Hemoglobin O3QKAGHResearch Medical CenterStart: 06-24-2025 End: 33-10-7515Rwnfkre encounter ekdtgztri43/03/2025 10:30 AM EDT Office Visit [facility] [address] [place] [phone] Michelle Marks NP [address] [place] [address] NOMRodrigo KRAUS FMStart: 06-11-2025 End: 66-07-8846Uqoxece encounter vtkdpqduf90/21/2025 10:30 AM EDT Office Visit [facility] [address] [place] [address] Michelle Marks SYSTEM CONSULTANT [address] [place] [phone] NOMS [facility]VERM FMStart: 03-11-2025 End: 38-54-8878Crinkzx encounter procedureNOCOMMUNITY [facility] [place] FMComment on above:Essential (primary) hypertension (CMS/HCC) (Primary Dx); Type 2 diabetes mellitus with other specified complication; Morbid (severe) obesity due to excess calories (CMS/HCC); Type 2 diabetes mellitus without complication, without long-term current use of insulin; Mixed hyperlipidemia (CMS/HCC); Type 2 diabetes mellitus with other specified complication, without long-term current use of insulinStart: 02-02-2025 End: 07-80-1030Zwuddpy aminotransferase [Enzymatic activity/volume] in Serum or PlasmaALT Lab Routine Mixed hyperlipidemia (CMS/HCC) Expected: 02/02/2025 (Approximate), Expires: 12/05/2025[facility] HealthcareComment on above:Expected: 02/02/2025 (Approximate), Expires: 12/05/2025Start: 02-02-2025 End: 78-03-4738Lzcnpyxic aminotransferase [Enzymatic activity/volume] in Serum or PlasmaAST Lab Routine Mixed hyperlipidemia (CMS/HCC) Expected: 02/02/2025 (Approximate), Expires: 12/05/2025[facility] HealthcareComment on above:Expected: 02/02/2025 (Approximate), Expires: 12/05/2025Start: 02-02-2025 End: 01-87-0105Jwrmq 1996 panel - Serum or PlasmaLipid panel Lab Routine Mixed hyperlipidemia (CMS/HCC) Expected: 02/02/2025 (Approximate), Expires:12/05/2025 [facility] Work Phone: Comment on above:Expected: 02/02/2025 (Approximate), Expires: 12/05/2025Start: 12-10-2024 End: 681684-idscobjdvmxihk D3 [Mass/volume] in Serum or PlasmaVitamin D 25 hydroxy Lab Routine Vitamin deficiency Expected: 12/10/2024 (Approximate), Expires: 12/10/2025[facility] HealthcareComment on above:Expected: 12/10/2024 (Approximate), Expires: 12/10/2025Start: 12-10-2024 End: 41-71-9462OIY W Auto Differential panel - BloodCBC and differential Lab Routine Pain in both lower extremities Vitamin deficiency Expected: 12/10/2024 (Approximate), Expires: 12/10/2025NOAK HealthcareComment on above:Expected: 12/10/2024 (Approximate), Expires: 12/10/2025Start: 12-10-2024 End: 05-66-1567Vzlunpwzw (Vitamin B12) [Mass/volume] in Serum or PlasmaVitamin B12 Lab Routine Vitamin deficiency Expected: 12/10/2024 (Approximate), Expires: 12/10/2025[facility] HealthcareComment on above:Expected: 12/10/2024 (Approximate), Expires: 12/10/2025Start: 12-10-2024 End: 34-59-0750Lcyhccug [Mass/volume] in Serum or PlasmaFerritin Lab Routine Pain in both lower extremities Expected: 12/10/2024 (Approximate), Expires: [facility] Healthcare Work Phone: Comment on above:Expected: 12/10/2024 (Approximate), Expires: 12/10/2025Start: 12-10-2024 End: 95-47-7855Yoyxycbnit A1c/Hemoglobin.total in BloodHemoglobin A1c Lab Routine Type 2 diabetes mellitus without complication, without long-term current use of insulin ([facility]) Expected: 12/10/2024 (Approximate), Expires: 12/10/2025 [facility] HealthcareComment on above:Expected: 12/10/2024 (Approximate), Expires: 12/10/2025Start: 12-10-2024 End: 04-99-5300Kmoc and Iron binding capacity panel - Serum or PlasmaIron level Lab Routine Vitamin deficiency Expected: 12/10/2024 (Approximate), Expires: 12/10/2025[facility] HealthcareComment on above:Expected: 12/10/2024 (Approximate), Expires: 12/10/2025Start: 12-10-2024 End: 37-58-0322Kzlyzgu encounter rbatuxlvx01/19/2025 9:40 AM EST Office Visit [facility] [address] [place] [address] Michelle Marks, LORETA [address] [place] [phone] [facility] FMStart: 41-62-0759Oixnfdrssn A1c measurement Diabetes: Hemoglobin S6NZRRO HealthcareStart: 11-30-2024 End: 62-60-1194Ndmvvjwdmaa [Units/volume] in Serum or PlasmaTSH Lab Routine Elevated triglycerides with high cholesterol (CMS/HCC) Expected: 11/30/2024 (Approximate), Expires: 11/30/2025[facility] Work Phone: Comment on above:Expected: 11/30/2024 (Approximate), Expires: 11/30/2025Start: 11-30-2024 End: 38-57-8470Kzymkovod (T4) free [Mass/volume] in Serum or PlasmaT4, free Lab Routine Elevated triglycerides with high cholesterol (CMS/HCC) Expected: 11/30/2024 (Approximate), Expires: 11/30/2025NO[facility] HealthcareComment on above: Expected: 11/30/2024 (Approximate), Expires: 11/30/2025Start: 11-26-2024 End: 63-42-6702Pkuxjti encounter nstxudcvc50/05/2025 9:40 AM EST [facility] [address] [place] [address] Michelle Marks, LORETA [address] [place] [address] [facility] FMStart: 11-23-2024 End: 05-60-8436Cohemle aminotransferase [Enzymatic activity/volume] in Serum or PlasmaALT Lab Routine Mixed hyperlipidemia (CMS/HCC) Expected: 11/23/2024 (Approximate), Expires: 09/22/2025NO[facility] HealthcareComment on above:Expected: 11/23/2024 (Approximate), Expires: 09/22/2025Start: 11-23-2024 End: 00-28-6589Vdnqxnarx aminotransferase [Enzymatic activity/volume] in Serum or PlasmaAST Lab Routine Mixed hyperlipidemia (CMS/HCC) Expected: 11/23/2024 (Approximate), Expires: 09/22/2025NO[facility] HealthcareComment on above:Expected: 11/23/2024 (Approximate), Expires: 09/22/2025Start: 11-23-2024 End: 72-90-4670Tyidr 1996 panel - Serum or PlasmaLipid panel Lab Routine Mixed hyperlipidemia (CMS/HCC) Expected: 11/23/2024 (Approximate), Expires:09/22/2025 [facility] Work Phone: Comment on above:Expected: 11/23/2024 (Approximate), Expires: 09/22/2025Start: 08-28-2024 End: 53-87-6341Eppevqs encounter tvbczigjn75/07/2024 3:20 PM EST Office Visit [facility] [address] [place] [address] Michelle Marks NP [address] [place] [address] [facility] FMStart: 08-26-2024 End: 56-60-7290Cylmozf encounter procedureNOCOMMUNITY HOSPITAL [facility] [place] FMComment on above:Arrived Start: 44-02-0088Rxafw screening for proteinDiabetes: Urine Protein Screening [facility] CenterStart: 07-16-2024 End: 28-26-2730Fgtnpxs encounter procedureNOCOMMUNITY [facility]PITAL [facility] [place] FMComment on above:Morbid (severe) obesity due to excess calories (CMS/HCC); Essential (primary) hypertension (CMS/HCC); Body mass index (BMI) 35.0-35.9, adultStart: 07-15-2024 End: 22-46-1561Wdzyzax encounter bbypsnykt31/24/2024 3:00 PM EDT [facility] [address] [place] [address] Michelle Marks, LORETA [address] [place] [address] [facility] FMStart: 15-94-1317Tdpcmqklpd A1c measurement Diabetes: Hemoglobin B0CWYXL HealthcarePatient EducationChest Pain That Is Not Caused by the Heart (DC) Anxiety, Adult (DC)[facility] Work Phone: Patient referralBlanchard Valley Health System Ctr Work Phone: Immunizations Immunization DateImmunizationNotesCare HjnurwqwEdxuzouw24-34-2544flzvogynz, seasonal, injectableLisa Aichholz SYSTEM CONSULTANT Work Phone: noHedrick Medical CenterRrwhoxkrwq83-89-4058sfbgtxh toxoid, reduced diphtheria toxoid, and acellular pertussis vaccine, adsorbedLisa Aichholz SYSTEM CONSULTANT Work Phone: [facility] Medical CenterIdlaixqhop29-15-4406czoruoxgwr, tetanus toxoids and acellular pertussis vaccine, unspecified formulationLisa Aichholz SYSTEM CONSULTANT Work Phone: [facility] CenterKofjejqjlv94-21-7924qypicpy, mumps and rubella virus vaccineLisa Aichholz SYSTEM CONSULTANT Work Phone: noHedrick Medical CenterHrxpyhskhx73-16-0202azpbfkdqgp vaccine, inactivatedLisa Aichholz SYSTEM CONSULTANT Work Phone: noHedrick Medical CenterPeoawfbplx17-48-2751wvbboyxvfz, tetanus toxoids and acellular pertussis vaccine, unspecified formulationLisa Aichholz SYSTEM CONSULTANT Work Phone: [facility] CenterMyyrbkcbrp43-49-8347bclbuhtyhqt influenzae type b vaccine, conjugate unspecified formulationLisa Aichholz SYSTEM CONSULTANT Work Phone: noHedrick Medical CenterIutbdeagia02-52-7989lscynoa, mumps and rubella virus vaccineLisa Aichholz SYSTEM CONSULTANT Work Phone: noHedrick Medical CenterUwdilfmfsv91-07-9784rzvvoescqyqu conjugate vaccine, 7 valentLisa Aichholz SYSTEM CONSULTANT Work Phone: noHedrick Medical CenterIwfrjaebhv67-88-0364pnitvssiv virus vaccineLisa Aichholz SYSTEM CONSULTANT Work Phone: [facility] CenterOjvwboleln19-43-2962npotauygkc, tetanus toxoids and acellular pertussis vaccine, unspecified formulationLisa Aichholz SYSTEM CONSULTANT Work Phone: [facility] CenterOjmomrrjxx16-48-4824umaaiddfcfc influenzae type b conjugate and Hepatitis B vaccineLisa Aichholz SYSTEM CONSULTANT Work Phone: LAHedrick Medical CenterSewtxeawci42-39-5158medvyjgbsosi conjugate vaccine, 7 valentLisa Aichholz SYSTEM CONSULTANT Work Phone: [facility] CenterFoaflkykqd04-89-5270sqvqassfqx vaccine, inactivatedLisa Aichholz SYSTEM CONSULTANT Work Phone: [facility] CenterPyicttmhza83-17-0213femznbpqpp, tetanus toxoids and acellular pertussis vaccine, unspecified formulationLisa Aichholz SYSTEM CONSULTANT Work Phone: [facility] CenterCqppblzhpy14-77-7380bqaughhkbqq influenzae type b conjugate and Hepatitis B vaccineLisa Aichholz SYSTEM CONSULTANT Work Phone: [facility] CenterRcdyxrmdai58-26-1181pzzvojsrir vaccine, inactivatedLisa Aichholz SYSTEM CONSULTANT Work Phone: [facility] CenterMdvhfcxpyv47-43-4939svxqklecyu, tetanus toxoids and acellular pertussis vaccine, unspecified formulationLisa Aichholz SYSTEM CONSULTANT Work Phone: [facility] CenterFtzniznkel23-68-1620akcsjoybhkt influenzae type b conjugate and Hepatitis B vaccineLisa Aichholz SYSTEM CONSULTANT Work Phone: [facility] CenterXnxqkddrzd47-43-5594hvacnoybhe vaccine, inactivatedLisa Aichholz SYSTEM CONSULTANT Work Phone: [facility] Payers DatePayer CategoryPayerPolicy [id number]-[id number] Health Insurance [id number] 2.16.840.1.688198.3.57[id number] 2.16.840.1.030101.3.57[id number] 2.16.840.1.861310.3.57[id number] 2.16.840.1.495780.3.57[id number] 2.16.840.1.187871.3.57[id number] 2.16.840.1.399086.3.57[id number] 2.16.840.1.721140.3.57[id number] 2..840.1.599175.3.57[id number] 2.16.840.1.962478.3.57[id number] 2.16.840.1.281749.3.57[id number] 2.840.1.484183.3.579.2.310874-67-6972Qtsyeyg Health [id number] [id number] 2.840.1.746174.3.579.2.531 Social History DateTypeDetailFacilityStart: 02-21-2023 End: 07-21-0554Itnrrwg smoking status NHISNever smoked tobacco (finding) [facility]: 84-19-8561Thc Assigned At [facility] 01-10-[facility]24 End: 59-32-3122Bpy [facility] At [facility] CenterStart: 92-85-0677Ibmkmlu use and exposureSmokeless tobacco non-userNOMS HealthcareStart: 06-02-2024 End: 09-65-1588Mhxmwdjgg beverage intakeLifetime non-drinker (finding)[facility] HealthcareStart: 01-10-2024 End: 88-48-4049Fwyzejq of Social functionNOMS HealthcareDo you belong to any clubs or organizations such as zoroastrian groups, unions, fraternal or athletic gulshan ups, or school groups?NoNOMS HealthcareAre you now , , , , never or living with a partner?Never marriedNOMS Healthcare How often to you have a drink containing alcohol?NeverNOMS HealthcareStart: 96-32-3768Gno many standard drinks containing alcohol do you have on a typical day?Patient does not drinkNOMS HealthcareHow hard is it for you to pay for the very basics like food, housing, medical care, and heatingNot very hardNOMS HealthcareDo you feel stress - tense, restless, nervous, or anxious, or unable to sleep at night because yourmind is troubled all the time - these days [OSQ]To some extentNOMS Healthcare(I/We) worried whether (my/our) food would run out before (I/we) got money to buy more.Never trueNOMS HealthcareStart: 01-17-2024 Alcohol Commentcaffine: soda 1 dailyNOMS HealthcareStart: 81-03-6008Thv assigned at birthNot on fileNOMS HealthcareDo you feel stress - tense, restless, nervous, or anxious, or unable to sleep at night because yourmind is troubled all the time - these days [OSQ]Only a littleNOMS HealthcareSexFemale (finding) [facility] Medical Equipment Procedure CodeEquipment CodeEquipment Original TextEquipment IdentifierDates1 each by Other route [id number]: 12-10-2024 End: each [id number]: 02-17-2025 End: 05-28-2025 Functional Status [id number] score [AUDIT-C]0 03/10/2025 1:37 PM EDT Darin CarcamoNOAK [id number] often do you have a drink containing alcohol?Never 03/10/2025 1:37 PM EDT Mychart, Generic NeverNOMS [id number] statusPatient does not drink 03/10/2025 1:37 PM EDT Mychart, Generic Patient does not drinkNOMS [id number] often do you have 6 or more drinks on 1 occasion?Never 03/10/2025 1:37 PM EDT Mychart, Generic NeverNOAK [facility] Clinical Notes 12-23-2020 to 03-11-2025 Note Date & [id number] History of Present illness Narrative* Michelle Marks NP - 03/11/2025 9:31 AM EDTAssociated Problem(s): Subjective tinnitus, right Likely related to loud fire alarm, is getting better Will monitor for now * CHERELLE SADLER - 03/11/2025 9:00 AM EDT Right ear-pain/ringing at times 120-130 as fasting Pt states her glucose would drop to 60 during dinner at work- pt stopped taking farxiga Pt stopped ozempic due to continue stomach pain * Michelle Marks NP - 03/11/2025 9:00 AM EDT Images from the original note were not included. Jase Loja is a 25 y.o. 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 So she stopped taking the farxiga as well as metformin am dose, but still happening, however not as often Ringing in right ear, noted after a fire drill at work, it was loud, started the next day, does report it is getting better Diabetes She presents for her follow-up diabetic visit. She has type 2 diabetes mellitus. Her disease coursehas been fluctuating. Hypoglycemia symptoms include dizziness. Pertinent negatives for hypoglycemiainclude no headaches, nervousness/anxiousness, seizures or tremors. (Vision changes) Associated symp toms include foot paresthesias. Pertinent negatives for diabetes include no chest pain, no polydipsia, no polyphagia and no polyuria. There are no hypoglycemic complications. Pertinent negatives for diabetic complications include no nephropathy, peripheral neuropathy or PVD. Risk factors for coronary artery disease include diabetes mellitus, dyslipidemia, hypertension and obesity. Current diabetic treatment includes oral agent (dual therapy). Her weight is decreasing steadily. She has not had aprevious visit with a dietitian. She participates in exercise three times a week. Her overall bloodglucose range is 110-130 mg/dl. An LON inhibitor/angiotensin II receptor sravani is being taken. She does not see a box stamper.Eye exam is current. Hypertension This is a chronic problem. The current episode started more than 1 year ago. The problem is unchanged. The problem is controlled. Pertinent negatives include no chest pain, headaches, orthopnea, palpitations, peripheral edema or shortness of breath. There are no associated agents to hypertension. Risk factors for coronary artery disease include diabetes mellitus, dyslipidemia and obesity. Past treatments include LON inhibitors. The current treatment provides significant improvement. There are no compliance problems. There is no history of CAD/MA, heart failure or PVD. SUBJECTIVE: MEDICATIONS: Current Outpatient Medications Medication Instructions atorvastatin (LIPITOR) 80 mg, Oral, Nightly Blood Glucose Monitoring Suppl (Blood Glucose Monitor System) w/Device kit Use daily or as directedfor monitoring of diabetes. CVS D3 125 MCG (5000 UT) capsule TAKE 1 CAPSULE (125 MCG) BY MOUTH DAILY [facility] Vitamin B12 1,000 mcg, Daily dapagliflozin (FARXIGA) 5 mg, Oral, Daily escitalopram (LEXAPRO) 20 mg, Oral, Daily fenofibrate (TRICOR) 145 mg, Oral, Daily Glucose Blood (Blood Glucose Test) strip 1 each, Other, Daily Lancets 30G misc 1 each, Does not apply, Daily lisinopril 20 mg, Oral, Every morning metFORMIN (GLUCOPHAGE) 1,000 mg, Oral, 2 times daily with meals Ozempic (1 MG/DOSE) 1 mg, Subcutaneous, Every 7 days ALLERGIES: No Known Allergies REVIEW OF SYMPTOMS: Review of Systems Constitutional: Negative for appetite change, chills and fever. HENT: Positive for tinnitus. Negative for congestion, ear pain and sore throat. Eyes: Negative for pain, discharge, redness and visual disturbance. Respiratory: Negative for cough, shortness of breath and wheezing. Cardiovascular: Negative for chest pain, palpitations, orthopnea and leg swelling. Gastrointestinal: Negative for abdominal pain, blood in stool, constipation, diarrhea, nausea and vomiting. Genitourinary: Negative for difficulty urinating, dysuria and frequency. Musculoskeletal: Negative for arthralgias, back pain, joint swelling and myalgias. Skin: Negative for rash and wound. Neurological: Positive for dizziness. Negative for tremors, seizures, syncope and headaches. Psychiatric/Behavioral: Negative for behavioral problems, self-injury and suicidal ideas. The patient is not nervous/anxious. Hematological: Does not bruise/bleed easily. Endocrine: Negative for polydipsia, polyphagia and polyuria. Allergic/Immunologic: Negative for environmental allergies and food allergies. PAST MEDICAL HISTORY Past Medical History: Diagnosis Date Achilles tendon contracture, right Acid reflux 01/02/2024 Acquired plantar flexion deformity of forefoot Anxiety and depression ([facility]/HCC) Anxiety, generalized ([facility]) Arthritis of foot Equinus contracture of right ankle Fatigue Flatfoot Forefoot varus, acquired, right Heartburn Hyperlipidemia ([facility]) Hypertension ([facility]/HCC) 01/02/2024 Migraine ([facility]/HCC) Pharyngitis 11/19/2023 Posterior tibial tendonitis, right Right foot pain Spring ligament tear, right, sequela Type 2 diabetes mellitus ([facility]) 01/02/2024 Valgus foot, right Varus foot deformity, acquired, right No past surgical history on file. family history is not on file. OBJECTIVE: Visit Vitals BP 118/82 (BP Location: Left arm, Patient Position: Sitting, BP Cuff Size: Adult long) Pulse 90 Temp 98.5 F (Temporal) Wt 214 lb SpO2 98% BMI 34.54 kg/m Smoking Status Never BSA 2.13 m Physical Exam Vitals and nursing note reviewed. Constitutional: General: She is not in acute distress. Appearance: Normal appearance. HENT: Head: Normocephalic and atraumatic. Right Ear: Tympanic membrane, ear canal and external ear normal. Left Ear: Tympanic membrane, ear canal and external ear normal. Nose: Nose normal. No congestion or rhinorrhea. Mouth/Throat: Mouth: Mucous membranes are moist. Pharynx: No oropharyngeal exudate or posterior oropharyngeal erythema. Eyes: Extraocular Movements: Extraocular movements intact. Conjunctiva/sclera: [...] No edema. Left lower leg: No edema. Skin: General: Skin is warm and dry. [...] risk factor modification Essential (primary) hypertension (CMS/HCC) - Primary Please check blood pressure daily and record DASH diet Limit caffeine Take medication as directed Contact office if chest pain, pressure, dizziness, shortness of breath, swelling legs Recommend slow position changes Current meds: lisinopril Relevant Medications lisinopril 20 MG tablet RESOLVED: Type 2 diabetes mellitus Relevant Medications dapagliflozin (Farxiga) 5 MG Morbid (severe) obesity due to excess calories (CMS/HCC) Discussed with patient their BMI (actual, verses recommended). We have also discussed lifestyle modifications: attempts to perform physical activity as chronic conditions allow, also to monitor dietary intake: increasing protein/fruits/veggies and lowering carb intake (unless contraindicated). Limit sodas, juices, and sugary drinks. Is prescribed ozempic, quit this about 2 weeks ago d/t GI side effects Type 2 diabetes mellitus with other specified complication Does have HTN, and HLD Type 2 diabetes mellitus, without long-term current use of insulin ([facility]) Check blood sugars daily, notify if <70 or >200. Take medications (pills or insulin) as directed. Monitor for s/s of hypoglycemia (sweaty, dizziness, nausea, vomiting, or shakiness). Watch for increase in thirst, urination, or appetite. Inspect feet frequently monitoring for open wounds , andalso recommend yearly eye exam. Pt should attempt to remain as physically active as chronic conditions allow, as well as trying to follow a diet low in carbohydrates, and simple sugars. Current meds; statin, farxiga, metformin, lon, A1c: 6.3 % on 12/27/24 Change up metformin in morning, then met/farxiga in the evening Recommend increase in protein in meals, dissucssed options If continues with drops despite this, call office RESOLVED: Antibiotic-induced tinnitus of right ear Subjective tinnitus, right Likely related to loud fire alarm, is getting better Will monitor for now Other Visit Diagnoses Primary hypertension ([facility]) Relevant Medications lisinopril 20 MG tablet * Michelle Marks NP - 03/11/2025 6:22 AM EDTAssociated Problem(s): Mixed hyperlipidemia ([facility]) Currently taking atorvastatin 80mg daily Is compliant with dosing Check labs yearly and prn dose changes Aggressive risk factor modification * Michelle Marks NP - 03/11/2025 6:22 AM EDTAssociated Problem(s): Type 2 diabetes mellitus, without long-term current use of insulin ([facility]) Check blood sugars daily, notify if <70 or >200. Take medications (pills or insulin) as directed. Monitor for s/s of hypoglycemia (sweaty, dizziness, nausea, vomiting, or shakiness). Watch for increase in thirst, urination, or appetite. Inspect feet frequently monitoring for open wounds , andalso recommend yearly eye exam. Pt should attempt to remain as physically active as chronic conditions allow, as well as trying to follow a diet low in carbohydrates, and simple sugars. Current meds; statin, farxiga, metformin, lon, A1c: 6.3 % on 12/27/24 Change up metformin in morning, then met/farxiga in the evening Recommend increase in protein in meals, dissucssed options If continues with drops despite this, call office * Michelle Marks NP - 03/11/2025 6:20 AM EDTAssociated Problem(s): Type 2 diabetes mellitus with other specified complication Does have HTN, and HLD * Michelle Marks NP - 03/11/2025 6:19 AM EDTAssociated Problem(s): Morbid (severe) obesity due to excess [...] 2 weeks ago d/t GI side effects * Michelle Marks NP - 03/11/2025 6:19 AM EDTAssociated Problem(s): Essential (primary) hypertension (CMS/HCC) Please check blood pressure daily and record DASH diet Limit caffeine Take medication as directed Contact office if chest pain, pressure, dizziness, shortness of breath, swelling legs Recommend slow position changes Current meds: lisinopril documented in this [facility]05-21-2025 Instructions* Patient Instructions* Michelle Marks NP - 03/11/2025 9:00 AM EDT Try to increase protein to see if this helps with preventing low blood sugars documented in this [facility]04-30-2025 Telephone encounter Note* Telephone Encounter - Michelle Marks NP - 02/18/2025 12:38 PM EDT Please contact pt pt, her trigs are coming down now 294, prior was 341, we started at 405. However we still are trying to get to about 150. I would like to add another cholesterol pill in addition tothe atorvastatin Fenofibrate 145mg daily in addition to her Atorvastatin 80mg Then check labs in 8 weeks. Keep her fu appt with me in February as well [place] [facility] [id number] Miscellaneous Notes* Telephone Encounter - Michelle Marks NP - 02/18/2025 12:38 PM EDT Please contact pt pt, her trigs are coming down now 294, prior was 341, we started at 405. However we still are trying to get to about 150. I would like to add another cholesterol pill in addition tothe atorvastatin Fenofibrate 145mg daily in addition to her Atorvastatin 80mg Then check labs in 8 weeks. Keep her fu appt with me in February as well [place] documented in this [facility]04-28-2025 Telephone encounter Note* Telephone Encounter - Estela Ascencio - 02/16/2025 3:18 PM EDT Patient called and asked for a script for Lancets. She has the Accu-chek guide me glucose monitor. an [id number] Miscellaneous Notes* Telephone Encounter - Estela Ascencio - 02/16/2025 3:18 PM EDT Patient called and asked for a script for Lancets. She has the Accu-chek guide me glucose monitor. an documented in this encounterResearch Medical [id number] History of Present illness Narrative* Michelle Marks NP - 12/10/2024 10:24 AM ESTAssociated Problem(s): Vitamin deficiency Check b12, D, ferritin and iron * Michelle Marks NP - 12/10/2024 10:23 AM ESTAssociated Problem(s): Pain in both lower extremities Possible neuropathy and or RLS Will check labs Consider some gabapentin * Michelle Marks NP - 12/10/2024 9:40 AM EST Images from the original note were not included. Jase Loja is a 24 y.o. female presents [...] negatives include no blurred vision, chest pain, headaches,palpitations, peripheral edema or shortness of breath. There [...] has type 2 diabetes mellitus. Her disease coursehas been improving. There are no hypoglycemic associated [...] sravani is being taken. She sees a box stamper.Eye exam is current. Leg Pain Incident onset: years. Injury mechanism: hx of surgeries on feet. The pain is present in the left leg and right leg. The quality of the pain is described as aching and cramping. The pain is moderate.The pain has been Intermittent since onset. She [...] flexion deformity of forefoot Anxiety and depression ([facility]) Anxiety, generalized ([facility]) Arthritis of foot Equinus contracture of right ankle Fatigue Flatfoot Forefoot varus, acquired, right Heartburn Hyperlipidemia ([facility]/HCC) Hypertension ([facility]/HCC) 01/02/2024 Migraine ([facility]) Pharyngitis 11/19/2023 Posterior tibial tendonitis, right Right foot pain Spring ligament tear, right, sequela Type 2 diabetes mellitus ([facility]) 01/02/2024 Valgus foot, right Varus foot deformity, [...] feet frequently monitoring for open wounds , andalso recommend yearly eye exam. Pt should attempt [...] Vitamin D 25 hydroxy CBC and differential * Michelle Marks NP - 12/10/2024 6:33 AM ESTAssociated Problem(s): Elevated triglycerides with high cholesterol (CMS/HCC) Recent lipids 12/16: TC 182, Trigs 341, HDL 36 and LDL 78 Is maxed on statin , will add fenofibrate dsoe Limit carb intake, needs to become more physically active * Michelle Marks NP - 12/10/2024 6:32 AM ESTAssociated Problem(s): Mixed hyperlipidemia (CMS/HCC) Currently taking atorvastatin 80mg daily Is compliant with dosing Check labs yearly and prn dose changes Aggressive risk factor modification * Michelle Marks NP - 12/10/2024 6:30 AM ESTAssociated Problem(s): Type 2 diabetes mellitus (CMS/HCC) Check blood sugars daily, notify if <70 or >200. Take medications (pills or insulin) as directed. Monitor for s/s of hypoglycemia (sweaty, dizziness, nausea, vomiting, or shakiness). Watch for increase in thirst, urination, or appetite. Inspect feet frequently monitoring for open wounds , andalso recommend yearly eye exam. Pt should attempt to remain as physically active as chronic conditions allow, as well as trying to follow a diet low in carbohydrates, and simple sugars. Current meds: farxiga, metformin, ozempic, statin Increase ozempic to 1mg weekly A1c 6.5% on 09/19/24 * Michelle Marks NP - 12/10/2024 6:30 AM ESTAssociated Problem(s): Morbid (severe) obesity due to excess [...] her diabetes, but wait has gone up * Michelle Marks NP - 12/10/2024 6:29 AM ESTAssociated Problem(s): Essential (primary) hypertension (CMS/HCC) Please check blood pressure daily and record DASH diet Limit caffeine Take medication as directed Contact office if chest pain, pressure, dizziness, shortness of breath, swelling legs Recommend slow position changes Current meds: lisinopril documented in this [facility]02-19-2025 Instructions* Patient Instructions* Michelle Marks NP - 12/10/2024 9:40 AM EST Check labs, wait until 12/20/24 Increase ozempic to 1mg once a week Check blood sugars Cut back carbohydrates, and when gets nicer out exercises documented in this [facility]12-26-2024 Telephone encounter Note* Telephone Encounter - ELDON STALLINGS - 10/16/2024 8:11 AM EST Patient request 90 day supply of ozemic be sent to [facility] [place]. [facility] [id number] Miscellaneous Notes* Telephone Encounter - ELDON STALLINGS - 10/16/2024 8:11 AM EST Patient request 90 day supply of ozemic be sent to [facility] [place]. [facility] documented in this [facility]11-05-2024 History of Present illness Narrative* Michelle Marks NP - 08/26/2024 3:42 PM ESTAssociated Problem(s): Obesity (BMI 30-39.9) Discussed with patient their BMI (actual, verses recommended). We have also discussed lifestyle modifications: attempts to perform physical activity as chronic conditions allow, also to monitor dietary intake: increasing protein/fruits/veggies and lowering carb intake (unless contraindicated). Limit sodas, juices, and sugary drinks. Is doing well with weight loss with GLP 1 * Michelle Marks NP - 08/26/2024 3:41 PM ESTAssociated Problem(s): Mixed hyperlipidemia (CMS/HCC) Continue statin * Michelle Marks NP - 08/26/2024 3:41 PM ESTAssociated Problem(s): Type 2 diabetes mellitus ([facility]) Check blood sugars daily, notify if <70 or >200. Take medications (pills or insulin) as directed. Monitor for s/s of hypoglycemia (sweaty, dizziness, nausea, vomiting, or shakiness). Watch for increase in thirst, urination, or appetite. Inspect feet frequently monitoring for open wounds , andalso recommend yearly eye exam. Pt should attempt to remain as physically active as chronic conditions allow, as well as trying to follow a diet low in carbohydrates, and simple sugars. * Michelle Marks NP - 08/26/2024 3:41 PM ESTAssociated Problem(s): Essential (primary) hypertension ([facility]) Check blood sugars daily, notify if <70 or >200. Take medications (pills or insulin) as directed. Monitor for s/s of hypoglycemia (sweaty, dizziness, nausea, vomiting, or shakiness). Watch for increase in thirst, urination, or appetite. Inspect feet frequently monitoring for open wounds , andalso recommend yearly eye exam. Pt should attempt to remain as physically active as chronic conditions allow, as well as trying to follow a diet low in carbohydrates, and simple sugars. * CHERELLE SADLER - 08/26/2024 3:20 PM EST Left eye 25/20 Right eye 20/20 Both eyes 20/20 * Michelle Marks NP - 08/26/2024 3:20 PM EST Images from the original note were not included. Jase Loja is a 24 y.o. female presents with chief complaint of No chief complaint on file. HPI: Here for a recheck, and also needs a work physical for starting a new job: Visual acuity: bilat eyes 20/20, right eye and left eye each 20/20 Diabetes She presents for her follow-up diabetic visit. She has type 2 diabetes mellitus. Her disease coursehas been stable. There are no hypoglycemic associated [...] obesity and sedentary lifestyle. Current diabetic treatment i ncludes oral agent (monotherapy) (GLP 1). Hypertension This is a chronic problem. The current episode started more than 1 year ago. The problem is unchanged. The problem is controlled. Pertinent negatives include no blurred vision, chest pain, headaches,orthopnea, palpitations, peripheral edema or shortness of breath. There are no associated agents tohypertension. Risk factors for coronary artery disease include diabetes mellitus, dyslipidemia, obesity and sedentary lifestyle. Past treatments include LON inhibitors. The current treatment providessignificant improvement. There are no compliance problems. SUBJECTIVE: [...] flexion deformity of forefoot Anxiety and depression ([facility]) Anxiety, generalized ([facility]) Arthritis of foot Equinus contracture of right ankle Fatigue Flatfoot Forefoot varus, acquired, right Heartburn Hyperlipidemia ([facility]) Hypertension ([facility]) 01/02/2024 Migraine ([facility]) Pharyngitis 11/19/2023 Posterior tibial tendonitis, right Right foot pain Spring ligament tear, right, sequela Type 2 diabetes mellitus ([facility]) 01/02/2024 Valgus foot, right Varus foot deformity, [...] feet frequently monitoring for open wounds , andalso recommend yearly eye exam. Pt should attempt to remain as physically active as chronic conditions allow, as well as trying to follow a diet low in carbohydrates, and simple sugars. Relevant Medications lisinopril 20 MG tablet Type 2 diabetes mellitus (CMS/HCC) - Primary Check blood sugars daily, notify if <70 or >200. Take medications (pills or insulin) as directed. Monitor for s/s of hypoglycemia (sweaty, dizziness, nausea, vomiting, or shakiness). Watch for increase in thirst, urination, or appetite. Inspect feet frequently monitoring for open wounds , andalso recommend yearly eye exam. Pt should attempt to remain as physically active as chronic conditions allow, as well as trying to follow a diet low in carbohydrates, and simple sugars. Relevant Medications dapagliflozin (Farxiga) 5 MG Semaglutide,0.25 or 0.5MG/DOS, (Ozempic, 0.25 or 0.5 MG/DOSE,) 2 MG/3ML solution pen-injector Morbid (severe) obesity due to excess calories (CMS/HCC) Obesity (BMI 30-39.9) Discussed with patient their [...] (Glucophage) 1000 MG tablet documented in this encounterResearch Medical [id number] History of Present illness Narrative* Michelle Marks NP - 07/16/2024 5:23 PM EDTAssociated Problem(s): Acid reflux Recommend she take OTC famotidine every day for GERD symptoms Currently only taking PRN * Michelle Marks NP - 07/16/2024 5:22 PM EDTAssociated Problem(s): Type 2 diabetes mellitus (CMS/HCC) Is having [...] Fu in 2 months for a recheck * CHERELLE SADLER - 07/16/2024 4:30 PM EDT Nausea, no vomiting, stomach ache/pain, diarrhea * Michelle Marks NP - 07/16/2024 4:30 PM EDT Jase Loja is a 24 y.o. female presents with chief complaint of No chief complaint on file. HPI: Diabetes She presents for her follow-up diabetic visit. She has type 2 diabetes mellitus. Her disease coursehas been improving. There are no hypoglycemic associated [...] being taken. She does not see a box stamper.Eye exam is current. SUBJECTIVE: MEDICATIONS: Current Outpatient [...] flexion deformity of forefoot Anxiety and depression ([facility]) Anxiety, generalized ([facility]) Arthritis of foot Equinus contracture of right ankle Fatigue Flatfoot Forefoot varus, acquired, right Heartburn Hyperlipidemia ([facility]/HCC) Hypertension ([facility]/HCC) 01/02/2024 Migraine ([facility]) Pharyngitis 11/19/2023 Posterior tibial tendonitis, right Right foot pain Spring ligament tear, right, sequela Type 2 diabetes mellitus ([facility]) 01/02/2024 Valgus foot, right Varus foot deformity, [...] to excess calories (CMS/HCC) documented in this encounterResearch [facility] [id number] Evaluation note* Encounter Date Diagnosis Assessment Notes Treatment Notes Treatment Clinical Notes Mar, Anxiety disorder, unspecified (I CD-10 - F41.9) Discussed meds and counseling Mar,epression, unspecified (ICD-10 - F32.A)as above Mar,Musculoskeletal chest pain (ICD-10 - R07.89)suggested chiropractor, PT and muscle relaxers as able [facility] Other 05-08-2023 Evaluation note* Encounter Date Diagnosis Assessment Notes Treatment Notes Treatment Clinical Notes February, Left cervical radiculopathy (ICD -10 - M54.12) Recommended OTC NSAIDS, muscle rub and stretching. February,cute non-recurrent maxillary sinusitis (ICD-10 - J01.00)Sinus infections can be triggered by a secondary infection from a viral URI or even seasonal allergies. Take medications as directed. Use saline nasal spray prior to presciption nasal spray. Take medications as directed, and complete all doses of medication even if you start to feel better. Patientadvised to follow up with PCP if symptoms persist or worsen. Patient verbalized understanding and ag reement with treatment plan. [facility] Other 12-16-2021 NotePROCEDURE: XR FOOT RT MIN [...] Electronically authenticated by: LANCE VASQUEZ Date: 2021-10-06 10:52[facility]08-11-2021 NotePROCEDURE: XR FOOT RT MIN 3 [...] Electronically authenticated by: ANGIE MURRAY Date: 2021-06-01 13:56[facility]05-12-2021 NotePROCEDURE: XR FOOT RT MIN 3 [...] authenticated by: ANGIE MURRAY Date: 2021-03-02 10:34[id number] NotePROCEDURE: XR FOOT RT MIN 3 VIEWS [...] authenticated by: ANGIE MURRAY Date: 2021-01-26 15:44[id number] NotePROCEDURE: XR FOOT RT MIN 3 VIEWS [...] Electronically authenticated by: ANGIE MURRAY Date: 2021-01-05 12:43[facility]03-04-2021 NotePROCEDURE: XR FOOT RT MIN 3 VIEWS [...] authenticated by: ANGIE MURRAY Date: 2020-12-23 14:48[facility] noteNo assessment information [facility] Work Phone: Evaluation noteNo InformationNort Launch[employer] Other Evaluation note* Diagnosis Type 2 diabetes [...] of insulin (CMS/HCC) documented in this encounter [facility] HealthcareEvaluation note* Diagnosis Type 2 diabetes [...] without complications (CMS/HCC) documented in this encounter [facility] HealthcareEvaluation note* Diagnosis Type 2 diabetes mellitus [...] Primary Mixed hyperlipidemia documented in this encounter [facility] HealthcareEvaluation note* Diagnosis Primary hypertension (CMS/HCC) Unspecified essential hypertension documented in this encounter [facility] HealthcareEvaluation note* Diagnosis Type 2 diabetes mellitus without complications (CMS/HCC) documented in this encounter [facility] HealthcareEvaluation note* Diagnosis Type 2 diabetes mellitus without complication, without long-term current use of insulin (CMS/HCC) documented in this encounter [facility] HealthcareEvaluation note* Diagnosis Type 2 diabetes mellitus without complication, without long-term current use of insulin (CMS/HCC)- Primary Morbid (severe) obesity due to excess calories (CMS/HCC) Essential (primary) hypertension (CMS/HCC) Unspecified essential hypertension Body mass index (BMI) 35.0-35.9, adult Gastroesophageal reflux disease, unspecified whether esophagitis present documented in this encounter [facility] HealthcareEvaluation note* Diagnosis Type 2 diabetes [...] of insulin (CMS/HCC) documented in this encounter [facility] HealthcareEvaluation note* Diagnosis Type 2 diabetes [...] (CMS/HCC) Mixed hyperlipidemia documented in this encounter [facility] HealthcareEvaluation note* Diagnosis Type 2 diabetes [...] of insulin (CMS/HCC) documented in this encounter [facility] HealthcareEvaluation note* Diagnosis Type 2 diabetes mellitus [...] Primary Mixed hyperlipidemia documented in this encounter [facility] HealthcareEvaluation note* Diagnosis Type 2 diabetes [...] of insulin (CMS/HCC) documented in this encounter [facility] HealthcareEvaluation note* Diagnosis Type 2 diabetes [...] Unspecified vitamin deficiency documented in this encounter [facility] HealthcareEvaluation note* Diagnosis Type 2 diabetes mellitus without complication, without long-term current use of insulin- Primary Chronic generalized abdominal pain Primary hypertension (CMS/HCC) Unspecified essential hypertension Mixed hyperlipidemia (CMS/HCC) Mixed hyperlipidemia Obesity (BMI 30-39.9) Type 2 diabetes mellitus without complication, without long-term current use of insulin- Primary Mixed hyperlipidemia (CMS/HCC) Mixed hyperlipidemia Anxiety disorder, unspecified Anxiety state (CMS/HCC) Anxiety state, unspecified Right foot pain Pain in soft tissues of limb Essential (primary) hypertension (CMS/HCC) Unspecified essential hypertension Type 2 diabetes mellitus without complication, without long-term current use of insulin- Primary Morbid (severe) obesity due to excess calories (CMS/HCC) Essential (primary) hypertension (CMS/HCC) Unspecified essential hypertension Body mass index (BMI) 35.0-35.9, adult Gastroesophageal reflux disease, unspecified whether esophagitis present Type 2 diabetes mellitus without complication, without long-term current use of insulin- Primary Essential (primary) hypertension (CMS/HCC) Unspecified essential hypertension Morbid (severe) obesity due to excess calories (CMS/HCC) Mixed hyperlipidemia (CMS/HCC) Mixed hyperlipidemia Obesity (BMI 30-39.9) Anxiety disorder, unspecified Anxiety state (CMS/HCC) Anxiety state, unspecified Primary hypertension (CMS/HCC) Unspecified essential hypertension Type 2 diabetes mellitus without complications Type 2 diabetes mellitus without complication, without long-term current use of insulin- Primary Morbid (severe) obesity due to excess calories (CMS/HCC) Essential (primary) hypertension (CMS/HCC) Unspecified essential hypertension Body mass index (BMI) 35.0-35.9, adult Elevated triglycerides with high cholesterol (CMS/HCC) Mixed hyperlipidemia Mixed hyperlipidemia (CMS/HCC) Mixed hyperlipidemia Pain in both lower extremities Vitamin deficiency Unspecified vitamin deficiency Vitamin D deficiency Vitamin B12 deficiency Other B-complex deficiencies Iron deficiency Disorders of iron metabolism documented in this encounter [facility] HealthcareEvaluation note* Diagnosis Type 2 diabetes mellitus without complication, without long-term current use of insulin- Primary Chronic generalized abdominal pain Primary hypertension (CMS/HCC) Unspecified essential hypertension Mixed hyperlipidemia (CMS/HCC) Mixed hyperlipidemia Obesity (BMI 30-39.9) Type 2 diabetes mellitus without complication, without long-term current use of insulin- Primary Mixed hyperlipidemia (CMS/HCC) Mixed hyperlipidemia Anxiety disorder, unspecified Anxiety state (CMS/HCC) Anxiety state, unspecified Right foot pain Pain in soft tissues of limb Essential (primary) hypertension (CMS/HCC) Unspecified essential hypertension Type 2 diabetes mellitus without complication, without long-term current use of insulin- Primary Morbid (severe) obesity due to excess calories (CMS/HCC) Essential (primary) hypertension (CMS/HCC) Unspecified essential hypertension Body mass index (BMI) 35.0-35.9, adult Gastroesophageal reflux disease, unspecified whether esophagitis present Type 2 diabetes mellitus without complication, without long-term current use of insulin- Primary Essential (primary) hypertension (CMS/HCC) Unspecified essential hypertension Morbid (severe) obesity due to excess calories (CMS/HCC) Mixed hyperlipidemia (CMS/HCC) Mixed hyperlipidemia Obesity (BMI 30-39.9) Anxiety disorder, unspecified Anxiety state (CMS/HCC) Anxiety state, unspecified Primary hypertension (CMS/HCC) Unspecified essential hypertension Type 2 diabetes mellitus without complications Type 2 diabetes mellitus without complication, without long-term current use of insulin- Primary Morbid (severe) obesity due to excess calories (CMS/HCC) Essential (primary) hypertension (CMS/HCC) Unspecified essential hypertension Body mass index (BMI) 35.0-35.9, adult Elevated triglycerides with high cholesterol (CMS/HCC) Mixed hyperlipidemia Mixed hyperlipidemia (CMS/HCC) Mixed hyperlipidemia Pain in both lower extremities Vitamin deficiency Unspecified vitamin deficiency Type 2 diabetes mellitus without complication, without long-term current use of insulin- Primary documented in this encounter [facility] HealthcareEvaluation note* Diagnosis Type 2 diabetes mellitus without complication, without long-term current use of insulin- Primary Chronic generalized abdominal pain Primary hypertension (CMS/HCC) Unspecified essential hypertension Mixed hyperlipidemia (CMS/HCC) Mixed hyperlipidemia Obesity (BMI 30-39.9) Type 2 diabetes mellitus without complication, without long-term current use of insulin- Primary Mixed hyperlipidemia (CMS/HCC) Mixed hyperlipidemia Anxiety disorder, unspecified Anxiety state (CMS/HCC) Anxiety state, unspecified Right foot pain Pain in soft tissues of limb Essential (primary) hypertension (CMS/HCC) Unspecified essential hypertension Type 2 diabetes mellitus without complication, without long-term current use of insulin- Primary Morbid (severe) obesity due to excess calories (CMS/HCC) Essential (primary) hypertension (CMS/HCC) Unspecified essential hypertension Body mass index (BMI) 35.0-35.9, adult Gastroesophageal reflux disease, unspecified whether esophagitis present Type 2 diabetes mellitus without complication, without long-term current use of insulin- Primary Essential (primary) hypertension (CMS/HCC) Unspecified essential hypertension Morbid (severe) obesity due to excess calories (CMS/HCC) Mixed hyperlipidemia (CMS/HCC) Mixed hyperlipidemia Obesity (BMI 30-39.9) Anxiety disorder, unspecified Anxiety state (CMS/HCC) Anxiety state, unspecified Primary hypertension (CMS/HCC) Unspecified essential hypertension Type 2 diabetes mellitus without complications Type 2 diabetes mellitus without complication, without long-term current use of insulin- Primary Morbid (severe) obesity due to excess calories (CMS/HCC) Essential (primary) hypertension (CMS/HCC) Unspecified essential hypertension Body mass index (BMI) 35.0-35.9, adult Elevated triglycerides with high cholesterol (CMS/HCC) Mixed hyperlipidemia Mixed hyperlipidemia (CMS/HCC) Mixed hyperlipidemia Pain in both lower extremities Vitamin deficiency Unspecified vitamin deficiency Elevated triglycerides with high cholesterol (CMS/HCC)- Primary Mixed hyperlipidemia documented in this encounter [facility] HealthcareEvaluation note* Diagnosis Type 2 diabetes mellitus without complication, without long-term current use of insulin- Primary Chronic generalized abdominal pain Primary hypertension (CMS/HCC) Unspecified essential hypertension Mixed hyperlipidemia (CMS/HCC) Mixed hyperlipidemia Obesity (BMI 30-39.9) Type 2 diabetes mellitus without complication, without long-term current use of insulin- Primary Mixed hyperlipidemia (CMS/HCC) Mixed hyperlipidemia Anxiety disorder, unspecified Anxiety state (CMS/HCC) Anxiety state, unspecified Right foot pain Pain in soft tissues of limb Essential (primary) hypertension (CMS/HCC) Unspecified essential hypertension Type 2 diabetes mellitus without complication, without long-term current use of insulin- Primary Morbid (severe) obesity due to excess calories (CMS/HCC) Essential (primary) hypertension (CMS/HCC) Unspecified essential hypertension Body mass index (BMI) 35.0-35.9, adult Gastroesophageal reflux disease, unspecified whether esophagitis present Type 2 diabetes mellitus without complication, without long-term current use of insulin- Primary Essential (primary) hypertension (CMS/HCC) Unspecified essential hypertension Morbid (severe) obesity due to excess calories (CMS/HCC) Mixed hyperlipidemia (CMS/HCC) Mixed hyperlipidemia Obesity (BMI 30-39.9) Anxiety disorder, unspecified Anxiety state (CMS/HCC) Anxiety state, unspecified Primary hypertension (CMS/HCC) Unspecified essential hypertension Type 2 diabetes mellitus without complications Type 2 diabetes mellitus without complication, without long-term current use of insulin- Primary Morbid (severe) obesity due to excess calories (CMS/HCC) Essential (primary) hypertension (CMS/HCC) Unspecified essential hypertension Body mass index (BMI) 35.0-35.9, adult Elevated triglycerides with high cholesterol (CMS/HCC) Mixed hyperlipidemia Mixed hyperlipidemia (CMS/HCC) Mixed hyperlipidemia Pain in both lower extremities Vitamin deficiency Unspecified vitamin deficiency Elevated triglycerides with high cholesterol (CMS/HCC) Mixed hyperlipidemia Mixed hyperlipidemia (CMS/HCC) Mixed hyperlipidemia documented in this encounter [facility] HealthcareEvaluation note* Diagnosis Type 2 diabetes mellitus without complication, without long-term current use of insulin- Primary Chronic generalized abdominal pain Primary hypertension (CMS/HCC) Unspecified essential hypertension Mixed hyperlipidemia (CMS/HCC) Mixed hyperlipidemia Obesity (BMI 30-39.9) Type 2 diabetes mellitus without complication, without long-term current use of insulin- Primary Mixed hyperlipidemia (CMS/HCC) Mixed hyperlipidemia Anxiety disorder, unspecified Anxiety state (CMS/HCC) Anxiety state, unspecified Right foot pain Pain in soft tissues of limb Essential (primary) hypertension (CMS/HCC) Unspecified essential hypertension Type 2 diabetes mellitus without complication, without long-term current use of insulin- Primary Morbid (severe) obesity due to excess calories (CMS/HCC) Essential (primary) hypertension (CMS/HCC) Unspecified essential hypertension Body mass index (BMI) 35.0-35.9, adult Gastroesophageal reflux disease, unspecified whether esophagitis present Type 2 diabetes mellitus without complication, without long-term current use of insulin- Primary Essential (primary) hypertension (CMS/HCC) Unspecified essential hypertension Morbid (severe) obesity due to excess calories (CMS/HCC) Mixed hyperlipidemia (CMS/HCC) Mixed hyperlipidemia Obesity (BMI 30-39.9) Anxiety disorder, unspecified Anxiety state (CMS/HCC) Anxiety state, unspecified Primary hypertension (CMS/HCC) Unspecified essential hypertension Type 2 diabetes mellitus without complications Type 2 diabetes mellitus without complication, without long-term current use of insulin- Primary Morbid (severe) obesity due to excess calories (CMS/HCC) Essential (primary) hypertension (CMS/HCC) Unspecified essential hypertension Body mass index (BMI) 35.0-35.9, adult Elevated triglycerides with high cholesterol (CMS/HCC) Mixed hyperlipidemia Mixed hyperlipidemia (CMS/HCC) Mixed hyperlipidemia Pain in both lower extremities Vitamin deficiency Unspecified vitamin deficiency Type 2 diabetes mellitus with other specified complication, without long-term current use of insulin- Primary Essential (primary) hypertension (CMS/HCC) Unspecified essential hypertension Morbid (severe) obesity due to excess calories (CMS/HCC) Type 2 diabetes mellitus without complication, without long-term current use of insulin Mixed hyperlipidemia (CMS/HCC) Mixed hyperlipidemia Subjective tinnitus, right Primary hypertension (CMS/HCC) Unspecified essential hypertension documented in this encounter [facility] HealthcareEvaluation note* Diagnosis Type 2 diabetes mellitus without complication, without long-term current use of insulin (HCC)- Primary Chronic generalized abdominal pain Primary hypertension Unspecified essential hypertension Mixed hyperlipidemia Mixed hyperlipidemia Obesity (BMI 30-39.9) Type 2 diabetes mellitus without complication, without long-term current use of insulin (HCC)- Primary Mixed hyperlipidemia Mixed hyperlipidemia Anxiety disorder, unspecified Anxiety state Anxiety state, unspecified Right foot pain Pain in soft tissues of limb Essential (primary) hypertension Unspecified essential hypertension Type 2 diabetes mellitus without complication, without long-term current use of insulin (HCC)- Primary Morbid (severe) obesity due to excess calories (CMS-HCC) Essential (primary) hypertension Unspecified essential hypertension Body mass index (BMI) 35.0-35.9, adult Gastroesophageal reflux disease, unspecified whether esophagitis present Type 2 diabetes mellitus without complication, without long-term current use of insulin (HCC)- Primary Essential (primary) hypertension Unspecified essential hypertension Morbid (severe) obesity due to excess calories (CMS-HCC) Mixed hyperlipidemia Mixed hyperlipidemia Obesity (BMI 30-39.9) Anxiety disorder, unspecified Anxiety state Anxiety state, unspecified Primary hypertension Unspecified essential hypertension Type 2 diabetes mellitus without complications (HCC) Type 2 diabetes mellitus without complication, without long-term current use of insulin (HCC)- Primary Morbid (severe) obesity due to excess calories (CMS-HCC) Essential (primary) hypertension Unspecified essential hypertension Body mass index (BMI) 35.0-35.9, adult Elevated triglycerides with high cholesterol Mixed hyperlipidemia Mixed hyperlipidemia Mixed hyperlipidemia Pain in both lower extremities Vitamin deficiency Unspecified vitamin deficiency Type 2 diabetes mellitus with other specified complication, without long-term current use of insulin (HCC)- Primary Essential (primary) hypertension Unspecified essential hypertension Morbid (severe) obesity due to excess calories (CMS-HCC) Type 2 diabetes mellitus without complication, without long-term current use of insulin (HCC) Mixed hyperlipidemia Mixed hyperlipidemia Subjective tinnitus, right Primary hypertension Unspecified essential hypertension Vitamin D deficiency, unspecified Deficiency of other specified B group vitamins documented in this encounter [facility] HealthcareEvaluation note* Diagnosis Type 2 diabetes mellitus without complication, without long-term current use of insulin (HCC)- Primary Chronic generalized abdominal pain Primary hypertension Unspecified essential hypertension Mixed hyperlipidemia Mixed hyperlipidemia Obesity (BMI 30-39.9) Type 2 diabetes mellitus without complication, without long-term current use of insulin (HCC)- Primary Mixed hyperlipidemia Mixed hyperlipidemia Anxiety disorder, unspecified Anxiety state Anxiety state, unspecified Right foot pain Pain in soft tissues of limb Essential (primary) hypertension Unspecified essential hypertension Type 2 diabetes mellitus without complication, without long-term current use of insulin (HCC)- Primary Morbid (severe) obesity due to excess calories (CMS-HCC) Essential (primary) hypertension Unspecified essential hypertension Body mass index (BMI) 35.0-35.9, adult Gastroesophageal reflux disease, unspecified whether esophagitis present Type 2 diabetes mellitus without complication, without long-term current use of insulin (HCC)- Primary Essential (primary) hypertension Unspecified essential hypertension Morbid (severe) obesity due to excess calories (CMS-HCC) Mixed hyperlipidemia Mixed hyperlipidemia Obesity (BMI 30-39.9) Anxiety disorder, unspecified Anxiety state Anxiety state, unspecified Primary hypertension Unspecified essential hypertension Type 2 diabetes mellitus without complications (HCC) Type 2 diabetes mellitus without complication, without long-term current use of insulin (HCC)- Primary Morbid (severe) obesity due to excess calories (CMS-HCC) Essential (primary) hypertension Unspecified essential hypertension Body mass index (BMI) 35.0-35.9, adult Elevated triglycerides with high cholesterol Mixed hyperlipidemia Mixed hyperlipidemia Mixed hyperlipidemia Pain in both lower extremities Vitamin deficiency Unspecified vitamin deficiency Type 2 diabetes mellitus with other specified complication, without long-term current use of insulin (HCC)- Primary Essential (primary) hypertension Unspecified essential hypertension Morbid (severe) obesity due to excess calories (CMS-HCC) Type 2 diabetes mellitus without complication, without long-term current use of insulin (HCC) Mixed hyperlipidemia Mixed hyperlipidemia Subjective tinnitus, right Primary hypertension Unspecified essential hypertension Elevated triglycerides with high cholesterol Mixed hyperlipidemia documented in this encounter [facility] HealthcareEvaluation note* Diagnosis Type 2 diabetes mellitus without complication, without long-term current use of insulin (HCC)- Primary Chronic generalized abdominal pain Primary hypertension Unspecified essential hypertension Mixed hyperlipidemia Mixed hyperlipidemia Obesity (BMI 30-39.9) Type 2 diabetes mellitus without complication, without long-term current use of insulin (HCC)- Primary Mixed hyperlipidemia Mixed hyperlipidemia Anxiety disorder, unspecified Anxiety state Anxiety state, unspecified Right foot pain Pain in soft tissues of limb Essential (primary) hypertension Unspecified essential hypertension Type 2 diabetes mellitus without complication, without long-term current use of insulin (HCC)- Primary Morbid (severe) obesity due to excess calories (CMS-HCC) Essential (primary) hypertension Unspecified essential hypertension Body mass index (BMI) 35.0-35.9, adult Gastroesophageal reflux disease, unspecified whether esophagitis present Type 2 diabetes mellitus without complication, without long-term current use of insulin (HCC)- Primary Essential (primary) hypertension Unspecified essential hypertension Morbid (severe) obesity due to excess calories (CMS-HCC) Mixed hyperlipidemia Mixed hyperlipidemia Obesity (BMI 30-39.9) Anxiety disorder, unspecified Anxiety state Anxiety state, unspecified Primary hypertension Unspecified essential hypertension Type 2 diabetes mellitus without complications (HCC) Type 2 diabetes mellitus without complication, without long-term current use of insulin (HCC)- Primary Morbid (severe) obesity due to excess calories (CMS-HCC) Essential (primary) hypertension Unspecified essential hypertension Body mass index (BMI) 35.0-35.9, adult Elevated triglycerides with high cholesterol Mixed hyperlipidemia Mixed hyperlipidemia Mixed hyperlipidemia Pain in both lower extremities Vitamin deficiency Unspecified vitamin deficiency Type 2 diabetes mellitus with other specified complication, without long-term current use of insulin (HCC)- Primary Essential (primary) hypertension Unspecified essential hypertension Morbid (severe) obesity due to excess calories ([facility]-HCC) Type 2 diabetes mellitus without complication, without long-term current use of insulin (HCC) Mixed hyperlipidemia Mixed hyperlipidemia Subjective tinnitus, right Primary hypertension Unspecified essential hypertension Type 2 diabetes mellitus without complications (HCC) documented in this encounter [facility] HealthcareEvaluation note* Diagnosis Type 2 diabetes mellitus without complication, without long-term current use of insulin (HCC)- Primary Chronic generalized abdominal pain Primary hypertension Unspecified essential hypertension Mixed hyperlipidemia Mixed hyperlipidemia Obesity (BMI 30-39.9) Type 2 diabetes mellitus without complication, without long-term current use of insulin (HCC)- Primary Mixed hyperlipidemia Mixed hyperlipidemia Anxiety disorder, unspecified Anxiety state Anxiety state, unspecified Right foot pain Pain in soft tissues of limb Essential (primary) hypertension Unspecified essential hypertension Type 2 diabetes mellitus without complication, without long-term current use of insulin (HCC)- Primary Morbid (severe) obesity due to excess calories (CMS-HCC) Essential (primary) hypertension Unspecified essential hypertension Body mass index (BMI) 35.0-35.9, adult Gastroesophageal reflux disease, unspecified whether esophagitis present Type 2 diabetes mellitus without complication, without long-term current use of insulin (HCC)- Primary Essential (primary) hypertension Unspecified essential hypertension Morbid (severe) obesity due to excess calories (CMS-HCC) Mixed hyperlipidemia Mixed hyperlipidemia Obesity (BMI 30-39.9) Anxiety disorder, unspecified Anxiety state Anxiety state, unspecified Primary hypertension Unspecified essential hypertension Type 2 diabetes mellitus without complications (HCC) Type 2 diabetes mellitus without complication, without long-term current use of insulin (HCC)- Primary Morbid (severe) obesity due to excess calories (CMS-HCC) Essential (primary) hypertension Unspecified essential hypertension Body mass index (BMI) 35.0-35.9, adult Elevated triglycerides with high cholesterol Mixed hyperlipidemia Mixed hyperlipidemia Mixed hyperlipidemia Pain in both lower extremities Vitamin deficiency Unspecified vitamin deficiency Type 2 diabetes mellitus with other specified complication, without long-term current use of insulin (HCC)- Primary Essential (primary) hypertension Unspecified essential hypertension Morbid (severe) obesity due to excess calories (CMS-HCC) Type 2 diabetes mellitus without complication, without long-term current use of insulin (HCC) Mixed hyperlipidemia Mixed hyperlipidemia Subjective tinnitus, right Primary hypertension Unspecified essential hypertension Iron deficiency Disorders of iron metabolism documented in this encounter [facility] HealthcareEvaluation note* Diagnosis Onset Date Resolution Status Admit Date Depression with anxiety acuteSeptember 2024 9:48amEssential hypertensionacuteSeptember 2024 9:48amMixed hyperlipidemiaacuteSeptember 2024 9:48amMorbid obesity due to excess caloriesacuteSeptember 2024 9:48amType 2 diabetes mellitus, without long-term current use of insulinacuteSeptember 2024 9:48am [facility] Work Phone: History general Narrative - Reported* Type Description Date Surgical History Problem Title : past surgical history reviewed, Problem Description : past surgical history reviewed, Problem Comment : reviewed - no changes required, Problem Status : Active, Surgical HistoryProblem Title : R foot surgery - Dr. Luevano, Problem Status : Active,Surgical HistoryProblem Title : surgical procedures, hx of, Problem Description : surgical procedures, hx of, Problem Comment : L foot surgery 2016, Problem Status : Active, [facility] Other Reason for referral (narrative)No reason for referral information availableMem[facility] Work Phone: Summary Purpose Family History No Family History Records FoundNo Family History Records FoundNo Family History Records FoundNo Family History Records Found Advance Directives Advance Directive Response Recorded Date/ Time Advance Directives No February 21, 2023 9:15am Chief Complaint and Reason for Visit Chief Complaint Chest pain Chief Complaint Admit Date 3M July 02, 2025 9:48am Reason for Visit Admit Date Depression with anxiety July 02, 2025 9:48am Essential hypertension July 02, 2 025 9:48am Mixed hyperlipidemia July 02 9:48am Morbid obesity due to excess calories Se ptember 2024 9:48am Type 2 diabetes mellitus, wi thout long-term current use of insulin July 02, 2025 9:48am Additional Source Comments INFORMATION SOURCE (unrecogn ized section and content) DATE CREATED AUTHOR 11/11/2018 [facility] DATE CREATED AUTHOR AUTHOR'S ORGANIZ ATION 12/09/2021 [facility] DATE CREATED AUTHOR AUTHOR'S ORGANIZ ATION 06/04/2023 [facility] DATE CREATED AUTHOR AUTHOR'S ORGANIZ ATION 03/17/2025 [facility] EPIC Care Teams (unrecognized sec tion and content) Team Status: Active Member Role Status Dates Mikala Morocho MD Primary Care Provider Active Team Status: Inactive Member Role Status Dates Mikala Morocho MD Primary Care Provider Active Carlton Xiao , APRNEmergency ProviderActiveTeam MemberRelationshipSpecialty Start DateEnd Date Justin Ahmadi MD [address] [place] [address] [facility] - [facility]11/20/23 Michelle Marks NP [address] [place] [address] [facility] Vervqpqo57/1/23Team MemberRelationshipSpecialtyStart DateEnd Date Justin Ahmadi MD [address] [place] [address] PCP - [facility]11/20/23 Michelle Marks NP [address] [place] [address] [facility]07/22/23Team MemberRelationshipSpecialtyStart DateEnd Date Justin Ahmadi MD [address] [place] [address] PCP - [facility] Medicine11/20/23 Michelle Marks NP [address] [place] [address] [facility] Yzriehul23/1/23Team MemberRelationshipSpecialtyStart DateEnd Date Justin Ahmadi MD [address] [place] [address] PCP - Generalmily Medicine11/20/23 Michelle Marks NP [address] [place] [address] [facility]07/22/23Team MemberRelationshipSpecialtyStart DateEnd Date Justin Ahmadi MD [address] [place] [address] PCP - [facility]11/20/23 Michelle Marks NP [address] [place] [address] [facility]07/22/23Team MemberRelationshipSpecialtyStart DateEnd Date Justin Ahmadi MD [address] [place] [address] PCP - [facility]11/20/23 Michelle Marks NP [address] [place] [address] [facility]07/22/23Team MemberRelationshipSpecialtyStart DateEnd Date Justin Ahmadi MD [address] [place] [address] PCP - [facility]11/20/23 Michelle Marks NP [address] [place] [address] [facility]07/22/23Team MemberRelationshipSpecialtyStart DateEnd Date Justin Ahmadi MD [address] [place] [address] PCP - GeneralFamily Medicine11/20/23 Michelle Marks, LORETA [address] [place] [address] [facility] Wfiivndb74/1/23Team MemberRelationshipSpecialtyStart DateEnd Date Justin Ahmadi MD [address] [place] [address] P[facility] - [facility]11/20/23 Michelle Marks NP [address] [place] [address] [facility] Nuexwrdm02/1/23Te MemberRelationshipSpecialtyStart DateEnd Date Justin Ahmadi MD [address] [place] [address] PCP - [facility]11/20/23 Michelle Marks NP [address] [place] [address] [facility] Serrkerc92/1/23Te MemberRelationshipSpecialtyStart DateEnd Date Justin Ahmadi MD [address] [place] [address] PCP - Generalmily Medicine11/20/23 Michelle Marks NP [address] [place] [address] [facility] Qzqxvkld48/1/23Team MemberRelationshipSpecialtyStart DateEnd Date Justin Ahmadi MD [address] [place] [address] PCP - [facility] Medicine11/20/23 Michelle Marks NP [address] [place] [address] [facility]07/22/23Team MemberRelationshipSpecialtyStart DateEnd Date Justin Ahmadi MD [address] [place] [address] PCP - [facility]11/20/23 Michelle Marks NP [address] [place] [address] [facility]07/22/23Team MemberRelationshipSpecialtyStart DateEnd Date Justin Ahmadi MD [address] [place] [address] P[facility] - [facility]11/20/23 Michelle Marks NP [address] [place] [address] [facility] Jlpkrltu27/1/23Team MemberRelationshipSpecialtyStart DateEnd Date Justin Ahmadi MD [address] [place] [address] PCP - GeneralFamily Medicine11/20/23 Michelle Marks NP [address] [place] [address] [facility] Gklogjdk18/1/23Team MemberRelationshipSpecialtyStart DateEnd Date Justin Ahmadi MD [address] [place] [address] PCP - [facility] Medicine11/20/23 Michelle Marks NP [address] [place] [address] [facility] Fyodgwdi59/1/23Team MemberRelationshipSpecialtyStart DateEnd Date Justin Ahmadi MD [address] [place] [address] PCP - Generalmi Medicine11/20/23 Michelle Marks NP [address] [place] [address] [facility] Neopkyog62/1/23Team MemberRelationshipSpecialtyStart DateEnd Date Justin Ahmadi MD [address] [place] [address] PCP - Generalmi Medicine11/20/23 Michelle Marks NP [address] [place] [address] [facility]07/22/23Team MemberRelationshipSpecialtyStart DateEnd Date Justin Ahmadi MD [address] [place] [address] PCP - [facility]11/20/23 Michelle Marks NP [address] [place] [address] Nurse [facility]07/22/23Team MemberRelationshipSpecialtyStart DateEnd Date Justin Ahmadi MD [address] [place] [address] PCP - [facility]11/20/23 Michelle Marks NP [address] [place] [address] Nurse [facility]07/22/23Team MemberRelationshipSpecialtyStart DateEnd Date Justin Ahmadi MD [address] [place] [address] PCP - [facility]11/20/23 Michelle Marks NP [address] [place] [address] Nurse [facility]07/22/23Team MemberRelationshipSpecialtyStart DateEnd Date Justin Ahmadi MD [address] [place] [address] PCP - [facility] Medicine11/20/23 Michelle Marks NP [address] [place] [address] [facility] Kpxjvfje18/1/23Team MemberRelationshipSpecialtyStart DateEnd Date Justin Ahmadi MD [address] [place] [address] PCP - [facility]11/20/23 Michelle Marks NP [address] [place] [address] [facility]07/22/23Team MemberRelationshipSpecialtyStart DateEnd Date Justin Ahmadi MD [address] [place] [address] PCP - [facility]11/20/23 Michelle Marks NP [address] [place] [address] [facility]07/22/23Team MemberRelationshipSpecialtyStart DateEnd Date Justin Ahmadi MD [address] [place] [address] PCP - [facility] Medicine11/20/23 Michelle Marks NP [address] [place] [address] [facility] Dcimmqcg21/1/23Team MemberRelationshipSpecialtyStart DateEnd Date Justin Ahmadi MD [address] [place] [address] PCP - [facility] Medicine11/20/23 Michelle Marks NP [address] [place] [address] [facility]07/22/23Team MemberRelationshipSpecialtyStart DateEnd Date Justin Ahmadi MD [address] [place] [address] PCP - [facility]11/20/23 Michelle Marks, LORETA [address] [place] [address] [facility]07/22/23Team MemberRelationshipSpecialtyStart DateEnd Date Justin Ahmadi MD [address] [place] [address] PCP - [facility]11/20/23 Michelle Marks NP [address] [place] [address] [facility]07/22/23Team MemberRelationshipSpecialtyStart DateEnd Date Justin Ahmadi MD [address] [place] [address] PCP - [facility]11/20/23 Michelle [place] [address] [facility]07/22/23 Team Status: Active Member Role Status Dates ANGELLA Clark Primary Care Provider Active Team Status: Inactive Member Role Status Dates ANGELLA Clark Primary Care Provider Active Start: July 02, 2025 End: July 02, 2025Michelle Marks NP-CAttending ProviderActiveStart: July 02, 2025 End: July 02, 2025Team MemberRelationshipSpecialtyStart DateEnd Date Justin Ahmadi MD PCP - [facility]11/20/23 Michelle Marks NP [facility]07/22/23 Goals (unrecognized section and content) Goals may be documented in a n alternate sectionNo InformationNo InformationNo InformationGoals may be documented in an alternate section REASON FOR VISIT (unrecogniz ed section and content) ReasonCommentsMed RefillReasonCommentsHyperlipidemiaReasonOnset DateCommentsMed Tpjtnf8501/20/2025ReasonCommentsDiabetes FOR RECORDS PERTAINING TO PATIENTS WHO ARE [...] BE BASED ON THE PRIMARY CLINICAL RECORDS. [facility] [employer] [facility]. provides no warranty or guarantee of the accuracy or completeness of information in this document.
--- OUTSIDE RECORDS SUMMARY | 2025-09-19 09:05 | XMS_ITS | Clinical Summary ---
Author Organization [facility] Address [address], [address] [place] [address] Care Team Providers Care Local Area Network Administrator Name Role Phone Kami Rogers DO Primary Care Provider Unavaila ble Allergies No known active allergies Medications No known medications Active Problems ProblemNoted DateDiagnosed DateChronic generalized abdominal pain Family History Medical HistoryRelationNameCommentsDiabetesFatherHigh Blood PressureFatherCancer Maternal GrandfatherHeart DiseaseMaternal GrandfatherHigh Blood PressureMaternal GrandfatherHigh Blood PressureMaternal GrandmotherHeart DiseasePaternal GrandmotherRelationNameStatusCommentsFatherAliveMaternal GrandfatherDeceased Maternal GrandmotherAliveMotherAlivePaternal GrandfatherDeceasedPaternal GrandmotherAlive Social History Tobacco UseTypesPacks/DayYears UsedDateSmoking Tobacco: NeverAlcohol UseStandard Drinks/WeekCommentsNo0 (1 standard drink = 0.6 oz pure alcohol)Comments NoSex and Gender InformationValueDate RecordedSex Assigned at BirthNot on file Legal WsmDikuoq78/07/2015 3:56 PM ESTGender IdentityNot on fileSexual OrientationNot on file Last Filed Vital Signs Vital SignReadingTime TakenCommentsBlood Sgiatbmi639/78011/18/2015 9:15 AM EST Rcgzj8540 9:19 AM MMLBrhqfqrncyo76.5 ??C (97.7 ??F)11/18/2015 9:15 AM ESTRespiratory Gvwq379311/18/2015 9:15 AM ESTOxygen Meibmiakun01%11/18/2015 9:15 AM ESTInhaled Oxygen Concentration--Jvxtsw73.4 kg (203 lb 11.3 oz)01/26/2016 9:19 AM QLNEqawxm485.1 cm (5' 5 )01/26/2016 9:19 AM EDTBody Mass Index33.9 01/26/2016 9:19 AM EDT Plan of Treatment Not on file Insurance Care Teams Team MemberRelationshipSpecialtyStart DateEnd Date Kami Rogers [facility] Nwibnqfr11/7/15
--- OUTSIDE RECORDS SUMMARY | 2025-09-19 09:05 | XMS_ITS | Clinical Summary ---
Author Organization [facility] Address [address] [place] [address] Care Team Providers Care Transportation Specialist Name Role Phone Michelle Marks VP ANCILLARY Unavailable [phone] Justin Ahmadi MD Primary Care Provider [phone] Allergies No known active allergies Medications MedicationSigDispense QuantityRefillsLast FilledStart DateEnd DateStatus escitalopram (Lexapro) 20 MG tablet Indications:Anxiety disorder, unspecified,Anxiety stateTake 1 tablet (20 mg) by mouth Daily 90 tablet 5Active Blood Glucose Monitoring Suppl (Blood Glucose Monitor System) w/Device kit Indications:Type 2 diabetes mellitus without complication, without long-term current use of insulin (HCC)Use daily or as directed for monitoring of diabetes. 1 kit 506Active atorvastatin (Lipitor) 80 MG tablet Indications:Elevated triglycerides with high cholesterol,Mixed hyperlipidemia Take 1 tablet (80 mg) by mouth at bedtime 90 tablet 5Active dapagliflozin (Farxiga) 5 MG Indications:Type 2 diabetes mellitus without complication, without long-term current use of insulin (HCC)Take 1 tablet (5 mg) by mouth Daily 90 tablet 5Active lisinopril 20 MG tablet Indications:Primary hypertensionTake 1 tablet (20 mg) by mouth in the morning. 90 tablet 5Active fenofibrate (Tricor) 145 MG tablet Indications:Elevated triglycerides with high cholesterolTake 1 tablet (145 mg) by mouth Daily 90 tablet 5Active metFORMIN (Glucophage) 1000 MG tablet Indications:Type 2 diabetes mellitus without complications (HCC)Take 1 tablet (1,000 mg) by mouth in the morning and 1 tablet (1,000 mg) in the evening. Take with meals. 180 tablet 5Active Active Problems ProblemNoted DateDiagnosed DateType 2 diabetes mellitus with other specified awsmlliwssma14/21/2025 Assessment & Plan (03/11/2025 6:20 AM EDT): Does have HTN, and HLD Type 2 diabetes mellitus, without long-term current use of bipucxg8503/11/2025 Assessment & Plan (03/11/2025 9:30 AM EDT): [...] drops despite this, call office Subjective tinnitus, right03/11/2025 Assessment & Plan (03/11/2025 9:31 AM EDT): Likely related to loud fire alarm, is getting better Will monitor for now Vitamin D tgmlwczjfe09/10/2025Vitamin B12 ylmnyxylqw43/10/2025Iron deficiency 12/29/2024Pain in both lower iwtpqnwwotz74/19/2025 Assessment & Plan (12/10/2024 10:23 AM EST): Possible neuropathy and or RLS Will check labs Consider some gabapentin Vitamin stqmtbdiyb18/19/2025 Assessment & Plan (12/10/2024 10:24 AM EST): Check b12, D, ferritin and iron Elevated triglycerides with high gopdfbswzkx34/09/2025 Assessment & Plan (12/10/2024 6:33 AM EST): Recent lipids 12/16: TC 182, Trigs 341, HDL 36 and LDL 78 Is maxed on statin , will add fenofibrate dsoe Limit carb intake, needs to become more physically active Morbid (severe) obesity due to excess zndvnucs11/12/2024 Assessment & Plan (03/11/2025 9:29 AM EDT): [...] but wait has gone up Right foot pain06/02/2024ody mass index (BMI) 35.0-35.9, adult01/17/2024hronic generalized abdominal pain01/14/2024ongenital pes vykrgv6901/02/2024Essential (primary) sbibwjujvfvl10/13/2024 Assessment & Plan (03/11/2025 6:19 AM EDT): [...] in med doses at this time Acid hmoeap4401/02/2024 Assessment & Plan (07/16/2024 5:23 PM EDT): Recommend she take OTC famotidine every day for GERD symptoms Currently only taking PRN Mixed /21/2024 Assessment & Plan (03/11/2025 6:22 AM EDT): [...] PM EDT): Continue with statin Resolved Problems ProblemNoted DateDiagnosed DateResolved DateAntibiotic-induced tinnitus of right ear/2025Obesity (BMI 30-39.9)/ Assessment & Plan (08/26/2024 3:42 PM EST): Discussed with patient their BMI (actual, verses recommended). We have also discussed lifestyle modifications: attempts to perform physical activity as chronic conditions allow, also to monitor dietary intake: increasing protein/fruits/veggies and lowering carb intake (unless contraindicated). Limit sodas, juices, and sugary drinks. Is doing well with weight loss with GLP 1 Type 2 diabetes / Assessment & Plan (12/10/2024 10:23 AM EST): [...] simple sugars. Will add farxiga 5mg daily Hkleitftlpt35 Assessment & Plan (11/19/2023 3:03 PM EST): Mother calls in with pt with sore throat, erythematous, swollen glands and ear pain over last 5 days not better, now vomiting today Will send in amox Fu if not better Immunizations ImmunizationAdministration DatesNext DueDTaP, Klqybefldve60/16/2005,05/01/2003, 2000,2000,2000HiB, rcslpwofzlc07/11/2003Hib / Hep B1, 2000,2000IPV01/04/2005,2000,2000,2000Influenza, seasonal, /14/0434EUJ3501/04/2005,03/25/2001Pneumococcal Conjugate PCV 7003/25/2001,2000Tdap06/10/20138385Hgbcrsxat11/04/2001 Social History Tobacco UseTypesPacks/DayYears UsedDateSmoking Tobacco: NeverSmokeless Tobacco: Never Tobacco Cessation:Counseling Given: Not Answered Alcohol UseStandard Drinks/WeekCommentsNever0 (1 standard drink = 0.6 oz pure alcohol)caffine: soda 1 ociebZ6700 Health LiteracyAnswerDate RecordedHow often do you need to have someone help you when you read instructions, pamphlets, or other written material from your doctor or pharmacy?Never03/10/2025Humiliation, Afraid, Rape, and Kick questionnaireAnswerDate RecordedWithin the last year, have you been afraid of your partner or ex-partner?No03/10/2025Within the last year, have you been humiliated or emotionally abused in other ways by your partner or ex-partner?No03/10/2025Within the last year, have you been kicked, hit, slapped, or otherwise physically hurt by your partner or ex-partner?No 03/10/2025Within the last year, have you been raped or forced to have any kind of sexual activity by your partner or ex-partner?03/10/2025Social Connection and Isolation PanelAnswerDate RecordedIn a typical week, how many times do you talk on the phone with family, friends, or neighbors?Never03/10/2025How often do you get together with friends or relatives?Never03/10/2025How often do you attend zoroastrianism or muslim services?Never03/10/2025Do you belong to any clubs or organizations such as zoroastrianism groups, unions, fraternal or athletic groups, or school groups?No03/10/2025How often do you attend meetings of the clubs or organizations you belong to?Never03/10/2025re you , , , , never , or living with a partner?Never krpbner8103/10/2025 AUDIT-CAnswerDate RecordedQ1: How often do you have a drink containing alcohol? Never03/10/2025Q2: How many drinks containing alcohol do you have on a typical day when you are drinking?Patient does not drink03/10/2025Q3: How often do you have six or more drinks on one occasion?Never03/10/2025Overall Financial Resource Strain (CARDIA)AnswerDate RecordedHow hard is it for you to pay for the very basics like food, housing, medical care, and heating?Patient declined 03/10/2025Fin[facility] [place] of Occupational Health - Occupational Stress QuestionnaireAnswerDate RecordedDo you feel stress - tense, restless, nervous, or anxious, or unable to sleep at night because yourmind is troubled all the time - these days?Only a ujwlwz0703/10/2025Exercise Vital SignAnswerDate Recorded On average, how many days per week do you engage in moderate to strenuous exercise (like a brisk walk)?3 days03/10/2025On average, how many minutes do you engage in exercise at this level?30 min03/10/2025Hunger Vital SignAnswerDate RecordedWithin the past 12 months, you worried that your food would run out before you got the money to buymore.Never true03/10/2025Within the past 12 months, the food you bought just didn't last and you didn't have money to get more.Never true03/10/2025PRAPARE - TransportationAnswerDate RecordedIn the past 12 months, has lack of transportation kept you from medical appointments or from getting medications?No03/10/2025In the past 12 months, has lack of transportation kept you from meetings, work, or from getting things needed for daily living?No03/10/2025Housing Stability Vital SignAnswerDate RecordedIn the last 12 months, was there a time when you were not able to pay the mortgage or rent on time?No01/10/2024In the last 12 months, how many places have you lived?1 01/10/2024In the last 12 months, was there a time when you did not have a steady place to sleep or slept in ashelter (including now)?No01/10/2024Housing Stability Vital SignAnswerDate RecordedIn the last 12 months, was there a time when you were not able to pay the mortgage or rent on time?No05/20/2025Number of Times Moved in the Last YearNot on file03/10/2025t any time in the past 12 months, were you homeless or living in a retirement (including now)?No03/10/2025 CommentsUnknownSex and Gender InformationValueDate RecordedSex Assigned at BirthNot on fileLegal AbiNncdue25/15/2023 6:51 PM EDTGender IdentityNot on fileSexual OrientationNot on file Last Filed Vital Signs Vital SignReadingTime TakenCommentsBlood Kbgahdxa369/8203/11/2025 8:55 AM EDT Ppewa776503/11/2025 8:55 AM CBFVnkhhhnzguc79.9 ??C (98.5 ??F)03/11/2025 8:55 AM EDTRespiratory Hbdg740412/10/2024 9:49 AM ESTOxygen Yxpmvnapnr12%03/11/2025 8:55 AM EDTInhaled Oxygen Concentration--Vmqndq87.1 kg (214 lb)03/11/2025 8:55 AM EDT Erbfiy827.6 cm (5' 6 )07/16/2024 4:41 PM EDTBody Mass Index34.5409 4:41 PM EDT Plan of Treatment Not on file Insurance Care Teams Team MemberRelationshipSpecialtyStart DateEnd Date Justin Ahmadi MD PCP - GeneralFamily Medicine11/20/23 Michelle Marks NP [facility]07/22/23
[2025-09-19 09:30] LABS: Hematocrit 39.8 % (36.0-48.0); Hemoglobin 13.1 g/dL (12.0-16.0); Immature Granulocytes Abs Auto 0.05 10^3/uL (0.00-0.03); Immature Granulocytes Pct Auto 0.7 % (0.0-0.5); Lymphocytes Absolute Auto 2.6 10^3/uL (1.2-3.8); Mean Corpuscular HGB Conc 32.9 g/dL (29.9-35.2); Mean Corpuscular Hemoglobin 29.3 pg (26.7-34.0); Mean Corpuscular Volume 89.0 fL (81.0-99.0); Platelet Count 260 10^3/uL (150-450); Red Blood Count 4.47 10^6/uL (4.20-5.40); White Blood Count 7.2 10^3/uL (4.0-11.0)
[2025-09-19 09:51] LABS: Glucose Urine UA >=1000 mg/dL (NEGATIVE)
[2025-09-19 09:57] LABS: Iron 92.0 ug/dL (50.0-170.0); Percent Iron Saturation 18.6 %; Total Iron Binding Capacity 495.0 ug/dL (250.0-450.0)
[2025-09-19 09:59] LABS: Cast Seen? NONE SEEN #/LPF (NONE SEEN); Crystals Seen? None Seen #/HPF (None Seen)
[2025-09-19 11:00] LABS: Ferritin 38.0 ng/mL (8.0-252.0)
[2025-09-19 11:06] LABS: Anion Gap 12.6; Blood Urea Nitrogen 17.0 mg/dL (7.0-18.0); Calcium 9.0 mg/dL (8.5-10.1); Carbon Dioxide 25.6 mmol/L (21.0-32.0); Chloride 101 mmol/L (98-107); Estimated GFR (African America >60 (>=60 mL/min/1.73m^2); Estimated GFR (Non-African Ame >60 (>=60 mL/min/1.73m^2); Glucose 133 mg/dL (74-106); Potassium 4.2 mmol/L (3.5-5.1); Sodium 135 mmol/L (136-145)
[2025-09-19 11:07] LABS: Alanine Aminotransferase 56 U/L (14-59); Albumin Globulin Ratio 1.2; Albumin Level 4.2 g/dL (3.4-5.0); Alkaline Phosphatase 42 U/L (46-116); Aspartate Amino Transferase 20 U/L (15-37); Cholesterol 183 mg/dL (<=200); Globulin 3.5 g/dL; HDL Cholesterol 26 mg/dL (40-60); Total Protein 7.7 g/dL (6.4-8.2); Triglycerides 193 mg/dL (<=150); VLDL CHOLESTEROL 38.6 mg/dL
[2025-09-19 11:08] LABS: Thyroid Stimulating Hormone 2.931 uIU/mL (0.358-3.740)
[2025-09-20 06:44] LABS: Vitamin B12 754 pg/mL (232-1245)
[2025-09-20 07:07] LABS: Transferrin 394 mg/dL (192-364)
== END 2025-09-19 08:59 | disposition home or self-care (01) ==
PROVIDERS: PCP Nurse Practitioner; Visit Provider Nurse Practitioner
DX: F41.8 Other specified anxiety disorders (principal); I10 Essential (primary) hypertension; E61.1 Iron deficiency; E78.2 Mixed hyperlipidemia; E11.9 Type 2 diabetes mellitus without complications; E53.8 Deficiency of other specified B group vitamins
CPT/HCPCS: 36415; 80053; 80061; 81001; 82043; 82306; 82570; 82607; 82728; 83540; 83550; 84439; 84443; 84466; 85025